=== PATIENT | female | born 1955 | race African-American/Black ===

== ENCOUNTER 2016-11-17 05:02 | Emergency (ER) | payer SELFPAY ==
[2016-11-17 05:12] VITALS: BP 139/69
[2016-11-17] MEDS ORDERED: PREDNISONE 20 MG TABLET PO ONE (08:48)
[2016-11-17] MEDS ORDERED: CYCLOBENZAPRINE HCL 10 MG TABLET PO ONE (08:48)
[2016-11-17] MEDS ORDERED: IBUPROFEN 800 MG TABLET PO ONE (08:48)
--- NOTE | 2016-11-17 08:49 | ER Document Report ---
ED General Pain - General Chief Complaint: Low Back Pain Stated Complaint: BACK PAIN Time Seen by Provider: 11/17/16 08:10 Mode of Arrival: Ambulatory Information source: Patient Notes: Patient is a 61-year-old female who presents to the ER today for left-sided back pain radiating down the left leg. She denies any numbness or tingling, back injury. She does state that she has been starting exercise classes here recently that is all inclusive of cardio, weight lifting and she does "a lot more than I am used to." She denies any chronic back pain. She denies any loss of bladder or bowel function. TRAVEL OUTSIDE OF THE [place] IN LAST 30 DAYS: No Past Medical History - General Information source: Patient - Social History Smoking Status: Unknown if Ever Smoked Family History: Reviewed & Not Pertinent Patient has suicidal ideation: No Patient has homicidal ideation: No Renal/ Medical History: Denies: Hx Peritoneal Dialysis Review of Systems - Review of Systems Constitutional: No symptoms reported EENT: No symptoms reported Cardiovascular: No symptoms reported Respiratory: No symptoms reported Gastrointestinal: No symptoms reported Genitourinary: No symptoms reported Female Genitourinary: No symptoms reported Musculoskeletal: See HPI Skin: No symptoms reported Hematologic/Lymphatic: No symptoms reported Neurological/Psychological: No symptoms reported Physical Exam - Vital signs Vitals: Temp Pulse Resp BP Pulse Ox 98.6 F 75 20 139/69 H 98 11/17/16 05:10 11/17/16 05:10 11/17/16 05:10 11/17/16 05:10 11/17/16 05:10 - Notes Notes: PHYSICAL EXAMINATION: GENERAL: Well-appearing and in no acute distress. HEAD: Atraumatic, normocephalic. EYES: Pupils equal round and reactive to light, extraocular movements intact, sclera anicteric, conjunctiva are normal. NECK: Normal range of motion, supple without lymphadenopathy LUNGS: CTAB and equal. No wheezes rales or rhonchi. HEART: Regular rate and rhythm without murmurs ABDOMEN: Soft, no tenderness. No guarding, no rebound BACK: no vertebral tenderness, normal ROM GI/: no CVA tenderness EXTREMITIES: Normal range of motion, no pitting edema. No cyanosis. NEUROLOGICAL: Cranial nerves grossly intact. Normal sensory/motor exams. PSYCH: Normal mood, normal affect. SKIN: Warm, Dry, normal turgor, no rashes or lesions noted Course - Re-evaluation Re-evalutation: 11/17/16 08:50 - Vital Signs Vital signs: Temp Pulse Resp BP Pulse Ox 98.6 F 75 20 139/69 H 98 11/17/16 05:10 11/17/16 05:10 11/17/16 05:10 11/17/16 05:10 11/17/16 05:10 Discharge - Discharge Clinical Impression: Sciatica Qualifiers: Laterality: left Qualified Code(s): M54.32 - Sciatica, left side Condition: Stable Disposition: HOME, SELF-CARE Instructions: Sciatica ([facility]) Additional Instructions: Return immediately for any new or worsening symptoms. Follow up with primary care provider, call tomorrow to make followup appointment. Prescriptions: Cyclobenzaprine HCl [Flexeril 10 mg Tablet] 10 mg PO TIDP PRN #15 tab PRN Reason: Ibuprofen [Motrin 800 mg Tablet] 800 mg PO Q8H PRN #30 tab PRN Reason: Prednisone 60 mg PO DAILY #15 tablet Forms: Return to Work Referrals: VALERIE MAC MD [Primary Care Provider] - Follow up as needed
== END 2016-11-17 09:10 | disposition home or self-care (01) ==
LOC: ER 05:02
DX: M54.42 Lumbago with sciatica, left side (principal)
CPT/HCPCS: 99283; J7512

== ENCOUNTER 2017-05-17 13:47 | Emergency (ER) | payer BC ==
--- NOTE | 2017-05-17 14:47 | ER Document Report ---
ED General - General Chief Complaint: Back Pain Stated Complaint: BACK PAIN Mode of Arrival: Ambulatory TRAVEL OUTSIDE OF THE [place] IN LAST 30 DAYS: No - HPI Notes: 7-year-old female presents today with complaints of acute lower back pain 1 day, but has had "nagging back pain for the last 2 weeks". Patient states she slipped while she was walking on the ice last week, denies falling. Denies any numbness or tingling down bilateral lower extremities. LBP 5/10, throbbing and achy. denies issues with bowel or bladder function since onset of pain. Tried motrin for pain without full relief. Worse when bending over, better when laying down. Pain is progressive. Denies any trauma. Denies any fevers or chills. Denies any cp, sob, n/v/d, abd pain, dysuria and hematuria. Saw her PCP for this issue last week, states she had a Pap smear done, provider thinks that she has a "tilted uterus". Patient goes back to PCP in 3 days for reevaluation. - Related Data Allergies/Adverse Reactions: No Known Allergies Allergy (Unverified 05/17/17 13:49) Past Medical History - General Information source: Patient - Social History Smoking Status: Unknown if Ever Smoked Family History: None, Reviewed & Not Pertinent Renal/ Medical History: Denies: Hx Peritoneal Dialysis Review of Systems - Review of Systems Constitutional: No symptoms reported EENT: No symptoms reported Cardiovascular: No symptoms reported Respiratory: No symptoms reported Gastrointestinal: No symptoms reported Genitourinary: No symptoms reported Female Genitourinary: No symptoms reported Musculoskeletal: See HPI Skin: No symptoms reported Hematologic/Lymphatic: No symptoms reported Neurological/Psychological: No symptoms reported Physical Exam - Vital signs Vitals: Temp Pulse Resp BP Pulse Ox 98.2 F 85 14 137/71 H 99 05/17/17 13:50 05/17/17 13:50 05/17/17 13:50 05/17/17 13:50 05/17/17 13:50 - Notes Notes: PHYSICAL EXAMINATION: GENERAL: Well-appearing, well-nourished and in no acute distress. HEAD: Atraumatic, normocephalic. EYES: Pupils equal round and reactive to light, extraocular movements intact, conjunctiva are normal. ENT: Nares patent, oropharynx clear without exudates. Moist mucous membranes. NECK: Normal range of motion, supple without lymphadenopathy LUNGS: Breath sounds clear to auscultation bilaterally and equal. No wheezes rales or rhonchi. HEART: Regular rate and rhythm without murmurs ABDOMEN: Soft, nontender, nondistended abdomen. No guarding, no rebound. No masses appreciated. Female : deferred Musculoskeletal: Normal range of motion, no pitting or edema. No cyanosis. straight leg test negative. Pain with flexion and extension at 30 degrees. Normal hip rotation. DTR +2 in BLE equally. Normal motor and sensory function in BLE equally. Distal pulses + 2 BLE equally. Noted paraspinal tenderness near L2 and L3. No spinal tenderness. No CVA tenderness bilaterally. Femoral pulses + 2 bilaterally and equally. No abrasions, scars, lacerations, ecchymosis of any recent trauma. NEUROLOGICAL: Cranial nerves grossly intact. Normal speech, normal gait. Normal sensory, motor exams PSYCH: Normal mood, normal affect. SKIN: Warm, Dry, normal turgor, no rashes or lesions noted. Course - Re-evaluation Re-evalutation: Rechecked the patient who is resting comfortably. On re-exam, patient is symptomatically improved. Discussed the results of the radiology as well as the diagnosis at great length. LS spine completely negative for any acute fractures or dislocations. Noted DJD and antherolisthesis. Will refer patient to procurement specialist. Discussed the need to return to the ER for any new or worsening sx. Patient understands to take the Rx as directed. All questions answered. Patient comfortable with the decision to go home. 05/17/17 16:21 - Vital Signs Vital signs: Temp Pulse Resp BP Pulse Ox 98.2 F 85 14 137/71 H 99 05/17/17 13:50 05/17/17 13:50 05/17/17 13:50 05/17/17 13:50 05/17/17 13:50 Discharge - Discharge Clinical Impression: Acute bilateral low back pain Qualifiers: Sciatica presence: without sciatica Qualified Code(s): M54.5 - Low back pain Condition: Good Disposition: HOME, SELF-CARE Instructions: Low Back Pain ([facility]), Muscle Strain ([facility]) Additional Instructions: LOW BACK PAIN: Three out of every four people will have an episode of disabling back pain during their lifetime. Most commonly the pain is due to straining of the muscles and ligaments in the low back. Usual treatment includes: (1) Rest on a firm surface. Avoid lying on your stomach. (2) Ice pack the painful area. After a few days, gentle heat may be used intermittently to relax the area, or ice packs can be continued. (3) Medication may be needed -- muscle relaxers and antiinflammatory medicines are commonly used. (4) As the back improves, exercises are prescribed to strengthen the back and abdominal muscles. Your doctor will advise you on the proper care for your back at each stage in your recovery. You may be better in a few days -- or healing may take several weeks. If new symptoms of a "herniated disc" (radiation of pain, numbness, or tingling down the back of the leg or weakness in the leg) occur, you should be re-examined. Further testing may be necessary. PAIN MEDICATION INJECTION: You have received an injection of a pain medication. You should experience significant pain relief within 45 minutes. If this injection was a narcotic -- it will impair your judgement, slow your reaction time and make you sleepy (as well as relieve your pain). Narcotics also can cause nausea. You should not drive, work with machinery, or perform any task requiring mental alertness until all effects of the medication are gone -- six to eight hours. Do not take any alcohol, or sedatives, and do not take any other medication without checking with your physician. MUSCLE RELAXERS: Muscle relaxing medications are usually prescribed for acute muscle spasm or injury to the neck and back. They are often combined with antiinflammatory pain medication for increased relief. You may stop the muscle relaxer when the pain and stiffness have improved. Start the medication again if spasms recur. Muscle relaxers may cause drowsiness, especially with the first dose. Do not operate machinery or drive while under the effects of the medication. Most muscle relaxers last up to 24 hours. Do not combine the medication with alcohol. ICE PACKS: Apply ice packs frequently against the painful area. Many different schedules are recommended, such as "20 minutes on, 20 minutes off" or "one hour ice, two hours rest." If you need to work, you may need to go longer between ice treatments. You should plan to have the area ice packed AT LEAST one fourth of the time. The ice should be applied over the wrap, tape, or splint, or over a layer of cloth -- not directly against the skin. Some ice bags have a built-in cloth and can be put directly on the skin. WARM PACKS: After approximately two days, apply gentle heat (such as a heating pad or hot water bottle) for about 20 to 30 minutes about every two hours -- at least four times daily. Warmth and elevation will help you make a more rapid recovery , and will ease the pain considerably. Do not use HOT heat, and never apply heat for longer than 30 minutes. The continuous heat can invisibly damage skin and muscles -- even when no burn is seen on the surface. Damaged muscles can make you MORE sore. Stretching Exercises for the Back The physician has recommended that you begin stretching exercises for your back. These are often used even while the back is painful. However, you should notify the physician if the activities seem to increase your pain. PELVIC TILT: Lie flat on your back with knees bent. Tighten your stomach and buttock muscles so it flattens your lower back against the floor. Hold 10 seconds. Repeat 10 times, twice daily. KNEE RAISE: Lying on the back with knees bent, raise one knee to your chest, then the other. Hold both knees against the chest 10 seconds, then lower one knee at a time. Repeat 10 times, twice daily. PARTIAL TRUNK RAISE: Lie face down, arms at your sides. Keeping your waist on the floor, use your arms raise your chest up. Support yourself on your elbows for 30 seconds. Repeat twice daily, increasing the time to two minutes as you recover. FOLLOW-UP CARE: If you have been referred to a physician for follow-up care, call the physician s office for an appointment as you were instructed or within the next two days. If you experience worsening or a significant change in your symptoms, notify the physician immediately or return to the Emergency Department at any time for re-evaluation.*You have been evaluated for back pain *Take medication as prescribed *Rest/Ice- heat as directed *Follow up with a primary care provider *Return to ED for worsening condition, changes, needs Discharge Prescriptions: Cyclobenzaprine HCl [Flexeril 10 mg Tablet] 10 mg PO TIDP PRN #9 tab PRN Reason: Meloxicam 7.5 mg PO DAILY #7 tablet Referrals: VALERIE MAC MD [Primary Care Provider] - Follow up in 3-5 days LIBERTAD RIOS DO [ACTIVE STAFF] - Follow up in 3-5 days
[2017-05-17] MEDS ORDERED: KETOROLAC TROMETHAMINE 60 MG/2 ML SDV IM PRN (15:33)
--- NOTE | 2017-05-17 16:14 | RADIOLOGY REPORT (SQ) ---
EXAM DESCRIPTION: L SPINE WHOLE COMPLETED DATE/TIME: 05/17/2017 3:59 pm REASON FOR STUDY: Acute LBP COMPARISON: Chest radiograph from 07/01/2007. NUMBER OF VIEWS: Three views. TECHNIQUE: Vertebrae heights otherwise well maintained. AP, lateral and sacral radiographic images acquired of the lumbar spine. LIMITATIONS: None. FINDINGS: MINERALIZATION: Normal. SEGMENTATION: Normal. No transitional anatomy. ALIGNMENT: Minimal anterolisthesis of L5 on S1. Alignment is otherwise normal. VERTEBRAE: Mild anterior wedging of the T12 vertebral body which appears to be chronic pole was not p resent in 2007. DISCS: Mild multilevel degenerative disc disease. POSTERIOR ELEMENTS: Mild facet arthropathy. Pedicles and facets are intact. No pars defect or poste rior arch defects. HARDWARE: None in the spine. PARASPINAL SOFT TISSUES: Normal. PELVIS: Intact as visualized. No fractures or worrisome bone lesions. SI joints intact. OTHER: No other significant finding. IMPRESSION: MILD DEGENERATIVE CHANGE OF THE LUMBAR SPINE WITH GRADE 1 ANTEROLISTHESIS L5 ON S1 IN TH E SETTING OF FACET ARTHROPATHY. CHRONIC APPEARING MILD ANTERIOR WEDGE DEFORMITY OF THE T12 VERTEBRAL BODY WAS NOT PRESENT IN 2007. CORRELATE WITH LEVEL OF PAIN. NO ACUTE FRACTURE IDENTIFIED. TECHNICAL DOCUMENTATION: JOB ID: [id number] [employer]- All Rights Reserved
[2017-05-17 16:35] VITALS: BP 133/73
== END 2017-05-17 16:35 | disposition home or self-care (01) ==
LOC: ER 13:47
DX: M54.5 Low back pain (principal); W18.49XA Other slipping, tripping and stumbling without falling, initial encounter; M47.9 Spondylosis, unspecified
CPT/HCPCS: 99283; 96372; 72110; J1885

== ENCOUNTER 2017-07-02 17:42 | Emergency (ER) | payer BC ==
[2017-07-02] MEDS ORDERED: LIDOCAINE 5% (700 MG) TRANSDERMAL ADH..PATCH TP ONE (19:36)
[2017-07-02] MEDS ORDERED: OXYCODONE-ACETAMINOPHEN 5-325 MG TABLET PO ONE (19:36)
--- NOTE | 2017-07-02 19:45 | ER Document Report ---
HPI - HPI Patient complains to provider of: low back pain Onset: Yesterday Onset/Duration: Gradual Quality of pain: Achy Pain Level: 3 Context: Patient complains of right lower back pain that has been off and on that got worse today. Patient denies any urinary symptoms or fever. Patient denies any abdominal tenderness. Patient denies any radiculopathy or paresthesia. Patient has seen her doctor for this in the past and was prescribed Motrin. Associated Symptoms: Other - Low back pain. denies: Fever Exacerbated by: Movement Relieved by: Denies Similar symptoms previously: Yes Recently seen / treated by doctor: No - ROS ROS below otherwise negative: Yes Systems Reviewed and Negative: Yes All other systems reviewed and negative - CONSTITUTIONAL Constitutional: DENIES: Fever, Chills - GASTROINTESTINAL Gastrointestinal: DENIES: Abdominal Pain, Nausea, Patient vomiting - URINARY Urinary: DENIES: Dysuria - MUSCULOSKELETAL Musculoskeletal: REPORTS: Back Pain. DENIES: Extremity pain, Neck Pain - DERM Skin Color: Normal Skin Problems: None Past Medical History - General Information source: Patient - Social History Smoking Status: Never Smoker Frequency of alcohol use: None Drug Abuse: None Occupation: [employer] Lives with: Family Family History: None, Reviewed & Not Pertinent - Past Medical History Cardiac Medical History: Reports: Hx Hypercholesterolemia, Hx Hypertension Renal/ Medical History: Denies: Hx Peritoneal Dialysis Past Surgical History: Reports: Hx Abdominal Surgery - hernia age 11 Vertical Provider Document - CONSTITUTIONAL Agree With Documented VS: Yes Exam Limitations: No Limitations General Appearance: WD/WN, No Apparent Distress - INFECTION CONTROL TRAVEL OUTSIDE OF THE [place] IN LAST 30 DAYS: No - HEENT HEENT: Atraumatic, Normocephalic - NECK Neck: Normal Inspection - RESPIRATORY Respiratory: Breath Sounds Normal, No Respiratory Distress O2 Sat by Pulse Oximetry: 98 - CARDIOVASCULAR Cardiovascular: Regular Rate, Regular Rhythm - GI/ABDOMEN Gastrointestinal: Abdomen Soft, Abdomen Non-Tender, No Organomegaly, Normal Bowel Sounds. negative: Abdominal Guarding - BACK Back: Abnormal Inspection - Right lower lumbar paraspinal tenderness, no midline tenderness, step-off or deformity. negative: CVA Tenderness-Right, CVA Tenderness-Left - MUSCULOSKELETAL/EXTREMETIES Musculoskeletal/Extremeties: MAEW, FROM - NEURO Level of Consciousness: Awake, Alert, Appropriate Motor/Sensory: No Motor Deficit Notes: No saddle anesthesia, normal gait - DERM Integumentary: Warm, Dry, No Rash Course - Re-evaluation Re-evalutation: 07/02/17 19:[address] Mendoza regarding patient presentation and diagnostic evaluation. Patient without midline spinal tenderness, afebrile. No abdominal tenderness. 07/02/17 20:45 The patient presents with low back pain without signs of spinal cord compression , cauda equina syndrome, infection, aneurysm, or other serious etiology. The patient is neurologically intact. Given the extremely risk of these diagnoses further testing and evaluation for these possibilities does not appear to be indicated at this time. Patient has been instructed to return if the symptoms worsen or change in any way. - Vital Signs Vital signs: Temp Pulse Resp BP Pulse Ox 98.3 F 70 16 153/79 H 98 07/02/17 17:56 07/02/17 17:56 07/02/17 17:56 07/02/17 17:56 07/02/17 17:56 Discharge - Discharge Clinical Impression: Hx of essential hypertension Low back pain Qualifiers: Chronicity: unspecified Back pain laterality: right Sciatica presence: without sciatica Qualified Code(s): M54.5 - Low back pain Condition: Stable Disposition: HOME, SELF-CARE Instructions: Ice Packs ([facility]), Warm Packs ([facility]), Low Back Pain ([facility]) Additional Instructions: Return immediately for any new or worsening symptoms Followup with your primary care provider, call Wednesday for an appointment time Prescriptions: Methocarbamol [Robaxin 500 Mg Tablet] 500 mg PO QID PRN #20 tablet PRN Reason: Forms: Return to Work, Elevated Blood Pressure Referrals: VALERIE MAC MD [Primary Care Provider] - Follow up as needed
[2017-07-02 20:19] LABS: APPEARANCE,URINE CLEAR; BILIRUBIN,URINE NEGATIVE (NEGATIVE); COLOR,URINE YELLOW; GLUCOSE, URINE NEGATIVE (NEGATIVE); KETONES,URINE NEGATIVE (NEGATIVE); LEUKOCYTE ESTERASE,URINE NEGATIVE (NEGATIVE); NITRITE,URINE NEGATIVE (NEGATIVE); PROTEIN,URINE NEGATIVE (NEGATIVE); URINE SPECIFIC GRAVITY 1.023
[2017-07-02 21:00] VITALS: BP 145/64
== END 2017-07-02 21:03 | disposition home or self-care (01) ==
LOC: ER 17:42
DX: M54.5 Low back pain (principal); I10 Essential (primary) hypertension
CPT/HCPCS: 81001; 99283

== ENCOUNTER → 2017-07-15 | Outpatient (CLI) | payer BC ==
--- NOTE | 2017-07-15 12:33 | RADIOLOGY REPORT (SQ) ---
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 TECHNIQUE: CT scan of the abdomen and pelvis performed using helical scanning technique with dynamic intravenous contrast injection. No oral contrast. Images reviewed with lung, soft tissue, and bone windows. Reconstructed coronal and sagittal MPR images reviewed. Delayed images for evaluation of the urinary system also acquired. All images stored on PACS. All CT scanners at this facility use dose modulation, iterative reconstruction, and/or weight based d osing when appropriate to reduce radiation dose to as low as reasonably achievable (ALARA). [facility]: Dose Right [facility]: CareDose [facility]: Dose Right [facility]: Teradose 4D [facility]: JFrog CONTRAST TYPE AND DOSE: contrast/concentration: Isovue 370.00 mg/ml; Total Contrast Delivered: 89.0 ml; Total Saline Delivered: 70.0 ml RENAL FUNCTION: Creatinine 0.6. RADIATION DOSE: CT Rad equipment meets quality standard of care and radiation dose reduction techniq ues were employed. CTDIvol: 6.7 - 7.7 mGy. DLP: 712 mGy-cm.. LIMITATIONS: None. FINDINGS: LOWER CHEST: No significant findings. No nodules or infiltrates. LIVER: Normal size. No masses. No dilated ducts. SPLEEN: Normal size. No focal lesions. PANCREAS: No masses. No significant calcifications. No adjacent inflammation or peripancreatic fluid collections. Pancreatic duct not dilated. GALLBLADDER: No identified stones by CT criteria. No inflammatory changes to suggest cholecystitis. ADRENAL GLANDS: No significant masses or asymmetry. RIGHT KIDNEY AND URETER: No solid masses. No significant calcifications. No hydronephrosis or hyd roureter. LEFT KIDNEY AND URETER: No solid masses. No significant calcifications. No hydronephrosis or hydr oureter. AORTA AND VESSELS: No aneurysm. No dissection. Renal arteries, SMA, celiac without stenosis. RETROPERITONEUM: No retroperitoneal adenopathy, hemorrhage or masses. BOWEL AND PERITONEAL CAVITY: No masses or inflammatory changes. No free fluid or peritoneal masses. APPENDIX: Not visualized. PELVIS: Enlarged uterus with heterogenous nodular appearance and numerous coarse calcifications. . No free fluid. Normal bladder. ABDOMINAL WALL: No masses. No hernias. BONES: There are destructive soft tissue lesions involving the T12 vertebral body with compression fr acture and also involving the body and left side of the L5 vertebral body. Similar lesion in the pos terior right acetabulum and smaller lesions in the anterior posterior left acetabulum. Similar small er lesion on the left side of the T7 vertebral body. Previous fracture of the posterior right 8th ri b with probable expansile soft tissue component. OTHER: No other significant finding. IMPRESSION: 1. SEVERAL DESTRUCTIVE BONY LESIONS DESCRIBED. RECOMMEND FURTHER EVALUATION WITH MRI OF THE THORA CIC AND LUMBAR SPINE AND PELVIS, WITHOUT AND WITH CONTRAST. 2. ENLARGED HETEROGENOUS NODULAR APPEARANCE OF THE UTERUS WITH COARSE CALCIFICATIONS CONSISTENT WITH FIBROIDS. 3. NO OTHER SIGNIFICANT OR ACUTE FINDING IN THE ABDOMEN OR PELVIS ON CT SCAN WITH IV CONTRAST. TECHNICAL DOCUMENTATION: JOB ID: [id number] Quality ID # [id number]: Final reports with documentation of one or more dose reduction techniques (e.g., Au tomated exposure control, adjustment of the mA and/or kV according to patient size, use of iterative reconstruction technique) 2010 [employer]- All Rights Reserved Reading location - IP/workstation name: [email or web address]
== END ==
LOC: RAD 09:42
PROVIDERS: ATTEND Specialist
DX: D25.1 Intramural leiomyoma of uterus (principal); R10.9 Unspecified abdominal pain
CPT/HCPCS: 74177; 82565

== ENCOUNTER → 2017-07-22 | Outpatient (CLI) | payer BC ==
--- NOTE | 2017-07-23 09:29 | RADIOLOGY REPORT (SQ) ---
EXAM DESCRIPTION: MRI THORACIC SPINE COMBO; MRI LUMBAR SPINE COMBO COMPLETED DATE/TIME: 07/22/2017 5:12 pm; 07/22/2017 5:10 pm REASON FOR STUDY: COMPLETE LESION AT T11-T12; ABNORMAL FINDINGS ON DIAGNOSTIC IMAGING OF PRT MS SYS D25.9 LEIOMYOMA OF UTERUS, UNSPECIFIED S24.114A COMPLETE LESION AT T11-T12, INIT R93.7 ABNORMAL FI NDINGS ON DIAGNOSTIC IMAGING OF PRT MS SYS COMPARISON: CT abdomen pelvis 07/15/2017 Lumbar spine films 05/17/2017 TECHNIQUE: Sagittal and Axial imaging includes T1, T2, STIR and gradient echo sequences. T1 post ga dolinium sequences. Imaging throughout the thoracic and lumbar spine. CONTRAST TYPE AND DOSE: 15 mL Multihance. RENAL FUNCTION: Estimated GFR greater than 60 LIMITATIONS: None. FINDINGS: Multiple enhancing lytic lesions are seen throughout the lower ribs, lower thoracic spine, lumbar spine, and visualized bony pelvis worrisome for myeloma or metastatic disease. There is a vertebra plana deformity at T12, with greater than 75% vertebral body loss of height. Abo ut 33% central canal compromise is present, the posterior cortex of T12 abuts the distal thoracic cor d without definite cord flattening or cord edema. Heavy burden of disease at the L5 vertebral body with 25% upper endplate compression, and no retropul kristin of bony structures causing central canal narrowing. There is expansion of the left L5 pedicle c ausing mild left foraminal narrowing. Other smaller lesions are seen in the C7 spinous process, T3 vertebral body, left T6 pedicle, T7 vert ebral body and spinous process, left T9 pedicle, upper endplate of T10, L1 vertebral body, upper endp late of S1 and bilateral posterosuperior iliac crests. No abnormal contrast enhancement of the thoracic cord, conus, or lumbar nerve roots. This report was discussed with Dr. Delong, 0915 hours 07/23/2017 Elsewhere in the thoracic and lumbar spine, no high-grade central canal or foraminal stenosis is pres ent. No retroperitoneal adenopathy. IMPRESSION: Multiple enhancing lytic lesions in the thoracic and lumbar spine worrisome for myeloma or metastatic disease. Vertebra plana deformity at T12 with narrowing of the central canal as above. Heavy burden of disease at L5. TECHNICAL DOCUMENTATION: JOB ID: [id number] [employer]- All Rights Reserved Reading location - IP/workstation name: [email or web address]
== END ==
LOC: RAD 14:50
PROVIDERS: ATTEND Specialist
DX: S24.114A Complete lesion at T11-T12 level of thoracic spinal cord, initial encounter (principal); R93.7 Abnormal findings on diagnostic imaging of other parts of musculoskeletal system; D25.9 Leiomyoma of uterus, unspecified
CPT/HCPCS: 72157; 72158; A9577

== ENCOUNTER → 2017-07-23 | Outpatient (CLI) | payer BC ==
--- NOTE | 2017-07-23 16:41 | RADIOLOGY REPORT (SQ) ---
EXAM DESCRIPTION: MRI PELVIS COMBO COMPLETED DATE/TIME: 07/23/2017 12:06 pm REASON FOR STUDY: LEIOMYOMA OF UTERUS, UNSPECIFIED D25.9 LEIOMYOMA OF UTERUS, UNSPECIFIED S24.114A COMPLETE LESION AT T11-T12, INIT R93.7 ABNORMAL FINDINGS ON DIAGNOSTIC IMAGING OF PRT MS SYS COMPARISON: CT abdomen pelvis 07/15/2017 MRI thoracic and lumbar spine same date TECHNIQUE: Multiplanar multisequence imaging performed without and with contrast including axial, sa gittal and coronal T2, axial T, axial gradient fat sat T1, axial, sagittal and coronal fat sat T2 pos t contrast. CONTRAST TYPE AND DOSE: 15 mL Prohance. RENAL FUNCTION: GFR > 60. LIMITATIONS: None. FINDINGS: BLADDER AND URETHRA: No focal bladder wall thickening or nodularity. Smooth mucosa. The urethra has smooth contour with no focal asymmetry. No abnormal enhancement. No focal lesions. PELVIC SOFT TISSUES: Normal. No masses. UTERUS: Uterus measures 13 x 12 x 8 cm in size. Myometrium is near completely replaced with multiple fibroids. Endometrial stripe not well seen. RIGHT OVARY: Normal size. No masses. Right ovary 2.9 x 1.3 cm in size on axial image 15. LEFT OVARY: Normal size. No masses. Left ovary 1.8 x 1.6 cm in size on axial image 5 FREE FLUID: None. PELVIC SKELETAL STRUCTURES: Multiple lytic bony metastatic or myeloma lesions throughout the visualiz ed skeletal structures as follows: Left L5 vertebral body and pedicle Upper endplate S1 The posterior iliac crest Left acetabular roof and anterior acetabular wall Right ischium and posterior wall acetabulum EXTRA PELVIS SOFT TISSUES: No masses. OTHER: No other significant finding. IMPRESSION: Enlarged fibroid uterus Multiple bony lesions worrisome for myeloma or metastatic disease TECHNICAL DOCUMENTATION: JOB ID: [id number] [employer]- All Rights Reserved Reading location - IP/workstation name: [email or web address]
== END ==
LOC: RAD 10:28
PROVIDERS: ATTEND Specialist
DX: D25.9 Leiomyoma of uterus, unspecified (principal); S24.114A Complete lesion at T11-T12 level of thoracic spinal cord, initial encounter; X58.XXXA Exposure to other specified factors, initial encounter; Y93.9 Activity, unspecified; Y92.9 Unspecified place or not applicable; R93.7 Abnormal findings on diagnostic imaging of other parts of musculoskeletal system
CPT/HCPCS: 72197; A9576

== ENCOUNTER → 2017-07-29 | Outpatient (CLI) | payer BC ==
--- NOTE | 2017-07-29 10:40 | RADIOLOGY REPORT (SQ) ---
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 TECHNIQUE: CT scan performed of the chest without intravenous contrast. Images reviewed with lung, soft tissue and bone windows. Reconstructed coronal and sagittal MPR images reviewed. All images st ored on PACS. All CT scanners at this facility use dose modulation, iterative reconstruction, and/or weight based d osing when appropriate to reduce radiation dose to as low as reasonably achievable (ALARA). [facility]: Dose Right [facility]: CareDose [facility]: Dose Right [facility]: Teradose 4D [facility]: [employer] RADIATION DOSE: CT Rad equipment meets quality standard of care and radiation dose reduction techniq ues were employed. CTDIvol: 4.7 mGy. DLP: 160 mGy-cm. mGy. LIMITATIONS: No technical limitations. FINDINGS: LUNGS AND PLEURA: There are 3-4 small pleural-based nodules measuring up to about 3 mm in the right lower lobe 1 image 62. No effusions. HILAR AND MEDIASTINAL STRUCTURES: No identified masses or abnormal nodes. No obvious aneurysm. HEART AND VASCULAR STRUCTURES: No aneurysm. No pericardial effusion. UPPER ABDOMEN: See recent CT abdomen pelvis report. THYROID AND OTHER SOFT TISSUES: No masses. No adenopathy. BONES: Multiple lytic lesions in the spine and ribs. Extensive bone destruction T12 and posterior el ements of T7. HARDWARE: None in the chest. OTHER: No other significant findings. IMPRESSION: 1. Lytic bone metastasis. 2. Less than 4 mm pulmonary nodules. TECHNICAL DOCUMENTATION: JOB ID: [id number] Quality ID # [id number]: Final reports with documentation of one or more dose reduction techniques (e.g., Au tomated exposure control, adjustment of the mA and/or kV according to patient size, use of iterative reconstruction technique) 2010 [employer]- All Rights Reserved Reading location - IP/workstation name: [email or web address]
== END ==
LOC: RAD 08:46
PROVIDERS: ATTEND Internal Medicine
DX: C41.9 Malignant neoplasm of bone and articular cartilage, unspecified (principal); C79.51 Secondary malignant neoplasm of bone; R91.8 Other nonspecific abnormal finding of lung field
CPT/HCPCS: 71250

== ENCOUNTER 2017-08-05 08:35 | Day surgery (SDC) | payer BC ==
[2017-08-05 09:34] LABS: HEMATOCRIT 34.2 % (36.0-47.0); HEMOGLOBIN 11.4 g/dL (12.0-15.5); MEAN CORPUSCULAR HEMOGLOBIN 31.9 pg (27.0-33.4); MEAN CORPUSCULAR HGB CONC 33.3 g/dL (32.0-36.0); MEAN CORPUSCULAR VOLUME 96 fl (80-97); PLATELET COUNT 298 10^3/uL (150-450); RED BLOOD COUNT 3.57 10^6/uL (3.72-5.28); RED CELL DISTRIBUTION WIDTH 14.8 % (11.5-14.0); WHITE BLOOD COUNT 6.5 10^3/uL (4.0-10.5)
[2017-08-05 09:39] LABS: INTERNATIONAL RATION (INR) 0.89; PROTHROMBIN TIME 12.7 SEC (11.4-15.4)
[2017-08-05 09:40] LABS: PARTIAL THROMBOPLASTIN TIME 26.6 SEC (23.5-35.8)
[2017-08-05 09:58] LABS: BLOOD UREA NITROGEN 14 mg/dL (7-20)
[2017-08-05] MEDS ORDERED: MIDAZOLAM 2 MG/2 ML INJ ONE (11:02)
[2017-08-05] MEDS ORDERED: LIDOCAINE 1% INJ-PF (10 MG/ML) 30 ML SDV ONE (11:03)
[2017-08-05] MEDS ORDERED: FENTANYL CITRATE INJ/PF 100 MCG/2 ML AMPUL ONE (11:03)
[2017-08-05 14:12] VITALS: BP 126/72
--- NOTE | 2017-08-05 16:16 | RADIOLOGY REPORT (SQ) ---
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 CT Fluoroscopy Time: 3.[address] scanners at this facility use dose modulation, iterative reconstruction, and/or weight based d osing when appropriate to reduce radiation dose to as low as reasonably achievable (ALARA). [facility]: Dose Right [facility]: CareDose [facility]: Dose Right [facility]: Teradose 4D [facility]: [email or web address] RADIATION DOSE: mGy. FINDINGS: The procedure was discussed with the patient and the patient agreed to the procedure. Prio r to the procedure, a time out was performed to verify the patient's identity and planned procedure. IV sedation was administered and physician direction by the registered nurse using 1 milligrams of Ve rsed and 100 micrograms of fentanyl. Physiologic monitoring was provided before, during, and after se dation. The total sedation time was 41 minutes. Documentation face to face time, the performing proceduralist, spent monitoring the patient: [address] scanning was performed to localize the percutaneous site for the biopsy approach. After sterile skin prep and local lidocaine for skin and deep tissue anesthesia, a 14 gauge coaxial b iopsy needle was used to obtain a bone marrow aspirate, and a bone marrow core of tissue. The biopsy tissue was received by Dr. Villalobos's nurse to be sent out for evaluation. There were no immediate com plications. Pathology is pending at the time of dictation. Broadcast Correspondent CT demonstrates a lytic destructive lesion in the left half of the L5 vertebral body extending into the pedicle. IMPRESSION: CT GUIDED ASPIRATE AND CORE BIOPSY OF THE RIGHT POSTERIOR ILIAC CREST BONE MARROW PERFOR MED WITHOUT IMMEDIATE COMPLICATION. PATHOLOGY PENDING. IV CONSCIOUS SEDATION WITHOUT COMPLICATION. COMMENT: Quality ID 145: Final reports for procedures using fluoroscopy that document radiation exp osure indices, or exposure time and number of fluorographic images (if radiation exposure indices are not available) Patient medication list reviewed: Yes- Quality ID# [id number]:Eligible professional attests to documenting i n the medical record they obtained, updated, or reviewed the patient's current medications.. TECHNICAL DOCUMENTATION: JOB ID: [id number] Quality ID# 436: Final reports with documentation of one or more dose reduction techniques (e.g., Aut omated exposure control, adjustment of the mA and/or kV according to patient size, use of iterative r econstruction technique) 2010 [employer]- All Rights Reserved Reading location - IP/workstation name: [facility]
--- NOTE | 2017-08-05 16:16 | RADIOLOGY REPORT (SQ) ---
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 CT Fluoroscopy Time: 3.[address] scanners at this facility use dose modulation, iterative reconstruction, and/or weight based d osing when appropriate to reduce radiation dose to as low as reasonably achievable (ALARA). [facility]: Dose Right [facility]: CareDose [facility]: Dose Right [facility]: Teradose 4D [facility]: [employer] RADIATION DOSE: mGy. FINDINGS: The procedure was discussed with the patient and the patient agreed to the procedure. Prio r to the procedure, a time out was performed to verify the patient's identity and planned procedure. IV sedation was administered and physician direction by the registered nurse using 1 milligrams of Ve rsed and 100 micrograms of fentanyl. Physiologic monitoring was provided before, during, and after se dation. The total sedation time was 41 minutes. Documentation face to face time, the performing proceduralist, spent monitoring the patient: [address] scanning was performed to localize the percutaneous site for the biopsy approach. After sterile skin prep and local lidocaine for skin and deep tissue anesthesia, a 14 gauge coaxial b iopsy needle was used to obtain a bone marrow aspirate, and a bone marrow core of tissue. The biopsy tissue was received by Dr. Villalobos's nurse to be sent out for evaluation. There were no immediate com plications. Pathology is pending at the time of dictation. Hair Tinter CT demonstrates a lytic destructive lesion in the left half of the L5 vertebral body extending into the pedicle. IMPRESSION: CT GUIDED ASPIRATE AND CORE BIOPSY OF THE RIGHT POSTERIOR ILIAC CREST BONE MARROW PERFOR MED WITHOUT IMMEDIATE COMPLICATION. PATHOLOGY PENDING. IV CONSCIOUS SEDATION WITHOUT COMPLICATION. COMMENT: Quality ID 145: Final reports for procedures using fluoroscopy that document radiation exp osure indices, or exposure time and number of fluorographic images (if radiation exposure indices are not available) Patient medication list reviewed: Yes- Quality ID# [id number]:Eligible professional attests to documenting i n the medical record they obtained, updated, or reviewed the patient's current medications.. TECHNICAL DOCUMENTATION: JOB ID: [id number] Quality ID# 436: Final reports with documentation of one or more dose reduction techniques (e.g., Aut omated exposure control, adjustment of the mA and/or kV according to patient size, use of iterative r econstruction technique) 2010 [employer]- All Rights Reserved Reading location - IP/workstation name: [facility]
== END 2017-08-05 14:00 | disposition home or self-care (01) ==
LOC: RAD 08:35
PROVIDERS: ATTEND Internal Medicine
PROC: 07DR3ZX Extraction of Iliac Bone Marrow, Percutaneous Approach, Diagnostic (ICD-10-PCS; principal; 2017-08-05)
DX: C41.9 Malignant neoplasm of bone and articular cartilage, unspecified (principal); I10 Essential (primary) hypertension; E78.5 Hyperlipidemia, unspecified; Z79.1 Long term (current) use of non-steroidal anti-inflammatories (NSAID); Z79.899 Other long term (current) drug therapy
CPT/HCPCS: 36415; 84520; 82565; 85027; 85610; 85730; 38221; 77012; J2250; J3010; J3490

== ENCOUNTER 2017-11-12 09:02 | Emergency (ER) | payer BC, OTHER ==
[2017-11-12] MEDS ORDERED: NORMAL SALINE 1000 ML 1,000 ML IV ONE (09:35)
[2017-11-12] MEDS ORDERED: METOCLOPRAMIDE HCL INJ/PF 10 MG/2 ML SDV IV ONE (09:35)
--- NOTE | 2017-11-12 09:38 | ER Document Report ---
ED Medical Screen (RME) - General Chief Complaint: Vomiting Stated Complaint: STOMACH PAIN, VOMITING Time Seen by Provider: 11/12/17 09:35 Mode of Arrival: Wheelchair Information source: Patient, Relative TRAVEL OUTSIDE OF THE [place] IN LAST 30 DAYS: No - HPI Patient complains to provider of: abd pain/vomiting Onset: This morning - pt. with h/o mult. myeloma with constipatiion for the past several days and multiple episodes of emesis starting earlier this am. - Related Data Allergies/Adverse Reactions: Sulfa (Sulfonamide Antibiotics) Allergy (Verified 08/05/17 09:21) Past Medical History - Social History Chew tobacco use (# tins/day): No Frequency of alcohol use: None Drug Abuse: None - Past Medical History Cardiac Medical History: Reports: Hx Hypercholesterolemia, Hx Hypertension Denies: Hx Coronary Artery Disease, Hx Heart Attack Pulmonary Medical History: Denies: Hx Asthma, Hx Bronchitis, Hx COPD, Hx Pneumonia Neurological Medical History: Denies: Hx Cerebrovascular Accident, Hx Seizures Renal/ Medical History: Denies: Hx Peritoneal Dialysis Musculoskeltal Medical History: Denies Hx Arthritis Past Surgical History: Reports: Hx Abdominal Surgery - hernia age 11 - Immunizations Hx Diphtheria, Pertussis, Tetanus Vaccination: Yes History of Influenza Vaccine for 01/2017 - 07/2017 Season: No Physical Exam - Vital signs Vitals: Temp Pulse Resp BP Pulse Ox 98.6 F 103 H 20 122/63 99 11/12/17 09:07 11/12/17 09:07 11/12/17 09:07 11/12/17 09:07 11/12/17 09:07 Course - Vital Signs Vital signs: Temp Pulse Resp BP Pulse Ox 98.6 F 103 H 20 122/63 99 11/12/17 09:07 11/12/17 09:07 11/12/17 09:07 11/12/17 09:07 11/12/17 09:07 Doctor's Discharge - Discharge Referrals: AMISH CHOWDHURY MD [Primary Care Provider] - Follow up as needed
--- NOTE | 2017-11-12 10:00 | RADIOLOGY REPORT (SQ) ---
EXAM DESCRIPTION: ACUTE ABDOMEN SERIES COMPLETED DATE/TIME: 11/12/2017 9:50 am REASON FOR STUDY: abd pain COMPARISON: None. NUMBER OF VIEWS: Three views. TECHNIQUE: Frontal chest, supine abdomen and upright/decubitus abdomen radiographic images acquired. LIMITATIONS: None. FINDINGS: CHEST: Lungs clear of infiltrates. FREE AIR: None. No abnormal gas collections. BOWEL GAS PATTERN: Nonobstructive pattern. No dilated loops or air fluid levels. Large amount of fec al material is identified especially in the right colon and transverse colon CALCIFICATIONS: No suspicious calcifications. HARDWARE: None in the abdomen. SOFT TISSUES: No gross mass or suggestion of organomegaly. BONES: No acute fracture. No worrisome bone lesions. OTHER: No other significant finding. IMPRESSION: NO RADIOGRAPHIC EVIDENCE FOR ACUTE ABDOMINAL DISEASE. TECHNICAL DOCUMENTATION: JOB ID: [id number] [employer]- All Rights Reserved Reading location - IP/workstation name: [email or web address]
[2017-11-12 10:32] LABS: ABSOLUTE EOSINOPHILS # (AUTO) 0.2 10^3/uL (0.0-0.6); ABSOLUTE LYMPHOCYTES (AUTO) 0.9 10^3/uL (0.5-4.7); ABSOLUTE NEUT (AUTO) 7.5 10^3/uL (1.7-8.2); BASOPHILS % (AUTO) 0.1 % (0-2); EOSINOPHILS % (AUTO) 2.3 % (0-6); HEMATOCRIT 33.8 % (36.0-47.0); HEMOGLOBIN 11.6 g/dL (12.0-15.5); MEAN CORPUSCULAR HEMOGLOBIN 33.3 pg (27.0-33.4); MEAN CORPUSCULAR HGB CONC 34.4 g/dL (32.0-36.0); MEAN CORPUSCULAR VOLUME 97 fl (80-97); MONOCYTES % (AUTO) 10.2 % (3-13); PLATELET COUNT 218 10^3/uL (150-450); RED BLOOD COUNT 3.49 10^6/uL (3.72-5.28); RED CELL DISTRIBUTION WIDTH 16.7 % (11.5-14.0); SEGMENTED NEUTROPHILS % (AUTO) 78.4 % (42-78); TOTAL CELLS COUNTED % (AUTO) 100 %; WHITE BLOOD COUNT 9.6 10^3/uL (4.0-10.5)
[2017-11-12 10:52] LABS: ALANINE AMINOTRANSFERASE 36 U/L (9-52); ALBUMIN 4.6 g/dL (3.5-5.0); ALKALINE PHOSPHATASE 58 U/L (38-126); ANION GAP 14 (5-19); ASPARTATE AMINO TRANSFERASE 35 U/L (14-36); BILIRUBIN,DIRECT 0.2 mg/dL (0.0-0.4); BILIRUBIN,TOTAL 0.5 mg/dL (0.2-1.3); BLOOD UREA NITROGEN 12 mg/dL (7-20); CALCIUM 9.2 mg/dL (8.4-10.2); CARBON DIOXIDE 31 mmol/L (22-30); CHLORIDE 97 mmol/L (98-107); GLUCOSE 75 mg/dL (75-110); LIPASE 115.2 U/L (23-300); POTASSIUM 3.3 mmol/L (3.6-5.0); SODIUM 141.9 mmol/L (137-145); TOTAL PROTEIN 7.5 g/dL (6.3-8.2)
[2017-11-12 11:12] LABS: APPEARANCE,URINE SLIGHTLY-CLOUDY; BILIRUBIN,URINE NEGATIVE (NEGATIVE); COLOR,URINE YELLOW; GLUCOSE, URINE NEGATIVE (NEGATIVE); KETONES,URINE TRACE mg/dL (NEGATIVE); LEUKOCYTE ESTERASE,URINE SMALL (NEGATIVE); NITRITE,URINE NEGATIVE (NEGATIVE); PROTEIN,URINE 30 mg/dL (NEGATIVE); URINE SPECIFIC GRAVITY 1.017
[2017-11-12] MEDS ORDERED: LIDOCAINE 2% VISCOUS SOLN 20 ML UDCUP PO ONE (11:28)
--- NOTE | 2017-11-12 11:36 | ER Document Report ---
ED GI/ - General Mode of Arrival: Wheelchair Information source: Patient TRAVEL OUTSIDE OF THE [place] IN LAST 30 DAYS: No - Related Data Home Medications: Egeva. Zelcabe. both chemo meds <NEFTALI AMARO - Last Filed: 11/12/17 11:26> <RONA BETANCOURT - Last Filed: 11/12/17 13:35> - General Chief Complaint: Vomiting Stated Complaint: STOMACH PAIN, VOMITING Time Seen by Provider: 11/12/17 09:35 Notes: Patient is a 62 year old female with multiple myeloma presents to the emergency department complaining of multiple symptoms including nausea, vomiting, constipation and chest tightness onset yesterday. Patient states she has had normal bowel movements on Wednesday, Wednesday and Wednesday and on she became nauseous and constipated. Patient states around 0400 this am she began to vomit and have chest pain. Patient describes her chest pain as a tightness and pressure similar to heart burn. She also complains of some abdominal cramps. Patient denies fevers. Patient was diagnosed with multiple myeloma in July and has been taking oral chemotherapy. Patient takes Hydrocodone as needed. (NEFTALI AMARO) - Related Data Allergies/Adverse Reactions: Sulfa (Sulfonamide Antibiotics) Allergy (Verified 08/05/17 09:21) Past Medical History - General Information source: Patient, Relative - Social History Smoking Status: Never Smoker Chew tobacco use (# tins/day): No Frequency of alcohol use: None Drug Abuse: None Family History: None, Reviewed & Not Pertinent Patient has suicidal ideation: No Patient has homicidal ideation: No - Past Medical History Cardiac Medical History: Reports: Hx Hypercholesterolemia, Hx Hypertension Past Surgical History: Reports: Hx Abdominal Surgery - hernia age 11 - Immunizations Hx Diphtheria, Pertussis, Tetanus Vaccination: Yes <NEFTALI AMARO - Last Filed: 11/12/17 11:26> Review of Systems - Review of Systems Constitutional: No symptoms reported. denies: Fever EENT: No symptoms reported Cardiovascular: See HPI, Chest pain Respiratory: No symptoms reported Gastrointestinal: No symptoms reported, Abdominal pain, Nausea, Vomiting, Constipation Genitourinary: No symptoms reported Female Genitourinary: No symptoms reported Musculoskeletal: No symptoms reported Skin: No symptoms reported Hematologic/Lymphatic: No symptoms reported Neurological/Psychological: No symptoms reported -: Yes All other systems reviewed and negative <SONDRANEFTALI MAZA - Last Filed: 11/12/17 11:26> Physical Exam - General General appearance: Appears well, Alert In distress: None - HEENT Head: Normocephalic, Atraumatic Eyes: Normal Conjunctiva: Normal Extraocular movements intact: Yes Pupils: PERRL Neck: Normal - Respiratory Respiratory status: No respiratory distress Chest status: Nontender Breath sounds: Normal Chest palpation: Normal - Cardiovascular Rhythm: Regular Heart sounds: Normal auscultation Murmur: No Friction rub: No Gallop: None auscultated - Abdominal Inspection: Normal Distension: No distension Bowel sounds: Normal Tenderness: Tender - Just above the umbilicus region and below epigastrium. Organomegaly: No organomegaly - Back Back: Normal - Extremities General upper extremity: Normal ROM General lower extremity: Normal ROM - Neurological Neuro grossly intact: Yes Cognition: Normal Orientation: AAOx4 Aurora Coma Scale Eye Opening: Spontaneous Aurora Coma Scale Verbal: Oriented Aurora Coma Scale Motor: Obeys Commands Mary Coma Scale Total: 15 Speech: Normal - Psychological Associated symptoms: Normal affect, Normal mood - Skin Skin Temperature: Warm Skin Moisture: Dry Skin Color: Normal <NEFTALI AMARO - Last Filed: 11/12/17 11:26> - Vital signs Vitals: Temp Pulse Resp BP Pulse Ox 98.6 F 103 H 20 122/63 99 11/12/17 09:07 11/12/17 09:07 11/12/17 09:07 11/12/17 09:07 11/12/17 09:07 Course - Laboratory Result Diagrams: 11/12/17 10:05 11/12/17 10:05 <SONDRANEFTALI MAZA - Last Filed: 11/12/17 11:26> - Laboratory Result Diagrams: 11/12/17 10:05 11/12/17 10:05 - Diagnostic Test Radiology reviewed: Reports reviewed - Acute abdominal series shows considerable stool in the right colon and transverse colon - EKG Interpretation by Md EKG shows normal: Sinus rhythm, [place], Intervals, QRS Complexes, ST-T Waves Rate: Normal - 72 Rhythm: NSR [place]/QRS: IVCD Voltage: Consistant with LVH <RONA BETANCOURT - Last Filed: 11/12/17 13:35> - Re-evaluation Re-evalutation: 11/12/17 13:22 Patient reports her epigastric and substernal discomfort improved after drinking the GI cocktail. We had a long discussion about citrate today, and MiraLAX on a daily basis and drinking more water. She will also take antacids regularly for her reflux heartburn. (RONA BETANCOURT) - Vital Signs Vital signs: Temp Pulse Resp BP Pulse Ox 98.6 F 103 H 20 122/63 99 11/12/17 09:07 11/12/17 09:07 11/12/17 09:07 11/12/17 09:07 11/12/17 09:07 - Laboratory Laboratory results interpreted by me: 11/12/17 11/12/17 11/12/17 10:05 10:05 10:45 RBC 3.49 L Hgb 11.6 L Hct 33.8 L RDW 16.7 H Seg Neutrophils % 78.4 H Lymphocytes % 9.0 L Potassium 3.3 L Chloride 97 L Carbon Dioxide 31 H Urine Protein 30 H Urine Ketones TRACE H Urine Urobilinogen 2.0 H Ur Leukocyte Esterase SMALL H Discharge <NEFTALI AMARO - Last Filed: 11/12/17 11:26> <RONA BETANCOURT - Last Filed: 11/12/17 13:35> - Discharge Clinical Impression: Abdominal pain Qualifiers: Abdominal location: epigastric Qualified Code(s): R10.13 - Epigastric pain Constipation Qualifiers: Constipation type: unspecified constipation type Qualified Code(s): K59.00 - Constipation, unspecified Gastroesophageal reflux Qualifiers: Esophagitis presence: esophagitis presence not specified Qualified Code(s): K21.9 - Gastro-esophageal reflux disease without esophagitis Condition: Stable Disposition: HOME, SELF-CARE Additional Instructions: Reflux Disease (GERD): Gastro-Esophageal Reflux Disease (GERD) is caused by stomach acid refluxing back up into the esophagus. The valve at the end of the esophagus may be weak. This is common in persons with a hiatal hernia. GERD symptoms can include indigestion, chest pain, heartburn, or food "sticking." Certain foods, alcohol, and aspirin can make GERD worse. Treatment depends on the severity. Usually, antacids or acid-suppressing medicines are used. When the esophagus is acutely inflamed, the physician will often prescribe membrane-protective drugs such as Carafate. Some patients benefit from medication such as Reglan that tightens the valve at the top of the stomach. Avoid those foods that bring on your symptoms. For many people, these foods are coffee, chocolate, onions, garlic, and carbonated drinks. Don't use alcohol, aspirin, caffeine, or tobacco. Don't eat late at night -- within 4 hours of bedtime. Don't over-eat. If necessary, elevate the head of your bed about 4 inches so that stomach acid will not roll up into your esophagus. Call the doctor if you develop severe chest pain, inability to swallow fluids, fever, or worsening symptoms. Constipation: Constipation is a common problem. It is especially likely as you get older. Constipation is a common cause of abdominal pain, but sometimes causes no symptoms at all. Causes of constipation include certain medications, dehydration, diets, inactivity, and low-fiber intake. Rarely, it can be a symptom of underlying disease. The physician has evaluated you for this. Avoid constipation by eating a diet high in fiber, fruits, and vegetables. Drink plenty of liquids. Get regular exercise. If possible, avoid constipating medicines like narcotic pain medication. Some vitamin tablets can cause constipation. Stool softeners may be needed for difficult cases. An excellent stool softener is Konsyl which is available at [employer] drug store. Just add a teaspoon to a glass of pineapple or orange juice daily or twice a day if needed. Laxatives are useful for occasional constipation. You should use them only when necessary. Too-frequent use can make your bowels dependent on them. Some over the counter laxatives available without prescription are: Milk of Magnesia, 1-2 tablespoons twice a day Dulcolax, 5 mg pill or 10 mg suppository. Citrate of Magnesia, 4-5 ounces a day for a day or two For acute constipation, Fleet's Enemas and Dulcolax suppositories are helpful. Chronic, care home use of laxatives or enemas is not a good idea. Your bowel may become dependant on them. You do not need to have a bowel movement every day. Many people do fine with a bowel movement every three or four days. You should call your doctor or return for re-evaluation if you pass blood in the stool, or if you develop fever or increasing abdominal pain. Take antacids regularly for your heartburn symptoms. Eat a bland diet and avoid acidic fluids and spicy foods. Try taking MiraLAX once daily until your bowels are moving well, and then as needed for constipation. Follow-up with Dr. Chowdhury if not improving. RETURN TO THE EMERGENCY ROOM IF ANY NEW OR WORSENING SYMPTOMS. Referrals: AMISH CHOWDHURY MD [Primary Care Provider] - Follow up as needed Scribe Attestation: 11/12/17 13:35 I personally performed the services described in the documentation, reviewed and edited the documentation which was dictated to the scribe in my presence, and it accurately records my words and actions. (RONA BETANCOURT) Scribe Documentation - Scribe Written by Adriane:: Adriane Maurer, 11/12/2017 11:39 acting as scribe for :: Latosha <NEFTALI AMARO - Last Filed: 11/12/17 11:26>
[2017-11-12 12:10] LABS: CREATINE KINASE 103 U/L (30-135)
[2017-11-12] MEDS ORDERED: MAGNESIUM CITRATE 296 ML BOTTLE PO ONE (13:24)
[2017-11-12 17:01] VITALS: BP 125/52
--- NOTE | 2017-11-12 19:39 | EKG REPORT ---
SEVERITY:- ABNORMAL ECG - SINUS RHYTHM LEFT VENTRICULAR HYPERTROPHY : Confirmed by: Yolanda Cullen MD 12-Nov-2017 19:38:13
== END 2017-11-12 14:05 | disposition home or self-care (01) ==
LOC: ER 09:02
DX: K21.9 Gastro-esophageal reflux disease without esophagitis (principal); K59.00 Constipation, unspecified; R10.13 Epigastric pain; R11.2 Nausea with vomiting, unspecified; R07.9 Chest pain, unspecified; I10 Essential (primary) hypertension
CPT/HCPCS: 93005; 99284; 96361; 96374; 36415; 82550; 83690; 85025; 80053; 81001; 84484; 74022; 93010; J3490 ×2; J2765; J7030

== ENCOUNTER → 2019-01-18 | Outpatient (CLI) | payer BC, OTHER ==
--- NOTE | 2019-01-18 16:51 | WOMENS IMAGING REPORT ---
EXAM DESCRIPTION: 3D SCREENING MAMMO BILAT COMPLETED DATE/TIME: 01/18/2019 2:17 pm REASON FOR STUDY: Z12.31 SCREENING MAMMO Z12.31 ENCNTR SCREEN MAMMOGRAM FOR MALIGNANT NEOPLASM OF B RE COMPARISON: Multiple since 2009 EXAM PARAMETERS: Views: Standard craniocaudal and mediolateral oblique views of each breast recorded using digital acquisition and breast tomosynthesis. Read with the assistance of CAD. .[facility] - [employer]ide Version 9.2 LIMITATIONS: None. FINDINGS: No suspicious masses, suspicious calcifications or architectural distortion. No areas of c oncern. IMPRESSION: NEGATIVE MAMMOGRAM. BIRADS 1. BREAST DENSITY: c. The breasts are heterogeneously dense, which may obscure small masses. BIRAD: ASSESSMENT: 1 NEGATIVE RECOMMENDATION: ROUTINE SCREENING COMMENT: The patient has been notified of the results by letter per MQSA requirements. Additional no tification policies are in place for contacting patient with suspicious or incomplete findings. Quality ID #225: The [employer] recommends an annual screening mammogram for women aged 40 years or over. This facility utilizes a reminder system to ensure that all patients receive reminder letters, and/or direct phone calls for appointments. This includes reminders for routine scr eening mammograms, diagnostic mammograms, or other Breast Imaging Interventions when appropriate. Th is patient will be placed in the appropriate reminder system. TECHNICAL DOCUMENTATION: FINDING NUMBER: (1) ASSESSMENT: (1) JOB ID: [id number] [employer]- All Rights Reserved Reading location - IP/workstation name: [email or web address]
== END ==
LOC: WI 13:30
PROVIDERS: ATTEND Internal Medicine
DX: Z12.31 Encounter for screening mammogram for malignant neoplasm of breast (principal)
CPT/HCPCS: 77063; 77067

== ENCOUNTER → 2019-07-03 | Outpatient (CLI) | payer BC, OTHER ==
--- NOTE | 2019-07-03 16:09 | RADIOLOGY REPORT (SQ) ---
EXAM DESCRIPTION: BONE SURVEY COMPLETE COMPLETED DATE/TIME: 07/03/2019 3:17 pm REASON FOR STUDY: C90.00 MULTIPLE MYELOMA NOT HAVING ACHIEVED REMISSION C90.00 MULTIPLE MYELOMA NOT HAVING ACHIEVED REMISSION COMPARISON: None. TECHNIQUE: Images of the axial and proximal appendicular skeleton are obtained, along with lateral s kull and frontal chest films. LIMITATIONS: None. FINDINGS: AP CHEST: No bony findings. Lungs are clear. LATERAL SKULL: No worrisome bone lesions. AP BOTH HUMERI: 6 mm lytic lesion in the proximal right humerus. 6 mm lytic lesion in the left humer us at the junction of the mid and distal thirds. TWO-VIEW LUMBAR SPINE: No worrisome bone lesions. 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 No worrisome bone lesions. AP PELVIS: No worrisome bone lesions. AP BOTH FEMURS: 7 mm lytic lesion in the distal right femur in the metaphyseal area. OTHER: No other significant finding. IMPRESSION: There are distinct lytic lesions seen in each humerus and in the distal right femur as d escribed. Findings consistent with the history of multiple myeloma. TECHNICAL DOCUMENTATION: JOB ID: [id number] 2010 [employer]- All Rights Reserved Reading location - IP/workstation name: [email or web address]
== END ==
LOC: RAD 14:16
PROVIDERS: ATTEND Nurse Practitioner Family
DX: C90.00 Multiple myeloma not having achieved remission (principal)
CPT/HCPCS: 77075

== ENCOUNTER → 2020-03-15 | Outpatient (CLI) | payer BC ==
--- NOTE | 2020-03-15 09:58 | WOMENS IMAGING REPORT ---
EXAM DESCRIPTION: BILAT SCREENING MAMMO W/CAD IMAGES COMPLETED DATE/TIME: 03/15/2020 7:22 am REASON FOR STUDY: ROUTINE BILATERAL SCREENING;Z12.31Z12.31 ENCNTR SCREEN MAMMOGRAM FOR MALIGNANT NE OPLASM OF [place] COMPARISON: 2009 through 2018. EXAM PARAMETERS: Standard craniocaudal and mediolateral oblique views of each breast recorded using digital acquisition. Read with the assistance of CAD. .[facility] - [employer] Version 9.2 LIMITATIONS: None. FINDINGS: RIGHT BREAST MASSES: No suspicious masses. CALCIFICATIONS: No new or suspicious calcifications. ARCHITECTURAL DISTORTION: None. ASYMMETRY: None noted. OTHER: No other significant findings. LEFT BREAST MASSES: No suspicious masses. CALCIFICATIONS: No new or suspicious calcifications. ARCHITECTURAL DISTORTION: None. ASYMMETRY: Focal asymmetry CC view just over 5 cm deep to the nipple close to 1 o'clock. Not seen on priors. Possibly simply under compressed tissue. The area looks similar to priors on lateral view. OTHER: No other significant findings. IMPRESSION: Focal asymmetry left breast. 0 Incomplete: Needs Additional Imaging Evaluation and/or prior Mammograms for Comparison. BREAST DENSITY: c. The breasts are heterogeneously dense, which may obscure small masses. BIRAD: ASSESSMENT: 0 Incomplete: Needs Additional Imaging Evaluation and/or prior Mammograms for C omparison. RECOMMENDATION: RECOMMENDED FOLLOW-UP: Spot compression left mammography, with tomosynthesis if poss ible. Potential left breast ultrasound. The patient will be contacted for additional imaging. COMMENT: The patient has been notified of the results by letter per MQSA requirements. Additional no tification policies are in place for contacting patient with suspicious or incomplete findings. Quality ID #225: The [employer] recommends an annual screening mammogram for women aged 40 years or over. This facility utilizes a reminder system to ensure that all patients receive reminder letters, and/or direct phone calls for appointments. This includes reminders for routine scr eening mammograms, diagnostic mammograms, or other Breast Imaging Interventions when appropriate. Th is patient will be placed in the appropriate reminder system. TECHNICAL DOCUMENTATION: FINDING NUMBER: (1) ASSESSMENT: (1) JOB ID: [id number] 2010 [employer]- All Rights Reserved Reading location - IP/workstation name: [email or web address]
--- OUTSIDE RECORDS SUMMARY | 2020-03-18 09:35 | XMS REPORT ---
:1955 Author Organization Formerly [facility], later [facility] Address [facility] [address] [place] [address] Care Team Providers Name Role Phone Denise Horaciotiagomaryелена Husam Primary Care Physician Unavailable SANDEEP DHALIWAL Attending Clinician Unavailable JASVIR RODRIGUEZ Attending Clinician Unavailable Wilfredo Max Attending Clinician Unavailable OVIDIO PURI Attending Clinician Unavailable VAIBHAV GREWAL Attending Clinician Unavailable FRANKLIN BALBUENA Attending Clinician Unavailable AZAR MATT Attending Clinician Unavailable MIKAYLA JOEL Attending Clinician Unavailable SANDEEP DHALIWAL Admitting Clinician Unavailable MIKAYLA JOEL Admitting Clinician Unavailable JASVIR RODRIGUEZ Admitting Clinician Unavailable OVIDIO PURI Admitting Clinician Unavailable LIZ REYEZ Admitting Clinician Unavailable JOSE MENDOZA Admitting Clinician Unavailable Allergies, Adverse Reactions, Alerts Allergy Allergy Type Status Severity Reaction(s) Onset Inactive Treat ing Comments Name Date Date Clinician statin statin Active myalgia 5-12 00:00: 00 statin statin Inactive myalgia 1-13 00:00: 00 statin statin Inactive myalgia 9-27 00:00: 00 statin statin Inactive myalgia 9-16 00:00: 00 statin statin Inactive myalgia 5-13 00:00: 00 Sulfa Drug Allergy Inactive Low Itching (Sulfonam 9-25 teofilo 00:00: Antibioti 00 cs) Sulfa Drug Allergy Active Low Itching (Sulfonam 9-25 teofilo 00:00: Antibioti 00 cs) Sulfur Propensity Inactive to adverse 9-06 reactions 00:00: 00 sulfa Allergy to Active Severe Skin Drug Rashes/Hives (Finding) Medications Ordered Filled Start Stop Current Ordering Indication Dosage Frequency Signature Comments Components Medication Medication Date Date Medication? Clinician (SIG) Name Name Potassium 2019-05 No 30meq Potassium Chloride 1-11 Chloride 00:00: 00 Sodium 2019- No 20mL Sodium Chloride 1-11 Chloride 00:00: 00 Potassium 2019- No 30meq Potassium Chloride 0-15 Chloride 00:00: 00 Sodium 2019- No 20mL Sodium Chloride 0-15 Chloride 00:00: 00 Cyclobenzap 2019- Yes 1 rine HCl 9-16 00:00: 00 Potassium 2019-0 No 20meq Potassium Chloride 5-27 Chloride 00:00: 00 Sodium 2019-0 No 20mL Sodium Chloride 5-27 Chloride 00:00: 00 Benicar HCT No QD 1 tablet 40-25 MG 2-27 Orally 00:00: Once a day 00 Potassium 2019- No 20meq Potassium Chloride 2-05 Chloride 00:00: 00 Sodium 2019-0 No 20mL Sodium Chloride 2-05 Chloride 00:00: 00 Levaquin 2018-05- No 1 2-04 02-12 00:00: 12:55 00 :18 potassium 2018-05 2019- No 40meq 40 mEq, chloride 0-04 10-05 Oral, 2 (KLOR-CON) 21:00: 09:50 times a CR tablet 00 :00 day 40 mEq (standard) , First dose on Wed02/03/19 at 2100, For 2 doses
R outine enoxaparin 2018-05 No Venous 40mg 40 mg, (LOVENOX) 0-04 Thromboembo Subcutaneo syringe 40 09:00: lism (VTE) us, Every mg 00 Prophylaxis 24 hours scheduled, Indication s: Venous Thromboemb olism (VTE) Prophylaxi s, First dose on Wed02/03/19 at 0900
Gi ve by deep SUBQ injection; alternate injection sites<b r> valACYclovi 2018-05 No 500mg 500 mg, r (VALTREX) 0-04 Oral, tablet 500 09:00: Daily mg 00 (standard) , First dose on Wed02/03/19 at 0900
Ro utine calcium 2018-05 No 600 mg of carbonate 0-04 lower brule (OS-GERARD) 09:00: calcium, tablet 600 00 Oral, mg of lower brule Daily calcium (standard) , First dose on Wed02/03/19 at 0900
15 00 mg calcium carbonate = 600 mg elemental calcium = 1 tablet
Routine sodium 2018-05 No 1{spray 1 spray, chloride 0-04 } Each Nare, (OCEAN) 08:09: Every 6 0.65 % 37 hours PRN, nasal spray irritation 1 spray , Starting Wed02/03/19 at 0809
Ro utine amitriptyli 2018-05 No 50mg 50 mg, ne (ELAVIL) 0-03 Oral, tablet 50 21:00: Nightly, mg 00 First dose on Wed02/02/19 at 2100
Ro utine sodium 2018-05- No 10mL 10 mL, chloride 0-03 10-05 Intravenou (NS) 0.9 % 21:00: 07:57 s, 2 times flush 10 mL 00 :10 a day (standard) , First dose on Wed02/02/19 at 2100
(L UMEN #3)&nb sp; F lush line(s) every 12 hours at 9AM and 9PM. For use on 4 ONC.
Routine sodium 2018-05- No 10mL 10 mL, chloride 0-03 10-05 Intravenou (NS) 0.9 % 21:00: 07:57 s, 2 times flush 10 mL 00 :10 a day (standard) , First dose on Wed02/02/19 at 2100
(L UMEN #2)&nb sp; F lush line(s) every 12 hours at 9AM and 9PM. For use on 4 ONC.
Routine influenza 2018-05 2019- No .5mL 0.5 mL, vaccine 0-03 10-05 Intramuscu quad 20:42: 14:39 lar, (FLUARIX, 27 :00 During FLULAVAL, hospitaliz FLUZONE) (6 ation, MOS & UP) Starting Wed02/02/19 at 2042, For 1 dose
SH MICHELE WELL; contains egg product, latex-free , preservati ve-free
Routine cefepime 2018-05- No unknown 2g 2 g, (MAXIPIME) 0-03 10-04 source Intravenou 2 g in 20:00: 16:02 s, at 200 dextrose 00 :18 mL/hr, 100 mL IVPB Every 12 (premix) hours, First dose on Molly 02/02/19 at 2000, For 30 days<br&gt ;Routine, Indication s: unknown source sodium 2018-05 No 20mL/h 20 mL/hr, chloride 0-03 Intravenou (NS) 0.9 % 16:54: s, infusion 00 Continuous , Starting [facility] 02/02/19 at 1654
Ro utine loperamide 2018-05 No 2mg 2 mg, (IMODIUM) 0-03 Oral, capsule 2 16:53: Every 2 mg 10 hours PRN, after each loose stool., Starting [facility] 02/02/[address] after 4 mg loading dose. Maximum dose = 16 mg/24 hours. Ensure C DIFF specimens sent and results verified.< br>Routine loperamide 2018-05 No 4mg 4 mg, (IMODIUM) 0-03 Oral, Once capsule 4 16:53: as needed, mg 10 with each new onset of diarrhea, Starting [facility] 02/02/19 at 1653, For 1 dose
Lo ading Dose. Ensure C DIFF specimens sent and results verified.< br>Routine acetaminoph 2018-05 No 650mg 650 mg, en 0-03 Oral, (TYLENOL) 16:53: Every 6 tablet 650 09 hours PRN, mg pain,mild (1-3), pain,moder ate (4-6), fever (>38.5), Starting [facility] 02/02/19 at 1653
Do not give unless fever > 38.[address] ease notify provider if administer ing med A DULT MAX: NOT TO EXCEED 4GM ACETAMINOP HEN IN 24HRS
R outine sodium 2018-05- No 100mL/h 100 mL/hr, chloride 0-03 10-04 Intravenou (NS) 0.9 % 16:51: 08:25 s, infusion 00 :00 Continuous , Starting [facility] 02/02/19 at 1651, For 15 hours
R outine potassium 2018-05 40meq 40 mEq, chloride 0-03 10-03 Oral, (KLOR-CON) 14:51: 16:07 Once, Molly CR tablet 00 :00 02/02/19 at 40 mEq 1451, For 1 dose
Ro utine vancomycin 2018-05 pneumonia 1250mg 1,250 mg, (VANCOCIN) 0-03 10-03 Intravenou 1,250 mg in 13:21: 15:18 s, at 230 sodium 00 :00 mL/hr, chloride Once, Molly (NS) 0.9 % 02/02/19 at 250 mL IVPB 1321, For 1 dose
ST AT, Indication s: pneumonia cefepime 2018-05 pneumonia 2g 2 g, (MAXIPIME) 0-03 10-03 Intravenou 2 g in 13:21: 15:18 s, at 200 dextrose 00 :00 mL/hr, 100 mL IVPB Once, Molly (premix) 02/02/19 at 1321, For 1 dose
Ro utine, Indication s: pneumonia cefTRIAXone 2018-05 pneumonia 2g 2 g, (ROCEPHIN) 0-03 10-03 Intravenou 2 g in 13:17: 13:20 s, at 200 sodium 00 :41 mL/hr, chloride Once, Molly 0.9 % (NS) 02/02/19 at 100 mL 1317, For IVPB-connec 1 tor bag dose
Ac tivate prior to use
STAT, Indication s: pneumonia sodium 2018-05 30mL/kg 2,079 mL chloride 0-03 10-03 (30 mL/kg 0.9% (NS 13:17: 15:18 BOLUS) 00 :00 69.3 kg), bolus 2,079 Intravenou mL s, Administer over 2 Hours, Once, Molly 02/02/19 at 1317, For 1 dose
ST AT levoFLOXaci No 750mg Take 750 Take 750 n 9-27 mg by mg by (LEVAQUIN) 00:00: mouth mouth 750 MG 00 daily. daily. tablet Levaquin No QD 1 tablet 750 MG 9-27 Orally 00:00: Once a day 00 ALLER-CHLOR 2019-0 2020- No 4mg Take 4 mg Abbey e 4 mg 4 mg tablet 01-27 by mouth by mo uth 00:00: 00:00 every six every six 00 :00 (6) hours (6) hours as needed. as needed. Chlorphenir 2018- No QID 1 tablet amine 01-27 as needed Maleate 4 00:00: 00:00 Orally MG 00 :00 every 6 hrs REVLIMID 10 Yes 10mg Take 10 mg Ta ke 10 mg cap 920 by mouth mg by capsule 00:00: daily. mouth 00 daily. amitriptyli 2019- No 50mg Take 50 mg Ta ke 50 ne (ELAVIL) 01-13 by mouth mg by 50 MG 00:00: 00:00 nightly. mouth tablet 00 :00 nightly. RESTASIS Yes 1[drp] Administer Admi niste 0.05 % 12-08 1 drop r 1 drop ophthalmic 00:00: into the into the emulsion 00 left eye left eye every every twelve twelve (12) (12) hours. hours. Amitriptyli Yes 1 ne HCl 5-08 00:00: 00 Lyrica 2019- No 1 4-24 05-08 00:00: 11:08 00 :16 potassium 2018- No Multiple 20meq Take 1 Take 1 chloride SA 4-04 10-05 myeloma in tablet (2 0 tablet (K-DUR,KLOR 00:00: 00:00 remission mEq total ) (20 mEq -CON) 20 00 :00 ([facility]) by mouth tota l) by MEQ tablet Two (2) mouth T wo times a (2) times day. a day. OxyCODONE 2019- No 1 HCl 3-11 11-11 00:00: 09:52 00 :38 potassium 2017-05- No Multiple TAKE TWO ABBEY E TWO chloride SA 2-23 04-04 myeloma in TABLETS B Y TABLETS (K-DUR,KLOR 00:00: 00:00 remission MOUTH BY MOUTH -CON) 20 00 :00 ([facility]) TWICE TWICE MEQ tablet DAILY DAILY traMADol 2017-05- No Back pain, 50mg Take 1 Take 1 (ULTRAM) 50 06-15 unspecified tablet ( 50 tablet mg tablet 00:00: 00:00 back mg total) (50 m g 00 :00 location, by mouth total) by unspecified every six mout h back pain (6) hours every six laterality, as needed. (6) hours unspecified as chronicity needed. gabapentin 2017-05- No Neuropathy 300 qAM, 300 qAM, (NEURONTIN) 2-13 02-04 due to 300 in 300 in 300 MG 00:00: 00:00 drugs afternoon, afterno on capsule 00 :00 ([facility]) and 600 , and 600 qPM qPM losartan-hy 2017-05 No 1{tbl} Take 1 Take 1 drochloroth 1-24 tablet by tabl et by iazide 00:00: mouth mouth (HYZAAR) 00 every every 100-25 mg morning. morning . per tablet gabapentin 2017-05 No Neuropathy 300 qAM, 300 qAM, (NEURONTIN) 05-03 due to 300 in 300 in 300 MG 00:00: drugs afternoon, afterno on capsule 00 ([facility]) and 600 , and 600 qPM qPM valsartan 2017-05 No Essential 320MG Take 2 Take 2 (DIOVAN) 0-26 hypertensio tablets tab lets 160 MG 00:00: n (320 mg (320 mg tablet 00 total) by total) by mouth mouth daily. daily. hydroCHLORO 2017-05 No Essential 25MG Take 1 Ta ke 1 thiazide 0-26 hypertensio tablet (25 tablet (HYDRODIURI 00:00: n mg total) (25 mg L) 25 MG 00 by mouth total) b y tablet daily. mouth daily. 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 mouth daily. lidocaine 4 2017-05 2019- No 1{patch Place 1 Sandra ce 1 % patch 0-25 04-04 } patch on patch on 00:00: 00:00 the skin the skin 00 :00 daily. daily. Apply to Apply to affected affected area for area for 12 hours 12 hours only (then only remove (then patch) remove patch) potassium 2017-05- No Multiple 40meq Take 2 Take 2 chloride SA 0-25 12-22 myeloma in tablets t ablets (K-DUR,KLOR 00:00: 00:00 remission (40 mEq ( 40 mEq -CON) 20 00 :00 ([facility]) total) by tot al) by MEQ tablet mouth Two mouth Two (2) times (2) times a day. a day. lidocaine 2017-05- No Back pain, 1{patch Place [address] 1 (LIDODERM) 0-25 10-25 unspecified } patch on patch on 5 % patch 00:00: 00:00 back the skin the sk in 00 :00 location, daily. daily. unspecified Apply to Apply to back pain affected affecte d laterality, area for area for unspecified 12 hours 12 ho urs chronicity only each only each day (then day (then remove remove patch) patch) calcium 2017-05 Yes 1{tbl} Chew 1 Chew 1 carbonate-v 0-24 tablet tablet itamin D3 00:00: Three (3) Three (3) 600 mg 00 times a times a (1,500 day. day. mg)-800 unit Chew valACYclovi 2017-05 Yes 500mg Take 1 Take 1 r (VALTREX) 0-24 tablet tablet 500 MG 00:00: (500 mg (500 mg tablet 00 total) by total) by mouth mouth daily. daily. traMADol 2017-05 No Multiple 50MG Take 1 Take 1 (ULTRAM) 50 0-24 myeloma in tablet (5 0 tablet mg tablet 00:00: remission mg total) ( 50 mg 00 ([facility]) by mouth total) by every six mouth (6) hours every six as needed. (6) hours as needed. calcium 2017-05 No 1{tbl} Chew 1 Chew 1 carbonate-v 0-24 tablet tablet itamin D3 00:00: Three (3) Three (3) 600 mg 00 times a times a (1,500 day. day. mg)-800 unit Chew ondansetron 2017-05- No 8mg Take 1 Take 1 (ZOFRAN) 8 0 04-04 tablet (8 table t (8 MG tablet 00:00: 00:00 mg total) mg to rashawn) 00 :00 by mouth by mouth every every eight (8) eight (8) hours as hours as needed for needed nausea. for nausea. loperamide 2017-05 No Multiple 2mg Take 1 Take 1 (IMODIUM) 2 0 04-04 myeloma in capsule ( 2 capsule mg capsule 00:00: 00:00 remission mg total) (2 mg 00 :00 ([facility]) by mouth 4 total ) by (four) mouth 4 times a (four) day as times a needed day as (for needed diarrhea). (for diarrhea) . gabapentin 2017-05 Neuropathy 300MG Take 1 Ta ke 1 (NEURONTIN) 03-03 due to capsule capsu le 300 MG 00:00: 00:00 drugs (300 mg (300 mg capsule 00 :00 ([facility]) total) by herminio tello) by mouth mouth Three (3) Three (3) times a times a day. day. valsartan-h 2017-05- No 1{tbl} Take 1 Take 1 ydrochlorot 0-24 10-29 tablet by tabl et by hiazide 00:00: 00:00 mouth mouth (DIOVAN-HCT 00 :00 daily. daily. ) 320-25 mg per tablet potassium 2017-05- No Multiple 40meq Take 2 Take 2 chloride SA 0-24 10-25 myeloma in tablets t ablets (K-DUR,KLOR 00:00: 00:00 remission (40 mEq ( 40 mEq -CON) 20 00 :00 ([facility]) total) by tot al) by MEQ tablet mouth mouth daily. daily. dapsone 100 2017-05 No 100MG Take 1 Take 1 MG tablet 0-24 10-25 tablet tablet 00:00: 00:00 (100 mg (100 mg 00 :00 total) by total) by mouth mouth daily. daily. ranitidine No 75MG Take 75 mg Abbey e 75 (ZANTAC) 75 01-25 by mouth mg by MG tablet 09:46: 00:00 nightly as mout h 39 :00 needed for nightly heartburn. as needed for heartburn . polyethylen 17g Take 17 g Abbey e 17 g e glycol 01-25 by mouth by mouth (MIRALAX) 09:46: 00:00 daily as daily as 17 gram 39 :00 needed. needed. packet oxyCODONE No 5MG Take 1 Take 1 (ROXICODONE 01-25 tablet (5 tabl et (5 ) 5 MG 00:00: 00:00 mg total) mg total ) immediate 00 :00 by mouth by mout h release every four every tablet (4) hours four (4) as needed hours as for pain. needed for pain. heparin, Use as Use as porcine, 01-25 directed directed PF, 00:00: 00:00 for for (HEPARIN) 00 :00 catheter cathete r 100 unit/mL maintenanc scar ntenan Syrg e ce tbo-filgras No Inject [address] 1 rodney 01-25 syringe syringe (GRANIX) 00:00: 00:00 (300 mcg) (300 m cg) 300 mcg/0.5 00 :00 under the unde r the mL Syrg skin daily skin injection along with daily one along 480-mcg with one syringe 480-mcg for a syringe total for a daily dose total of 780 daily mcg. dose of 780 mcg. tbo-filgras 2017- No Inject [address] 1 rodney 01-25 syringe syringe (GRANIX) 00:00: 00:00 (480 mcg) (480 m cg) 480 mcg/0.8 00 :00 under the unde r the mL Syrg skin daily skin injection along with daily one along 300-mcg with one syringe 300-mcg for a syringe total for a daily dose total of 780 daily mcg. dose of 780 mcg. calcium 2017- No 1{tbl} Chew 1 Chew 1 carbonate-v 01-13 tablet Two tab let itamin D3 00:00: 00:00 (2) times Two ( 2) 600 mg 00 :00 a day. times a (1,500 day. mg)-800 unit Chew multivitami 2017- No 1{tbl} Take 1 Take 1 n 01-06 10-25 tablet by tablet by (TAB-A-TRACY 10:23: 00:00 mouth mouth /THERAGRAN) 45 :00 daily. daily. per tablet denosumab No 120MG Inject [address] (XGEVA) 120 01-06-25 mg under 120 m g mg/1.7 mL 10:23: 00:00 the skin under the (70 mg/mL) 45 :00 every skin Soln twenty-eig every ht (28) twenty-ei days. ght (28) days. promethazin No 25MG Take 25 mg Ta ke 25 e 01-06 1025 by mouth mg by (PHENERGAN) 10:23: 00:00 every six lori th 25 MG 44 :00 (6) hours every six tablet as needed (6) hours for as needed nausea. for nausea. ondansetron Take by Take by (ZOFRAN) 8 01-06 1024 mouth mouth MG tablet 10:23: 00:00 every every 44 :00 eight (8) eight (8) hours as hours as needed for needed nausea. for nausea. valsartan-h 2017- No 1{tbl} Take 1 Take 1 ydrochlorot 01-06 1024 tablet by tabl et by hiazide 10:23: 00:00 mouth mouth (DIOVAN-HCT 44 :00 daily. daily. ) 320-25 mg per tablet aspirin 81MG Take 81 mg Take 8 1 (ECOTRIN) 01-06 by mouth mg by 81 MG 10:23: 00:00 daily. mouth tablet 44 :00 daily. cholecalcif No 1000U Take 1,000 Ta ke yocasta, 01-06 Units by 1,000 vitamin D3, 10:23: 00:00 mouth Units b y (VITAMIN 44 :00 daily. mouth D3) 1,000 daily. unit capsule Sodium No 30mL Sodium Chloride 9-04 Chloride 00:00: 00 Potassium 2017-2019- No 30meq Potassium Chloride 9-04 11-11 Chloride 00:00: 00:00 00 :00 Sodium 2017-2019- No 20mL Chloride 9-04 11-11 00:00: 00:00 00 :00 Velcade 2018- No 2.3mg Velcade 9-04 09-04 00:00: 00:00 00 :00 Bortezomib No 2.4mg Bortezomib 8-23 00:00: 00 valACYclovi 2017- No 500MG Take 500 Take 500 r (VALTREX) 8- 10-24 mg by mg by 500 MG 00:00: 00:00 mouth mouth tablet 00 :00 daily. daily. Bortezomib No 2.4mg Bortezomib 820 00:00: 00 Bortezomib No 2.4mg Bortezomib 8-16 00:00: 00 HYDROcodone 2017- No TAKE ONE TAKE ONE -acetaminop 12-14 TABLET BY TABL ET BY hen (NORCO) 00:00: 00:00 MOUTH MOUTH 5-325 mg 00 :00 EVERY 8 EVERY 8 per tablet HOURS IF HOURS IF NEEDED NEEDED Bortezomib No 2.4mg Bortezomib 12-13 00:00: 00 simvastatin No 20MG Take 20 mg Ta ke 20 (ZOCOR) 20 12-13 10-25 by mouth mg by MG tablet 00:00: 00:00 daily. mouth 00 :00 daily. potassium 2017- No TAKE ONE TAKE O NE chloride SA 12-13 TABLET BY GISSELLE ET BY (NIKOLAI MCDONALD 00:00: 00:00 MOUTH MOUTH -CON) 20 00 :00 EVERY DAY EVERY D AY MEQ tablet FOR FOR FOURTEEN FOURTEEN DAYS DAYS dexamethaso 2017- No TAKE TEN TAKE TEN ne 12-13 TABLETS BY TABLETS (DECADRON) 00:00: 00:00 MOUTH ONCE BY MOUTH 4 MG tablet 00 :00 EVERY WEEK ONC E EVERY WEEK losartan-hy 2017- No 1{tbl} Take 1 Take 1 drochloroth 12-09 tablet by gisselle et by nery 00:00: 00:00 mouth mouth (HYZAAR) 00 :00 every every 100-25 mg morning. morning . per tablet Bortezomib 2018-0 No 2.4mg Bortezomib 8- 00:00: 00 Bortezomib 2018-0 No 2.4mg Bortezomib 7- 00:00: 00 Bortezomib 2018-0 No 2.4mg Bortezomib 7- 00:00: 00 Bortezomib 2018-0 No 2.4mg Bortezomib 7- 00:00: 00 Bortezomib 2018-0 No 2.4mg Bortezomib 7- 00:00: 00 Bortezomib 2018-0 No 2.4mg Bortezomib 7- 00:00: 00 Bortezomib 2018-0 No 2.4mg Bortezomib 7- 00:00: 00 Bortezomib 2018-0 No 2.4mg Bortezomib 7- 00:00: 00 Bortezomib 2018-0 No 2.4mg Bortezomib 6- 00:00: 00 Bortezomib 2018-0 No 2.5mg Bortezomib 6-18 00:00: 00 Bortezomib 2018-0 No 2.5mg Bortezomib 6-14 00:00: 00 Bortezomib 2018-0 No 2.5mg Bortezomib 6-11 00:00: 00 Potassium 2017-0 Yes 20meq Chloride ER 6-11 00:00: 00 Bortezomib 2018-0 No 2.5mg Bortezomib 5-29 00:00: 00 Bortezomib 2018-0 No 2.5mg Bortezomib 5-25 00:00: 00 Bortezomib 2018-0 No 2.5mg Bortezomib 5-21 00:00: 00 Bortezomib 2018-0 No 2.5mg Bortezomib 5-18 00:00: 00 [place] 2017-0 2018- No 1 5-18 11-07 00:00: 07:30 00 :15 Bortezomib 2017-0 No 2.5mg Bortezomib 5-07 00:00: 00 Bortezomib 2018-0 No 2.5mg Bortezomib 5-04 00:00: 00 Bortezomib 2018-0 No 2.5mg Bortezomib 4-30 00:00: 00 Valtrex 2017-0 Yes 1 4-25 00:00: 00 XGEVA 2017-0 2020- No 120mg (Denosumab) 08-25 00:00: 00:00 00 :00 Ondansetron 0 2019- No 1 HCl 08-25 00:00: 10:54 00 :46 Promethazin 0 2019- No 1 e HCl 08-25 00:00: 10:54 00 :46 Bortezomib 2017-0 2018- No 2.5mg Bortezomib 4-25 08-23 00:00: 00:00 00 :00 Revlimid 2018-0 Yes 1 08-18 00:00: 00 Dexamethaso 2017- 2018- No ne 08-17 00:00: 07:30 00 :24 losartan Yes hypertensio 100mg Take 100 Ta ke 100 (COZAAR) n mg by mg by 100 MG mouth mouth tablet daily. daily. hydroCHLORO Yes hypertensio 25mg Take 25 mg Take 25 thiazide n by mouth mg by (HYDRODIURI daily. mouth L) 25 MG daily. tablet multivitami Yes 1{tbl} Take 1 Take 1 n tablet by tablet by (TAB-A-TRACY mouth mouth /THERAGRAN) daily. daily. per tablet Amitriptyli Yes 2 ne HCl Losartan Yes 1 Potassium-H CTZ Multivitami Yes 1 n Women 50+ Potassium Yes 1 Revlimid Yes 1 Simvastatin Yes 1 TraMADol Yes 1 HCl Gabapentin Yes BID 1 tablet 300 MG Orally Twice a day Centrum Yes QD as Silver directed 50+Women - Orally once a day Calcium Yes BID 1 tablet 600+D3 with a 600-400 meal MG-UNIT Orally twice a day Potassium Yes BID 2 tablets Chloride ER with food 20 MEQ Orally Twice a day Restasis Yes BID 1 drop 0.05 % into affected eye Ophthalmic Twice a day Gabapentin 2019- No 1 11-16 13:58 :55 Aspirin 2019- No 1 06-29 11:54 :56 Diovan 2019- No 1 06-29 11:55 :02 HydroCHLORO 2019- No 1 thiazide 06-29 11:55 :14 Imodium A-D 2019- No 1 06-29 11:55 :49 Lidocaine 2019- No 1 06-29 11:55 :56 Pantoprazol 2019- No 1 e Sodium 06-29 11:55 :43 PredniSONE 2018- No 06-29 11:55 :35 Vitamin D3 2019- No 1000U 06-29 11:55 :21 Ibuprofen 2018- No 1 03-09 07:30 :58 Metamucil 2018- No 1 03-09 07:31 :09 Valsartan-H 2018- No 1 ydrochlorot 03-09 hiazide 07:27 :02 Problems Condition Condition Condition Status Onset Resolution Last Treatin g Comments Name Details Category Date Date Treatment Clinician Date Immunizatio Immunizatio Diagnosis active n due n due 9-22 00:00: 00 Low back Low back Diagnosis active strain strain 9-16 00:00: 00 Fever Fever Diagnosis active 2018-05 204 00:00: 00 Normal body Body mass Problem Active 2018-05 mass index index (BMI) 1-20 24.0-24.9, 00:00: adult 00 Pneumonia Pneumonia, Problem Active 2018-05 unspecified 1-20 organism 00:00: 00 Sepsis Sepsis [id number] Active 2018-052019-02-02 0-03 17:35:32 00:00: 00 Cough Cough [id number] Active 2018-052019-02-02 0-03 17:35:33 00:00: 00 Peripheral Peripheral Diagnosis active neuropathic neuropathic 4-24 pain pain 00:00: 00 Immunizatio Immunizatio Condition Active 2018-08-04 n due n due 04 11:53:15 00:00: 00 Multiple Multiple Problem Active myeloma in myeloma in 2-13 remission remission 00:00: 00 S/P S/P Condition Active 2017-052019-02-02 autologous autologous 0-26 17:33:54 bone marrow bone marrow 00:00: transplanta transplanta 00 tion tion Stem cell Stem cell Condition Active 2017-052018-02-08 transplant transplant 0-09 08:40:04 candidate candidate 00:00: 00 Multiple Multiple Condition Active 2019-02-02 myeloma in myeloma in 9-25 17:33:55 remission remission 00:00: 00 Hypokalemia Hypokalemia Diagnosis active 01-04 00:00: 00 Patient Patient Diagnosis active encounter encounter -25 status status 00:00: 00 Pain due to Pain due to Diagnosis active neoplastic neoplastic 4-25 disease disease 00:00: 00 Screening Encounter Problem Active for for 9 malignant screening 00:00: neoplasm of for 00 colon malignant neoplasm of colon Adult Encounter Problem Active health for general 7 examination adult 00:00: medical 00 examination without abnormal findings Essential Essential Problem Active hypertensio (primary) 7 n hypertensio 00:00: n 00 Screening Encounter Problem Active for for 11-24 malignant screening 00:00: neoplasm of mammogram 00 breast for malignant neoplasm of breast Pure hypercholes Problem Active hypercholes terolemai 4-22 terolemia 00:00: 00 Multiple Multiple Diagnosis active myeloma myeloma 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 Hypertensio Hypertensio Problem Active n n Chest pain chest pain Problem Active Problem Not on file Condition Inactiv e Procedures Procedure Date / Time Performed Performing Clinician Devi e BASIC METABOLIC PANEL 2019-02-04 10:10:00 Ashly Montez HEPATIC FUNCTION PANEL 2019-02-04 10:10:00 DuniakMaea MAGNESIUM 2019-02-04 10:10:00 RoMae corrala PHOSPHORUS 2019-02-04 10:10:00 Mae Monteza CBC W/ AUTO DIFF 2019-02-04 10:10:00 Ashly Montez SLIDE REVIEW 2019-02-04 10:10:00 Mae Monteza BASIC METABOLIC PANEL 2019-02-03 20:59:00 DuniakMaea HEPATIC FUNCTION PANEL 2019-02-03 20:59:00 DuniakMaea MAGNESIUM 2019-02-03 20:59:00 Mae Monteza PHOSPHORUS 2019-02-03 20:59:00 Jairon Montezyna CBC W/ AUTO DIFF 2019-02-03 20:59:00 Ashly Montez D-DIMER, QUANTITATIVE 2019-02-02 21:15:00 Ashly Montez PROTIME-INR 2019-02-02 21:15:00 Ashly Montez TYPE AND SCREEN 2019-02-02 21:13:00 Ashly Montez ECG 12-LEAD 2019-02-02 20:52:56 Ashly Montez XR CHEST PA AND LATERAL 2019-02-02 18:12:35 Joni Bowen LACTATE, VENOUS, WHOLE BLOOD 2019-02-02 18:01:00 David Colmenares Angy COMPREHENSIVE METABOLIC PANEL 2019-02-02 17:50:00 Harry Bowen y LACTATE DEHYDROGENASE 2019-02-02 17:50:00 Ashly Montez CBC W/ AUTO DIFF 2019-02-02 17:50:00 Joni Bowen RAPID INFLUENZA PCR 2019-02-02 17:50:00 Carmencita Colmenares RESPIRATORY PATHOGEN PANEL 2019-02-02 17:50:00 Ashly Montez BLOOD GAS CRITICAL CARE PANEL, 2019-02-02 17:05:00 DarrianCarmencita johnson VENOUS Angy DIAST BP < 80 MM HG 2018-09-12 00:00:00 SYST BP LT 130 MM HG 2018-09-12 00:00:00 COMPREHENSIVE METABOLIC PANEL 2018-08-04 10:43:00 Azucena Pandya MAGNESIUM 2018-08-04 10:43:00 Azucena Pandya CBC W/ AUTO DIFF 2018-08-04 10:43:00 Azucena Pandya COMPREHENSIVE METABOLIC PANEL 2018-04-14 09:50:00 Azucena Pandya MAGNESIUM 2018-04-14 09:50:00 Azucena Pandya CBC W/ AUTO DIFF 2018-04-14 09:50:00 Azucena Pandya PHOSPHORUS 2018-02-28 07:38:00 Tesfaye Grewal CBC W/ AUTO DIFF 2018-02-25 12:56:00 Azucena Pandya POTASSIUM 2018-02-24 05:30:00 Bulmaro Balbuena URINALYSIS 2018-02-24 01:22:00 Azucena Pandya BASIC METABOLIC PANEL 2018-02-24 00:06:00 Azucena Pandya HEPATIC FUNCTION PANEL 2018-02-24 00:06:00 Azucena Pandya n LACTATE DEHYDROGENASE 2018-02-24 00:06:00 Azucena Pandya MAGNESIUM 2018-02-24 00:06:00 Azucena Pandya PHOSPHORUS 2018-02-24 00:06:00 Azucena Pandya CBC W/ AUTO DIFF 2018-02-24 00:06:00 Azucena Pandya SLIDE REVIEW 2018-02-24 00:06:00 Azucena Pandya TYPE AND SCREEN 2018-02-24 00:05:00 Bulmaro Balbuena PROTIME-INR 2018-02-24 00:05:00 Azucena Pandya APTT 2018-02-24 00:05:00 Azucena Pandya IONIZED CALCIUM VENOUS 2018-02-24 00:05:00 Azucena Pandya PHOSPHORUS 2018-02-23 05:42:00 Azucena Pandya POTASSIUM 2018-02-23 05:42:00 Bulmaro Balbuena BASIC METABOLIC PANEL 2018-02-23 00:00:00 Azucena Pandya MAGNESIUM 2018-02-23 00:00:00 Azucena Pandya CBC W/ AUTO DIFF 2018-02-23 00:00:00 Azucena Pandya PREPARE PLATELET PHERESIS 2018-02-22 07:01:00 Eliz Dhaliwal PREPARE RBC 2018-02-22 07:00:00 Eliz Dhaliwal BASIC METABOLIC PANEL 2018-02-22 00:04:00 Azucena Pandya MAGNESIUM 2018-02-22 00:04:00 Azucena Pandya C-REACTIVE PROTEIN 2018-02-22 00:04:00 Azucena Pandya CBC W/ AUTO DIFF 2018-02-22 00:04:00 Azucena Pandya SLIDE REVIEW 2018-02-22 00:04:00 Azucena Pandya MAGNESIUM 2018-02-21 10:16:00 Nam Mendoza POTASSIUM 2018-02-21 10:16:00 Nam Mendoza TRANSFUSE PHERESED PLATELETS 2018-02-21 09:39:49 Jeni Mendoza in [place] PLATELET COUNT 2018-02-21 05:59:00 Nam Mendoza VANCOMYCIN, TROUGH 2018-02-21 04:00:00 Sagar Tracy TRANSFUSE RED BLOOD CELLS 2018-02-21 03:19:32 Nam Mendoza BASIC METABOLIC PANEL 2018-02-21 01:09:00 Azucena Pandya HEPATIC FUNCTION PANEL 2018-02-21 01:09:00 Azucena Pandya LACTATE DEHYDROGENASE 2018-02-21 01:09:00 Azucena Pandya MAGNESIUM 2018-02-21 01:09:00 Azucena Pandya PHOSPHORUS 2018-02-21 01:09:00 Azucena Pandya VRE SCREEN 2018-02-21 01:09:00 Azucena Pandya TYPE AND SCREEN 2018-02-21 01:09:00 Nam Mendoza CBC W/ AUTO DIFF 2018-02-21 01:09:00 Azucena Pandya PROTIME-INR 2018-02-21 01:09:00 Azucena Pandya APTT 2018-02-21 01:09:00 Azucena Pandya URINALYSIS 2018-02-21 01:09:00 Azucena Pandya IONIZED CALCIUM VENOUS 2018-02-21 01:09:00 Azucena Pandya TRANSFUSE RED BLOOD CELLS 2018-02-20 23:02:50 Nam Mendoza CBC W/ AUTO DIFF 2018-02-20 17:59:00 Nam Mendoza POTASSIUM 2018-02-20 10:15:00 Nam Mendoza BASIC METABOLIC PANEL 2018-02-20 00:42:00 Azucena Pandya MAGNESIUM 2018-02-20 00:42:00 Azucena Pandya C-REACTIVE PROTEIN 2018-02-20 00:42:00 Monika Brunner CBC W/ AUTO DIFF 2018-02-20 00:42:00 Azucena Pandya URINALYSIS 2018-02-19 14:32:00 Nam Mendoza URINE CULTURE 2018-02-19 14:31:00 Nam Mendoza BLOOD CULTURE 2018-02-19 10:31:00 Nam Mendoaz XR CHEST PORTABLE 2018-02-19 09:52:01 Nam Mendoza BLOOD CULTURE 2018-02-19 09:51:00 Nam Mendoza PREPARE PLATELET PHERESIS 2018-02-19 07:05:00 Eliz Dhaliwal BASIC METABOLIC PANEL 2018-02-19 00:12:00 Azucena Pandya MAGNESIUM 2018-02-19 00:12:00 Azucena Pandya C-REACTIVE PROTEIN 2018-02-19 00:12:00 Nam Mendoza CBC W/ AUTO DIFF 2018-02-19 00:12:00 Azucena Pandya CLOSTRIDIUM DIFFICILE ASSAY 2018-02-18 17:48:00 Franklin Mendoza POTASSIUM 2018-02-18 11:48:00 Nam Mendoza PLATELET COUNT 2018-02-18 05:23:00 Nam Mendoza TRANSFUSE PHERESED PLATELETS 2018-02-18 05:18:30 Jeni Mendoza BASIC METABOLIC PANEL 2018-02-18 00:35:00 Azucena Pandya MAGNESIUM 2018-02-18 00:35:00 Azucena Pandya CBC W/ AUTO DIFF 2018-02-18 00:34:00 Azucena Pandya POTASSIUM 2018-02-17 08:32:00 Nam Mendoza URINALYSIS 2018-02-17 07:58:00 Azucena Pandya D-DIMER, QUANTITATIVE 2018-02-17 07:08:00 Nam Mendoza ett FIBRINOGEN 2018-02-17 07:08:00 Nam Mendoza PROTIME-INR 2018-02-17 07:08:00 Nam Mendoza APTT 2018-02-17 07:08:00 Nam Mendoza BASIC METABOLIC PANEL 2018-02-17 00:27:00 Azucena Pandya HEPATIC FUNCTION PANEL 2018-02-17 00:27:00 Azucena Pandya n LACTATE DEHYDROGENASE 2018-02-17 00:27:00 Azucena Pandya MAGNESIUM 2018-02-17 00:27:00 Azucena Pandya PHOSPHORUS 2018-02-17 00:27:00 Azucena Pandya TYPE AND SCREEN 2018-02-17 00:27:00 Nam Mendoza CBC W/ AUTO DIFF 2018-02-17 00:27:00 Azucena Pandya D-DIMER, QUANTITATIVE 2018-02-17 00:27:00 Nam Mendoza ett FIBRINOGEN 2018-02-17 00:27:00 Nam Mendoza PROTIME-INR 2018-02-17 00:27:00 Azucena Pandya APTT 2018-02-17 00:27:00 Azucena Pandya IONIZED CALCIUM VENOUS 2018-02-17 00:27:00 Azucena Pandya SLIDE REVIEW 2018-02-17 00:27:00 Azucena Pandya PREPARE RBC 2018-02-16 07:02:00 Nam Mendoza BASIC METABOLIC PANEL 2018-02-16 00:34:00 Azucena Pandya MAGNESIUM 2018-02-16 00:34:00 Azucena Pandya CBC W/ AUTO DIFF 2018-02-16 00:34:00 Azucena Pandya TRANSFUSE RED BLOOD CELLS 2018-02-15 09:48:14 Nam Mendoza POTASSIUM 2018-02-15 09:48:00 Nam Mendoza TRANSFUSE RED BLOOD CELLS 2018-02-15 06:15:12 Nam Mendoza BASIC METABOLIC PANEL 2018-02-15 00:49:00 Azucena Pandya MAGNESIUM 2018-02-15 00:49:00 Azucena Pandya CBC W/ AUTO DIFF 2018-02-15 00:49:00 Azucena Pandya URINALYSIS 2018-02-14 04:34:00 Azucena Pandya BASIC METABOLIC PANEL 2018-02-14 00:33:00 Azucena Pandya HEPATIC FUNCTION PANEL 2018-02-14 00:33:00 Azucena Pandya LACTATE DEHYDROGENASE 2018-02-14 00:33:00 Azucena Pandya MAGNESIUM 2018-02-14 00:33:00 Azucena Pandya PHOSPHORUS 2018-02-14 00:33:00 Azucena Pandya TYPE AND SCREEN 2018-02-14 00:33:00 Nam Mendoza CBC W/ AUTO DIFF 2018-02-14 00:33:00 Azucena Pandya PROTIME-INR 2018-02-14 00:33:00 Azucena Pandya APTT 2018-02-14 00:33:00 Azucena Pandya IONIZED CALCIUM VENOUS 2018-02-14 00:33:00 Azucena Pandya n VRE SCREEN 2018-02-14 00:27:00 Azucena Pandya BASIC METABOLIC PANEL 2018-02-13 00:32:00 Azucena Pandya MAGNESIUM 2018-02-13 00:32:00 Azucena Pandya CBC W/ AUTO DIFF 2018-02-13 00:32:00 Azucena Pandya BASIC METABOLIC PANEL 2018-02-12 00:23:00 Azucena Pandya ALBUMIN 2018-02-12 00:23:00 Meena Dillon MAGNESIUM 2018-02-12 00:23:00 Azucena Pandya CBC W/ AUTO DIFF 2018-02-12 00:23:00 Azucena Pandya BASIC METABOLIC PANEL 2018-02-11 00:23:00 Azucena Pandya MAGNESIUM 2018-02-11 00:23:00 Azucena Pandya CBC W/ AUTO DIFF 2018-02-11 00:23:00 Azucena Pandya THAW / INFUSION 2018-02-10 16:24:00 Nam Mendoza INFUSION SUMMARY 2018-02-10 16:24:00 Nam Mendoza BASIC METABOLIC PANEL 2018-02-10 00:05:00 Azucena Pandya HEPATIC FUNCTION PANEL 2018-02-10 00:05:00 Azucena Pandya n MAGNESIUM 2018-02-10 00:05:00 Azucena Pandya TYPE AND SCREEN 2018-02-10 00:05:00 Nam Mendoza CBC W/ AUTO DIFF 2018-02-10 00:05:00 Azucena Pandya GLUCOSE 6 PHOSPHATE 2018-02-10 00:05:00 Azucena Pandya DEHYDROGENASE APTT 2018-02-09 14:57:00 Azucena Pandya VRE SCREEN 2018-02-09 14:32:00 Azucena Pandya URINALYSIS 2018-02-09 14:32:00 Azucena Pandya XR CHEST PA AND LATERAL 2018-02-09 13:30:46 Azucena Pandya ECG 12-LEAD 2018-02-09 12:41:39 Azucena Pandya BASIC METABOLIC PANEL 2018-02-09 12:00:00 Azucena Pandya HEPATIC FUNCTION PANEL 2018-02-09 12:00:00 Azucena Pandya GAMMA GT 2018-02-09 12:00:00 Azucena Pandya LACTATE DEHYDROGENASE 2018-02-09 12:00:00 Azucena Pandya MAGNESIUM 2018-02-09 12:00:00 Azucena Pandya PHOSPHORUS 2018-02-09 12:00:00 Azucena Pandya URIC ACID 2018-02-09 12:00:00 Azucena Pandya TYPE AND SCREEN 2018-02-09 12:00:00 Azucena Pandya CBC W/ AUTO DIFF 2018-02-09 12:00:00 Azucena Pandya PROTIME-INR 2018-02-09 12:00:00 Azucena Pandya APTT 2018-02-09 12:00:00 Azucena Pandya IONIZED CALCIUM VENOUS 2018-02-09 12:00:00 Azucena Pandya SLIDE REVIEW 2018-02-09 12:00:00 Azucena Pandya RECREATION THERAPY EVAL AND 2018-02-09 11:53:02 Azucena Pandya TREAT COMPREHENSIVE METABOLIC PANEL 2018-02-08 08:41:00 Scotty Joel MAGNESIUM 2018-02-08 08:41:00 Scotty Joel CBC W/ AUTO DIFF 2018-02-08 08:41:00 Scotty Joel CBC W/ AUTO DIFF 2018-02-02 10:55:00 Nav Maria SLIDE REVIEW 2018-02-02 10:55:00 Nav Maria CD34 ENUMERATION 2018-02-02 10:50:00 Baldomero Matt STEM CELL COLLECTION - 2018-02-02 10:36:22 Nav Maria AUTOLOGOUS CBC W/ AUTO DIFF 2018-02-02 08:11:00 Amos Schaefer CD34 ENUMERATION 2018-02-02 08:11:00 Amos Schaefer SLIDE REVIEW 2018-02-02 08:11:00 Amos Schaefer RAPID INFLUENZA PCR 2018-02-01 17:07:00 Tesfaye Grewal IR INSERT TUNNELED CATHETER AGE 2018-01-25 14:30:00 Jarrett Joel GREATER THAN 5 YRS COMPREHENSIVE METABOLIC PANEL 2018-01-25 10:20:00 Desmond Dillon CBC W/ AUTO DIFF 2018-01-25 10:20:00 Meena Dillon PROTIME-INR 2018-01-25 10:20:00 Meena Dillon APTT 2018-01-25 10:20:00 Meena Dillon SLIDE REVIEW 2018-01-25 10:20:00 Meena Dillon SPIROMETRY 2018-01-18 13:24:03 Scotty Joel DIFFUSION STUDIES 2018-01-18 13:24:03 Scotty Joel DIFFUSION STUDIES 2018-01-18 13:24:03 Scotty Joel SPIROMETRY 2018-01-18 13:24:03 Scotty Joel XR CHEST PA AND LATERAL 2018-01-18 11:16:04 Scotty Joel n ECHOCARDIOGRAM W COLORFLOW 2018-01-18 10:50:00 Scotyt Joel Ma rvin SPECTRAL DOPPLER ECHOCARDIOGRAM W COLORFLOW 2018-01-18 10:50:00 Scotty Joel Ma rvin SPECTRAL DOPPLER HEMATOPATHOLOGY ORDER 2018-01-13 13:20:00 Azucena Pandya CYTOGENETICS CANCER/FISH 2018-01-13 13:20:00 Azucena Pandya NON-BLOOD ORDER CBC W/ AUTO DIFF 2018-01-13 05:07:00 Tesfaye Grewal PROTIME-INR 2018-01-13 05:07:00 Tesfaye Grewal [place] APTT 2018-01-13 05:07:00 Reggiegraham Tesfaye l XR TRAUMA HIP LEFT 2018-01-12 22:47:57 Uliss[place] XR ANKLE 3 VIEWS LEFT 2018-01-12 17:49:35 Tesfaye Grewal [place] PERIPHERAL INTRAVENOUS DEVICE 2018-01-12 16:38:29 Kizzy Rodriguez BY SCOTTY Joiner VRE SCREEN 2018-01-12 10:29:00 Scotty Joel URINALYSIS 2018-01-12 10:29:00 Scotty Joel KAPPA/LAMBDA LIGHT CHAINS, 2018-01-12 10:29:00 Scotty Joel Ma URINE PROTEIN ELECTROPHORESIS, 24 HR 2018-01-12 10:29:00 Royce Joel URINE IMMUNOFIXATION, 24HR URINE 2018-01-12 10:29:00 Scotty Joel Main UPE, 24 HOUR URINE 2018-01-12 10:29:00 Scotty Joel PROTEIN 24 HOUR URINE 2018-01-12 10:29:00 Scotty Joel ID PANEL 2018-01-12 10:21:00 Meena Dillon COMPREHENSIVE METABOLIC PANEL 2018-01-12 10:21:00 Scotty Joel BETA 2 MICROGLOBULIN, SERUM 2018-01-12 10:21:00 Scotty Joel katiana IGA 2018-01-12 10:21:00 Scotty Joel LACTATE DEHYDROGENASE 2018-01-12 10:21:00 Scotty Joel MAGNESIUM 2018-01-12 10:21:00 Scotty Joel PHOSPHORUS 2018-01-12 10:21:00 Scotty Joel VARICELLA ZOSTER ANTIBODY, IGG 2018-01-12 10:21:00 oRyce Joel TYPE AND SCREEN 2018-01-12 10:21:00 Scotty Joel CBC W/ AUTO DIFF 2018-01-12 10:21:00 Scotty Joel PROTIME-INR 2018-01-12 10:21:00 Scotty Joel APTT 2018-01-12 10:21:00 Scotty Joel SICKLE CELL SCREEN 2018-01-12 10:21:00 Scotty Joel IMMUNOGLOBULIN FREE LT CHAINS 2018-01-12 10:21:00 Scotty Joel BLOOD ZOIE-LAZO VIRUS ANTIBODY 2018-01-12 10:21:00 Scotty Joel katiana PANEL HSV ANTIBODIES, IGG 2018-01-12 10:21:00 Scotty Joel SERUM PROTEIN ELECTROPHORESIS 2018-01-12 10:21:00 Scotty Joel AND IMMUNOFIXATION SLIDE REVIEW 2018-01-12 10:21:00 Scotty Joel XR MYELOMA SURVEY 2018-01-12 08:27:32 Scotty Joel MRI OUTSIDE FILM FOR CONTINUED 2017-12-29 13:16:48 Royce Joel CARE MRI NEURO OUTSIDE FILM FOR 2017-12-29 13:16:30 Scotty Joel Ma rvin CONTINUED CARE MRI NEURO OUTSIDE FILM FOR 2017-12-29 13:16:07 Scotty Joel Ma rvin CONTINUED CARE CT BODY OUTSIDE FILM FOR 2017-12-29 13:15:45 Scotty Joel in CONTINUED CARE CT BODY OUTSIDE FILM FOR 2017-12-29 13:00:45 Scotty Joel in CONTINUED CARE bone marrow biopsy 2017-05-03 00:00:00 colonoscopy 2010-08-21 00:00:00 hernia repair 1967-05-03 00:00:00 Results Test Description Test Time Test Comments Text Results Atomic Results Result Comments WBC 2020-03-13 09:24:00 Test Item Value Reference Range Comments WBC (test code = WBC) 4.2000 4.0000-10.0000 Lymphocytes % (test code = Lymphocytes %) 23.7000 % 22.400 0-43.6000 MID% (test code = MID%) 6.6000 % .2000-11.1999 Neutrophils % (test code = Neutrophils %) 69.7000 % 48.900 0-69.9000 Lymphocytes (test code = Lymphocytes) 1.0000 1.2000-3.2 000 MID (test code = MID) 0.3000 0.1000-1.1000 Neutrophils (test code = Neutrophils) 2.9000 1.5000-6.7 000 RBC (test code = RBC) 3.3700 3.7000-4.9000 HGB (test code = HGB) 10.9000 g/dL 11.2000-18.0000 HCT (test code = HCT) 31.9000 % 34.0000-44.0000 MCV (test code = MCV) 94.7000 fL 80.0000-94.0000 MCH (test code = MCH) 32.4000 pg 27.0000-34.0000 MCHC (test code = MCHC) 34.2000 g/dL 31.5000-36.0000 RDW (test code = RDW) 15.0000 11.0000-18.0000 PLT (test code = PLT) 306.0000 140.0000-440.0000 MPV (test code = MPV) 7.7000 fL 6.8000-10.6000 [id number] 09:23:00 Test Item Value Reference Range Comments Creatinine (test code = Creatinine) 0.4000 mg/dL 0.5000-1.200 0 Cr Clearance (Est) (test code = Cr 156.0700 75.0000-115.0 000 Clearance (Est)) Glucose (test code = Glucose) 97.0000 mg/dL 70.0000-118.0000 BUN (test code = BUN) 7.0000 mg/dL 7.0000-22.0000 Sodium (test code = Sodium) 137.0000 mmol/L 128.0000-145.0000 Potassium (test code = Potassium) 2.9000 mmol/L 3.6000-5.1000 Chloride (test code = Chloride) 98.0000 mmol/L 96.0000-108.0000 CO2 (test code = CO2) 30.0000 mmol/L 18.0000-33.0000 Calcium (test code = Calcium) 9.1800 mg/dL 8.0000-10.3000 Alkaline Phosphatase (test code = Alkaline 49.0000 42.00 00-141.0000 Phosphatase) ALT (SGPT) (test code = ALT (SGPT)) 12.0000 10.0000-47.0 000 AST (SGOT) (test code = AST (SGOT)) 16.0000 11.0000-37.0 000 Bilirubin, Total (test code = Bilirubin, 0.6000 mg/dL 0.0000- 1.6000 Total) Albumin (test code = Albumin) 4.4000 g/dL 3.5000-5.5000 Protein, Total (test code = Protein, 6.9000 g/dL 6.4000-8.10 00 Total) eGFR -Vietnamese (test code = eGFR 195.0000 60.0000- 200.0000 -Vietnamese) eGFR Hxw-Qngtiio-Fprjiwis (test code = 161.0000 60.0000-2 00.0000 eGFR Dub-Sinlxse-Fhahvxtw) [id number] 13:04:00 Test Item Value Reference Range Comments WBC (test code = WBC) 3.2000 4.0000-10.0000 Lymphocytes % (test code = Lymphocytes %) 31.0000 % 22.400 0-43.6000 MID% (test code = MID%) 6.4000 % 1.2000-11.2000 Neutrophils % (test code = Neutrophils %) 62.6000 % 48.900 0-69.9000 Lymphocytes (test code = Lymphocytes) 0.9000 1.2000-3.2 000 MID (test code = MID) 0.3000 0.1000-1.1000 Neutrophils (test code = Neutrophils) 2.0000 1.5000-6.7 000 RBC (test code = RBC) 3.6500 3.7000-4.9000 HGB (test code = HGB) 11.3000 g/dL 11.2000-18.0000 HCT (test code = HCT) 34.5000 % 34.0000-44.0000 MCV (test code = MCV) 94.3000 fL 80.0000-94.0000 MCH (test code = MCH) 30.9000 pg 27.0000-34.0000 MCHC (test code = MCHC) 32.7000 g/dL 31.5000-36.0000 RDW (test code = RDW) 15.6000 11.0000-18.0000 PLT (test code = PLT) 308.0000 140.0000-440.0000 MPV (test code = MPV) 7.9000 fL 6.8000-10.6000 [id number] 13:03:00 Test Item Value Reference Range Comments Creatinine (test code = Creatinine) 0.6000 mg/dL 0.5000-1.200 0 Cr Clearance (Est) (test code = Cr 105.2800 75.0000-115.0 000 Clearance (Est)) Glucose (test code = Glucose) 105.0000 mg/dL 70.0000-118.0000 BUN (test code = BUN) 10.0000 mg/dL 7.0000-22.0000 Sodium (test code = Sodium) 135.0000 mmol/L 128.0000-145.0000 Potassium (test code = Potassium) 2.7000 mmol/L 3.6000-5.1000 Chloride (test code = Chloride) 97.0000 mmol/L 96.0000-108.0000 CO2 (test code = CO2) 30.0000 mmol/L 18.0000-33.0000 Calcium (test code = Calcium) 8.6700 mg/dL 8.0000-10.3000 Alkaline Phosphatase (test code = Alkaline 39.0000 42.00 00-141.0000 Phosphatase) ALT (SGPT) (test code = ALT (SGPT)) 11.0000 10.0000-47.0 000 AST (SGOT) (test code = AST (SGOT)) 15.0000 11.0000-37.0 000 Bilirubin, Total (test code = Bilirubin, 0.7000 mg/dL 0.0000- 1.6000 Total) Albumin (test code = Albumin) 4.4000 g/dL 3.5000-5.5000 Protein, Total (test code = Protein, 6.6000 g/dL 6.4000-8.10 00 Total) eGFR -Vietnamese (test code = eGFR 122.0000 60.0000- 200.0000 -Vietnamese) eGFR Aow-Wsmtuno-Poeqmrft (test code = 101.0000 60.0000-2 00.0000 eGFR Gip-Ckgcana-Yntendvf) Protein, [id number] 15:58:00 Test Item Value Reference Range Comments Protein, Total (test code = Protein, Total) 7.0000 g/dL 6.00 00-8.5000 Albumin (test code = Albumin) 3.8000 g/dL 2.9000-4.4000 Globulin (test code = Globulin) 3.2000 g/dL 2.2000-3.9000 A/G Ratio (test code = A/G Ratio) 1.2000 0.7000-1.7000 Magnesium (test code = Magnesium) 2.0000 mg/dL 1.6000-2.3000 [id number] 15:58:00 Test Item Value Reference Range Comments IGG (test code = IGG) 1258.0000 mg/dL 586.5698-9900.0000 IGA (test code = IGA) 193.0000 mg/dL 87.0000-352.0000 IGM (test code = IGM) 36.0000 mg/dL 26.0000-217.0000 Alpha-1 Globulin (test code 0.2000 g/dL 0.0000-0.4000 = Alpha-1 Globulin) Alpha-2 Globulin (test code 0.8000 g/dL 0.4000-1.0000 = Alpha-2 Globulin) Beta Globulin (test code = 1.0000 g/dL 0.7000-1.3000 Beta Globulin) Gamma Globulin (test code = 1.2000 g/dL 0.4000-1.8000 Gamma Globulin) M-Jose (test code = 0.3000 g/dL 0.0000-0.0000 M-Jose) Immunofixation Interp, Serum Comment Immunofixation shows (test code = Immunofixation IgG monoclonal protein with Interp, Serum) lambda light chain specificity. Monoclonal bands detected are faint. Suggest retesting in 4-6 months PE Note (test code = PE Comment Protein Note) electrophoresis scan will follow via computer, mail, or physical therapist aide delivery [place] Free Light Chain (test 18.8000 mg/L 3.3000-19.4000 code = [place] Free Light Chain) Lambda Free Light Chain 14.9000 mg/L 5.7000-26.3000 (test code = Lambda Free Light Chain) [place]/Lambda Free Ratio 1.2600 0.2600-1.6500 (test code = [place]/Lambda Free Ratio) Beta-2 Microglobulin (test 1.2000 mg/L 0.6000-2.4000 code = Beta-2 Microglobulin) [facility] [id number] 15:58:00 Test Item Value Reference Range Comments [facility] Comments (test code = DUP Duplicate procedure [facility] Comments) ordered. TEST: [id number] Albumin Panel: [id number] Gqtur-5-Ageamnwb Panel: [id number] Jvcei-5-Mlssjiug Panel: [id number] 12:50:00 Test Item Value Reference Range Comments Creatinine (test code = Creatinine) 0.6000 mg/dL 0.5000-1.200 0 Cr Clearance (Est) (test code = Cr 106.2500 75.0000-115.0 000 Clearance (Est)) Glucose (test code = Glucose) 98.0000 mg/dL 70.0000-118.0000 BUN (test code = BUN) 10.0000 mg/dL 7.0000-22.0000 Sodium (test code = Sodium) 138.0000 mmol/L 128.0000-145.0000 Potassium (test code = Potassium) 3.0000 mmol/L 3.6000-5.1000 Chloride (test code = Chloride) 101.0000 mmol/L 96.0000-108.0000 CO2 (test code = CO2) 29.0000 mmol/L 18.0000-33.0000 Calcium (test code = Calcium) 9.5300 mg/dL 8.0000-10.3000 Alkaline Phosphatase (test code = Alkaline 45.0000 42.00 00-141.0000 Phosphatase) ALT (SGPT) (test code = ALT (SGPT)) 10.0000 10.0000-47.0 000 AST (SGOT) (test code = AST (SGOT)) 14.0000 11.0000-37.0 000 Bilirubin, Total (test code = Bilirubin, 1.0000 mg/dL 0.0000- 1.6000 Total) Albumin (test code = Albumin) 4.4000 g/dL 3.5000-5.5000 Protein, Total (test code = Protein, 6.9000 g/dL 6.4000-8.10 00 Total) eGFR -Vietnamese (test code = eGFR 122.0000 60.0000- 200.0000 -Vietnamese) eGFR Xkp-Aavjpei-Fasogipz (test code = 101.0000 60.0000-2 00.0000 eGFR Kna-Lsbgvhc-Umffwjin) [id number] 12:49:00 Test Item Value Reference Range Comments WBC (test code = WBC) 3.1000 4.0000-10.0000 Lymphocytes % (test code = Lymphocytes %) 27.8000 % 22.400 0-43.6000 MID% (test code = MID%) 7.6000 % 1.2000-11.2000 Neutrophils % (test code = Neutrophils %) 64.6000 % 48.900 0-69.9000 Lymphocytes (test code = Lymphocytes) 0.8000 1.2000-3.2 000 MID (test code = MID) 0.3000 0.1000-1.1000 Neutrophils (test code = Neutrophils) 2.0000 1.5000-6.7 000 RBC (test code = RBC) 3.5300 3.7000-4.9000 HGB (test code = HGB) 11.3000 g/dL 11.2000-18.0000 HCT (test code = HCT) 33.9000 % 34.0000-44.0000 MCV (test code = MCV) 96.0000 fL 80.0000-94.0000 MCH (test code = MCH) 32.0000 pg 27.0000-34.0000 MCHC (test code = MCHC) 33.3000 g/dL 31.5000-36.0000 RDW (test code = RDW) 15.8000 11.0000-18.0000 PLT (test code = PLT) 315.0000 140.0000-440.0000 MPV (test code = MPV) 7.5000 fL 6.8000-10.6000 [id number] 13:06:00 Test Item Value Reference Range Comments WBC (test code = WBC) 2.6000 4.0000-10.0000 Lymphocytes % (test code = Lymphocytes %) 38.4000 % 22.400 0-43.6000 MID% (test code = MID%) 9.4000 % 1.2000-11.2000 Neutrophils % (test code = Neutrophils %) 52.2000 % 48.900 0-69.9000 Lymphocytes (test code = Lymphocytes) 1.0000 1.2000-3.2 000 MID (test code = MID) 0.2000 0.1000-1.1000 Neutrophils (test code = Neutrophils) 1.4000 1.5000-6.7 000 RBC (test code = RBC) 3.6900 3.7000-4.9000 HGB (test code = HGB) 12.4000 g/dL 11.2000-18.0000 HCT (test code = HCT) 35.8000 % 34.0000-44.0000 MCV (test code = MCV) 97.1000 fL 80.0000-94.0000 MCH (test code = MCH) 33.5000 pg 27.0000-34.0000 MCHC (test code = MCHC) 34.5000 g/dL 31.5000-36.0000 RDW (test code = RDW) 15.1000 11.0000-18.0000 PLT (test code = PLT) 250.0000 140.0000-440.0000 MPV (test code = MPV) 8.1000 fL 6.8000-10.6000 [id number] 13:06:00 Test Item Value Reference Range Comments Creatinine (test code = Creatinine) 0.6000 mg/dL 0.5000-1.200 0 Cr Clearance (Est) (test code = Cr 105.1500 75.0000-115.0 000 Clearance (Est)) Glucose (test code = Glucose) 101.0000 mg/dL 70.0000-118.0000 BUN (test code = BUN) 9.0000 mg/dL 7.0000-22.0000 Sodium (test code = Sodium) 136.0000 mmol/L 128.0000-145.0000 Potassium (test code = Potassium) 3.5000 mmol/L 3.6000-5.1000 Chloride (test code = Chloride) 100.0000 mmol/L 96.0000-108.0000 CO2 (test code = CO2) 27.0000 mmol/L 18.0000-33.0000 Calcium (test code = Calcium) 9.0000 mg/dL 8.0000-10.3000 Alkaline Phosphatase (test code = Alkaline 42.0000 42.00 00-141.0000 Phosphatase) ALT (SGPT) (test code = ALT (SGPT)) 12.0000 10.0000-47.0 000 AST (SGOT) (test code = AST (SGOT)) 23.0000 11.0000-37.0 000 Bilirubin, Total (test code = Bilirubin, 0.8000 mg/dL 0.0000- 1.6000 Total) Albumin (test code = Albumin) 4.6000 g/dL 3.5000-5.5000 Protein, Total (test code = Protein, 7.0000 g/dL 6.4000-8.10 00 Total) eGFR -Vietnamese (test code = eGFR 122.0000 60.0000- 200.0000 -Vietnamese) eGFR Pwu-Uoyofds-Smfvjxta (test code = 101.0000 60.0000-2 00.0000 eGFR Rad-Thgidyl-Canmaeht) [id number] 13:39:00 Test Item Value Reference Range Comments WBC (test code = WBC) 4.3000 4.0000-10.0000 Lymphocytes % (test code = Lymphocytes %) 33.9000 % 22.400 0-43.6000 MID% (test code = MID%) 7.2000 % 1.2000-11.2000 Neutrophils % (test code = Neutrophils %) 58.9000 % 48.900 0-69.9000 Lymphocytes (test code = Lymphocytes) 1.4000 1.2000-3.2 000 MID (test code = MID) 0.4000 0.1000-1.1000 Neutrophils (test code = Neutrophils) 2.5000 1.5000-6.7 000 RBC (test code = RBC) 3.4700 3.7000-4.9000 HGB (test code = HGB) 11.1000 g/dL 11.2000-18.0000 HCT (test code = HCT) 33.5000 % 34.0000-44.0000 MCV (test code = MCV) 96.6000 fL 80.0000-94.0000 MCH (test code = MCH) 31.9000 pg 27.0000-34.0000 MCHC (test code = MCHC) 33.0000 g/dL 31.5000-36.0000 RDW (test code = RDW) 15.0000 11.0000-18.0000 PLT (test code = PLT) 244.0000 140.0000-440.0000 MPV (test code = MPV) 8.5000 fL 6.8000-10.6000 [id number] 13:38:00 Test Item Value Reference Range Comments Creatinine (test code = Creatinine) 0.4000 mg/dL 0.5000-1.200 0 Cr Clearance (Est) (test code = Cr 161.8400 75.0000-115.0 000 Clearance (Est)) Glucose (test code = Glucose) 97.0000 mg/dL 70.0000-118.0000 BUN (test code = BUN) 7.0000 mg/dL 7.0000-22.0000 Sodium (test code = Sodium) 135.0000 mmol/L 128.0000-145.0000 Potassium (test code = Potassium) 4.1000 mmol/L 3.6000-5.1000 Chloride (test code = Chloride) 101.0000 mmol/L 96.0000-108.0000 CO2 (test code = CO2) 32.0000 mmol/L 18.0000-33.0000 Calcium (test code = Calcium) 8.8000 mg/dL 8.0000-10.3000 Alkaline Phosphatase (test code = Alkaline 40.0000 42.00 00-141.0000 Phosphatase) ALT (SGPT) (test code = ALT (SGPT)) 11.0000 10.0000-47.0 000 AST (SGOT) (test code = AST (SGOT)) 37.0000 11.0000-37.0 000 Bilirubin, Total (test code = Bilirubin, 0.8000 mg/dL 0.0000- 1.6000 Total) Albumin (test code = Albumin) 4.1000 g/dL 3.5000-5.5000 Protein, Total (test code = Protein, 6.6000 g/dL 6.4000-8.10 00 Total) eGFR -Vietnamese (test code = eGFR 195.0000 60.0000- 200.0000 -Vietnamese) eGFR Mif-Quvepvu-Eijrrnhp (test code = 161.0000 60.0000-2 00.0000 eGFR Red-Wqwfzop-Bfpdzoeb) Protein, [id number] 11:44:00 Test Item Value Reference Range Comments Protein, Total (test code = Protein, Total) 7.1000 g/dL 6.00 00-8.5000 Albumin (test code = Albumin) 4.0000 g/dL 2.9000-4.4000 Globulin (test code = Globulin) 3.1000 g/dL 2.2000-3.9000 A/G Ratio (test code = A/G Ratio) 1.3000 0.7000-1.7000 Vitamin D (25-Hydroxy) (test code = Vitamin D 33.4000 ng/mL 30 .0000-100.0000 (25-Hydroxy)) [id number] 11:44:00 Test Item Value Reference Range Comments IGG (test code = IGG) 1235.0000 mg/dL 586.8835-8514.0000 IGA (test code = IGA) 151.0000 mg/dL 87.0000-352.0000 IGM (test code = IGM) 37.0000 mg/dL 26.0000-217.0000 Alpha-1 Globulin (test code 0.2000 g/dL 0.0000-0.4000 = Alpha-1 Globulin) Alpha-2 Globulin (test code 0.7000 g/dL 0.4000-1.0000 = Alpha-2 Globulin) Beta Globulin (test code = 1.1000 g/dL 0.7000-1.3000 Beta Globulin) Gamma Globulin (test code = 1.0000 g/dL 0.4000-1.8000 Gamma Globulin) M-Jose (test code = 0.3000 g/dL 0.0000-0.0000 M-Jose) Immunofixation Interp, Serum Comment Immunofixation shows (test code = Immunofixation IgG monoclonal protein with Interp, Serum) lambda light chain specificity PE Note (test code = PE Comment Protein Note) electrophoresis scan will follow via computer, mail, or physical therapist aide delivery [place] Free Light Chain (test 19.6000 mg/L 3.3000-19.4000 code = [place] Free Light Chain) Lambda Free Light Chain 12.0000 mg/L 5.7000-26.3000 (test code = Lambda Free Light Chain) [place]/Lambda Free Ratio 1.6300 0.2600-1.6500 (test code = [place]/Lambda Free Ratio) Beta-2 Microglobulin (test 1.2000 mg/L 0.6000-2.4000 code = Beta-2 Microglobulin) [facility] [id number] 11:44:00 Test Item Value Reference Range Comments [facility] Comments (test code = DUP Duplicate procedure [facility] Comments) ordered. TEST: [id number] Protein Electro.,S [id number] 13:19:00 Test Item Value Reference Range Comments Creatinine (test code = Creatinine) 0.5000 mg/dL 0.5000-1.200 0 Cr Clearance (Est) (test code = Cr 129.8000 75.0000-115.0 000 Clearance (Est)) Glucose (test code = Glucose) 99.0000 mg/dL 70.0000-118.0000 BUN (test code = BUN) 12.0000 mg/dL 7.0000-22.0000 Sodium (test code = Sodium) 137.0000 mmol/L 128.0000-145.0000 Potassium (test code = Potassium) 3.6000 mmol/L 3.6000-5.1000 Chloride (test code = Chloride) 103.0000 mmol/L 96.0000-108.0000 CO2 (test code = CO2) 31.0000 mmol/L 18.0000-33.0000 Calcium (test code = Calcium) 8.9800 mg/dL 8.0000-10.3000 Alkaline Phosphatase (test code = Alkaline 41.0000 42.00 00-141.0000 Phosphatase) ALT (SGPT) (test code = ALT (SGPT)) 13.0000 10.0000-47.0 000 AST (SGOT) (test code = AST (SGOT)) 15.0000 11.0000-37.0 000 Bilirubin, Total (test code = Bilirubin, 0.7000 mg/dL 0.0000- 1.6000 Total) Albumin (test code = Albumin) 4.4000 g/dL 3.5000-5.5000 Protein, Total (test code = Protein, 6.8000 g/dL 6.4000-8.10 00 Total) eGFR -Vietnamese (test code = eGFR 151.0000 60.0000- 200.0000 -Vietnamese) eGFR Pdx-Bwijsvo-Suhcqeww (test code = 125.0000 60.0000-2 00.0000 eGFR Hpz-Bdnmajc-Egoplmas) [id number] 13:17:00 Test Item Value Reference Range Comments WBC (test code = WBC) 3.2000 4.0000-10.0000 Lymphocytes % (test code = Lymphocytes %) 32.2000 % 22.400 0-43.6000 MID% (test code = MID%) 7.7000 % .1999-11.1999 Neutrophils % (test code = Neutrophils %) 60.1000 % 48.900 0-69.9000 Lymphocytes (test code = Lymphocytes) 1.0000 1.2000-3.2 000 MID (test code = MID) 0.3000 0.1000-1.1000 Neutrophils (test code = Neutrophils) 1.9000 1.5000-6.7 000 RBC (test code = RBC) 3.4100 3.7000-4.9000 HGB (test code = HGB) 11.6000 g/dL 11.2000-18.0000 HCT (test code = HCT) 34.3000 % 34.0000-44.0000 MCV (test code = MCV) 100.5000 fL 80.0000-94.0000 MCH (test code = MCH) 34.1000 pg 27.0000-34.0000 MCHC (test code = MCHC) 33.9000 g/dL 31.5000-36.0000 RDW (test code = RDW) 15.5000 11.0000-18.0000 PLT (test code = PLT) 255.0000 140.0000-440.0000 MPV (test code = MPV) 7.4000 fL 6.8000-10.6000 [id number] 12:26:00 Test Item Value Reference Range Comments WBC (test code = WBC) 2.7000 4.0000-10.0000 Lymphocytes % (test code = Lymphocytes %) 44.2000 % 22.400 0-43.6000 MID% (test code = MID%) 7.6000 % .1999- Neutrophils % (test code = Neutrophils %) 48.2000 % 48.900 0-69.9000 Lymphocytes (test code = Lymphocytes) 1.2000 1.2000-3.2 000 MID (test code = MID) 0.2000 0.1000-1.1000 Neutrophils (test code = Neutrophils) 1.3000 1.5000-6.7 000 RBC (test code = RBC) 3.5600 3.7000-4.9000 HGB (test code = HGB) 11.5000 g/dL 11.2000-18.0000 HCT (test code = HCT) 35.1000 % 34.0000-44.0000 MCV (test code = MCV) 98.5000 fL 80.0000-94.0000 MCH (test code = MCH) 32.5000 pg 27.0000-34.0000 MCHC (test code = MCHC) 33.0000 g/dL 31.5000-36.0000 RDW (test code = RDW) 15.9000 11.0000-18.0000 PLT (test code = PLT) 303.0000 140.0000-440.0000 MPV (test code = MPV) 8.2000 fL 6.8000-10.6000 [id number] 12:26:00 Test Item Value Reference Range Comments Creatinine (test code = Creatinine) 0.5000 mg/dL 0.5000-1.200 0 Cr Clearance (Est) (test code = Cr 128.6500 75.0000-115.0 000 Clearance (Est)) Glucose (test code = Glucose) 92.0000 mg/dL 70.0000-118.0000 BUN (test code = BUN) 12.0000 mg/dL 7.0000-22.0000 Sodium (test code = Sodium) 136.0000 mmol/L 128.0000-145.0000 Potassium (test code = Potassium) 3.1000 mmol/L 3.6000-5.1000 Chloride (test code = Chloride) 100.0000 mmol/L 96.0000-108.0000 CO2 (test code = CO2) 32.0000 mmol/L 18.0000-33.0000 Calcium (test code = Calcium) 8.0500 mg/dL 8.0000-10.3000 Alkaline Phosphatase (test code = Alkaline 36.0000 42.00 00-141.0000 Phosphatase) ALT (SGPT) (test code = ALT (SGPT)) 12.0000 10.0000-47.0 000 AST (SGOT) (test code = AST (SGOT)) 15.0000 11.0000-37.0 000 Bilirubin, Total (test code = Bilirubin, 0.9000 mg/dL 0.0000- 1.6000 Total) Albumin (test code = Albumin) 4.2000 g/dL 3.5000-5.5000 Protein, Total (test code = Protein, 6.5000 g/dL 6.4000-8.10 00 Total) eGFR -Vietnamese (test code = eGFR 151.0000 60.0000- 200.0000 -Vietnamese) eGFR Pdf-Bfstwir-Dtruqhgs (test code = 125.0000 60.0000-2 00.0000 eGFR [place]-Cyupehs-Yckqblkl) [id number] 15:33:00 Test Item Value Reference Range Comments IGG (test code = IGG) 1176.0000 mg/dL 586.7285-9242.0000 IGA (test code = IGA) 157.0000 mg/dL 87.0000-352.0000 IGM (test code = IGM) 42.0000 mg/dL 26.0000-217.0000 Alpha-1 Globulin (test code 0.2000 g/dL 0.0000-0.4000 = Alpha-1 Globulin) Alpha-2 Globulin (test code 0.6000 g/dL 0.4000-1.0000 = Alpha-2 Globulin) Beta Globulin (test code = 1.0000 g/dL 0.7000-1.3000 Beta Globulin) Gamma Globulin (test code = 1.0000 g/dL 0.4000-1.8000 Gamma Globulin) M-Jose (test code = 0.3000 g/dL 0.0000-0.0000 M-Jose) Immunofixation Interp, Serum Comment Immunofixation shows (test code = Immunofixation IgG monoclonal protein with Interp, Serum) lambda light chain specificity PE Note (test code = PE Comment Protein Note) electrophoresis scan will follow via computer, mail, or physical therapist aide delivery [place] Free Light Chain (test 17.6000 mg/L 3.3000-19.4000 code = [place] Free Light Chain) Lambda Free Light Chain 12.4000 mg/L 5.7000-26.3000 (test code = Lambda Free Light Chain) [place]/Lambda Free Ratio 1.4200 0.2600-1.6500 (test code = [place]/Lambda Free Ratio) Beta-2 Microglobulin (test 1.3000 mg/L 0.6000-2.4000 code = Beta-2 Microglobulin) [facility] [id number] 15:33:00 Test Item Value Reference Range Comments [facility] Comments (test code = DUP Duplicate procedure [facility] Comments) ordered. TEST: [id number] Protein Electro.,S Protein, [id number] 15:33:00 Test Item Value Reference Range Comments Protein, Total (test code = Protein, Total) 6.5000 g/dL 6.00 00-8.5000 Albumin (test code = Albumin) 3.7000 g/dL 2.9000-4.4000 Globulin (test code = Globulin) 2.8000 g/dL 2.2000-3.9000 A/G Ratio (test code = A/G Ratio) 1.4000 0.7000-1.7000 [id number] 13:39:00 Test Item Value Reference Range Comments Creatinine (test code = Creatinine) 0.6000 mg/dL 0.5000-1.200 0 Cr Clearance (Est) (test code = Cr 108.0300 75.0000-115.0 000 Clearance (Est)) Glucose (test code = Glucose) 87.0000 mg/dL 70.0000-118.0000 BUN (test code = BUN) 11.0000 mg/dL 7.0000-22.0000 Sodium (test code = Sodium) 141.0000 mmol/L 128.0000-145.0000 Potassium (test code = Potassium) 3.3000 mmol/L 3.6000-5.1000 Chloride (test code = Chloride) 102.0000 mmol/L 96.0000-108.0000 CO2 (test code = CO2) 30.0000 mmol/L 18.0000-33.0000 Calcium (test code = Calcium) 9.7000 mg/dL 8.0000-10.3000 Alkaline Phosphatase (test code = Alkaline 47.0000 42.00 00-141.0000 Phosphatase) ALT (SGPT) (test code = ALT (SGPT)) 20.0000 10.0000-47.0 000 AST (SGOT) (test code = AST (SGOT)) 26.0000 11.0000-37.0 000 Bilirubin, Total (test code = Bilirubin, 0.8000 mg/dL 0.0000- 1.6000 Total) Albumin (test code = Albumin) 3.8000 g/dL 3.5000-5.5000 Protein, Total (test code = Protein, 7.5000 g/dL 6.4000-8.10 00 Total) eGFR -Vietnamese (test code = eGFR 122.0000 60.0000- 200.0000 -Vietnamese) eGFR Dje-Cabipja-Nootvcey (test code = 101.0000 60.0000-2 00.0000 eGFR Qxm-Unkxxrh-Pfhqmtpk) [id number] 13:36:00 Test Item Value Reference Range Comments WBC (test code = WBC) 2.9000 4.0000-10.0000 Lymphocytes % (test code = Lymphocytes %) 33.5000 % 22.400 0-43.6000 MID% (test code = MID%) 8.7000 % .1999- Neutrophils % (test code = Neutrophils %) 57.8000 % 48.900 0-69.9000 Lymphocytes (test code = Lymphocytes) 1.0000 1.2000-3.2 000 MID (test code = MID) 0.2000 0.1000-1.1000 Neutrophils (test code = Neutrophils) 1.7000 1.5000-6.7 000 RBC (test code = RBC) 3.5700 3.7000-4.9000 HGB (test code = HGB) 12.1000 g/dL 11.2000-18.0000 HCT (test code = HCT) 35.7000 % 34.0000-44.0000 MCV (test code = MCV) 99.9000 fL 80.0000-94.0000 MCH (test code = MCH) 33.8000 pg 27.0000-34.0000 MCHC (test code = MCHC) 33.8000 g/dL 31.5000-36.0000 RDW (test code = RDW) 15.1999 11.0000-18.0000 PLT (test code = PLT) 268.0000 140.0000-440.0000 MPV (test code = MPV) 7.9000 fL 6.8000-10.6000 [id number] 13:57:00 Test Item Value Reference Range Comments WBC (test code = WBC) 3.2000 4.0000-10.0000 Lymphocytes % (test code = Lymphocytes %) 34.8000 % 22.400 0-43.6000 MID% (test code = MID%) 8.6000 % .1999- Neutrophils % (test code = Neutrophils %) 56.6000 % 48.900 0-69.9000 Lymphocytes (test code = Lymphocytes) 1.1000 1.2000-3.2 000 MID (test code = MID) 0.3000 0.1000-1.1000 Neutrophils (test code = Neutrophils) 1.8000 1.5000-6.7 000 RBC (test code = RBC) 3.5900 3.7000-4.9000 HGB (test code = HGB) 12.2000 g/dL 11.2000-18.0000 HCT (test code = HCT) 36.1000 % 34.0000-44.0000 MCV (test code = MCV) 100.4000 fL 80.0000-94.0000 MCH (test code = MCH) 34.1000 pg 27.0000-34.0000 MCHC (test code = MCHC) 34.0000 g/dL 31.5000-36.0000 RDW (test code = RDW) 15.1999 11.0000-18.0000 PLT (test code = PLT) 271.0000 140.0000-440.0000 MPV (test code = MPV) 7.7000 fL 6.8000-10.6000 [id number] 13:57:00 Test Item Value Reference Range Comments Creatinine (test code = Creatinine) 0.5000 mg/dL 0.5000-1.200 0 Cr Clearance (Est) (test code = Cr 131.6200 75.0000-115.0 000 Clearance (Est)) Glucose (test code = Glucose) 85.0000 mg/dL 70.0000-118.0000 BUN (test code = BUN) 14.0000 mg/dL 7.0000-22.0000 Sodium (test code = Sodium) 135.0000 mmol/L 128.0000-145.0000 Potassium (test code = Potassium) 3.8000 mmol/L 3.6000-5.1000 Chloride (test code = Chloride) 101.0000 mmol/L 96.0000-108.0000 CO2 (test code = CO2) 31.0000 mmol/L 18.0000-33.0000 Calcium (test code = Calcium) 8.8700 mg/dL 8.0000-10.3000 Alkaline Phosphatase (test code = Alkaline 39.0000 42.00 00-141.0000 Phosphatase) ALT (SGPT) (test code = ALT (SGPT)) 10.0000 10.0000-47.0 000 AST (SGOT) (test code = AST (SGOT)) 12.0000 11.0000-37.0 000 Bilirubin, Total (test code = Bilirubin, 0.4000 mg/dL 0.0000- 1.6000 Total) Albumin (test code = Albumin) 4.2000 g/dL 3.5000-5.5000 Protein, Total (test code = Protein, 6.6000 g/dL 6.4000-8.10 00 Total) eGFR -Vietnamese (test code = eGFR 151.0000 60.0000- 200.0000 -Vietnamese) eGFR Jto-Rrhprkf-Rhichgto (test code = 125.0000 60.0000-2 00.0000 eGFR Tug-Jrikhmc-Cfuismcq) [id number] 13:53:00 Test Item Value Reference Range Comments Creatinine (test code = Creatinine) 0.5000 mg/dL 0.5000-1.200 0 Cr Clearance (Est) (test code = Cr 128.3200 75.0000-115.0 000 Clearance (Est)) Glucose (test code = Glucose) 149.0000 mg/dL 70.0000-118.0000 BUN (test code = BUN) 9.0000 mg/dL 7.0000-22.0000 Sodium (test code = Sodium) 137.0000 mmol/L 128.0000-145.0000 Potassium (test code = Potassium) 3.1000 mmol/L 3.6000-5.1000 Chloride (test code = Chloride) 102.0000 mmol/L 96.0000-108.0000 CO2 (test code = CO2) 29.0000 mmol/L 18.0000-33.0000 Calcium (test code = Calcium) 8.9400 mg/dL 8.0000-10.3000 Alkaline Phosphatase (test code = Alkaline 35.0000 42.00 00-141.0000 Phosphatase) ALT (SGPT) (test code = ALT (SGPT)) 12.0000 10.0000-47.0 000 AST (SGOT) (test code = AST (SGOT)) 15.0000 11.0000-37.0 000 Bilirubin, Total (test code = Bilirubin, 0.6000 mg/dL 0.0000- 1.6000 Total) Albumin (test code = Albumin) 4.3000 g/dL 3.5000-5.5000 Protein, Total (test code = Protein, 6.6000 g/dL 6.4000-8.10 00 Total) eGFR -Vietnamese (test code = eGFR 151.0000 60.0000- 200.0000 -Vietnamese) eGFR Eed-Owifrmk-Ibdzaqtz (test code = 125.0000 60.0000-2 00.0000 eGFR Jho-Qmbesec-Hsenrbuy) Protein, [id number] 15:31:00 Test Item Value Reference Range Comments Protein, Total (test code = Protein, Total) 6.9000 g/dL 6.00 00-8.5000 Albumin (test code = Albumin) 3.9000 g/dL 2.9000-4.4000 Globulin (test code = Globulin) 3.0000 g/dL 2.2000-3.9000 A/G Ratio (test code = A/G Ratio) 1.4000 0.7000-1.7000 [id number] 15:31:00 Test Item Value Reference Range Comments IGG (test code = IGG) 1175.0000 mg/dL 700.4067-5755.0000 IGA (test code = IGA) 158.0000 mg/dL 87.0000-352.0000 IGM (test code = IGM) 36.0000 mg/dL 26.0000-217.0000 Alpha-1 Globulin (test code 0.2000 g/dL 0.0000-0.4000 = Alpha-1 Globulin) Alpha-2 Globulin (test code 0.7000 g/dL 0.4000-1.0000 = Alpha-2 Globulin) Beta Globulin (test code = 1.1000 g/dL 0.7000-1.3000 Beta Globulin) Gamma Globulin (test code = 1.0000 g/dL 0.4000-1.8000 Gamma Globulin) M-Jose (test code = 0.4000 g/dL 0.0000-0.0000 M-Jose) Immunofixation Interp, Serum Comment Immunofixation shows (test code = Immunofixation IgG monoclonal protein with Interp, Serum) lambda light chain specificity PE Note (test code = PE Comment Protein Note) electrophoresis scan will follow via computer, mail, or physical therapist aide delivery [place] Free Light Chain (test 16.2000 mg/L 3.3000-19.4000 code = [place] Free Light Chain) Lambda Free Light Chain 13.3000 mg/L 5.7000-26.3000 (test code = Lambda Free Light Chain) [place]/Lambda Free Ratio 1.2200 0.2600-1.6500 (test code = [place]/Lambda Free Ratio) Beta-2 Microglobulin (test 1.2000 mg/L 0.6000-2.4000 code = Beta-2 Microglobulin) [facility] [id number] 15:31:00 Test Item Value Reference Range Comments [facility] Comments (test code = DUP Duplicate procedure [facility] Comments) ordered. TEST: [id number] Protein Electro.,S [id number] 13:24:00 Test Item Value Reference Range Comments WBC (test code = WBC) 2.9000 4.0000-10.0000 Lymphocytes % (test code = Lymphocytes %) 33.3000 % 22.400 0-43.6000 MID% (test code = MID%) 6.6000 % 1.2000-11.2000 Neutrophils % (test code = Neutrophils %) 60.1000 % 48.900 0-69.9000 Lymphocytes (test code = Lymphocytes) 0.9000 1.2000-3.2 000 MID (test code = MID) 0.3000 0.1000-1.1000 Neutrophils (test code = Neutrophils) 1.7000 1.5000-6.7 000 RBC (test code = RBC) 3.7500 3.7000-4.9000 HGB (test code = HGB) 11.9000 g/dL 11.2000-18.0000 HCT (test code = HCT) 37.1000 % 34.0000-44.0000 MCV (test code = MCV) 99.1000 fL 80.0000-94.0000 MCH (test code = MCH) 31.9000 pg 27.0000-34.0000 MCHC (test code = MCHC) 32.2000 g/dL 31.5000-36.0000 RDW (test code = RDW) 15.4000 11.0000-18.0000 PLT (test code = PLT) 306.0000 140.0000-440.0000 MPV (test code = MPV) 7.8000 fL 6.8000-10.6000 [id number] 13:24:00 Test Item Value Reference Range Comments Creatinine (test code = Creatinine) 0.6000 mg/dL 0.5000-1.200 0 Cr Clearance (Est) (test code = Cr 106.9300 75.0000-115.0 000 Clearance (Est)) Glucose (test code = Glucose) 103.0000 mg/dL 70.0000-118.0000 BUN (test code = BUN) 10.0000 mg/dL 7.0000-22.0000 Sodium (test code = Sodium) 136.0000 mmol/L 128.0000-145.0000 Potassium (test code = Potassium) 3.1000 mmol/L 3.6000-5.1000 Chloride (test code = Chloride) 97.0000 mmol/L 96.0000-108.0000 CO2 (test code = CO2) 31.0000 mmol/L 18.0000-33.0000 Calcium (test code = Calcium) 9.2700 mg/dL 8.0000-10.3000 Alkaline Phosphatase (test code = Alkaline 43.0000 42.00 00-141.0000 Phosphatase) ALT (SGPT) (test code = ALT (SGPT)) 12.0000 10.0000-47.0 000 AST (SGOT) (test code = AST (SGOT)) 15.0000 11.0000-37.0 000 Bilirubin, Total (test code = Bilirubin, 0.5000 mg/dL 0.0000- 1.6000 Total) Albumin (test code = Albumin) 4.4000 g/dL 3.5000-5.5000 Protein, Total (test code = Protein, 6.9000 g/dL 6.4000-8.10 00 Total) eGFR -Vietnamese (test code = eGFR 122.0000 60.0000- 200.0000 -Vietnamese) eGFR Hsq-Ceiyzga-Aplzqbih (test code = 101.0000 60.0000-2 00.0000 eGFR Rfm-Lgwxual-Vqjohmen) [id number] 12:30:00 Test Item Value Reference Range Comments Creatinine (test code = Creatinine) 0.5000 mg/dL 0.5000-1.200 0 Cr Clearance (Est) (test code = Cr 131.1500 75.0000-115.0 000 Clearance (Est)) Glucose (test code = Glucose) 83.0000 mg/dL 70.0000-118.0000 BUN (test code = BUN) 11.0000 mg/dL 7.0000-22.0000 Sodium (test code = Sodium) 138.0000 mmol/L 128.0000-145.0000 Potassium (test code = Potassium) 3.3000 mmol/L 3.6000-5.1000 Chloride (test code = Chloride) 100.0000 mmol/L 96.0000-108.0000 CO2 (test code = CO2) 29.0000 mmol/L 18.0000-33.0000 Calcium (test code = Calcium) 9.2200 mg/dL 8.0000-10.3000 Alkaline Phosphatase (test code = Alkaline 41.0000 42.00 00-141.0000 Phosphatase) ALT (SGPT) (test code = ALT (SGPT)) 13.0000 10.0000-47.0 000 AST (SGOT) (test code = AST (SGOT)) 17.0000 11.0000-37.0 000 Bilirubin, Total (test code = Bilirubin, 0.6000 mg/dL 0.0000- 1.6000 Total) Albumin (test code = Albumin) 4.5000 g/dL 3.5000-5.5000 Protein, Total (test code = Protein, 6.9000 g/dL 6.4000-8.10 00 Total) eGFR -Vietnamese (test code = eGFR 151.0000 60.0000- 200.0000 -Vietnamese) eGFR Qdf-Jhkgzhf-Lxkrhnut (test code = 125.0000 60.0000-2 00.0000 eGFR Kdi-Umpsnal-Biilyxut) [id number] 12:57:00 Test Item Value Reference Range Comments WBC (test code = WBC) 3.7000 4.0000-10.0000 Lymphocytes % (test code = Lymphocytes %) 31.9000 % 22.400 0-43.6000 MID% (test code = MID%) 7.6000 % 1.2000-11.2000 Neutrophils % (test code = Neutrophils %) 60.5000 % 48.900 0-69.9000 Lymphocytes (test code = Lymphocytes) 1.2000 1.2000-3.2 000 MID (test code = MID) 0.3000 0.1000-1.1000 Neutrophils (test code = Neutrophils) 2.2000 1.5000-6.7 000 RBC (test code = RBC) 3.6500 3.7000-4.9000 HGB (test code = HGB) 11.7000 g/dL 11.2000-18.0000 HCT (test code = HCT) 36.2000 % 34.0000-44.0000 MCV (test code = MCV) 99.1000 fL 80.0000-94.0000 MCH (test code = MCH) 32.2000 pg 27.0000-34.0000 MCHC (test code = MCHC) 32.5000 g/dL 31.5000-36.0000 RDW (test code = RDW) 15.4000 11.0000-18.0000 PLT (test code = PLT) 269.0000 140.0000-440.0000 MPV (test code = MPV) 7.9000 fL 6.8000-10.6000 [id number] 12:57:00 Test Item Value Reference Range Comments Creatinine (test code = Creatinine) 0.5000 mg/dL 0.5000-1.200 0 Cr Clearance (Est) (test code = Cr 130.9900 75.0000-115.0 000 Clearance (Est)) Glucose (test code = Glucose) 89.0000 mg/dL 70.0000-118.0000 BUN (test code = BUN) 12.0000 mg/dL 7.0000-22.0000 Sodium (test code = Sodium) 135.0000 mmol/L 128.0000-145.0000 Potassium (test code = Potassium) 2.9000 mmol/L 3.6000-5.1000 Chloride (test code = Chloride) 97.0000 mmol/L 96.0000-108.0000 CO2 (test code = CO2) 31.0000 mmol/L 18.0000-33.0000 Calcium (test code = Calcium) 8.6500 mg/dL 8.0000-10.3000 Alkaline Phosphatase (test code = Alkaline 43.0000 42.00 00-141.0000 Phosphatase) ALT (SGPT) (test code = ALT (SGPT)) 13.0000 10.0000-47.0 000 AST (SGOT) (test code = AST (SGOT)) 16.0000 11.0000-37.0 000 Bilirubin, Total (test code = Bilirubin, 0.7000 mg/dL 0.0000- 1.6000 Total) Albumin (test code = Albumin) 4.4000 g/dL 3.5000-5.5000 Protein, Total (test code = Protein, 6.8000 g/dL 6.4000-8.10 00 Total) eGFR -Vietnamese (test code = eGFR 151.0000 60.0000- 200.0000 -Vietnamese) eGFR Vft-Vqeglcg-Syqtufwq (test code = 125.0000 60.0000-2 00.0000 eGFR Gve-Ylqjppb-Tkcflypn) [id number] 13:12:00 Test Item Value Reference Range Comments Creatinine (test code = Creatinine) 0.6000 mg/dL 0.5000-1.200 0 Cr Clearance (Est) (test code = Cr 108.3200 75.0000-115.0 000 Clearance (Est)) Glucose (test code = Glucose) 91.0000 mg/dL 70.0000-118.0000 BUN (test code = BUN) 9.0000 mg/dL 7.0000-22.0000 Sodium (test code = Sodium) 138.0000 mmol/L 128.0000-145.0000 Potassium (test code = Potassium) 3.1000 mmol/L 3.6000-5.1000 Chloride (test code = Chloride) 96.0000 mmol/L 96.0000-108.0000 CO2 (test code = CO2) 31.0000 mmol/L 18.0000-33.0000 Calcium (test code = Calcium) 9.7900 mg/dL 8.0000-10.3000 Alkaline Phosphatase (test code = Alkaline 45.0000 42.00 00-141.0000 Phosphatase) ALT (SGPT) (test code = ALT (SGPT)) 14.0000 10.0000-47.0 000 AST (SGOT) (test code = AST (SGOT)) 15.0000 11.0000-37.0 000 Bilirubin, Total (test code = Bilirubin, 0.8000 mg/dL 0.0000- 1.6000 Total) Albumin (test code = Albumin) 4.7000 g/dL 3.5000-5.5000 Protein, Total (test code = Protein, 7.0000 g/dL 6.4000-8.10 00 Total) eGFR -Vietnamese (test code = eGFR 123.0000 60.0000- 200.0000 -Vietnamese) eGFR Akz-Vhgwogy-Vhzjmgyi (test code = 101.0000 60.0000-2 00.0000 eGFR Cij-Gtjooxy-Qwrnkbvy) [id number] 13:11:00 Test Item Value Reference Range Comments WBC (test code = WBC) 4.8000 4.0000-10.0000 Lymphocytes % (test code = Lymphocytes %) 20.3000 % 22.400 0-43.6000 MID% (test code = MID%) 8.4000 % 1.2000-11.2000 Neutrophils % (test code = Neutrophils %) 71.3000 % 48.900 0-69.9000 Lymphocytes (test code = Lymphocytes) 0.9000 1.2000-3.2 000 MID (test code = MID) 0.5000 0.1000-1.1000 Neutrophils (test code = Neutrophils) 3.4000 1.5000-6.7 000 RBC (test code = RBC) 4.0800 3.7000-4.9000 HGB (test code = HGB) 12.5000 g/dL 11.2000-18.0000 HCT (test code = HCT) 40.2000 % 34.0000-44.0000 MCV (test code = MCV) 98.5000 fL 80.0000-94.0000 MCH (test code = MCH) 30.6000 pg 27.0000-34.0000 MCHC (test code = MCHC) 31.1000 g/dL 31.5000-36.0000 RDW (test code = RDW) 16.1000 11.0000-18.0000 PLT (test code = PLT) 307.0000 140.0000-440.0000 MPV (test code = MPV) 7.4000 fL 6.8000-10.6000 Protein, [id number] 12:33:00 Test Item Value Reference Range Comments Protein, Total (test code = Protein, Total) 7.1000 g/dL 6.00 00-8.5000 Albumin (test code = Albumin) 3.9000 g/dL 2.9000-4.4000 Globulin (test code = Globulin) 3.2000 g/dL 2.2000-3.9000 A/G Ratio (test code = A/G Ratio) 1.3000 0.7000-1.7000 [id number] 12:33:00 Test Item Value Reference Range Comments IGG (test code = IGG) 1197.0000 mg/dL 700.9527-4059.0000 IGA (test code = IGA) 152.0000 mg/dL 87.0000-352.0000 IGM (test code = IGM) 48.0000 mg/dL 26.0000-217.0000 Alpha-1 Globulin (test code 0.3000 g/dL 0.0000-0.4000 = Alpha-1 Globulin) Alpha-2 Globulin (test code 0.8000 g/dL 0.4000-1.0000 = Alpha-2 Globulin) Beta Globulin (test code = 1.1000 g/dL 0.7000-1.3000 Beta Globulin) Gamma Globulin (test code = 1.1000 g/dL 0.4000-1.8000 Gamma Globulin) M-Jose (test code = M-Jose) Immunofixation Interp, Serum Comment An apparent normal (test code = Immunofixation immunofixation pattern Interp, Serum) PE Note (test code = PE Comment Protein Note) electrophoresis scan will follow via computer, mail, or physical therapist aide delivery [place] Free Light Chain (test 15.7000 mg/L 3.3000-19.4000 code = [place] Free [facility] Chain) [place] Free Light Chain 14.8000 mg/L 5.7000-26.3000 (test code = [place] Free Light Chain) [place]/Lambda Free Ratio 1.0600 0.2600-1.6500 (test code = [place]/Lambda Free Ratio) Beta-2 Microglobulin (test 1.4000 mg/L 0.6000-2.4000 code = Beta-2 Microglobulin) [facility] [id number] 12:33:00 Test Item Value Reference Range Comments [facility] Comments (test code = DUP Duplicate procedure [facility] Comments) ordered. TEST: [id number] Protein Electro.,S [id number] 13:51:00 Test Item Value Reference Range Comments WBC (test code = WBC) 4.6000 4.0000-10.0000 Lymphocytes % (test code = Lymphocytes %) 22.0000 % 22.400 0-43.6000 MID% (test code = MID%) 7.5000 % 1.2000-11.2000 Neutrophils % (test code = Neutrophils %) 70.5000 % 48.900 0-69.9000 Lymphocytes (test code = Lymphocytes) 1.0000 1.2000-3.2 000 MID (test code = MID) 0.4000 0.1000-1.1000 Neutrophils (test code = Neutrophils) 3.2000 1.5000-6.7 000 RBC (test code = RBC) 3.8400 3.7000-4.9000 HGB (test code = HGB) 12.5000 g/dL 11.2000-18.0000 HCT (test code = HCT) 37.9000 % 34.0000-44.0000 MCV (test code = MCV) 98.6000 fL 80.0000-94.0000 MCH (test code = MCH) 32.5000 pg 27.0000-34.0000 MCHC (test code = MCHC) 33.0000 g/dL 31.5000-36.0000 RDW (test code = RDW) 15.1000 11.0000-18.0000 PLT (test code = PLT) 290.0000 140.0000-440.0000 MPV (test code = MPV) 7.5000 fL 6.8000-10.6000 [id number] 13:51:00 Test Item Value Reference Range Comments Creatinine (test code = Creatinine) 0.5000 mg/dL 0.5000-1.200 0 Cr Clearance (Est) (test code = Cr 126.4800 75.0000-115.0 000 Clearance (Est)) Glucose (test code = Glucose) 93.0000 mg/dL 70.0000-118.0000 BUN (test code = BUN) 9.0000 mg/dL 7.0000-22.0000 Sodium (test code = Sodium) 137.0000 mmol/L 128.0000-145.0000 Potassium (test code = Potassium) 3.1000 mmol/L 3.6000-5.1000 Chloride (test code = Chloride) 96.0000 mmol/L 96.0000-108.0000 CO2 (test code = CO2) 33.0000 mmol/L 18.0000-33.0000 Calcium (test code = Calcium) 8.8000 mg/dL 8.0000-10.3000 Alkaline Phosphatase (test code = Alkaline 44.0000 42.00 00-141.0000 Phosphatase) ALT (SGPT) (test code = ALT (SGPT)) 16.0000 10.0000-47.0 000 AST (SGOT) (test code = AST (SGOT)) 18.0000 11.0000-37.0 000 Bilirubin, Total (test code = Bilirubin, 0.8000 mg/dL 0.0000- 1.6000 Total) Albumin (test code = Albumin) 4.6000 g/dL 3.5000-5.5000 Protein, Total (test code = Protein, 6.8000 g/dL 6.4000-8.10 00 Total) eGFR -Vietnamese (test code = eGFR 151.0000 60.0000- 200.0000 -Vietnamese) eGFR Hnq-Dpirzho-Lhxirywq (test code = 125.0000 60.0000-2 00.0000 eGFR Blm-Mvgrmrr-Rmwspvbx) [id number] 13:37:00 Test Item Value Reference Range Comments Creatinine (test code = Creatinine) 0.8000 mg/dL 0.5000-1.200 0 Cr Clearance (Est) (test code = Cr 82.1800 75.0000-115.0 000 Clearance (Est)) Glucose (test code = Glucose) 76.0000 mg/dL 70.0000-118.0000 BUN (test code = BUN) 10.0000 mg/dL 7.0000-22.0000 Sodium (test code = Sodium) 138.0000 mmol/L 128.0000-145.0000 Potassium (test code = Potassium) 3.3000 mmol/L 3.6000-5.1000 Chloride (test code = Chloride) 99.0000 mmol/L 96.0000-108.0000 CO2 (test code = CO2) 31.0000 mmol/L 18.0000-33.0000 Calcium (test code = Calcium) 9.7200 mg/dL 8.0000-10.3000 Alkaline Phosphatase (test code = Alkaline 46.0000 42.00 00-141.0000 Phosphatase) ALT (SGPT) (test code = ALT (SGPT)) 13.0000 10.0000-47.0 000 AST (SGOT) (test code = AST (SGOT)) 16.0000 11.0000-37.0 000 Bilirubin, Total (test code = Bilirubin, 0.5000 mg/dL 0.0000- 1.6000 Total) Albumin (test code = Albumin) 4.1000 g/dL 3.5000-5.5000 Protein, Total (test code = Protein, 6.3000 g/dL 6.4000-8.10 00 Total) eGFR -Vietnamese (test code = eGFR 88.0000 60.0000- 200.0000 -Vietnamese) eGFR Fdd-Xnjnjkg-Bpepssxb (test code = 73.0000 60.0000-2 00.0000 eGFR Ixa-Syikfyf-Vqfrmism) [id number] 13:36:00 Test Item Value Reference Range Comments WBC (test code = WBC) 3.9000 4.0000-10.0000 Lymphocytes % (test code = Lymphocytes %) 29.1000 % 22.400 0-43.6000 MID% (test code = MID%) 8.8000 % 1.2000-11.2000 Neutrophils % (test code = Neutrophils %) 62.1000 % 48.900 0-69.9000 Lymphocytes (test code = Lymphocytes) 1.1000 1.2000-3.2 000 MID (test code = MID) 0.4000 0.1000-1.1000 Neutrophils (test code = Neutrophils) 2.4000 1.5000-6.7 000 RBC (test code = RBC) 3.4000 3.7000-4.9000 HGB (test code = HGB) 11.2000 g/dL 11.2000-18.0000 HCT (test code = HCT) 33.3000 % 34.0000-44.0000 MCV (test code = MCV) 98.1000 fL 80.0000-94.0000 MCH (test code = MCH) 33.1000 pg 27.0000-34.0000 MCHC (test code = MCHC) 33.7000 g/dL 31.5000-36.0000 RDW (test code = RDW) 15.5000 11.0000-18.0000 PLT (test code = PLT) 323.0000 140.0000-440.0000 MPV (test code = MPV) 7.0000 fL 6.8000-10.6000 Iron, [id number] 15:49:00 Test Item Value Reference Range Comments Iron, Total (test code = Iron, Total) 69.0000 27.0000-13 9.0000 TIBC (test code = TIBC) 238.0000 250.0000-450.0000 UIBC (test code = UIBC) 169.0000 118.0000-369.0000 % Iron Saturation (test code = % Iron 29.0000 % 15.0000-55 .0000 Saturation) Ferritin (test code = Ferritin) 662.0000 ng/mL 15.0000-150.0000 [id number] 13:50:00 Test Item Value Reference Range Comments WBC (test code = WBC) 4.8000 4.0000-10.0000 Lymphocytes % (test code = Lymphocytes %) 30.8000 % 22.400 0-43.6000 MID% (test code = MID%) 8.5000 % 1.2000-11.2000 Neutrophils % (test code = Neutrophils %) 60.7000 % 48.900 0-69.9000 Lymphocytes (test code = Lymphocytes) 1.5000 1.2000-3.2 000 MID (test code = MID) 0.4000 0.1000-1.1000 Neutrophils (test code = Neutrophils) 2.9000 1.5000-6.7 000 RBC (test code = RBC) 3.2500 3.7000-4.9000 HGB (test code = HGB) 10.3000 g/dL 11.2000-18.0000 HCT (test code = HCT) 31.9000 % 34.0000-44.0000 MCV (test code = MCV) 98.2000 fL 80.0000-94.0000 MCH (test code = MCH) 31.7000 pg 27.0000-34.0000 MCHC (test code = MCHC) 32.3000 g/dL 31.5000-36.0000 RDW (test code = RDW) 16.1000 11.0000-18.0000 PLT (test code = PLT) 381.0000 140.0000-440.0000 MPV (test code = MPV) 7.3000 fL 6.8000-10.6000 [id number] 13:50:00 Test Item Value Reference Range Comments Creatinine (test code = Creatinine) 0.6000 mg/dL 0.5000-1.200 0 Cr Clearance (Est) (test code = Cr 107.7600 75.0000-115.0 000 Clearance (Est)) Glucose (test code = Glucose) 117.0000 mg/dL 70.0000-118.0000 BUN (test code = BUN) 10.0000 mg/dL 7.0000-22.0000 Sodium (test code = Sodium) 139.0000 mmol/L 128.0000-145.0000 Potassium (test code = Potassium) 3.8000 mmol/L 3.6000-5.1000 Chloride (test code = Chloride) 103.0000 mmol/L 96.0000-108.0000 CO2 (test code = CO2) 32.0000 mmol/L 18.0000-33.0000 Calcium (test code = Calcium) 9.9200 mg/dL 8.0000-10.3000 Alkaline Phosphatase (test code = Alkaline 45.0000 42.00 00-141.0000 Phosphatase) ALT (SGPT) (test code = ALT (SGPT)) 61.0000 10.0000-47.0 000 AST (SGOT) (test code = AST (SGOT)) 44.0000 11.0000-37.0 000 Bilirubin, Total (test code = Bilirubin, 0.3000 mg/dL 0.0000- 1.6000 Total) Albumin (test code = Albumin) 3.8000 g/dL 3.5000-5.5000 Protein, Total (test code = Protein, 6.6000 g/dL 6.4000-8.10 00 Total) eGFR -Vietnamese (test code = eGFR 123.0000 60.0000- 200.0000 -Vietnamese) eGFR Lwl-Rkhordm-Topjofky (test code = 101.0000 60.0000-2 00.0000 eGFR Ymu-Mbfwxby-Ojikhcxb) #[id number] 06:10:00 Test Item Value Reference Range Comments Sodium (test code = Sodium) 139 mmol/L 135- 145 mmol/L Potassium (test code = Potassium) 3.5 mmol/L 3.5- 5.0 mmol/ L Chloride (test code = Chloride) 107 mmol/L 98- 107 mmol/L CO2 (test code = CO2) 28.0 mmol/L 22.0- 30.0 mmol/L Anion Gap (test code = Anion Gap) 4 mmol/L 7- 15 mmol/L BUN (test code = BUN) 10 mg/dL 7- 21 mg/dL Creatinine (test code = Creatinine) 0.51 mg/dL 0.60- 1.00 m g/dL BUN/Creatinine Ratio (test code = 20 BUN/Creatinine Ratio) EGFR CKD-EPI Non-, Female >90 >=60 m L/min/1.73m2 (test code = EGFR CKD-EPI Non-, Female) EGFR CKD-EPI , Female (test >90 >=60 mL/min/1.73m2 code = EGFR CKD-EPI , Female) Glucose (test code = Glucose) 83 mg/dL 65- 179 mg/dL Calcium (test code = Calcium) 7.1 mg/dL 8.5- 10.2 mg/dL #[id number] 06:10:00 Test Item Value Reference Range Comments Albumin (test code = Albumin) 2.6 g/dL 3.5- 5.0 g/dL Total Protein (test code = Total Protein) 5.1 g/dL 6.5- 8 .3 g/dL Total Bilirubin (test code = Total Bilirubin) 0.3 mg/dL 0. 0- 1.2 mg/dL Bilirubin, Direct (test code = Bilirubin, Direct) <0.10 0.00- 0.40 mg/dL AST (test code = AST) 46 U/L 14- 38 U/L ALT (test code = ALT) 33 U/L 15- 48 U/L Alkaline Phosphatase (test code = Alkaline 37 U/L 38- 1 26 U/L Phosphatase) #[id number] 06:10:00 Test Item Value Reference Range Comments Magnesium (test code = Magnesium) 2.0 mg/dL 1.6- 2.2 mg/dL #[id number] 06:10:00 Test Item Value Reference Range Comments Phosphorus (test code = Phosphorus) 2.6 mg/dL 2.9- 4.7 mg/ dL #[id number] 06:10:00 Test Item Value Reference Range Comments WBC (test code = WBC) 4.1 10*9/L 4.5- 11.0 10*9/L RBC (test code = RBC) 2.72 10*12/L 4.00- 5.20 10*12/L HGB (test code = HGB) 9.1 g/dL 12.0- 16.0 g/dL HCT (test code = HCT) 27.3 % 36.0- 46.0 % MCV (test code = MCV) 100.6 fL 80.0- 100.0 fL MCH (test code = MCH) 33.5 pg 26.0- 34.0 pg MCHC (test code = MCHC) 33.3 g/dL 31.0- 37.0 g/dL RDW (test code = RDW) 14.2 % 12.0- 15.0 % MPV (test code = MPV) 8.2 fL 7.0- 10.0 fL Platelet (test code = Platelet) 210 10*9/L 150- 440 10*9/L Neutrophils % (test code = Neutrophils %) 38.9 % Lymphocytes % (test code = Lymphocytes %) 30.7 % Monocytes % (test code = Monocytes %) 6.0 % Eosinophils % (test code = Eosinophils %) 11.4 % Basophils % (test code = Basophils %) 1.2 % Absolute Neutrophils (test code = Absolute 1.6 10*9/L 2.0- 7.5 10*9/L Neutrophils) Absolute Lymphocytes (test code = Absolute 1.2 10*9/L 1.5- 5.0 10*9/L Lymphocytes) Absolute Monocytes (test code = Absolute 0.2 10*9/L 0.2- 0. 8 10*9/L Monocytes) Absolute Eosinophils (test code = Absolute 0.5 10*9/L 0.0- 0.4 10*9/L Eosinophils) Absolute Basophils (test code = Absolute 0.1 10*9/L 0.0- 0. 1 10*9/L Basophils) Large Unstained Cells (test code = Large 12 % 0- 4 % Unstained Cells) Macrocytosis (test code = Macrocytosis) Moderate Not Pres ent #[id number] 06:10:00 Test Item Value Reference Range Comments Smear Review Comments (test code = Smear Review See Comment Undefined Comments) #[id number] 16:59:00 Test Item Value Reference Range Comments Sodium (test code = Sodium) 135 mmol/L 135- 145 mmol/L Potassium (test code = Potassium) 3.0 mmol/L 3.5- 5.0 mmol/ L Chloride (test code = Chloride) 103 mmol/L 98- 107 mmol/L CO2 (test code = CO2) 27.0 mmol/L 22.0- 30.0 mmol/L Anion Gap (test code = Anion Gap) 5 mmol/L 7- 15 mmol/L BUN (test code = BUN) 12 mg/dL 7- 21 mg/dL Creatinine (test code = Creatinine) 0.69 mg/dL 0.60- 1.00 m g/dL BUN/Creatinine Ratio (test code = 17 BUN/Creatinine Ratio) EGFR CKD-EPI Non-, Female >90 >=60 m L/min/1.73m2 (test code = EGFR CKD-EPI Non-, Female) EGFR CKD-EPI , Female (test >90 >=60 mL/min/1.73m2 code = EGFR CKD-EPI , Female) Glucose (test code = Glucose) 98 mg/dL 65- 179 mg/dL Calcium (test code = Calcium) 7.1 mg/dL 8.5- 10.2 mg/dL #[id number] 16:59:00 Test Item Value Reference Range Comments Albumin (test code = Albumin) 2.7 g/dL 3.5- 5.0 g/dL Total Protein (test code = Total Protein) 5.1 g/dL 6.5- 8 .3 g/dL Total Bilirubin (test code = Total Bilirubin) 0.2 mg/dL 0. 0- 1.2 mg/dL Bilirubin, Direct (test code = Bilirubin, Direct) <0.10 0.00- 0.40 mg/dL AST (test code = AST) 41 U/L 14- 38 U/L ALT (test code = ALT) 28 U/L 15- 48 U/L Alkaline Phosphatase (test code = Alkaline 44 U/L 38- 1 26 U/L Phosphatase) #[id number] 16:59:00 Test Item Value Reference Range Comments Magnesium (test code = Magnesium) 1.9 mg/dL 1.6- 2.2 mg/dL #[id number] 16:59:00 Test Item Value Reference Range Comments Phosphorus (test code = Phosphorus) 2.0 mg/dL 2.9- 4.7 mg/ dL #[id number] 16:59:00 Test Item Value Reference Range Comments Results Verified by Slide Scan (test code Slide Reviewed = Results Verified by Slide Scan) WBC (test code = WBC) 4.0 10*9/L 4.5- 11.0 10*9/L RBC (test code = RBC) 2.63 10*12/L 4.00- 5.20 10*12/L HGB (test code = HGB) 8.8 g/dL 12.0- 16.0 g/dL HCT (test code = HCT) 26.4 % 36.0- 46.0 % MCV (test code = MCV) 100.0 fL 80.0- 100.0 fL MCH (test code = MCH) 33.4 pg 26.0- 34.0 pg MCHC (test code = MCHC) 33.4 g/dL 31.0- 37.0 g/dL RDW (test code = RDW) 14.1 % 12.0- 15.0 % MPV (test code = MPV) 7.9 fL 7.0- 10.0 fL Platelet (test code = Platelet) 177 10*9/L 150- 440 10*9/L Neutrophils % (test code = Neutrophils %) 43.6 % Lymphocytes % (test code = Lymphocytes %) 24.8 % Monocytes % (test code = Monocytes %) 4.6 % Eosinophils % (test code = Eosinophils %) 13.5 % Basophils % (test code = Basophils %) 0.9 % Absolute Neutrophils (test code = Absolute 1.7 10*9/L 2.0- 7.5 10*9/L Neutrophils) Absolute Lymphocytes (test code = Absolute 1.0 10*9/L 1.5- 5.0 10*9/L Lymphocytes) Absolute Monocytes (test code = Absolute 0.2 10*9/L 0.2- 0. 8 10*9/L Monocytes) Absolute Eosinophils (test code = Absolute 0.5 10*9/L 0.0- 0.4 10*9/L Eosinophils) Absolute Basophils (test code = Absolute 0.0 10*9/L 0.0- 0. 1 10*9/L Basophils) Large Unstained Cells (test code = Large 13 % 0- 4 % Unstained Cells) Macrocytosis (test code = Macrocytosis) Slight Not Pres ent #[id number] 17:15:00 Test Item Value Reference Range Comments D-Dimer (test code = D-Dimer) 2282 ng/mL DDU <230 ng/mL DDU #[id number] 17:15:00 Test Item Value Reference Range Comments PT (test code = PT) 13.3 sec 10.2- 13.1 sec INR (test code = INR) 1.15 #[id number] 17:13:00 Test Item Value Reference Range Comments Antibody Screen (test code = Antibody Screen) NEG ABO Grouping (test code = ABO Grouping) A NEG #[id number] 16:52:56 Test Item Value Reference Range Comments EKG Systolic BP (test code = EKG Systolic BP) EKG Diastolic BP (test code = EKG Diastolic BP) EKG Ventricular Rate (test code = EKG Ventricular 99 BPM Rate) EKG Atrial Rate (test code = EKG Atrial Rate) 99 BPM EKG P-R Interval (test code = EKG P-R Interval) 120 ms EKG QRS Duration (test code = EKG QRS Duration) 100 ms EKG Q-T Interval (test code = EKG Q-T Interval) 402 ms EKG QTC Calculation (test code = EKG QTC 515 ms Calculation) EKG Calculated P [place] (test code = EKG Calculated 52 degrees P [place]) EKG Calculated R [place] (test code = EKG Calculated 9 degrees R [place]) EKG Calculated T [place] (test code = EKG Calculated 76 degrees T [place]) QTC Fredericia (test code = QTC Fredericia) 475 ms #[id number] 14:12:53XR Chest 2 views (02/02/2019 2:12 PM EDT)SpecimenImpressionsPerformed At Clear lungs. [facility] RADNarrativePerformed AtEXAM: XR CHEST 2 VIEWSDATE: 02/02/2019 2:12 PMACCESSION: [id number]: 02/02/2019 2:12 PMINTERPRETATION LOCATION: [facility] CLINICAL INDICATION: 63 years old Female with COUGHCOMPARISON: 02/19/2018 TECHNIQUE: PA and Lateral Chest Radiographs. FINDINGS: Radiographically clearlungs. No pleural effusion or pneumothorax. Unremarkable cardiomediastinal silhouette. Stable T12 vertebra plana deformity. [facility] RADProcedure NoteInterface, Rad Results In - 02/02/2019 2:18 PM EDTEXAM: XR CHEST 2 VIEWS DATE: 02/02/2019 2:12 PM DICTATED: 02/02/2019 2:12 PM INTERPRETATION LOCATION: [facility] CLINICAL INDICATION: 63 years old Female with COUGH COMPARISON: 02/19/2018 TECHNIQUE: PA and Lateral Chest Radiographs. FINDINGS: Radiographically clear lungs. No pleural effusion or pneumothorax. Unremarkable cardiomediastinal silhouette. Stable T12 vertebra plana deformity. IMPRESSION: Clear lungs. Performing OrganizationAddressCity/State/ZipcodePhone NumberH[facility]CREST [facility]TH [id number] [place] [address]#[id number] 14:01:00 Test Item Value Reference Range Comments Lactate, Venous (test code = Lactate, Venous) 1.6 mmol/L 0. 5- 1.8 mmol/L #[id number] 13:50:00 Test Item Value Reference Range Comments Influenza A (test code = Influenza A) Negative Negative Influenza B (test code = Influenza B) Negative Negative #[id number] 13:50:00 Test Item Value Reference Range Comments Sodium (test code = Sodium) 130 mmol/L 135- 145 mmol/L Potassium (test code = Potassium) 3.1 mmol/L 3.5- 5.0 mmol/ L Chloride (test code = Chloride) 97 mmol/L 98- 107 mmol/L CO2 (test code = CO2) 24.0 mmol/L 22.0- 30.0 mmol/L BUN (test code = BUN) 23 mg/dL 7- 21 mg/dL Creatinine (test code = Creatinine) 1.26 mg/dL 0.60- 1.00 m g/dL BUN/Creatinine Ratio (test code = 18 BUN/Creatinine Ratio) EGFR CKD-EPI Non-, 46 mL/min/1.73m2 >=60 mL/min/ 1.73m2 Female (test code = EGFR CKD-EPI Non-, Female) EGFR CKD-EPI , Female 53 mL/min/1.73m2 >=60 mL/m in/1.73m2 (test code = EGFR CKD-EPI , Female) Glucose (test code = Glucose) 91 mg/dL 65- 179 mg/dL Calcium (test code = Calcium) 7.7 mg/dL 8.5- 10.2 mg/dL Albumin (test code = Albumin) 3.0 g/dL 3.5- 5.0 g/dL Total Protein (test code = Total 5.5 g/dL 6.5- 8.3 g/dL Protein) Total Bilirubin (test code = Total 0.7 mg/dL 0.0- 1.2 mg/d L Bilirubin) AST (test code = AST) 32 U/L 14- 38 U/L ALT (test code = ALT) 30 U/L 15- 48 U/L Alkaline Phosphatase (test code = 43 U/L 38- 126 U/L Alkaline Phosphatase) Anion Gap (test code = Anion Gap) 9 mmol/L 7- 15 mmol/L #[id number] 13:50:00 Test Item Value Reference Range Comments WBC (test code = WBC) 4.3 10*9/L 4.5- 11.0 10*9/L RBC (test code = RBC) 3.02 10*12/L 4.00- 5.20 10*12/L HGB (test code = HGB) 10.1 g/dL 12.0- 16.0 g/dL HCT (test code = HCT) 30.6 % 36.0- 46.0 % MCV (test code = MCV) 101.6 fL 80.0- 100.0 fL MCH (test code = MCH) 33.4 pg 26.0- 34.0 pg MCHC (test code = MCHC) 32.9 g/dL 31.0- 37.0 g/dL RDW (test code = RDW) 14.2 % 12.0- 15.0 % MPV (test code = MPV) 8.8 fL 7.0- 10.0 fL Platelet (test code = Platelet) 159 10*9/L 150- 440 10*9/L Neutrophils % (test code = Neutrophils %) 63.1 % Lymphocytes % (test code = Lymphocytes %) 12.9 % Monocytes % (test code = Monocytes %) 4.5 % Eosinophils % (test code = Eosinophils %) 12.1 % Basophils % (test code = Basophils %) 1.0 % Absolute Neutrophils (test code = Absolute 2.7 10*9/L 2.0- 7.5 10*9/L Neutrophils) Absolute Lymphocytes (test code = Absolute 0.6 10*9/L 1.5- 5.0 10*9/L Lymphocytes) Absolute Monocytes (test code = Absolute 0.2 10*9/L 0.2- 0. 8 10*9/L Monocytes) Absolute Eosinophils (test code = Absolute 0.5 10*9/L 0.0- 0.4 10*9/L Eosinophils) Absolute Basophils (test code = Absolute 0.0 10*9/L 0.0- 0. 1 10*9/L Basophils) Large Unstained Cells (test code = Large 6 % 0- 4 % Unstained Cells) Macrocytosis (test code = Macrocytosis) Moderate Not Pres ent #[id number] 13:50:00 Test Item Value Reference Range Comments LDH (test code = LDH) 709 U/L 338- 610 U/L #[id number] 13:50:00 Test Item Value Reference Range Comments Adenovirus (test code = Adenovirus) Not Detected Not Detected Coronavirus HKU1 (test code = Coronavirus HKU1) Not Detected Not Detected Coronavirus NL63 (test code = Coronavirus NL63) Not Detected Not Detected Coronavirus 229E (test code = Coronavirus 229E) Not Detected Not Detected Coronavirus OC43 (test code = Coronavirus OC43) Not Detected Not Detected Metapneumovirus (test code = Metapneumovirus) Not Detected No t Detected Rhinovirus/Enterovirus (test code = Detected Not Detected Rhinovirus/Enterovirus) Influenza A (test code = Influenza A) Not Detected Not Detect ed Influenza A/H1 (test code = Influenza A/H1) Not Detected Not Detected Influenza A/H3 (test code = Influenza A/H3) Not Detected Not Detected Influenza A/H1-2009 (test code = Influenza Not Detected Not D etected A/H1-2009) Influenza B (test code = Influenza B) Not Detected Not Detect ed Parainfluenza 1 (test code = Parainfluenza 1) Not Detected No t Detected Parainfluenza 2 (test code = Parainfluenza 2) Not Detected No t Detected Parainfluenza 3 (test code = Parainfluenza 3) Not Detected No t Detected Parainfluenza 4 (test code = Parainfluenza 4) Not Detected No t Detected RSV (test code = RSV) Not Detected Not Detected Bordetella pertussis (test code = Bordetella Not Detected Not Detected pertussis) Bordetella parapertussis (test code = Not Detected Not Detect ed Bordetella parapertussis) Chlamydophila (Chlamydia) pneumoniae (test code Not Detected Not Detected = Chlamydophila (Chlamydia) pneumoniae) Mycoplasma pneumoniae (test code = Mycoplasma Not Detected No t Detected pneumoniae) #[id number] 13:05:00 Test Item Value Reference Range Comments Specimen Source (test code = Specimen Source) Venous FIO2 Venous (test code = FIO2 Venous) Room Air pH, Venous (test code = pH, Venous) 7.41 7.32-7.43 pCO2, Cameron (test code = pCO2, Cameron) 45 mm Hg 40- 60 mm Hg pO2, Cameron (test code = pO2, Cameron) 30 mm Hg 30- 55 mm Hg HCO3, Cameron (test code = HCO3, Cameron) 28 mmol/L 22- 27 mmol/L Base Excess, Cameron (test code = Base Excess, Cameron) 3.8 -2.0-2.0 O2 Saturation, Venous (test code = O2 52.0 % 40.0- 85.0 % Saturation, Venous) Sodium Whole Blood (test code = Sodium Whole 131 mmol/L 135 - 145 mmol/L Blood) Potassium, Bld (test code = Potassium, Bld) 2.8 mmol/L 3.4- 4.6 mmol/L Calcium, Ionized Venous (test code = Calcium, 4.20 mg/dL 4. 40- 5.40 mg/dL Ionized Venous) Glucose Whole Blood (test code = Glucose Whole 102 mg/dL U ndefined mg/dL Blood) Lactate, Venous (test code = Lactate, Venous) 1.9 mmol/L 0. 5- 1.8 mmol/L Hgb, blood gas (test code = Hgb, blood gas) 11.60 g/dL 12.0 0- 16.00 g/dL [id number] 12:49:00 Test Item Value Reference Range Comments WBC (test code = WBC) 3.1000 4.0000-10.0000 Lymphocytes % (test code = Lymphocytes %) 36.3000 % 22.400 0-43.6000 MID% (test code = MID%) 8.5000 % 1.2000-11.2000 Neutrophils % (test code = Neutrophils %) 55.2000 % 48.900 0-69.9000 Lymphocytes (test code = Lymphocytes) 1.1000 1.2000-3.2 000 MID (test code = MID) 0.3000 0.1000-1.1000 Neutrophils (test code = Neutrophils) 1.7000 1.5000-6.7 000 RBC (test code = RBC) 3.5100 3.7000-4.9000 HGB (test code = HGB) 11.6000 g/dL 11.2000-18.0000 HCT (test code = HCT) 34.5000 % 34.0000-44.0000 MCV (test code = MCV) 98.3000 fL 80.0000-94.0000 MCH (test code = MCH) 33.2000 pg 27.0000-34.0000 MCHC (test code = MCHC) 33.7000 g/dL 31.5000-36.0000 RDW (test code = RDW) 15.0000 11.0000-18.0000 PLT (test code = PLT) 257.0000 140.0000-440.0000 MPV (test code = MPV) 7.1000 fL 6.8000-10.6000 [id number] 12:49:00 Test Item Value Reference Range Comments Creatinine (test code = Creatinine) 0.6000 mg/dL 0.5000-1.200 0 Cr Clearance (Est) (test code = Cr 107.6200 75.0000-115.0 000 Clearance (Est)) Glucose (test code = Glucose) 94.0000 mg/dL 70.0000-118.0000 BUN (test code = BUN) 8.0000 mg/dL 7.0000-22.0000 Sodium (test code = Sodium) 137.0000 mmol/L 128.0000-145.0000 Potassium (test code = Potassium) 3.3000 mmol/L 3.6000-5.1000 Chloride (test code = Chloride) 102.0000 mmol/L 96.0000-108.0000 CO2 (test code = CO2) 33.0000 mmol/L 18.0000-33.0000 Calcium (test code = Calcium) 9.0600 mg/dL 8.0000-10.3000 Alkaline Phosphatase (test code = Alkaline 43.0000 42.00 00-141.0000 Phosphatase) ALT (SGPT) (test code = ALT (SGPT)) 13.0000 10.0000-47.0 000 AST (SGOT) (test code = AST (SGOT)) 19.0000 11.0000-37.0 000 Bilirubin, Total (test code = Bilirubin, 0.6000 mg/dL 0.0000- 1.6000 Total) Albumin (test code = Albumin) 4.2000 g/dL 3.5000-5.5000 Protein, Total (test code = Protein, 6.4000 g/dL 6.4000-8.10 00 Total) eGFR -Vietnamese (test code = eGFR 123.0000 60.0000- 200.0000 -Vietnamese) eGFR Boo-Vmzqlge-Grdkejwd (test code = 101.0000 60.0000-2 00.0000 eGFR Num-Ztjyhpr-Gvyjyqdv) [id number] 13:02:00 Test Item Value Reference Range Comments Creatinine (test code = Creatinine) 0.6000 mg/dL 0.5000-1.200 0 Cr Clearance (Est) (test code = Cr 103.1700 75.0000-115.0 000 Clearance (Est)) Glucose (test code = Glucose) 104.0000 mg/dL 70.0000-118.0000 BUN (test code = BUN) 8.0000 mg/dL 7.0000-22.0000 Sodium (test code = Sodium) 139.0000 mmol/L 128.0000-145.0000 Potassium (test code = Potassium) 3.4000 mmol/L 3.6000-5.1000 Chloride (test code = Chloride) 100.0000 mmol/L 96.0000-108.0000 CO2 (test code = CO2) 32.0000 mmol/L 18.0000-33.0000 Calcium (test code = Calcium) 8.0200 mg/dL 8.0000-10.3000 Alkaline Phosphatase (test code = Alkaline 45.0000 42.00 00-141.0000 Phosphatase) ALT (SGPT) (test code = ALT (SGPT)) 10.0000 10.0000-47.0 000 AST (SGOT) (test code = AST (SGOT)) 12.0000 11.0000-37.0 000 Bilirubin, Total (test code = Bilirubin, 0.5000 mg/dL 0.0000- 1.6000 Total) Albumin (test code = Albumin) 4.4000 g/dL 3.5000-5.5000 Protein, Total (test code = Protein, 6.0000 g/dL 6.4000-8.10 00 Total) eGFR -Vietnamese (test code = eGFR 123.0000 60.0000- 200.0000 -Vietnamese) eGFR Znh-Mkklozt-Wqrdepdp (test code = 101.0000 60.0000-2 00.0000 eGFR Vcb-Norvmsy-Pldcdovg) [id number] 13:01:00 Test Item Value Reference Range Comments WBC (test code = WBC) 2.9000 4.0000-10.0000 Lymphocytes % (test code = Lymphocytes %) 28.9000 % 22.400 0-43.6000 MID% (test code = MID%) 11.1000 % 1.2000-11.2000 Neutrophils % (test code = Neutrophils %) 60.0000 % 48.900 0-69.9000 Lymphocytes (test code = Lymphocytes) 0.8000 1.2000-3.2 000 MID (test code = MID) 0.4000 0.1000-1.1000 Neutrophils (test code = Neutrophils) 1.7000 1.5000-6.7 000 RBC (test code = RBC) 3.4800 3.7000-4.9000 HGB (test code = HGB) 11.6000 g/dL 11.2000-18.0000 HCT (test code = HCT) 34.2000 % 34.0000-44.0000 MCV (test code = MCV) 98.3000 fL 80.0000-94.0000 MCH (test code = MCH) 33.4000 pg 27.0000-34.0000 MCHC (test code = MCHC) 34.0000 g/dL 31.5000-36.0000 RDW (test code = RDW) 14.7000 11.0000-18.0000 PLT (test code = PLT) 289.0000 140.0000-440.0000 MPV (test code = MPV) 7.5000 fL 6.8000-10.6000 [id number] 13:42:00 Test Item Value Reference Range Comments WBC (test code = WBC) 2.9000 4.0000-10.0000 Lymphocytes % (test code = Lymphocytes %) 34.2000 % 22.400 0-43.6000 MID% (test code = MID%) 8.0000 % 1.2000-11.2000 Neutrophils % (test code = Neutrophils %) 57.8000 % 48.900 0-69.9000 Lymphocytes (test code = Lymphocytes) 1.0000 1.2000-3.2 000 MID (test code = MID) 0.2000 0.1000-1.1000 Neutrophils (test code = Neutrophils) 1.7000 1.5000-6.7 000 RBC (test code = RBC) 3.3800 3.7000-4.9000 HGB (test code = HGB) 11.6000 g/dL 11.2000-18.0000 HCT (test code = HCT) 33.6000 % 34.0000-44.0000 MCV (test code = MCV) 99.4000 fL 80.0000-94.0000 MCH (test code = MCH) 34.3000 pg 27.0000-34.0000 MCHC (test code = MCHC) 34.5000 g/dL 31.5000-36.0000 RDW (test code = RDW) 14.3000 11.0000-18.0000 PLT (test code = PLT) 249.0000 140.0000-440.0000 MPV (test code = MPV) 7.4000 fL 6.8000-10.6000 [id number] 13:42:00 Test Item Value Reference Range Comments Creatinine (test code = Creatinine) 0.6000 mg/dL 0.5000-1.200 0 Cr Clearance (Est) (test code = Cr 104.8400 75.0000-115.0 000 Clearance (Est)) Glucose (test code = Glucose) 83.0000 mg/dL 70.0000-118.0000 BUN (test code = BUN) 11.0000 mg/dL 7.0000-22.0000 Sodium (test code = Sodium) 147.0000 mmol/L 128.0000-145.0000 Potassium (test code = Potassium) 4.1000 mmol/L 3.6000-5.1000 Chloride (test code = Chloride) 103.0000 mmol/L 96.0000-108.0000 CO2 (test code = CO2) 32.0000 mmol/L 18.0000-33.0000 Calcium (test code = Calcium) 9.6000 mg/dL 8.0000-10.3000 Alkaline Phosphatase (test code = Alkaline 52.0000 42.00 00-141.0000 Phosphatase) ALT (SGPT) (test code = ALT (SGPT)) 20.0000 10.0000-47.0 000 AST (SGOT) (test code = AST (SGOT)) 24.0000 11.0000-37.0 000 Bilirubin, Total (test code = Bilirubin, 0.7000 mg/dL 0.0000- 1.6000 Total) Albumin (test code = Albumin) 3.7000 g/dL 3.5000-5.5000 Protein, Total (test code = Protein, 7.3000 g/dL 6.4000-8.10 00 Total) eGFR -Vietnamese (test code = eGFR 123.0000 60.0000- 200.0000 -Vietnamese) eGFR Hcb-Hezcjpg-Vhnvawik (test code = 101.0000 60.0000-2 00.0000 eGFR Sfh-Ebeshbe-Fbfviswl) Protein, [id number] 14:15:00 Test Item Value Reference Range Comments Protein, Total (test code = Protein, Total) 6.2000 g/dL 6.00 00-8.5000 Albumin (test code = Albumin) 3.7000 g/dL 2.9000-4.4000 Globulin (test code = Globulin) 2.5000 g/dL 2.2000-3.9000 A/G Ratio (test code = A/G Ratio) 1.5000 0.7000-1.7000 [id number] 14:15:00 Test Item Value Reference Range Comments IGG (test code = IGG) 946.0000 mg/dL 700.5038-1077.0000 IGA (test code = IGA) 105.0000 mg/dL 87.0000-352.0000 IGM (test code = IGM) 41.0000 mg/dL 26.0000-217.0000 Alpha-1 Globulin (test code 0.2000 g/dL 0.0000-0.4000 = Alpha-1 Globulin) Alpha-2 Globulin (test code 0.6000 g/dL 0.4000-1.0000 = Alpha-2 Globulin) Beta Globulin (test code = 0.9000 g/dL 0.7000-1.3000 Beta Globulin) Gamma Globulin (test code = 0.8000 g/dL 0.4000-1.8000 Gamma Globulin) M-Jose (test code = M-Jose) Immunofixation Interp, Serum Comment An apparent normal (test code = Immunofixation immunofixation pattern Interp, Serum) PE Note (test code = PE Comment Protein Note) electrophoresis scan will follow via computer, mail, or physical therapist aide delivery [place] Free Light Chain (test 14.7000 mg/L 3.3000-19.4000 code = [place] Free Light Chain) Lambda Free Light Chain 10.4000 mg/L 5.7000-26.3000 (test code = Lambda Free Light Chain) [place]/Lambda Free Ratio 1.4100 0.2600-1.6500 (test code = [place]/Lambda Free Ratio) Beta-2 Microglobulin (test 1.6000 mg/L 0.6000-2.4000 code = Beta-2 Microglobulin) [facility] [id number] 14:15:00 Test Item Value Reference Range Comments [facility] Comments (test code = DUP Duplicate procedure [facility] Comments) ordered. TEST: 072007 Protein Electro.,S [id number] 13:44:00 Test Item Value Reference Range Comments Creatinine (test code = Creatinine) 0.6000 mg/dL 0.5000-1.200 0 Cr Clearance (Est) (test code = Cr 104.7000 75.0000-115.0 000 Clearance (Est)) Glucose (test code = Glucose) 82.0000 mg/dL 70.0000-118.0000 BUN (test code = BUN) 10.0000 mg/dL 7.0000-22.0000 Sodium (test code = Sodium) 138.0000 mmol/L 128.0000-145.0000 Potassium (test code = Potassium) 3.5000 mmol/L 3.6000-5.1000 Chloride (test code = Chloride) 102.0000 mmol/L 96.0000-108.0000 CO2 (test code = CO2) 32.0000 mmol/L 18.0000-33.0000 Calcium (test code = Calcium) 8.9200 mg/dL 8.0000-10.3000 Alkaline Phosphatase (test code = Alkaline 42.0000 42.00 00-141.0000 Phosphatase) ALT (SGPT) (test code = ALT (SGPT)) 10.0000 10.0000-47.0 000 AST (SGOT) (test code = AST (SGOT)) 14.0000 11.0000-37.0 000 Bilirubin, Total (test code = Bilirubin, 0.4000 mg/dL 0.0000- 1.6000 Total) Albumin (test code = Albumin) 4.1000 g/dL 3.5000-5.5000 Protein, Total (test code = Protein, 6.3000 g/dL 6.4000-8.10 00 Total) eGFR -Vietnamese (test code = eGFR 123.0000 60.0000- 200.0000 -Vietnamese) eGFR Phq-Ylaehwh-Kwjqvuwo (test code = 101.0000 60.0000-2 00.0000 eGFR Yre-Mmotifk-Suamonug) [id number] 13:43:00 Test Item Value Reference Range Comments WBC (test code = WBC) 3.4000 4.0000-10.0000 Lymphocytes % (test code = Lymphocytes %) 26.2000 % 22.400 0-43.6000 MID% (test code = MID%) 6.8000 % 1.2000-11.2000 Neutrophils % (test code = Neutrophils %) 67.0000 % 48.900 0-69.9000 Lymphocytes (test code = Lymphocytes) 0.8000 1.2000-3.2 000 MID (test code = MID) 0.4000 0.1000-1.1000 Neutrophils (test code = Neutrophils) 2.2000 1.5000-6.7 000 RBC (test code = RBC) 3.5200 3.7000-4.9000 HGB (test code = HGB) 11.0000 g/dL 11.2000-18.0000 HCT (test code = HCT) 35.1000 % 34.0000-44.0000 MCV (test code = MCV) 99.5000 fL 80.0000-94.0000 MCH (test code = MCH) 31.4000 pg 27.0000-34.0000 MCHC (test code = MCHC) 31.5000 g/dL 31.5000-36.0000 RDW (test code = RDW) 14.9000 11.0000-18.0000 PLT (test code = PLT) 275.0000 140.0000-440.0000 MPV (test code = MPV) 7.8000 fL 6.8000-10.6000 Iron, [id number] 15:07:00 Test Item Value Reference Range Comments Iron, Total (test code = Iron, Total) 59.0000 27.0000-13 9.0000 TIBC (test code = TIBC) 259.0000 250.0000-450.0000 UIBC (test code = UIBC) 200.0000 118.0000-369.0000 % Iron Saturation (test code = % Iron 23.0000 % 15.0000-55 .0000 Saturation) Vitamin B12 (test code = Vitamin B12) 921.0000 pg/mL 232.0000-1 245.0000 Folate (test code = Folate) 19.2000 ng/mL Ferritin (test code = Ferritin) 479.0000 ng/mL 15.0000-150.0000 [id number] 13:01:00 Test Item Value Reference Range Comments WBC (test code = WBC) 3.9000 4.0000-10.0000 Lymphocytes % (test code = Lymphocytes %) 27.6000 % 22.400 0-43.6000 MID% (test code = MID%) 7.2000 % 1.2000-11.2000 Neutrophils % (test code = Neutrophils %) 65.2000 % 48.900 0-69.9000 Lymphocytes (test code = Lymphocytes) 1.0000 1.2000-3.2 000 MID (test code = MID) 0.4000 0.1000-1.1000 Neutrophils (test code = Neutrophils) 2.5000 1.5000-6.7 000 RBC (test code = RBC) 3.1300 3.7000-4.9000 HGB (test code = HGB) 11.6000 g/dL 11.2000-18.0000 HCT (test code = HCT) 31.1000 % 34.0000-44.0000 MCV (test code = MCV) 99.1000 fL 80.0000-94.0000 MCH (test code = MCH) 37.1000 pg 27.0000-34.0000 MCHC (test code = MCHC) 37.4000 g/dL 31.5000-36.0000 RDW (test code = RDW) 14.5000 11.0000-18.0000 PLT (test code = PLT) 292.0000 140.0000-440.0000 MPV (test code = MPV) 7.4000 fL 6.8000-10.6000 [id number] 13:01:00 Test Item Value Reference Range Comments Creatinine (test code = Creatinine) 0.8000 mg/dL 0.5000-1.200 0 Cr Clearance (Est) (test code = Cr 75.2900 75.0000-115.0 000 Clearance (Est)) Glucose (test code = Glucose) 98.0000 mg/dL 70.0000-118.0000 BUN (test code = BUN) 11.0000 mg/dL 7.0000-22.0000 Sodium (test code = Sodium) 138.0000 mmol/L 128.0000-145.0000 Potassium (test code = Potassium) 3.4000 mmol/L 3.6000-5.1000 Chloride (test code = Chloride) 102.0000 mmol/L 96.0000-108.0000 CO2 (test code = CO2) 31.0000 mmol/L 18.0000-33.0000 Calcium (test code = Calcium) 9.5700 mg/dL 8.0000-10.3000 Alkaline Phosphatase (test code = Alkaline 42.0000 42.00 00-141.0000 Phosphatase) ALT (SGPT) (test code = ALT (SGPT)) 7.0000 10.0000-47.0 000 AST (SGOT) (test code = AST (SGOT)) 14.0000 11.0000-37.0 000 Bilirubin, Total (test code = Bilirubin, 0.5000 mg/dL 0.0000- 1.6000 Total) Albumin (test code = Albumin) 4.4000 g/dL 3.5000-5.5000 Protein, Total (test code = Protein, 6.6000 g/dL 6.4000-8.10 00 Total) eGFR -Vietnamese (test code = eGFR 88.0000 60.0000- 200.0000 -Vietnamese) eGFR Lhy-Nezvqow-Ontdcsej (test code = 73.0000 60.0000-2 00.0000 eGFR Jrf-Qiaanec-Jhiyxbqu) Comp. Metabolic Panel ([id number] 00:00:00 Test Item Value Reference Range Comments Glucose (test code = 2345-7) 94 65-99 BUN (test code = 3094-0) 16 8-27 Creatinine (test code = 2160-0) 0.61 0.57-1.00 eGFR If NonAfricn Am (test code = 90039-5) 97 > 59 BUN/Creatinine Ratio (test code = 3097-3) 26 12-28 Sodium (test code = 2951-2) 141 134-144 Potassium (test code = 2823-3) 4.0 3.5-5.2 Chloride (test code = 2075-0) 103 96-106 Carbon Dioxide, Total (test code = 2027-) 21 20-29 Calcium (test code = 20031-0) 8.5 8.7-10.3 Protein, Total (test code = 2885-2) 6.8 6.0-8.5 Albumin (test code = 1751-7) 4.2 3.6-4.8 Globulin, Total (test code = 04549-4) 2.6 1.5-4.5 A/G Ratio (test code = 1759-0) 1.6 1.2-2.2 Bilirubin, Total (test code = 1974-2) 0.3 0.0-1.2 Alkaline Phosphatase (test code = 6768-6) 44 39-117 AST (SGOT) (test code = 1920-8) 13 0-40 ALT (SGPT) (test code = 1742-6) 10 0-32 Lipid [id number] 00:00:00 Test Item Value Reference Range Comments Cholesterol, Total (test code = 3-3) 200 100-199 Triglycerides (test code = 2571-8) 80 0-149 HDL Cholesterol (test code = 2085-9) 46 >39 VLDL Cholesterol Gerard (test code = 04159-4) 16 5-40 LDL Cholesterol Calc (test code = 30785-7) 138 0-99 CBC With Differential/[id number] 00:00:00 Test Item Value Reference Range Comments WBC (test code = 6690-2) 3.1 3.4-10.8 RBC (test code = 789-8) 3.44 3.77-5.28 Hemoglobin (test code = 718-7) 11.3 11.1-15.9 Hematocrit (test code = 4544-3) 33.4 34.0-46.6 MCV (test code = 787-2) 97 79-97 MCH (test code = 785-6) 32.8 26.6-33.0 MCHC (test code = 786-4) 33.8 31.5-35.7 RDW (test code = 788-0) 14.4 12.3-15.4 Platelets (test code = 777-3) 264 150-379 Neutrophils (test code = 770-8) 40 Not Estab. Lymphs (test code = 736-9) 31 Not Estab. Monocytes (test code = 5905-5) 13 Not Estab. Eos (test code = 713-8) 16 Not Estab. Basos (test code = 706-2) 0 Not Estab. Immature Cells (test code = UNLOINC) Neutrophils (Absolute) (test code = 751-8) 1.2 1.4-7 .0 Lymphs (Absolute) (test code = 731-0) 1.0 0.7-3.1 Monocytes(Absolute) (test code = 742-7) 0.4 0.1-0.9 Eos (Absolute) (test code = 711-2) 0.5 0.0-0.4 Baso (Absolute) (test code = 704-7) 0.0 0.0-0.2 Immature Granulocytes (test code = 01677-0) 0 Not Estab. Immature Grans (Abs) (test code = 76412-1) 0.0 0.0-0 .1 NRBC (test code = 47538-4) Hematology Comments: (test code = 14198-8) Uric Acid, [id number] 00:00:00 Test Item Value Reference Range Comments Uric Acid (test code = 3084-1) 3.1 2.5-7.1 Thyroxine (T4) Free, Direct, [id number] 00:00:00 Test Item Value Reference Range Comments T4,Free(Direct) (test code = 3024-7) 1.09 0.82-1.77 [id number] 00:00:00 Test Item Value Reference Range Comments TSH (test code = 93598-0) 0.909 0.450-4.500 Written [id number] 00:00:00 Test Item Value Reference Range Comments Written Authorization (test code = Written Comment Authorization) [id number] 11:29:00 Test Item Value Reference Range Comments Creatinine (test code = Creatinine) 0.6000 mg/dL 0.5000-1.200 0 Cr Clearance (Est) (test code = Cr 102.3300 75.0000-115.0 000 Clearance (Est)) Glucose (test code = Glucose) 95.0000 mg/dL 70.0000-118.0000 BUN (test code = BUN) 9.0000 mg/dL 7.0000-22.0000 Sodium (test code = Sodium) 141.0000 mmol/L 128.0000-145.0000 Potassium (test code = Potassium) 4.0000 mmol/L 3.6000-5.1000 Chloride (test code = Chloride) 101.0000 mmol/L 96.0000-108.0000 CO2 (test code = CO2) 30.0000 mmol/L 18.0000-33.0000 Calcium (test code = Calcium) 9.5400 mg/dL 8.0000-10.3000 Alkaline Phosphatase (test code = Alkaline 45.0000 42.00 00-141.0000 Phosphatase) ALT (SGPT) (test code = ALT (SGPT)) 9.0000 10.0000-47.0 000 AST (SGOT) (test code = AST (SGOT)) 16.0000 11.0000-37.0 000 Bilirubin, Total (test code = Bilirubin, 0.5000 mg/dL 0.0000- 1.6000 Total) Albumin (test code = Albumin) 4.5000 g/dL 3.5000-5.5000 Protein, Total (test code = Protein, 6.8000 g/dL 6.4000-8.10 00 Total) eGFR -Vietnamese (test code = eGFR 123.0000 60.0000- 200.0000 -Vietnamese) eGFR Ymo-Psqmtjw-Rtvsckmy (test code = 101.0000 60.0000-2 00.0000 eGFR Jkq-Naqpkwi-Sfoaqkmj) [id number] 11:28:00 Test Item Value Reference Range Comments WBC (test code = WBC) 3.7000 4.0000-10.0000 Lymphocytes % (test code = Lymphocytes %) 27.5000 % 22.400 0-43.6000 MID% (test code = MID%) 7.2000 % 1.2000-11.2000 Neutrophils % (test code = Neutrophils %) 65.3000 % 48.900 0-69.9000 Lymphocytes (test code = Lymphocytes) 1.0000 1.2000-3.2 000 MID (test code = MID) 0.3000 0.1000-1.1000 Neutrophils (test code = Neutrophils) 2.4000 1.5000-6.7 000 RBC (test code = RBC) 3.4000 3.7000-4.9000 HGB (test code = HGB) 10.5000 g/dL 11.2000-18.0000 HCT (test code = HCT) 33.8000 % 34.0000-44.0000 MCV (test code = MCV) 99.5000 fL 80.0000-94.0000 MCH (test code = MCH) 31.0000 pg 27.0000-34.0000 MCHC (test code = MCHC) 31.2000 g/dL 31.5000-36.0000 RDW (test code = RDW) 15.1999 11.0000-18.0000 PLT (test code = PLT) 241.0000 140.0000-440.0000 MPV (test code = MPV) 7.5000 fL 6.8000-10.6000 Comprehensive Metabolic [id number] 10:43:00 Test Item Value Reference Range Comments Sodium (test code = Sodium) 140 mmol/L 135- 145 mmol/L Potassium (test code = Potassium) 3.9 mmol/L 3.5- 5.0 mmol/ L Chloride (test code = Chloride) 102 mmol/L 98- 107 mmol/L CO2 (test code = CO2) 33.0 mmol/L 22.0- 30.0 mmol/L BUN (test code = BUN) 9 mg/dL 7- 21 mg/dL Creatinine (test code = Creatinine) 0.73 mg/dL 0.60- 1.00 m g/dL BUN/Creatinine Ratio (test code = 12 BUN/Creatinine Ratio) EGFR MDRD Non Af Amer (test code = EGFR MDRD >=60 >=6 0 mL/min/1.73m2 Non Af Amer) EGFR MDRD Af Amer (test code = EGFR MDRD Af >=60 >=60 mL/min/1.73m2 Amer) Anion Gap (test code = Anion Gap) 5 mmol/L 9- 15 mmol/L Glucose (test code = Glucose) 82 mg/dL 65- 179 mg/dL Calcium (test code = Calcium) 9.4 mg/dL 8.5- 10.2 mg/dL Albumin (test code = Albumin) 4.0 g/dL 3.5- 5.0 g/dL Total Protein (test code = Total Protein) 7.1 g/dL 6.5- 8 .3 g/dL Total Bilirubin (test code = Total Bilirubin) 0.4 mg/dL 0. 0- 1.2 mg/dL AST (test code = AST) 18 U/L 14- 38 U/L ALT (test code = ALT) 12 U/L 15- 48 U/L Alkaline Phosphatase (test code = Alkaline 53 U/L 38- 1 26 U/L Phosphatase) Magnesium [id number] 10:43:00 Test Item Value Reference Range Comments Magnesium (test code = Magnesium) 2.0 mg/dL 1.6- 2.2 mg/dL CBC w/ [id number] 10:43:00 Test Item Value Reference Range Comments WBC (test code = WBC) 6.4 10*9/L 4.5- 11.0 10*9/L RBC (test code = RBC) 3.73 10*12/L 4.00- 5.20 10*12/L HGB (test code = HGB) 12.4 g/dL 12.0- 16.0 g/dL HCT (test code = HCT) 38.3 % 36.0- 46.0 % MCV (test code = MCV) 102.6 fL 80.0- 100.0 fL MCH (test code = MCH) 33.1 pg 26.0- 34.0 pg MCHC (test code = MCHC) 32.2 g/dL 31.0- 37.0 g/dL RDW (test code = RDW) 14.0 % 12.0- 15.0 % MPV (test code = MPV) 7.4 fL 7.0- 10.0 fL Platelet (test code = Platelet) 288 10*9/L 150- 440 10*9/L Neutrophils % (test code = Neutrophils %) 47.2 % Lymphocytes % (test code = Lymphocytes %) 17.3 % Monocytes % (test code = Monocytes %) 4.0 % Eosinophils % (test code = Eosinophils %) 29.7 % Basophils % (test code = Basophils %) 0.3 % Absolute Neutrophils (test code = Absolute 3.0 10*9/L 2.0- 7.5 10*9/L Neutrophils) Absolute Lymphocytes (test code = Absolute 1.1 10*9/L 1.5- 5.0 10*9/L Lymphocytes) Absolute Monocytes (test code = Absolute 0.3 10*9/L 0.2- 0. 8 10*9/L Monocytes) Absolute Eosinophils (test code = Absolute 1.9 10*9/L 0.0- 0.4 10*9/L Eosinophils) Absolute Basophils (test code = Absolute 0.0 10*9/L 0.0- 0. 1 10*9/L Basophils) Large Unstained Cells (test code = Large 2 % 0- 4 % Unstained Cells) Macrocytosis (test code = Macrocytosis) Moderate Not Pres ent Hypochromasia (test code = Hypochromasia) Slight Not Pr esent Protein, [id number] 12:26:00 Test Item Value Reference Range Comments Protein, Total (test code = Protein, Total) 6.7000 g/dL 6.00 00-8.5000 Albumin (test code = Albumin) 3.7000 g/dL 2.9000-4.4000 Globulin (test code = Globulin) 3.0000 g/dL 2.2000-3.9000 A/G Ratio (test code = A/G Ratio) 1.3000 0.7000-1.7000 [id number] 12:26:00 Test Item Value Reference Range Comments IGG (test code = IGG) 975.0000 mg/dL 700.5081-5702.0000 IGA (test code = IGA) 101.0000 mg/dL 87.0000-352.0000 IGM (test code = IGM) 44.0000 mg/dL 26.0000-217.0000 Alpha-1 Globulin (test code 0.2000 g/dL 0.0000-0.4000 = Alpha-1 Globulin) Alpha-2 Globulin (test code 0.9000 g/dL 0.4000-1.0000 = Alpha-2 Globulin) Beta Globulin (test code = 1.0000 g/dL 0.7000-1.3000 Beta Globulin) Gamma Globulin (test code = 0.8000 g/dL 0.4000-1.8000 Gamma Globulin) M-Jose (test code = M-Jose) Immunofixation Interp, Serum Comment An apparent normal (test code = Immunofixation immunofixation pattern Interp, Serum) PE Note (test code = PE Comment Protein Note) electrophoresis scan will follow via computer, mail, or physical therapist aide delivery [place] Free Light Chain (test 9.7000 mg/L 3.3000-19.4000 code = [place] Free Light Chain) Lambda Free Light Chain 10.4000 mg/L 5.7000-26.3000 (test code = Lambda Free Light Chain) [place]/Lambda Free Ratio 0.9300 0.2600-1.6500 (test code = [place]/Lambda Free Ratio) Beta-2 Microglobulin (test 1.3000 mg/L 0.6000-2.4000 code = Beta-2 Microglobulin) [facility] [id number] 12:26:00 Test Item Value Reference Range Comments [facility] Comments (test code = DUP Duplicate procedure [facility] Comments) ordered. TEST: [id number] Protein Electro.,S [id number] 11:34:00 Test Item Value Reference Range Comments WBC (test code = WBC) 7.1000 4.0000-10.0000 Lymphocytes % (test code = Lymphocytes %) 13.1000 % 22.400 0-43.6000 MID% (test code = MID%) 5.3000 % 1.2000-11.2000 Neutrophils % (test code = Neutrophils %) 81.6000 % 48.900 0-69.9000 Lymphocytes (test code = Lymphocytes) 0.9000 1.2000-3.2 000 MID (test code = MID) 0.4000 0.1000-1.1000 Neutrophils (test code = Neutrophils) 5.8000 1.5000-6.7 000 RBC (test code = RBC) 3.4800 3.7000-4.9000 HGB (test code = HGB) 11.5000 g/dL 11.2000-18.0000 HCT (test code = HCT) 35.0000 % 34.0000-44.0000 MCV (test code = MCV) 100.5000 fL 80.0000-94.0000 MCH (test code = MCH) 33.1000 pg 27.0000-34.0000 MCHC (test code = MCHC) 32.9000 g/dL 31.5000-36.0000 RDW (test code = RDW) 15.1000 11.0000-18.0000 PLT (test code = PLT) 229.0000 140.0000-440.0000 MPV (test code = MPV) 6.8000 fL 6.8000-10.6000 [id number] 11:33:00 Test Item Value Reference Range Comments Creatinine (test code = Creatinine) 0.5000 mg/dL 0.5000-1.200 0 Cr Clearance (Est) (test code = Cr 120.1300 75.0000-115.0 000 Clearance (Est)) Glucose (test code = Glucose) 115.0000 mg/dL 70.0000-118.0000 BUN (test code = BUN) 7.0000 mg/dL 7.0000-22.0000 Sodium (test code = Sodium) 142.0000 mmol/L 128.0000-145.0000 Potassium (test code = Potassium) 3.5000 mmol/L 3.6000-5.1000 Chloride (test code = Chloride) 101.0000 mmol/L 96.0000-108.0000 CO2 (test code = CO2) 29.0000 mmol/L 18.0000-33.0000 Calcium (test code = Calcium) 9.4400 mg/dL 8.0000-10.3000 Alkaline Phosphatase (test code = Alkaline 50.0000 42.00 00-141.0000 Phosphatase) ALT (SGPT) (test code = ALT (SGPT)) 8.0000 10.0000-47.0 000 AST (SGOT) (test code = AST (SGOT)) 9.0000 11.0000-37.0 000 Bilirubin, Total (test code = Bilirubin, 0.6000 mg/dL 0.0000- 1.6000 Total) Albumin (test code = Albumin) 4.4000 g/dL 3.5000-5.5000 Protein, Total (test code = Protein, 6.5000 g/dL 6.4000-8.10 00 Total) eGFR -Vietnamese (test code = eGFR 151.0000 60.0000- 200.0000 -Vietnamese) eGFR Fty-Vwozsbb-Ebvhswaz (test code = 125.0000 60.0000-2 00.0000 eGFR Gns-Dvailex-Wksfkbfu) Protein, [id number] 12:41:00 Test Item Value Reference Range Comments Protein, Total (test code = Protein, Total) 7.1000 g/dL 6.00 00-8.5000 Albumin (test code = Albumin) 4.0000 g/dL 2.9000-4.4000 Globulin (test code = Globulin) 3.1000 g/dL 2.2000-3.9000 A/G Ratio (test code = A/G Ratio) 1.3000 0.7000-1.7000 [id number] 12:41:00 Test Item Value Reference Range Comments IGG (test code = IGG) 989.0000 mg/dL 700.8758-5901.0000 IGA (test code = IGA) 102.0000 mg/dL 87.0000-352.0000 IGM (test code = IGM) 42.0000 mg/dL 26.0000-217.0000 Alpha-1 Globulin (test code 0.2000 g/dL 0.0000-0.4000 = Alpha-1 Globulin) Alpha-2 Globulin (test code 0.9000 g/dL 0.4000-1.0000 = Alpha-2 Globulin) Beta Globulin (test code = 1.1000 g/dL 0.7000-1.3000 Beta Globulin) Gamma Globulin (test code = 0.9000 g/dL 0.4000-1.8000 Gamma Globulin) M-Jose (test code = M-Jose) Immunofixation Interp, Serum Comment An apparent normal (test code = Immunofixation immunofixation pattern Interp, Serum) PE Note (test code = PE Comment Protein Note) electrophoresis scan will follow via computer, mail, or physical therapist aide delivery [place] Free Light Chain (test 11.3000 mg/L 3.3000-19.4000 code = [place] Free Light Chain) Lambda Free Light Chain 10.2000 mg/L 5.7000-26.3000 (test code = Lambda Free Light Chain) [place]/Lambda Free Ratio 1.1100 0.2600-1.6500 (test code = [place]/Lambda Free Ratio) Beta-2 Microglobulin (test 1.2000 mg/L 0.6000-2.4000 code = Beta-2 Microglobulin) [facility] [id number] 12:41:00 Test Item Value Reference Range Comments [facility] Comments (test code = DUP Duplicate procedure [facility] Comments) ordered. TEST: [id number] Protein Electro.,S Protein, [id number] 13:02:00 Test Item Value Reference Range Comments Protein, Total (test code = Protein, Total) 6.5000 g/dL 6.00 00-8.5000 Albumin (test code = Albumin) Globulin (test code = Globulin) A/G Ratio (test code = A/G Ratio) [id number] 13:02:00 Test Item Value Reference Range Comments IGG (test code = IGG) IGA (test code = IGA) IGM (test code = IGM) Alpha-1 Globulin (test code = Alpha-1 Globulin) Alpha-2 Globulin (test code = Alpha-2 Globulin) Beta Globulin (test code = Beta Globulin) Gamma Globulin (test code = Gamma Globulin) M-Jose (test code = M-Jose) Immunofixation Interp, Serum QNS Quantity was not (test code = Immunofixation sufficient for analysis Interp, Serum) PE Note (test code = PE Note) Comment Protein electrophoresis scan will follow via computer, mail, or physical therapist aide delivery [place] Free Light Chain (test 12.9000 mg/L 3.3000-19.4000 code = [place] Free Light Chain) [place] Free Light Chain (test 12.2000 mg/L 5.7000-26.3000 code = [place] Free Light Chain) [place]/Lambda Free Ratio (test 1.0600 0.2600-1.6500 code = [place]/Lambda Free Ratio) Beta-2 Microglobulin (test 1.5000 mg/L 0.6000-2.4000 code = Beta-2 Microglobulin) [facility] [id number] 13:02:00 Test Item Value Reference Range Comments [facility] Comments (test code DUP Duplicate procedure ordered. = [facility] Comments) TEST: [id number] Protein Electro.,S QNS Quantity was not sufficient for analysis. TEST: [id number] Albumin Panel: [id number] Dsjju-9-Fqkfhhat Panel: [id number] Request Problem (test code QNS Quantity was not sufficient = Request Problem) for analysis. TEST: [id number] Immunoglobulin G, Qn, Serum Panel: [id number] Immunoglobulin A, Qn, Serum Panel: [id number] Immunoglobulin M, Qn, Serum Panel: [id number] 11:26:00 Test Item Value Reference Range Comments WBC (test code = WBC) 3.3000 4.0000-10.0000 Lymphocytes % (test code = Lymphocytes %) 24.1000 % 22.400 0-43.6000 MID% (test code = MID%) 8.2000 % 1.2000-11.2000 Neutrophils % (test code = Neutrophils %) 67.7000 % 48.900 0-69.9000 Lymphocytes (test code = Lymphocytes) 0.8000 1.2000-3.2 000 MID (test code = MID) 0.3000 0.1000-1.1000 Neutrophils (test code = Neutrophils) 2.1999 1.5000-6.7 000 RBC (test code = RBC) 3.1700 3.7000-4.9000 HGB (test code = HGB) 10.6000 g/dL 11.2000-18.0000 HCT (test code = HCT) 31.7000 % 34.0000-44.0000 MCV (test code = MCV) 100.0000 fL 80.0000-94.0000 MCH (test code = MCH) 33.4000 pg 27.0000-34.0000 MCHC (test code = MCHC) 33.4000 g/dL 31.5000-36.0000 RDW (test code = RDW) 14.7000 11.0000-18.0000 PLT (test code = PLT) 222.0000 140.0000-440.0000 MPV (test code = MPV) 7.2000 fL 6.8000-10.6000 [id number] 11:25:00 Test Item Value Reference Range Comments Creatinine (test code = Creatinine) 0.5000 mg/dL 0.5000-1.200 0 Cr Clearance (Est) (test code = Cr 125.9000 75.0000-115.0 000 Clearance (Est)) Glucose (test code = Glucose) 90.0000 mg/dL 70.0000-118.0000 BUN (test code = BUN) 8.0000 mg/dL 7.0000-22.0000 Sodium (test code = Sodium) 139.0000 mmol/L 128.0000-145.0000 Potassium (test code = Potassium) 3.6000 mmol/L 3.6000-5.1000 Chloride (test code = Chloride) 106.0000 mmol/L 96.0000-108.0000 CO2 (test code = CO2) 30.0000 mmol/L 18.0000-33.0000 Calcium (test code = Calcium) 8.6700 mg/dL 8.0000-10.3000 Alkaline Phosphatase (test code = Alkaline 43.0000 42.00 00-141.0000 Phosphatase) ALT (SGPT) (test code = ALT (SGPT)) 12.0000 10.0000-47.0 000 AST (SGOT) (test code = AST (SGOT)) 14.0000 11.0000-37.0 000 Bilirubin, Total (test code = Bilirubin, 0.5000 mg/dL 0.0000- 1.6000 Total) Albumin (test code = Albumin) 4.4000 g/dL 3.5000-5.5000 Protein, Total (test code = Protein, 6.2000 g/dL 6.4000-8.10 00 Total) eGFR -Vietnamese (test code = eGFR 152.0000 60.0000- 200.0000 -Vietnamese) eGFR Qug-Vmzfire-Nlluflso (test code = 125.0000 60.0000-2 00.0000 eGFR Dge-Mluqimw-Iqtidizu) Protein, [id number] 11:09:00 Test Item Value Reference Range Comments Protein, Total (test code = Protein, Total) 6.7000 g/dL 6.00 00-8.5000 Albumin (test code = Albumin) 3.9000 g/dL 2.9000-4.4000 Globulin (test code = Globulin) 2.8000 g/dL 2.2000-3.9000 A/G Ratio (test code = A/G Ratio) 1.4000 0.7000-1.7000 [id number] 11:09:00 Test Item Value Reference Range Comments IGG (test code = IGG) 841.0000 mg/dL 700.1694-7619.0000 IGA (test code = IGA) 71.0000 mg/dL 87.0000-352.0000 IGM (test code = IGM) 39.0000 mg/dL 26.0000-217.0000 Alpha-1 Globulin (test code 0.2000 g/dL 0.0000-0.4000 = Alpha-1 Globulin) Alpha-2 Globulin (test code 0.8000 g/dL 0.4000-1.0000 = Alpha-2 Globulin) Beta Globulin (test code = 1.0000 g/dL 0.7000-1.3000 Beta Globulin) Gamma Globulin (test code = 0.7000 g/dL 0.4000-1.8000 Gamma Globulin) M-Jose (test code = 0.1000 g/dL 0.0000-0.0000 M-Jose) Immunofixation Interp, Serum Comment Immunofixation shows (test code = Immunofixation IgG monoclonal protein with Interp, Serum) kappa light chain specificity PE Note (test code = PE Comment Protein Note) electrophoresis scan will follow via computer, mail, or physical therapist aide delivery [place] Free Light Chain (test 8.4000 mg/L 3.3000-19.4000 code = [place] Free Light Chain) [place] Free Light Chain 8.4000 mg/L 5.7000-26.3000 (test code = [place] Free Light Chain) [place]/Lambda Free Ratio 1.0000 0.2600-1.6500 (test code = [place]/Lambda Free Ratio) Beta-2 Microglobulin (test 2.3000 mg/L 0.6000-2.4000 code = Beta-2 Microglobulin) [facility] [id number] 11:09:00 Test Item Value Reference Range Comments [facility] Comments (test code = DUP Duplicate procedure [facility] Comments) ordered. TEST: [id number] Albumin Panel: [id number] Ndiuh-5-Lbkcnfkl Panel: [id number] Ogtno-7-Ykkkukje Panel: [id number] 10:37:00 Test Item Value Reference Range Comments WBC (test code = WBC) 3.0000 4.0000-10.0000 Lymphocytes % (test code = Lymphocytes %) 28.5000 % 22.400 0-43.6000 MID% (test code = MID%) 9.0000 % 1.2000-11.2000 Neutrophils % (test code = Neutrophils %) 62.5000 % 48.900 0-69.9000 Lymphocytes (test code = Lymphocytes) 0.8000 1.2000-3.2 000 MID (test code = MID) 0.3000 0.1000-1.1000 Neutrophils (test code = Neutrophils) 1.9000 1.5000-6.7 000 RBC (test code = RBC) 3.5600 3.7000-4.9000 HGB (test code = HGB) 11.3000 g/dL 11.2000-18.0000 HCT (test code = HCT) 35.1000 % 34.0000-44.0000 MCV (test code = MCV) 98.7000 fL 80.0000-94.0000 MCH (test code = MCH) 31.9000 pg 27.0000-34.0000 MCHC (test code = MCHC) 32.3000 g/dL 31.5000-36.0000 RDW (test code = RDW) 14.4000 11.0000-18.0000 PLT (test code = PLT) 178.0000 140.0000-440.0000 MPV (test code = MPV) 8.0000 fL 6.8000-10.6000 [id number] 10:37:00 Test Item Value Reference Range Comments Creatinine (test code = Creatinine) 0.6000 mg/dL 0.5000-1.200 0 Cr Clearance (Est) (test code = Cr 99.5600 75.0000-115.0 000 Clearance (Est)) Glucose (test code = Glucose) 109.0000 mg/dL 70.0000-118.0000 BUN (test code = BUN) 12.0000 mg/dL 7.0000-22.0000 Sodium (test code = Sodium) 138.0000 mmol/L 128.0000-145.0000 Potassium (test code = Potassium) 3.5000 mmol/L 3.6000-5.1000 Chloride (test code = Chloride) 102.0000 mmol/L 96.0000-108.0000 CO2 (test code = CO2) 32.0000 mmol/L 18.0000-33.0000 Calcium (test code = Calcium) 10.1400 mg/dL 8.0000-10.3000 Alkaline Phosphatase (test code = Alkaline 47.0000 42.00 00-141.0000 Phosphatase) ALT (SGPT) (test code = ALT (SGPT)) 10.0000 10.0000-47.0 000 AST (SGOT) (test code = AST (SGOT)) 14.0000 11.0000-37.0 000 Bilirubin, Total (test code = Bilirubin, 0.5000 mg/dL 0.0000- 1.6000 Total) Albumin (test code = Albumin) 4.8000 g/dL 3.5000-5.5000 Protein, Total (test code = Protein, 6.7000 g/dL 6.4000-8.10 00 Total) eGFR -Vietnamese (test code = eGFR 123.0000 60.0000- 200.0000 -Vietnamese) eGFR Azz-Iqiayvy-Mogqsmep (test code = 102.0000 60.0000-2 00.0000 eGFR Uuc-Zihlpnr-Xqxmhbyv) [id number] 10:52:00 Test Item Value Reference Range Comments Creatinine (test code = Creatinine) 0.5000 mg/dL 0.5000-1.200 0 Cr Clearance (Est) (test code = Cr 117.7800 75.0000-115.0 000 Clearance (Est)) Glucose (test code = Glucose) 116.0000 mg/dL 70.0000-118.0000 BUN (test code = BUN) 12.0000 mg/dL 7.0000-22.0000 Sodium (test code = Sodium) 137.0000 mmol/L 128.0000-145.0000 Potassium (test code = Potassium) 3.6000 mmol/L 3.6000-5.1000 Chloride (test code = Chloride) 103.0000 mmol/L 96.0000-108.0000 CO2 (test code = CO2) 29.0000 mmol/L 18.0000-33.0000 Calcium (test code = Calcium) 9.6600 mg/dL 8.0000-10.3000 Alkaline Phosphatase (test code = Alkaline 40.0000 42.00 00-141.0000 Phosphatase) ALT (SGPT) (test code = ALT (SGPT)) 8.0000 10.0000-47.0 000 AST (SGOT) (test code = AST (SGOT)) 12.0000 11.0000-37.0 000 Bilirubin, Total (test code = Bilirubin, 0.7000 mg/dL 0.0000- 1.6000 Total) Albumin (test code = Albumin) 4.3000 g/dL 3.5000-5.5000 Protein, Total (test code = Protein, 6.8000 g/dL 6.4000-8.10 00 Total) eGFR -Vietnamese (test code = eGFR 152.0000 60.0000- 200.0000 -Vietnamese) eGFR Qpv-Kknkode-Zpxjkhvt (test code = 125.0000 60.0000-2 00.0000 eGFR Zsc-Pmrqhsv-Trkohybl) [id number] 09:38:00 Test Item Value Reference Range Comments WBC (test code = WBC) 3.5000 4.0000-10.0000 Lymphocytes % (test code = Lymphocytes %) 27.8000 % 22.400 0-43.6000 MID% (test code = MID%) 9.0000 % 1.2000-11.2000 Neutrophils % (test code = Neutrophils %) 63.2000 % 48.900 0-69.9000 Lymphocytes (test code = Lymphocytes) 0.9000 1.2000-3.2 000 MID (test code = MID) 0.4000 0.1000-1.1000 Neutrophils (test code = Neutrophils) 2.2000 1.5000-6.7 000 RBC (test code = RBC) 3.3300 3.7000-4.9000 HGB (test code = HGB) 10.8000 g/dL 11.2000-18.0000 HCT (test code = HCT) 32.0000 % 34.0000-44.0000 MCV (test code = MCV) 96.0000 fL 80.0000-94.0000 MCH (test code = MCH) 32.5000 pg 27.0000-34.0000 MCHC (test code = MCHC) 33.8000 g/dL 31.5000-36.0000 RDW (test code = RDW) 16.2000 11.0000-18.0000 PLT (test code = PLT) 225.0000 140.0000-440.0000 MPV (test code = MPV) 7.6000 fL 6.8000-10.6000 [id number] 09:38:00 Test Item Value Reference Range Comments Creatinine (test code = Creatinine) 0.5000 mg/dL 0.5000-1.200 0 Cr Clearance (Est) (test code = Cr 117.7800 75.0000-115.0 000 Clearance (Est)) Glucose (test code = Glucose) 109.0000 mg/dL 70.0000-118.0000 BUN (test code = BUN) 9.0000 mg/dL 7.0000-22.0000 Sodium (test code = Sodium) 138.0000 mmol/L 128.0000-145.0000 Potassium (test code = Potassium) 3.2000 mmol/L 3.6000-5.1000 Chloride (test code = Chloride) 102.0000 mmol/L 96.0000-108.0000 CO2 (test code = CO2) 28.0000 mmol/L 18.0000-33.0000 Calcium (test code = Calcium) 8.6300 mg/dL 8.0000-10.3000 Alkaline Phosphatase (test code = Alkaline 43.0000 42.00 00-141.0000 Phosphatase) ALT (SGPT) (test code = ALT (SGPT)) 9.0000 10.0000-47.0 000 AST (SGOT) (test code = AST (SGOT)) 13.0000 11.0000-37.0 000 Bilirubin, Total (test code = Bilirubin, 0.6000 mg/dL 0.0000- 1.6000 Total) Albumin (test code = Albumin) 4.3000 g/dL 3.5000-5.5000 Protein, Total (test code = Protein, 6.6000 g/dL 6.4000-8.10 00 Total) eGFR -Vietnamese (test code = eGFR 152.0000 60.0000- 200.0000 -Vietnamese) eGFR Cqj-Etnsxej-Jwizmibb (test code = 125.0000 60.0000-2 00.0000 eGFR Cid-Xogkmph-Zrihpimt) Comprehensive Metabolic [id number] 09:50:00 Test Item Value Reference Range Comments Sodium (test code = Sodium) 144 mmol/L 135- 145 mmol/L Potassium (test code = Potassium) 4.2 mmol/L 3.5- 5.0 mmol/ L Chloride (test code = Chloride) 107 mmol/L 98- 107 mmol/L CO2 (test code = CO2) 29.0 mmol/L 22.0- 30.0 mmol/L BUN (test code = BUN) 11 mg/dL 7- 21 mg/dL Creatinine (test code = Creatinine) 0.80 mg/dL 0.60- 1.00 m g/dL BUN/Creatinine Ratio (test code = 14 BUN/Creatinine Ratio) EGFR MDRD Non Af Amer (test code = EGFR MDRD >=60 >=6 0 mL/min/1.73m2 Non Af Amer) EGFR MDRD Af Amer (test code = EGFR MDRD Af >=60 >=60 mL/min/1.73m2 Amer) Anion Gap (test code = Anion Gap) 8 mmol/L 9- 15 mmol/L Glucose (test code = Glucose) 109 mg/dL 65- 179 mg/dL Calcium (test code = Calcium) 10.1 mg/dL 8.5- 10.2 mg/dL Albumin (test code = Albumin) 4.6 g/dL 3.5- 5.0 g/dL Total Protein (test code = Total Protein) 6.9 g/dL 6.5- 8 .3 g/dL Total Bilirubin (test code = Total Bilirubin) 0.5 mg/dL 0. 0- 1.2 mg/dL AST (test code = AST) 22 U/L 14- 38 U/L ALT (test code = ALT) 19 U/L 15- 48 U/L Alkaline Phosphatase (test code = Alkaline 45 U/L 38- 1 26 U/L Phosphatase) Magnesium [id number] 09:50:00 Test Item Value Reference Range Comments Magnesium (test code = Magnesium) 1.9 mg/dL 1.6- 2.2 mg/dL CBC w/ [id number] 09:50:00 Test Item Value Reference Range Comments WBC (test code = WBC) 4.9 10*9/L 4.5- 11.0 10*9/L RBC (test code = RBC) 3.56 10*12/L 4.00- 5.20 10*12/L HGB (test code = HGB) 11.5 g/dL 12.0- 16.0 g/dL HCT (test code = HCT) 35.1 % 36.0- 46.0 % MCV (test code = MCV) 98.4 fL 80.0- 100.0 fL MCH (test code = MCH) 32.2 pg 26.0- 34.0 pg MCHC (test code = MCHC) 32.7 g/dL 31.0- 37.0 g/dL RDW (test code = RDW) 17.7 % 12.0- 15.0 % MPV (test code = MPV) 7.8 fL 7.0- 10.0 fL Platelet (test code = Platelet) 264 10*9/L 150- 440 10*9/L Absolute Neutrophils (test code = Absolute 3.0 10*9/L 2.0- 7.5 10*9/L Neutrophils) Absolute Lymphocytes (test code = Absolute 0.8 10*9/L 1.5- 5.0 10*9/L Lymphocytes) Absolute Monocytes (test code = Absolute 0.3 10*9/L 0.2- 0. 8 10*9/L Monocytes) Absolute Eosinophils (test code = Absolute 0.5 10*9/L 0.0- 0.4 10*9/L Eosinophils) Absolute Basophils (test code = Absolute 0.0 10*9/L 0.0- 0. 1 10*9/L Basophils) Large Unstained Cells (test code = Large 4 % 0- 4 % Unstained Cells) Macrocytosis (test code = Macrocytosis) Moderate Not Pres ent Anisocytosis (test code = Anisocytosis) Slight Not Pres ent Hypochromasia (test code = Hypochromasia) Slight Not Pr esent [id number] 09:32:00 Test Item Value Reference Range Comments WBC (test code = WBC) 4.2000 4.0000-10.0000 Lymphocytes % (test code = Lymphocytes %) 16.2000 % 22.400 0-43.6000 MID% (test code = MID%) 6.8000 % 1.1999-11.1999 Neutrophils % (test code = Neutrophils %) 77.0000 % 48.900 0-69.9000 Lymphocytes (test code = Lymphocytes) 0.6000 1.2000-3.2 000 MID (test code = MID) 0.4000 0.1000-1.1000 Neutrophils (test code = Neutrophils) 3.2000 1.5000-6.7 000 RBC (test code = RBC) 3.1400 3.7000-4.9000 HGB (test code = HGB) 12.0000 g/dL 11.2000-18.0000 HCT (test code = HCT) 28.6000 % 34.0000-44.0000 MCV (test code = MCV) 91.0000 fL 80.0000-94.0000 MCH (test code = MCH) 38.5000 pg 27.0000-34.0000 MCHC (test code = MCHC) 42.2000 g/dL 31.5000-36.0000 RDW (test code = RDW) 16.9000 11.0000-18.0000 PLT (test code = PLT) 196.0000 140.0000-440.0000 MPV (test code = MPV) 7.3000 fL 6.8000-10.6000 [id number] 09:32:00 Test Item Value Reference Range Comments Creatinine (test code = Creatinine) 0.6000 mg/dL 0.5000-1.200 0 Cr Clearance (Est) (test code = Cr 97.8600 75.0000-115.0 000 Clearance (Est)) Glucose (test code = Glucose) 118.0000 mg/dL 70.0000-118.0000 BUN (test code = BUN) 11.0000 mg/dL 7.0000-22.0000 Sodium (test code = Sodium) 138.0000 mmol/L 128.0000-145.0000 Potassium (test code = Potassium) 3.9000 mmol/L 3.6000-5.1000 Chloride (test code = Chloride) 103.0000 mmol/L 96.0000-108.0000 CO2 (test code = CO2) 28.0000 mmol/L 18.0000-33.0000 Calcium (test code = Calcium) 9.4000 mg/dL 8.0000-10.3000 Alkaline Phosphatase (test code = Alkaline 47.0000 42.00 00-141.0000 Phosphatase) ALT (SGPT) (test code = ALT (SGPT)) 10.0000 10.0000-47.0 000 AST (SGOT) (test code = AST (SGOT)) 12.0000 11.0000-37.0 000 Bilirubin, Total (test code = Bilirubin, 0.6000 mg/dL 0.0000- 1.6000 Total) Albumin (test code = Albumin) 4.4000 g/dL 3.5000-5.5000 Protein, Total (test code = Protein, 6.9000 g/dL 6.4000-8.10 00 Total) eGFR -Vietnamese (test code = eGFR 123.0000 60.0000- 200.0000 -Vietnamese) eGFR Pxn-Bqvhdoc-Dfmkbjsw (test code = 102.0000 60.0000-2 00.0000 eGFR Ztx-Cdbbxtg-Wcfbbqkm) [id number] 10:00:00 Test Item Value Reference Range Comments Creatinine (test code = Creatinine) 0.6000 mg/dL 0.5000-1.200 0 Cr Clearance (Est) (test code = Cr 100.2600 75.0000-115.0 000 Clearance (Est)) Glucose (test code = Glucose) 143.0000 mg/dL 70.0000-118.0000 BUN (test code = BUN) 12.0000 mg/dL 7.0000-22.0000 Sodium (test code = Sodium) 138.0000 mmol/L 128.0000-145.0000 Potassium (test code = Potassium) 4.0000 mmol/L 3.6000-5.1000 Chloride (test code = Chloride) 103.0000 mmol/L 96.0000-108.0000 CO2 (test code = CO2) 28.0000 mmol/L 18.0000-33.0000 Calcium (test code = Calcium) 8.1900 mg/dL 8.0000-10.3000 Alkaline Phosphatase (test code = Alkaline 46.0000 42.00 00-141.0000 Phosphatase) ALT (SGPT) (test code = ALT (SGPT)) 11.0000 10.0000-47.0 000 AST (SGOT) (test code = AST (SGOT)) 14.0000 11.0000-37.0 000 Bilirubin, Total (test code = Bilirubin, 0.7000 mg/dL 0.0000- 1.6000 Total) Albumin (test code = Albumin) 4.1000 g/dL 3.5000-5.5000 Protein, Total (test code = Protein, 6.5000 g/dL 6.4000-8.10 00 Total) eGFR -Vietnamese (test code = eGFR 123.0000 60.0000- 200.0000 -Vietnamese) eGFR Mgp-Ldltmwv-Dezatiic (test code = 102.0000 60.0000-2 00.0000 eGFR Xlg-Dfydnnf-Rdoanwmg) [id number] 10:00:00 Test Item Value Reference Range Comments WBC (test code = WBC) 4.8000 4.0000-10.0000 Lymphocytes % (test code = Lymphocytes %) 16.9000 % 22.400 0-43.6000 MID% (test code = MID%) 5.5000 % .1999- Neutrophils % (test code = Neutrophils %) 77.6000 % 48.900 0-69.9000 Lymphocytes (test code = Lymphocytes) 0.8000 1.2000-3.2 000 MID (test code = MID) 0.3000 0.1000-1.1000 Neutrophils (test code = Neutrophils) 3.7000 1.5000-6.7 000 RBC (test code = RBC) 3.5900 3.7000-4.9000 HGB (test code = HGB) 11.5000 g/dL 11.2000-18.0000 HCT (test code = HCT) 33.8000 % 34.0000-44.0000 MCV (test code = MCV) 94.1000 fL 80.0000-94.0000 MCH (test code = MCH) 32.0000 pg 27.0000-34.0000 MCHC (test code = MCHC) 34.0000 g/dL 31.5000-36.0000 RDW (test code = RDW) 17.5000 11.0000-18.0000 PLT (test code = PLT) 250.0000 140.0000-440.0000 MPV (test code = MPV) 8.7000 fL 6.8000-10.6000 [id number] 09:40:00 Test Item Value Reference Range Comments WBC (test code = WBC) 6.6000 4.0000-10.0000 Lymphocytes % (test code = Lymphocytes %) 17.4000 % 22.400 0-43.6000 MID% (test code = MID%) 3.9000 % .1999- Neutrophils % (test code = Neutrophils %) 78.7000 % 48.900 0-69.9000 Lymphocytes (test code = Lymphocytes) 1.1000 1.2000-3.2 000 MID (test code = MID) 0.3000 0.1000-1.1000 Neutrophils (test code = Neutrophils) 5.1999 1.5000-6.7 000 RBC (test code = RBC) 3.5400 3.7000-4.9000 HGB (test code = HGB) 11.3000 g/dL 11.2000-18.0000 HCT (test code = HCT) 32.8000 % 34.0000-44.0000 MCV (test code = MCV) 92.5000 fL 80.0000-94.0000 MCH (test code = MCH) 32.0000 pg 27.0000-34.0000 MCHC (test code = MCHC) 34.6000 g/dL 31.5000-36.0000 RDW (test code = RDW) 17.1999 11.0000-18.0000 PLT (test code = PLT) 178.0000 140.0000-440.0000 MPV (test code = MPV) 7.5000 fL 6.8000-10.6000 [id number] 09:40:00 Test Item Value Reference Range Comments Creatinine (test code = Creatinine) 0.6000 mg/dL 0.5000-1.200 0 Cr Clearance (Est) (test code = Cr 100.2600 75.0000-115.0 000 Clearance (Est)) Glucose (test code = Glucose) 134.0000 mg/dL 70.0000-118.0000 BUN (test code = BUN) 8.0000 mg/dL 7.0000-22.0000 Sodium (test code = Sodium) 136.0000 mmol/L 128.0000-145.0000 Potassium (test code = Potassium) 4.0000 mmol/L 3.6000-5.1000 Chloride (test code = Chloride) 103.0000 mmol/L 96.0000-108.0000 CO2 (test code = CO2) 26.0000 mmol/L 18.0000-33.0000 Calcium (test code = Calcium) 10.1100 mg/dL 8.0000-10.3000 Alkaline Phosphatase (test code = Alkaline 46.0000 42.00 00-141.0000 Phosphatase) ALT (SGPT) (test code = ALT (SGPT)) 11.0000 10.0000-47.0 000 AST (SGOT) (test code = AST (SGOT)) 14.0000 11.0000-37.0 000 Bilirubin, Total (test code = Bilirubin, 0.5000 mg/dL 0.0000- 1.6000 Total) Albumin (test code = Albumin) 3.9000 g/dL 3.5000-5.5000 Protein, Total (test code = Protein, 6.6000 g/dL 6.4000-8.10 00 Total) eGFR -Vietnamese (test code = eGFR 123.0000 60.0000- 200.0000 -Vietnamese) eGFR Lqm-Sjkintn-Btwozltd (test code = 102.0000 60.0000-2 00.0000 eGFR Hyj-Ywxllst-Lfesbgsh) [id number] 09:20:00 Test Item Value Reference Range Comments WBC (test code = WBC) 5.8000 4.0000-10.0000 Lymphocytes % (test code = Lymphocytes %) 16.1000 % 22.400 0-43.6000 MID% (test code = MID%) 6.9000 % 1.2000-11.2000 Neutrophils % (test code = Neutrophils %) 77.0000 % 48.900 0-69.9000 Lymphocytes (test code = Lymphocytes) 0.9000 1.2000-3.2 000 MID (test code = MID) 0.4000 0.1000-1.1000 Neutrophils (test code = Neutrophils) 4.5000 1.5000-6.7 000 RBC (test code = RBC) 3.8400 3.7000-4.9000 HGB (test code = HGB) 12.2000 g/dL 11.2000-18.0000 HCT (test code = HCT) 35.2000 % 34.0000-44.0000 MCV (test code = MCV) 91.6000 fL 80.0000-94.0000 MCH (test code = MCH) 31.8000 pg 27.0000-34.0000 MCHC (test code = MCHC) 34.8000 g/dL 31.5000-36.0000 RDW (test code = RDW) 17.2000 11.0000-18.0000 PLT (test code = PLT) 206.0000 140.0000-440.0000 MPV (test code = MPV) 7.8000 fL 6.8000-10.6000 [id number] 09:20:00 Test Item Value Reference Range Comments Creatinine (test code = Creatinine) 0.7000 mg/dL 0.5000-1.200 0 Cr Clearance (Est) (test code = Cr 85.9400 75.0000-115.0 000 Clearance (Est)) Glucose (test code = Glucose) 151.0000 mg/dL 70.0000-118.0000 BUN (test code = BUN) 6.0000 mg/dL 7.0000-22.0000 Sodium (test code = Sodium) 135.0000 mmol/L 128.0000-145.0000 Potassium (test code = Potassium) 3.7000 mmol/L 3.6000-5.1000 Chloride (test code = Chloride) 102.0000 mmol/L 96.0000-108.0000 CO2 (test code = CO2) 24.0000 mmol/L 18.0000-33.0000 Calcium (test code = Calcium) 9.0200 mg/dL 8.0000-10.3000 Alkaline Phosphatase (test code = Alkaline 53.0000 42.00 00-141.0000 Phosphatase) ALT (SGPT) (test code = ALT (SGPT)) 21.0000 10.0000-47.0 000 AST (SGOT) (test code = AST (SGOT)) 19.0000 11.0000-37.0 000 Bilirubin, Total (test code = Bilirubin, 0.5000 mg/dL 0.0000- 1.6000 Total) Albumin (test code = Albumin) 3.9000 g/dL 3.5000-5.5000 Protein, Total (test code = Protein, 6.5000 g/dL 6.4000-8.10 00 Total) eGFR -Vietnamese (test code = eGFR 103.0000 60.0000- 200.0000 -Vietnamese) eGFR Saj-Ohiumjx-Ojmwqcka (test code = 85.0000 60.0000-2 00.0000 eGFR Iuo-Rfdhtvg-Krcsjiwk) [id number] 09:49:00 Test Item Value Reference Range Comments WBC (test code = WBC) 5.6000 4.0000-10.0000 Lymphocytes % (test code = Lymphocytes %) 29.0000 % 22.400 0-43.6000 MID% (test code = MID%) 11.0000 % 1.2000-11.2000 Neutrophils % (test code = Neutrophils %) 60.0000 % 48.900 0-69.9000 Lymphocytes (test code = Lymphocytes) 1.6000 1.2000-3.2 000 MID (test code = MID) 0.6000 0.1000-1.1000 Neutrophils (test code = Neutrophils) 3.4000 1.5000-6.7 000 RBC (test code = RBC) 4.0200 3.7000-4.9000 HGB (test code = HGB) 12.9000 g/dL 11.2000-18.0000 HCT (test code = HCT) 36.7000 % 34.0000-44.0000 MCV (test code = MCV) 91.2000 fL 80.0000-94.0000 MCH (test code = MCH) 32.1000 pg 27.0000-34.0000 MCHC (test code = MCHC) 35.2000 g/dL 31.5000-36.0000 RDW (test code = RDW) 17.1000 11.0000-18.0000 PLT (test code = PLT) 222.0000 140.0000-440.0000 MPV (test code = MPV) 7.8000 fL 6.8000-10.6000 [id number] 09:49:00 Test Item Value Reference Range Comments Creatinine (test code = Creatinine) 0.8000 mg/dL 0.5000-1.200 0 Cr Clearance (Est) (test code = Cr 75.2000 75.0000-115.0 000 Clearance (Est)) Glucose (test code = Glucose) 135.0000 mg/dL 70.0000-118.0000 BUN (test code = BUN) 11.0000 mg/dL 7.0000-22.0000 Sodium (test code = Sodium) 138.0000 mmol/L 128.0000-145.0000 Potassium (test code = Potassium) 4.6000 mmol/L 3.6000-5.1000 Chloride (test code = Chloride) 103.0000 mmol/L 96.0000-108.0000 CO2 (test code = CO2) 27.0000 mmol/L 18.0000-33.0000 Calcium (test code = Calcium) 9.6200 mg/dL 8.0000-10.3000 Alkaline Phosphatase (test code = Alkaline 57.0000 42.00 00-141.0000 Phosphatase) ALT (SGPT) (test code = ALT (SGPT)) 26.0000 10.0000-47.0 000 AST (SGOT) (test code = AST (SGOT)) 27.0000 11.0000-37.0 000 Bilirubin, Total (test code = Bilirubin, 0.7000 mg/dL 0.0000- 1.6000 Total) Albumin (test code = Albumin) 3.9000 g/dL 3.5000-5.5000 Protein, Total (test code = Protein, 6.9000 g/dL 6.4000-8.10 00 Total) eGFR -Vietnamese (test code = eGFR 88.0000 60.0000- 200.0000 -Vietnamese) eGFR Vlo-Fxcffik-Vzbzrxkc (test code = 73.0000 60.0000-2 00.0000 eGFR Vus-Dsdrgay-Leiqlorq) Phosphorus [id number] 07:38:00 Test Item Value Reference Range Comments Phosphorus (test code = Phosphorus) 3.3 mg/dL 2.9- 4.7 mg/ dL CBC w/ [id number] 12:56:00 Test Item Value Reference Range Comments WBC (test code = WBC) 8.4 10*9/L 4.5- 11.0 10*9/L RBC (test code = RBC) 3.08 10*12/L 4.00- 5.20 10*12/L HGB (test code = HGB) 9.6 g/dL 12.0- 16.0 g/dL HCT (test code = HCT) 28.5 % 36.0- 46.0 % MCV (test code = MCV) 92.5 fL 80.0- 100.0 fL MCH (test code = MCH) 31.3 pg 26.0- 34.0 pg MCHC (test code = MCHC) 33.8 g/dL 31.0- 37.0 g/dL RDW (test code = RDW) 17.1 % 12.0- 15.0 % MPV (test code = MPV) 12.2 fL 7.0- 10.0 fL Platelet (test code = Platelet) 46 10*9/L 150- 440 10*9/L Absolute Neutrophils (test code = Absolute 6.4 10*9/L 2.0- 7.5 10*9/L Neutrophils) Absolute Lymphocytes (test code = Absolute 0.7 10*9/L 1.5- 5.0 10*9/L Lymphocytes) Absolute Monocytes (test code = Absolute 0.7 10*9/L 0.2- 0. 8 10*9/L Monocytes) Absolute Eosinophils (test code = Absolute 0.0 10*9/L 0.0- 0.4 10*9/L Eosinophils) Absolute Basophils (test code = Absolute 0.1 10*9/L 0.0- 0. 1 10*9/L Basophils) Large Unstained Cells (test code = Large 6 % 0- 4 % Unstained Cells) Macrocytosis (test code = Macrocytosis) Slight Not Pres ent Anisocytosis (test code = Anisocytosis) Slight Not Pres ent Potassium [id number] 05:30:00 Test Item Value Reference Range Comments Potassium (test code = Potassium) 3.3 mmol/L 3.5- 5.0 mmol/ L [id number] 01:22:00 Test Item Value Reference Range Comments Color, UA (test code = Color, UA) Yellow Clarity, UA (test code = Clarity, UA) Clear Specific Warba, UA (test code = Specific 1.005 1.003 -1.030 Warba, UA) pH, UA (test code = pH, UA) 6.5 5.0-9.0 Leukocyte Esterase, UA (test code = Leukocyte Negative Ne gative Esterase, UA) Nitrite, UA (test code = Nitrite, UA) Negative Negative Protein, UA (test code = Protein, UA) Negative Negative Glucose, UA (test code = Glucose, UA) Negative Negative Ketones, UA (test code = Ketones, UA) Negative Negative Urobilinogen, UA (test code = Urobilinogen, 0.2 mg/dL 0.2 mg/dL, 1.0 mg/dL UA) Bilirubin, UA (test code = Bilirubin, UA) Negative Negati ve Blood, UA (test code = Blood, UA) Negative Negative RBC, UA (test code = RBC, UA) <1 <4 /HPF WBC, UA (test code = WBC, UA) 1 /HPF 0- 5 /HPF Squam Epithel, UA (test code = Squam Epithel, <1 0- 5 /HPF UA) Bacteria, UA (test code = Bacteria, UA) None Seen None See n /HPF Basic Metabolic [id number] 00:06:00 Test Item Value Reference Range Comments Sodium (test code = Sodium) 136 mmol/L 135- 145 mmol/L Potassium (test code = Potassium) 3.1 mmol/L 3.5- 5.0 mmol/ L Chloride (test code = Chloride) 107 mmol/L 98- 107 mmol/L CO2 (test code = CO2) 21.0 mmol/L 22.0- 30.0 mmol/L BUN (test code = BUN) 4 mg/dL 7- 21 mg/dL Creatinine (test code = Creatinine) 0.40 mg/dL 0.60- 1.00 m g/dL BUN/Creatinine Ratio (test code = 10 BUN/Creatinine Ratio) EGFR MDRD Non Af Amer (test code = EGFR MDRD >=60 >=6 0 mL/min/1.73m2 Non Af Amer) EGFR MDRD Af Amer (test code = EGFR MDRD Af >=60 >=60 mL/min/1.73m2 Amer) Anion Gap (test code = Anion Gap) 8 mmol/L 9- 15 mmol/L Glucose (test code = Glucose) 105 mg/dL 65- 179 mg/dL Calcium (test code = Calcium) 6.8 mg/dL 8.5- 10.2 mg/dL Magnesium [id number] 00:06:00 Test Item Value Reference Range Comments Magnesium (test code = Magnesium) 1.7 mg/dL 1.6- 2.2 mg/dL Phosphorus [id number] 00:06:00 Test Item Value Reference Range Comments Phosphorus (test code = Phosphorus) 1.9 mg/dL 2.9- 4.7 mg/ dL Hepatic Function [id number] 00:06:00 Test Item Value Reference Range Comments Albumin (test code = Albumin) 2.6 g/dL 3.5- 5.0 g/dL Total Protein (test code = Total Protein) 4.9 g/dL 6.5- 8 .3 g/dL Total Bilirubin (test code = Total Bilirubin) 0.6 mg/dL 0. 0- 1.2 mg/dL Bilirubin, Direct (test code = Bilirubin, 0.20 mg/dL 0.00- 0.40 mg/dL Direct) AST (test code = AST) 21 U/L 14- 38 U/L ALT (test code = ALT) 34 U/L 15- 48 U/L Alkaline Phosphatase (test code = Alkaline 55 U/L 38- 1 26 U/L Phosphatase) Lactate [id number] 00:06:00 Test Item Value Reference Range Comments LDH (test code = LDH) 893 U/L 338- 610 U/L CBC w/ [id number] 00:06:00 Test Item Value Reference Range Comments WBC (test code = WBC) 3.9 10*9/L 4.5- 11.0 10*9/L RBC (test code = RBC) 2.97 10*12/L 4.00- 5.20 10*12/L HGB (test code = HGB) 9.0 g/dL 12.0- 16.0 g/dL HCT (test code = HCT) 27.2 % 36.0- 46.0 % MCV (test code = MCV) 91.5 fL 80.0- 100.0 fL MCH (test code = MCH) 30.2 pg 26.0- 34.0 pg MCHC (test code = MCHC) 33.0 g/dL 31.0- 37.0 g/dL RDW (test code = RDW) 16.9 % 12.0- 15.0 % MPV (test code = MPV) 10.7 fL 7.0- 10.0 fL Platelet (test code = Platelet) 30 10*9/L 150- 440 10*9/L Neutrophil Left Shift (test code = 2+ Not Present Neutrophil Left Shift) Absolute Neutrophils (test code = Absolute 3.3 10*9/L 2.0- 7.5 10*9/L Neutrophils) Absolute Lymphocytes (test code = Absolute 0.2 10*9/L 1.5- 5.0 10*9/L Lymphocytes) Absolute Monocytes (test code = Absolute 0.2 10*9/L 0.2- 0. 8 10*9/L Monocytes) Absolute Eosinophils (test code = Absolute 0.0 10*9/L 0.0- 0.4 10*9/L Eosinophils) Absolute Basophils (test code = Absolute 0.0 10*9/L 0.0- 0. 1 10*9/L Basophils) Large Unstained Cells (test code = Large 7 % 0- 4 % Unstained Cells) Macrocytosis (test code = Macrocytosis) Slight Not Pres ent Anisocytosis (test code = Anisocytosis) Slight Not Pres ent Morphology [id number] 00:06:00 Test Item Value Reference Range Comments Smear Review Comments (test code = Smear Review See Comment Undefined Comments) Giant Platelets (test code = Giant Platelets) Present No t Present Josy Cells (test code = [place] Cells) Present Not Present Toxic Granulation (test code = Toxic Present Not Present Granulation) Toxic Vacuolation (test code = Toxic Present Not Present Vacuolation) Ionized Calcium, [id number] 00:05:00 Test Item Value Reference Range Comments Calcium, Ionized Venous (test code = Calcium, 3.80 mg/dL 4. 40- 5.40 mg/dL Ionized Venous) [id number] 00:05:00 Test Item Value Reference Range Comments PT (test code = PT) 14.1 sec 10.2- 12.8 sec INR (test code = INR) 1.24 [id number] 00:05:00 Test Item Value Reference Range Comments APTT (test code = APTT) 46.5 sec 27.7- 37.7 sec Heparin Correlation (test code = Heparin 0.2 Correlation) Type and [id number] 00:05:00 Test Item Value Reference Range Comments ABO Grouping (test code = ABO Grouping) A NEG Antibody Screen (test code = Antibody Screen) NEG Potassium [id number] 05:42:00 Test Item Value Reference Range Comments Potassium (test code = Potassium) 3.4 mmol/L 3.5- 5.0 mmol/ L Phosphorus [id number] 05:42:00 Test Item Value Reference Range Comments Phosphorus (test code = Phosphorus) 1.6 mg/dL 2.9- 4.7 mg/ dL Basic Metabolic [id number] 00:00:00 Test Item Value Reference Range Comments Sodium (test code = Sodium) 137 mmol/L 135- 145 mmol/L Potassium (test code = Potassium) 2.8 mmol/L 3.5- 5.0 mmol/ L Chloride (test code = Chloride) 108 mmol/L 98- 107 mmol/L CO2 (test code = CO2) 20.0 mmol/L 22.0- 30.0 mmol/L BUN (test code = BUN) 4 mg/dL 7- 21 mg/dL Creatinine (test code = Creatinine) 0.43 mg/dL 0.60- 1.00 m g/dL BUN/Creatinine Ratio (test code = 9 BUN/Creatinine Ratio) EGFR MDRD Non Af Amer (test code = EGFR MDRD >=60 >=6 0 mL/min/1.73m2 Non Af Amer) EGFR MDRD Af Amer (test code = EGFR MDRD Af >=60 >=60 mL/min/1.73m2 Amer) Anion Gap (test code = Anion Gap) 9 mmol/L 9- 15 mmol/L Glucose (test code = Glucose) 97 mg/dL 65- 179 mg/dL Calcium (test code = Calcium) 7.1 mg/dL 8.5- 10.2 mg/dL Magnesium [id number] 00:00:00 Test Item Value Reference Range Comments Magnesium (test code = Magnesium) 1.7 mg/dL 1.6- 2.2 mg/dL CBC w/ [id number] 00:00:00 Test Item Value Reference Range Comments WBC (test code = WBC) 2.1 10*9/L 4.5- 11.0 10*9/L RBC (test code = RBC) 3.08 10*12/L 4.00- 5.20 10*12/L HGB (test code = HGB) 9.6 g/dL 12.0- 16.0 g/dL HCT (test code = HCT) 28.4 % 36.0- 46.0 % MCV (test code = MCV) 92.2 fL 80.0- 100.0 fL MCH (test code = MCH) 31.1 pg 26.0- 34.0 pg MCHC (test code = MCHC) 33.8 g/dL 31.0- 37.0 g/dL RDW (test code = RDW) 16.6 % 12.0- 15.0 % MPV (test code = MPV) 8.8 fL 7.0- 10.0 fL Platelet (test code = Platelet) 14 10*9/L 150- 440 10*9/L Neutrophil Left Shift (test code = 2+ Not Present Neutrophil Left Shift) Absolute Neutrophils (test code = Absolute 1.8 10*9/L 2.0- 7.5 10*9/L Neutrophils) Absolute Lymphocytes (test code = Absolute 0.1 10*9/L 1.5- 5.0 10*9/L Lymphocytes) Absolute Monocytes (test code = Absolute 0.1 10*9/L 0.2- 0. 8 10*9/L Monocytes) Absolute Eosinophils (test code = Absolute 0.0 10*9/L 0.0- 0.4 10*9/L Eosinophils) Absolute Basophils (test code = Absolute 0.0 10*9/L 0.0- 0. 1 10*9/L Basophils) Large Unstained Cells (test code = Large 4 % 0- 4 % Unstained Cells) Macrocytosis (test code = Macrocytosis) Slight Not Pres ent Anisocytosis (test code = Anisocytosis) Slight Not Pres ent Prepare Platelet [id number] 11:01:00 Test Item Value Reference Range Comments Unit Blood Type (test code = Unit Blood Type) A Neg ISBT Number (test code = ISBT Number) 600 Unit # (test code = Unit #) [id number] Status (test code = Status) Transfused Product ID (test code = Product ID) Platelets PRODUCT CODE (test code = PRODUCT CODE) [id number] Prepare [id number] 11:00:00 Test Item Value Reference Range Comments Crossmatch (test code = Crossmatch) Compatible Unit Blood Type (test code = Unit Blood A Neg Type) ISBT Number (test code = ISBT Number) 600 Unit # (test code = Unit #) [id number] Status (test code = Status) Transfused Product ID (test code = Product ID) Red Blood Cells PRODUCT CODE (test code = PRODUCT CODE) [id number] Basic Metabolic [id number] 00:04:00 Test Item Value Reference Range Comments Sodium (test code = Sodium) 137 mmol/L 135- 145 mmol/L Potassium (test code = Potassium) 3.5 mmol/L 3.5- 5.0 mmol/ L Chloride (test code = Chloride) 110 mmol/L 98- 107 mmol/L CO2 (test code = CO2) 20.0 mmol/L 22.0- 30.0 mmol/L BUN (test code = BUN) 5 mg/dL 7- 21 mg/dL Creatinine (test code = Creatinine) 0.47 mg/dL 0.60- 1.00 m g/dL BUN/Creatinine Ratio (test code = 11 BUN/Creatinine Ratio) EGFR MDRD Non Af Amer (test code = EGFR MDRD >=60 >=6 0 mL/min/1.73m2 Non Af Amer) EGFR MDRD Af Amer (test code = EGFR MDRD Af >=60 >=60 mL/min/1.73m2 Amer) Anion Gap (test code = Anion Gap) 7 mmol/L 9- 15 mmol/L Glucose (test code = Glucose) 82 mg/dL 65- 179 mg/dL Calcium (test code = Calcium) 7.4 mg/dL 8.5- 10.2 mg/dL Magnesium [id number] 00:04:00 Test Item Value Reference Range Comments Magnesium (test code = Magnesium) 1.7 mg/dL 1.6- 2.2 mg/dL CBC w/ [id number] 00:04:00 Test Item Value Reference Range Comments WBC (test code = WBC) 0.8 10*9/L 4.5- 11.0 10*9/L RBC (test code = RBC) 2.98 10*12/L 4.00- 5.20 10*12/L HGB (test code = HGB) 9.4 g/dL 12.0- 16.0 g/dL HCT (test code = HCT) 27.8 % 36.0- 46.0 % MCV (test code = MCV) 93.3 fL 80.0- 100.0 fL MCH (test code = MCH) 31.7 pg 26.0- 34.0 pg MCHC (test code = MCHC) 34.0 g/dL 31.0- 37.0 g/dL RDW (test code = RDW) 16.6 % 12.0- 15.0 % MPV (test code = MPV) 12.6 fL 7.0- 10.0 fL Platelet (test code = Platelet) 17 10*9/L 150- 440 10*9/L Neutrophil Left Shift (test code = 2+ Not Present Neutrophil Left Shift) Absolute Neutrophils (test code = Absolute 0.7 10*9/L 2.0- 7.5 10*9/L Neutrophils) Absolute Lymphocytes (test code = Absolute 0.0 10*9/L 1.5- 5.0 10*9/L Lymphocytes) Absolute Monocytes (test code = Absolute 0.0 10*9/L 0.2- 0. 8 10*9/L Monocytes) Absolute Eosinophils (test code = Absolute 0.0 10*9/L 0.0- 0.4 10*9/L Eosinophils) Absolute Basophils (test code = Absolute 0.0 10*9/L 0.0- 0. 1 10*9/L Basophils) Large Unstained Cells (test code = Large 3 % 0- 4 % Unstained Cells) Macrocytosis (test code = Macrocytosis) Slight Not Pres ent Anisocytosis (test code = Anisocytosis) Slight Not Pres ent Morphology [id number] 00:04:00 Test Item Value Reference Range Comments Smear Review Comments (test code = Smear Review See Comment Undefined Comments) Dohle Bodies (test code = Dohle Bodies) Present Not Pres ent Toxic Granulation (test code = Toxic Present Not Present Granulation) C-reactive [id number] 00:04:00 Test Item Value Reference Range Comments CRP (test code = CRP) 216.3 mg/L <10.0 mg/L Potassium [id number] 10:16:00 Test Item Value Reference Range Comments Potassium (test code = Potassium) 3.2 mmol/L 3.5- 5.0 mmol/ L Magnesium [id number] 10:16:00 Test Item Value Reference Range Comments Magnesium (test code = Magnesium) 1.6 mg/dL 1.6- 2.2 mg/dL Platelet [id number] 05:59:00 Test Item Value Reference Range Comments Platelet (test code = Platelet) 52 10*9/L 150- 440 10*9/L Vancomycin, [id number] 04:00:00 Test Item Value Reference Range Comments Vancomycin Tr (test code = Vancomycin Tr) 12.9 ug/mL 10.0- 20.0 ug/mL Basic Metabolic [id number] 01:09:00 Test Item Value Reference Range Comments Sodium (test code = Sodium) 136 mmol/L 135- 145 mmol/L Potassium (test code = Potassium) 3.0 mmol/L 3.5- 5.0 mmol/ L Chloride (test code = Chloride) 105 mmol/L 98- 107 mmol/L CO2 (test code = CO2) 21.0 mmol/L 22.0- 30.0 mmol/L BUN (test code = BUN) 4 mg/dL 7- 21 mg/dL Creatinine (test code = Creatinine) 0.50 mg/dL 0.60- 1.00 m g/dL BUN/Creatinine Ratio (test code = 8 BUN/Creatinine Ratio) EGFR MDRD Non Af Amer (test code = EGFR MDRD >=60 >=6 0 mL/min/1.73m2 Non Af Amer) EGFR MDRD Af Amer (test code = EGFR MDRD Af >=60 >=60 mL/min/1.73m2 Amer) Anion Gap (test code = Anion Gap) 10 mmol/L 9- 15 mmol/L Glucose (test code = Glucose) 89 mg/dL 65- 179 mg/dL Calcium (test code = Calcium) 7.7 mg/dL 8.5- 10.2 mg/dL Magnesium [id number] 01:09:00 Test Item Value Reference Range Comments Magnesium (test code = Magnesium) 1.5 mg/dL 1.6- 2.2 mg/dL Phosphorus [id number] 01:09:00 Test Item Value Reference Range Comments Phosphorus (test code = Phosphorus) 2.6 mg/dL 2.9- 4.7 mg/ dL Ionized Calcium, [id number] 01:09:00 Test Item Value Reference Range Comments Calcium, Ionized Venous (test code = Calcium, 4.07 mg/dL 4. 40- 5.40 mg/dL Ionized Venous) Hepatic Function [id number] 01:09:00 Test Item Value Reference Range Comments Albumin (test code = Albumin) 2.7 g/dL 3.5- 5.0 g/dL Total Protein (test code = Total Protein) 5.1 g/dL 6.5- 8 .3 g/dL Total Bilirubin (test code = Total Bilirubin) 0.6 mg/dL 0. 0- 1.2 mg/dL Bilirubin, Direct (test code = Bilirubin, 0.10 mg/dL 0.00- 0.40 mg/dL Direct) AST (test code = AST) 18 U/L 14- 38 U/L ALT (test code = ALT) 29 U/L 15- 48 U/L Alkaline Phosphatase (test code = Alkaline 42 U/L 38- 1 26 U/L Phosphatase) Lactate [id number] 01:09:00 Test Item Value Reference Range Comments LDH (test code = LDH) 520 U/L 338- 610 U/L [id number] 01:09:00 Test Item Value Reference Range Comments PT (test code = PT) 14.9 sec 10.2- 12.8 sec INR (test code = INR) 1.31 [id number] 01:09:00 Test Item Value Reference Range Comments APTT (test code = APTT) 36.6 sec 27.7- 37.7 sec Heparin Correlation (test code = Heparin 0.2 Correlation) [id number] 01:09:00 Test Item Value Reference Range Comments Color, UA (test code = Color, UA) Yellow Clarity, UA (test code = Clarity, UA) Clear Specific Warba, UA (test code = Specific 1.009 1.003 -1.030 Warba, UA) pH, UA (test code = pH, UA) 6.0 5.0-9.0 Leukocyte Esterase, UA (test code = Negative Negative Leukocyte Esterase, UA) Nitrite, UA (test code = Nitrite, UA) Negative Negative Protein, UA (test code = Protein, UA) Negative Negative Glucose, UA (test code = Glucose, UA) Negative Negative Ketones, UA (test code = Ketones, UA) Negative Negative Urobilinogen, UA (test code = Urobilinogen, 0.2 mg/dL 0.2 mg/dL, 1.0 mg/dL UA) Bilirubin, UA (test code = Bilirubin, UA) Negative Negati ve Blood, UA (test code = Blood, UA) Negative Negative RBC, UA (test code = RBC, UA) <1 <4 /HPF WBC, UA (test code = WBC, UA) 1 /HPF 0- 5 /HPF Squam Epithel, UA (test code = Squam <1 0- 5 /HPF Epithel, UA) Bacteria, UA (test code = Bacteria, UA) Occasional None See n /HPF Amorphous Crystal, UA (test code = Amorphous Rare Crystal, UA) Mucus, UA (test code = Mucus, UA) Rare None Seen /HPF VRE [id number] 01:09:00 Test Item Value Reference Range Comments VRE Screen (test code = VRE Screen) NOT DETECTED CBC w/ [id number] 01:09:00 Test Item Value Reference Range Comments WBC (test code = WBC) 0.3 10*9/L 4.5- 11.0 10*9/L RBC (test code = RBC) 3.08 10*12/L 4.00- 5.20 10*12/L HGB (test code = HGB) 9.9 g/dL 12.0- 16.0 g/dL HCT (test code = HCT) 28.8 % 36.0- 46.0 % MCV (test code = MCV) 93.7 fL 80.0- 100.0 fL MCH (test code = MCH) 32.2 pg 26.0- 34.0 pg MCHC (test code = MCHC) 34.3 g/dL 31.0- 37.0 g/dL RDW (test code = RDW) 16.4 % 12.0- 15.0 % MPV (test code = MPV) 9.8 fL 7.0- 10.0 fL Platelet (test code = Platelet) 7 10*9/L 150- 440 10*9/L Neutrophil Left Shift (test code = 3+ Not Present Neutrophil Left Shift) Absolute Neutrophils (test code = Absolute 0.2 10*9/L 2.0- 7.5 10*9/L Neutrophils) Absolute Lymphocytes (test code = Absolute 0.0 10*9/L 1.5- 5.0 10*9/L Lymphocytes) Absolute Monocytes (test code = Absolute 0.0 10*9/L 0.2- 0. 8 10*9/L Monocytes) Absolute Eosinophils (test code = Absolute 0.0 10*9/L 0.0- 0.4 10*9/L Eosinophils) Absolute Basophils (test code = Absolute 0.0 10*9/L 0.0- 0. 1 10*9/L Basophils) Large Unstained Cells (test code = Large 6 % 0- 4 % Unstained Cells) Macrocytosis (test code = Macrocytosis) Slight Not Pres ent Anisocytosis (test code = Anisocytosis) Slight Not Pres ent Type and [id number] 01:09:00 Test Item Value Reference Range Comments ABO Grouping (test code = ABO Grouping) A NEG Antibody Screen (test code = Antibody Screen) NEG CBC w/ [id number] 17:59:00 Test Item Value Reference Range Comments WBC (test code = WBC) 0.1 10*9/L 4.5- 11.0 10*9/L RBC (test code = RBC) 2.47 10*12/L 4.00- 5.20 10*12/L HGB (test code = HGB) 7.9 g/dL 12.0- 16.0 g/dL HCT (test code = HCT) 23.3 % 36.0- 46.0 % MCV (test code = MCV) 94.1 fL 80.0- 100.0 fL MCH (test code = MCH) 32.1 pg 26.0- 34.0 pg MCHC (test code = MCHC) 34.1 g/dL 31.0- 37.0 g/dL RDW (test code = RDW) 17.7 % 12.0- 15.0 % MPV (test code = MPV) 10.6 fL 7.0- 10.0 fL Platelet (test code = Platelet) 14 10*9/L 150- 440 10*9/L Absolute Neutrophils (test code = Absolute 0.1 10*9/L 2.0- 7.5 10*9/L Neutrophils) Absolute Lymphocytes (test code = Absolute 0.0 10*9/L 1.5- 5.0 10*9/L Lymphocytes) Absolute Monocytes (test code = Absolute 0.0 10*9/L 0.2- 0. 8 10*9/L Monocytes) Absolute Eosinophils (test code = Absolute 0.0 10*9/L 0.0- 0.4 10*9/L Eosinophils) Absolute Basophils (test code = Absolute 0.0 10*9/L 0.0- 0. 1 10*9/L Basophils) Large Unstained Cells (test code = Large 6 % 0- 4 % Unstained Cells) Macrocytosis (test code = Macrocytosis) Slight Not Pres ent Anisocytosis (test code = Anisocytosis) Slight Not Pres ent Potassium [id number] 10:15:00 Test Item Value Reference Range Comments Potassium (test code = Potassium) 3.8 mmol/L 3.5- 5.0 mmol/ L Basic Metabolic [id number] 00:42:00 Test Item Value Reference Range Comments Sodium (test code = Sodium) 138 mmol/L 135- 145 mmol/L Potassium (test code = Potassium) 3.1 mmol/L 3.5- 5.0 mmol/ L Chloride (test code = Chloride) 104 mmol/L 98- 107 mmol/L CO2 (test code = CO2) 25.0 mmol/L 22.0- 30.0 mmol/L BUN (test code = BUN) 3 mg/dL 7- 21 mg/dL Creatinine (test code = Creatinine) 0.50 mg/dL 0.60- 1.00 m g/dL BUN/Creatinine Ratio (test code = 6 BUN/Creatinine Ratio) EGFR MDRD Non Af Amer (test code = EGFR MDRD >=60 >=6 0 mL/min/1.73m2 Non Af Amer) EGFR MDRD Af Amer (test code = EGFR MDRD Af >=60 >=60 mL/min/1.73m2 Amer) Anion Gap (test code = Anion Gap) 9 mmol/L 9- 15 mmol/L Glucose (test code = Glucose) 112 mg/dL 65- 179 mg/dL Calcium (test code = Calcium) 8.1 mg/dL 8.5- 10.2 mg/dL Magnesium [id number] 00:42:00 Test Item Value Reference Range Comments Magnesium (test code = Magnesium) 1.7 mg/dL 1.6- 2.2 mg/dL CBC w/ [id number] 00:42:00 Test Item Value Reference Range Comments WBC (test code = WBC) <0.1 4.5- 11.0 10*9/L RBC (test code = RBC) 2.56 10*12/L 4.00- 5.20 10*12/L HGB (test code = HGB) 8.1 g/dL 12.0- 16.0 g/dL HCT (test code = HCT) 24.0 % 36.0- 46.0 % MCV (test code = MCV) 93.8 fL 80.0- 100.0 fL MCH (test code = MCH) 31.7 pg 26.0- 34.0 pg MCHC (test code = MCHC) 33.8 g/dL 31.0- 37.0 g/dL RDW (test code = RDW) 17.5 % 12.0- 15.0 % MPV (test code = MPV) 9.7 fL 7.0- 10.0 fL Platelet (test code = Platelet) 15 10*9/L 150- 440 10*9/L Absolute Neutrophils (test code = Absolute 0.0 10*9/L 2.0- 7.5 10*9/L Neutrophils) Absolute Lymphocytes (test code = Absolute 0.0 10*9/L 1.5- 5.0 10*9/L Lymphocytes) Absolute Monocytes (test code = Absolute 0.0 10*9/L 0.2- 0. 8 10*9/L Monocytes) Absolute Eosinophils (test code = Absolute 0.0 10*9/L 0.0- 0.4 10*9/L Eosinophils) Absolute Basophils (test code = Absolute 0.0 10*9/L 0.0- 0. 1 10*9/L Basophils) Large Unstained Cells (test code = Large 2 % 0- 4 % Unstained Cells) Macrocytosis (test code = Macrocytosis) Slight Not Pres ent Anisocytosis (test code = Anisocytosis) Slight Not Pres ent C-reactive [id number] 00:42:00 Test Item Value Reference Range Comments CRP (test code = CRP) 77.6 mg/L <10.0 mg/L [id number] 14:32:00 Test Item Value Reference Range Comments Color, UA (test code = Color, UA) Yellow Clarity, UA (test code = Clarity, UA) Clear Specific Warba, UA (test code = Specific 1.011 1.003 -1.030 Warba, UA) pH, UA (test code = pH, UA) 7.5 5.0-9.0 Leukocyte Esterase, UA (test code = Leukocyte Negative Ne gative Esterase, UA) Nitrite, UA (test code = Nitrite, UA) Negative Negative Protein, UA (test code = Protein, UA) Trace Negative Glucose, UA (test code = Glucose, UA) Negative Negative Ketones, UA (test code = Ketones, UA) Negative Negative Urobilinogen, UA (test code = Urobilinogen, 0.2 mg/dL 0.2 mg/dL, 1.0 mg/dL UA) Bilirubin, UA (test code = Bilirubin, UA) Negative Negati ve Blood, UA (test code = Blood, UA) Negative Negative RBC, UA (test code = RBC, UA) <1 <4 /HPF WBC, UA (test code = WBC, UA) <1 0- 5 /HPF Squam Epithel, UA (test code = Squam Epithel, <1 0- 5 /HPF UA) Bacteria, UA (test code = Bacteria, UA) None Seen None See n /HPF Urine [id number] 14:31:00 Test Item Value Reference Range Comments Urine Culture, Comprehensive (test code = Urine NO GROWTH Culture, Comprehensive) Prepare Platelet [id number] 11:05:00 Test Item Value Reference Range Comments Unit Blood Type (test code = Unit Blood Type) A Pos ISBT Number (test code = ISBT Number) 6200 Unit # (test code = Unit #) [id number] Status (test code = Status) Transfused Product ID (test code = Product ID) Platelets PRODUCT CODE (test code = PRODUCT CODE) [id number] Blood Culture #[id number] 10:31:00 Test Item Value Reference Range Comments Blood Culture, Routine (test code = No Growth at 5 days Blood Culture, Routine) XR Chest [id number] 09:55:48XR Chest Portable (02/19/2018 9:52 AM) Impressions Performed At -Right IJ approach dual-lumen dialysis catheter tip position unchanged. -No focal consolidation or pulmonary edema. The lungs are clear. -No pleural effusion or pneumothorax. -Cardiomediastinal silhouette is within normal limits. -Remote T12 vertebral plana deformity. Remote right seventh posterior rib fracture deformity. [facility] Narrative Performed At EXAM: CHEST ONE VIEW DATE: 02/19/2018 9:52 AM DICTATED: 02/19 9:55 AM INTERPRETATION LOCATION: [facility] CLINICAL INDICATION: 62 years old Female with FEVER-- COMPARISON: CXR 02/09/2018 TECHNIQUE: AP semi upright view of the chest. [facility] Procedure Note Interface, Rad Results In - 02/19/2018 10:16 AM EDT EXAM: CHEST ONE VIEW DATE: 02/19/2018 9:52 AMACCESSION: [id number] DICTATED: 02/19/2018 9:55 AM INTERPRETATION LOCATION: [facility] CLINICAL INDICATION: 62 years old Female with FEVER-- COMPARISON: CXR 02/09/2018 TECHNIQUE: AP semi upright view of the chest. IMPRESSION: -Right IJ approach dual-lumen dialysis catheter tip position unchanged. -No focal consolidation or pulmonary edema. The lungs are clear. -No pleural effusion or pneumothorax. - Cardiomediastinal silhouette is within normal limits. -Remote T12 vertebral plana deformity. Remote right seventh posterior rib fracture deformity. Performing Organization Address City/State/Zipcode Phone Number [facility] [address] [facility] [place], [place] [address] #[id number] 09:51:00 Test Item Value Reference Range Comments Blood Culture, Routine (test code = No Growth at 5 days Blood Culture, Routine) Basic Metabolic [id number] 00:12:00 Test Item Value Reference Range Comments Sodium (test code = Sodium) 142 mmol/L 135- 145 mmol/L Potassium (test code = Potassium) 3.7 mmol/L 3.5- 5.0 mmol/ L Chloride (test code = Chloride) 108 mmol/L 98- 107 mmol/L CO2 (test code = CO2) 27.0 mmol/L 22.0- 30.0 mmol/L BUN (test code = BUN) 3 mg/dL 7- 21 mg/dL Creatinine (test code = Creatinine) 0.47 mg/dL 0.60- 1.00 m g/dL BUN/Creatinine Ratio (test code = 6 BUN/Creatinine Ratio) EGFR MDRD Non Af Amer (test code = EGFR MDRD >=60 >=6 0 mL/min/1.73m2 Non Af Amer) EGFR MDRD Af Amer (test code = EGFR MDRD Af >=60 >=60 mL/min/1.73m2 Amer) Anion Gap (test code = Anion Gap) 7 mmol/L 9- 15 mmol/L Glucose (test code = Glucose) 81 mg/dL 65- 179 mg/dL Calcium (test code = Calcium) 8.6 mg/dL 8.5- 10.2 mg/dL Magnesium [id number] 00:12:00 Test Item Value Reference Range Comments Magnesium (test code = Magnesium) 2.0 mg/dL 1.6- 2.2 mg/dL CBC w/ [id number] 00:12:00 Test Item Value Reference Range Comments WBC (test code = WBC) <0.1 4.5- 11.0 10*9/L RBC (test code = RBC) 2.70 10*12/L 4.00- 5.20 10*12/L HGB (test code = HGB) 8.7 g/dL 12.0- 16.0 g/dL HCT (test code = HCT) 26.0 % 36.0- 46.0 % MCV (test code = MCV) 96.3 fL 80.0- 100.0 fL MCH (test code = MCH) 32.1 pg 26.0- 34.0 pg MCHC (test code = MCHC) 33.3 g/dL 31.0- 37.0 g/dL RDW (test code = RDW) 17.3 % 12.0- 15.0 % MPV (test code = MPV) 8.7 fL 7.0- 10.0 fL Platelet (test code = Platelet) 22 10*9/L 150- 440 10*9/L Absolute Neutrophils (test code = Absolute 0.0 10*9/L 2.0- 7.5 10*9/L Neutrophils) Absolute Lymphocytes (test code = Absolute 0.0 10*9/L 1.5- 5.0 10*9/L Lymphocytes) Absolute Monocytes (test code = Absolute 0.0 10*9/L 0.2- 0. 8 10*9/L Monocytes) Absolute Eosinophils (test code = Absolute 0.0 10*9/L 0.0- 0.4 10*9/L Eosinophils) Absolute Basophils (test code = Absolute 0.0 10*9/L 0.0- 0. 1 10*9/L Basophils) Large Unstained Cells (test code = Large 2 % 0- 4 % Unstained Cells) Macrocytosis (test code = Macrocytosis) Slight Not Pres ent Anisocytosis (test code = Anisocytosis) Slight Not Pres ent C-reactive [id number] 00:12:00 Test Item Value Reference Range Comments CRP (test code = CRP) 44.5 mg/L <10.0 mg/L C. Difficile [id number] 17:48:00 Test Item Value Reference Range Comments C. Diff Result (test code = C. Diff Result) Negative Nega tive Potassium [id number] 11:48:00 Test Item Value Reference Range Comments Potassium (test code = Potassium) 3.7 mmol/L 3.5- 5.0 mmol/ L Platelet [id number] 05:23:00 Test Item Value Reference Range Comments Platelet (test code = Platelet) 46 10*9/L 150- 440 10*9/L Basic Metabolic [id number] 00:35:00 Test Item Value Reference Range Comments Sodium (test code = Sodium) 143 mmol/L 135- 145 mmol/L Potassium (test code = Potassium) 3.5 mmol/L 3.5- 5.0 mmol/ L Chloride (test code = Chloride) 111 mmol/L 98- 107 mmol/L CO2 (test code = CO2) 29.0 mmol/L 22.0- 30.0 mmol/L BUN (test code = BUN) 5 mg/dL 7- 21 mg/dL Creatinine (test code = Creatinine) 0.46 mg/dL 0.60- 1.00 m g/dL BUN/Creatinine Ratio (test code = 11 BUN/Creatinine Ratio) EGFR MDRD Non Af Amer (test code = EGFR MDRD >=60 >=6 0 mL/min/1.73m2 Non Af Amer) EGFR MDRD Af Amer (test code = EGFR MDRD Af >=60 >=60 mL/min/1.73m2 Amer) Anion Gap (test code = Anion Gap) 3 mmol/L 9- 15 mmol/L Glucose (test code = Glucose) 99 mg/dL 65- 179 mg/dL Calcium (test code = Calcium) 8.1 mg/dL 8.5- 10.2 mg/dL Magnesium [id number] 00:35:00 Test Item Value Reference Range Comments Magnesium (test code = Magnesium) 2.0 mg/dL 1.6- 2.2 mg/dL CBC w/ [id number] 00:34:00 Test Item Value Reference Range Comments WBC (test code = WBC) <0.1 4.5- 11.0 10*9/L RBC (test code = RBC) 2.72 10*12/L 4.00- 5.20 10*12/L HGB (test code = HGB) 8.6 g/dL 12.0- 16.0 g/dL HCT (test code = HCT) 26.3 % 36.0- 46.0 % MCV (test code = MCV) 97.0 fL 80.0- 100.0 fL MCH (test code = MCH) 31.7 pg 26.0- 34.0 pg MCHC (test code = MCHC) 32.6 g/dL 31.0- 37.0 g/dL RDW (test code = RDW) 17.8 % 12.0- 15.0 % MPV (test code = MPV) 9.5 fL 7.0- 10.0 fL Platelet (test code = Platelet) 8 10*9/L 150- 440 10*9/L Neutrophil Left Shift (test code = 1+ Not Present Neutrophil Left Shift) Absolute Neutrophils (test code = Absolute 0.0 10*9/L 2.0- 7.5 10*9/L Neutrophils) Absolute Lymphocytes (test code = Absolute 0.0 10*9/L 1.5- 5.0 10*9/L Lymphocytes) Absolute Monocytes (test code = Absolute 0.0 10*9/L 0.2- 0. 8 10*9/L Monocytes) Absolute Eosinophils (test code = Absolute 0.0 10*9/L 0.0- 0.4 10*9/L Eosinophils) Absolute Basophils (test code = Absolute 0.0 10*9/L 0.0- 0. 1 10*9/L Basophils) Large Unstained Cells (test code = Large 7 % 0- 4 % Unstained Cells) Macrocytosis (test code = Macrocytosis) Moderate Not Pres ent Anisocytosis (test code = Anisocytosis) Slight Not Pres ent Potassium [id number] 08:32:00 Test Item Value Reference Range Comments Potassium (test code = Potassium) 3.6 mmol/L 3.5- 5.0 mmol/ L [id number] 07:58:00 Test Item Value Reference Range Comments Color, UA (test code = Color, UA) Yellow Clarity, UA (test code = Clarity, UA) Clear Specific Warba, UA (test code = Specific 1.008 1.003 -1.030 Warba, UA) pH, UA (test code = pH, UA) 8.0 5.0-9.0 Leukocyte Esterase, UA (test code = Leukocyte Negative Ne gative Esterase, UA) Nitrite, UA (test code = Nitrite, UA) Negative Negative Protein, UA (test code = Protein, UA) Negative Negative Glucose, UA (test code = Glucose, UA) Negative Negative Ketones, UA (test code = Ketones, UA) Negative Negative Urobilinogen, UA (test code = Urobilinogen, 0.2 mg/dL 0.2 mg/dL, 1.0 mg/dL UA) Bilirubin, UA (test code = Bilirubin, UA) Negative Negati ve Blood, UA (test code = Blood, UA) Negative Negative RBC, UA (test code = RBC, UA) <1 <4 /HPF WBC, UA (test code = WBC, UA) <1 0- 5 /HPF Squam Epithel, UA (test code = Squam Epithel, <1 0- 5 /HPF UA) Bacteria, UA (test code = Bacteria, UA) None Seen None See n /HPF Mucus, UA (test code = Mucus, UA) Rare None Seen /HPF [id number] 07:08:00 Test Item Value Reference Range Comments APTT (test code = APTT) 43.0 sec 27.7- 37.7 sec Heparin Correlation (test code = Heparin 0.2 Correlation) [id number] 07:08:00 Test Item Value Reference Range Comments Fibrinogen (test code = Fibrinogen) 312 mg/dL 177- 386 mg/ dL D-Dimer, [id number] 07:08:00 Test Item Value Reference Range Comments D-Dimer (test code = D-Dimer) 1707 ng/mL DDU <230 ng/mL DDU [id number] 07:08:00 Test Item Value Reference Range Comments PT (test code = PT) 12.1 sec 10.2- 12.8 sec INR (test code = INR) 1.06 Basic Metabolic [id number] 00:27:00 Test Item Value Reference Range Comments Sodium (test code = Sodium) 144 mmol/L 135- 145 mmol/L Potassium (test code = Potassium) 3.3 mmol/L 3.5- 5.0 mmol/ L Chloride (test code = Chloride) 109 mmol/L 98- 107 mmol/L CO2 (test code = CO2) 30.0 mmol/L 22.0- 30.0 mmol/L BUN (test code = BUN) 5 mg/dL 7- 21 mg/dL Creatinine (test code = Creatinine) 0.46 mg/dL 0.60- 1.00 m g/dL BUN/Creatinine Ratio (test code = 11 BUN/Creatinine Ratio) EGFR MDRD Non Af Amer (test code = EGFR MDRD >=60 >=6 0 mL/min/1.73m2 Non Af Amer) EGFR MDRD Af Amer (test code = EGFR MDRD Af >=60 >=60 mL/min/1.73m2 Amer) Anion Gap (test code = Anion Gap) 5 mmol/L 9- 15 mmol/L Glucose (test code = Glucose) 92 mg/dL 65- 179 mg/dL Calcium (test code = Calcium) 8.0 mg/dL 8.5- 10.2 mg/dL Magnesium [id number] 00:27:00 Test Item Value Reference Range Comments Magnesium (test code = Magnesium) 2.0 mg/dL 1.6- 2.2 mg/dL Phosphorus [id number] 00:27:00 Test Item Value Reference Range Comments Phosphorus (test code = Phosphorus) 3.0 mg/dL 2.9- 4.7 mg/ dL Ionized Calcium, [id number] 00:27:00 Test Item Value Reference Range Comments Calcium, Ionized Venous (test code = Calcium, 4.37 mg/dL 4. 40- 5.40 mg/dL Ionized Venous) Hepatic Function [id number] 00:27:00 Test Item Value Reference Range Comments Albumin (test code = Albumin) 2.7 g/dL 3.5- 5.0 g/dL Total Protein (test code = Total Protein) 5.0 g/dL 6.5- 8 .3 g/dL Total Bilirubin (test code = Total Bilirubin) 0.5 mg/dL 0. 0- 1.2 mg/dL Bilirubin, Direct (test code = Bilirubin, 0.10 mg/dL 0.00- 0.40 mg/dL Direct) AST (test code = AST) 23 U/L 14- 38 U/L ALT (test code = ALT) 32 U/L 15- 48 U/L Alkaline Phosphatase (test code = Alkaline 42 U/L 38- 1 26 U/L Phosphatase) Lactate [id number] 00:27:00 Test Item Value Reference Range Comments LDH (test code = LDH) 557 U/L 338- 610 U/L [id number] 00:27:00 Test Item Value Reference Range Comments PT (test code = PT) 12.6 sec 10.2- 12.8 sec INR (test code = INR) 1.11 [id number] 00:27:00 Test Item Value Reference Range Comments APTT (test code = APTT) 72.2 sec 27.7- 37.7 sec Heparin Correlation (test code = Heparin 0.3 Correlation) CBC w/ [id number] 00:27:00 Test Item Value Reference Range Comments WBC (test code = WBC) 0.1 10*9/L 4.5- 11.0 10*9/L RBC (test code = RBC) 2.91 10*12/L 4.00- 5.20 10*12/L HGB (test code = HGB) 9.1 g/dL 12.0- 16.0 g/dL HCT (test code = HCT) 27.6 % 36.0- 46.0 % MCV (test code = MCV) 95.0 fL 80.0- 100.0 fL MCH (test code = MCH) 31.4 pg 26.0- 34.0 pg MCHC (test code = MCHC) 33.1 g/dL 31.0- 37.0 g/dL RDW (test code = RDW) 17.9 % 12.0- 15.0 % MPV (test code = MPV) 8.3 fL 7.0- 10.0 fL Platelet (test code = Platelet) 23 10*9/L 150- 440 10*9/L Neutrophil Left Shift (test code = 1+ Not Present Neutrophil Left Shift) Absolute Neutrophils (test code = Absolute 0.0 10*9/L 2.0- 7.5 10*9/L Neutrophils) Absolute Lymphocytes (test code = Absolute 0.0 10*9/L 1.5- 5.0 10*9/L Lymphocytes) Absolute Monocytes (test code = Absolute 0.0 10*9/L 0.2- 0. 8 10*9/L Monocytes) Absolute Eosinophils (test code = Absolute 0.0 10*9/L 0.0- 0.4 10*9/L Eosinophils) Absolute Basophils (test code = Absolute 0.0 10*9/L 0.0- 0. 1 10*9/L Basophils) Large Unstained Cells (test code = Large 5 % 0- 4 % Unstained Cells) Macrocytosis (test code = Macrocytosis) Slight Not Pres ent Anisocytosis (test code = Anisocytosis) Slight Not Pres ent [id number] 00:27:00 Test Item Value Reference Range Comments Fibrinogen (test code = Fibrinogen) 303 mg/dL 177- 386 mg/ dL D-Dimer, [id number] 00:27:00 Test Item Value Reference Range Comments D-Dimer (test code = D-Dimer) 1650 ng/mL DDU <230 ng/mL DDU Type and [id number] 00:27:00 Test Item Value Reference Range Comments Antibody Screen (test code = Antibody Screen) NEG ABO Grouping (test code = ABO Grouping) A NEG Morphology [id number] 00:27:00 Test Item Value Reference Range Comments Smear Review Comments (test code = Smear Review See Comment Undefined Comments) Prepare [id number] 11:02:00 Test Item Value Reference Range Comments Crossmatch (test code = Crossmatch) Compatible Unit Blood Type (test code = Unit Blood A Neg Type) ISBT Number (test code = ISBT Number) 600 Unit # (test code = Unit #) [id number] Status (test code = Status) Transfused Product ID (test code = Product ID) Red Blood Cells PRODUCT CODE (test code = PRODUCT CODE) [id number] Basic Metabolic [id number] 00:34:00 Test Item Value Reference Range Comments Sodium (test code = Sodium) 143 mmol/L 135- 145 mmol/L Potassium (test code = Potassium) 3.7 mmol/L 3.5- 5.0 mmol/ L Chloride (test code = Chloride) 110 mmol/L 98- 107 mmol/L CO2 (test code = CO2) 31.0 mmol/L 22.0- 30.0 mmol/L BUN (test code = BUN) 6 mg/dL 7- 21 mg/dL Creatinine (test code = Creatinine) 0.45 mg/dL 0.60- 1.00 m g/dL BUN/Creatinine Ratio (test code = 13 BUN/Creatinine Ratio) EGFR MDRD Non Af Amer (test code = EGFR MDRD >=60 >=6 0 mL/min/1.73m2 Non Af Amer) EGFR MDRD Af Amer (test code = EGFR MDRD Af >=60 >=60 mL/min/1.73m2 Amer) Anion Gap (test code = Anion Gap) 2 mmol/L 9- 15 mmol/L Glucose (test code = Glucose) 86 mg/dL 65- 179 mg/dL Calcium (test code = Calcium) 7.7 mg/dL 8.5- 10.2 mg/dL Magnesium [id number] 00:34:00 Test Item Value Reference Range Comments Magnesium (test code = Magnesium) 2.1 mg/dL 1.6- 2.2 mg/dL CBC w/ [id number] 00:34:00 Test Item Value Reference Range Comments WBC (test code = WBC) 0.3 10*9/L 4.5- 11.0 10*9/L RBC (test code = RBC) 3.01 10*12/L 4.00- 5.20 10*12/L HGB (test code = HGB) 9.5 g/dL 12.0- 16.0 g/dL HCT (test code = HCT) 28.8 % 36.0- 46.0 % MCV (test code = MCV) 95.7 fL 80.0- 100.0 fL MCH (test code = MCH) 31.5 pg 26.0- 34.0 pg MCHC (test code = MCHC) 33.0 g/dL 31.0- 37.0 g/dL RDW (test code = RDW) 18.7 % 12.0- 15.0 % MPV (test code = MPV) 8.6 fL 7.0- 10.0 fL Platelet (test code = Platelet) 41 10*9/L 150- 440 10*9/L Neutrophil Left Shift (test code = 1+ Not Present Neutrophil Left Shift) Absolute Neutrophils (test code = Absolute 0.2 10*9/L 2.0- 7.5 10*9/L Neutrophils) Absolute Lymphocytes (test code = Absolute 0.0 10*9/L 1.5- 5.0 10*9/L Lymphocytes) Absolute Monocytes (test code = Absolute 0.0 10*9/L 0.2- 0. 8 10*9/L Monocytes) Absolute Eosinophils (test code = Absolute 0.0 10*9/L 0.0- 0.4 10*9/L Eosinophils) Absolute Basophils (test code = Absolute 0.0 10*9/L 0.0- 0. 1 10*9/L Basophils) Large Unstained Cells (test code = Large 0 % 0- 4 % Unstained Cells) Macrocytosis (test code = Macrocytosis) Moderate Not Pres ent Anisocytosis (test code = Anisocytosis) Moderate Not Pres ent Potassium [id number] 09:48:00 Test Item Value Reference Range Comments Potassium (test code = Potassium) 3.9 mmol/L 3.5- 5.0 mmol/ L Basic Metabolic [id number] 00:49:00 Test Item Value Reference Range Comments Sodium (test code = Sodium) 141 mmol/L 135- 145 mmol/L Potassium (test code = Potassium) 3.1 mmol/L 3.5- 5.0 mmol/ L Chloride (test code = Chloride) 104 mmol/L 98- 107 mmol/L CO2 (test code = CO2) 29.0 mmol/L 22.0- 30.0 mmol/L BUN (test code = BUN) 9 mg/dL 7- 21 mg/dL Creatinine (test code = Creatinine) 0.49 mg/dL 0.60- 1.00 m g/dL BUN/Creatinine Ratio (test code = 18 BUN/Creatinine Ratio) EGFR MDRD Non Af Amer (test code = EGFR MDRD >=60 >=6 0 mL/min/1.73m2 Non Af Amer) EGFR MDRD Af Amer (test code = EGFR MDRD Af >=60 >=60 mL/min/1.73m2 Amer) Anion Gap (test code = Anion Gap) 8 mmol/L 9- 15 mmol/L Glucose (test code = Glucose) 87 mg/dL 65- 179 mg/dL Calcium (test code = Calcium) 7.1 mg/dL 8.5- 10.2 mg/dL Magnesium [id number] 00:49:00 Test Item Value Reference Range Comments Magnesium (test code = Magnesium) 2.1 mg/dL 1.6- 2.2 mg/dL CBC w/ [id number] 00:49:00 Test Item Value Reference Range Comments WBC (test code = WBC) 0.3 10*9/L 4.5- 11.0 10*9/L RBC (test code = RBC) 2.29 10*12/L 4.00- 5.20 10*12/L HGB (test code = HGB) 7.7 g/dL 12.0- 16.0 g/dL HCT (test code = HCT) 23.2 % 36.0- 46.0 % MCV (test code = MCV) 101.5 fL 80.0- 100.0 fL MCH (test code = MCH) 33.5 pg 26.0- 34.0 pg MCHC (test code = MCHC) 33.0 g/dL 31.0- 37.0 g/dL RDW (test code = RDW) 15.7 % 12.0- 15.0 % MPV (test code = MPV) 7.4 fL 7.0- 10.0 fL Platelet (test code = Platelet) 87 10*9/L 150- 440 10*9/L Neutrophil Left Shift (test code = 1+ Not Present Neutrophil Left Shift) Absolute Neutrophils (test code = Absolute 0.2 10*9/L 2.0- 7.5 10*9/L Neutrophils) Absolute Lymphocytes (test code = Absolute 0.0 10*9/L 1.5- 5.0 10*9/L Lymphocytes) Absolute Monocytes (test code = Absolute 0.0 10*9/L 0.2- 0. 8 10*9/L Monocytes) Absolute Eosinophils (test code = Absolute 0.0 10*9/L 0.0- 0.4 10*9/L Eosinophils) Absolute Basophils (test code = Absolute 0.0 10*9/L 0.0- 0. 1 10*9/L Basophils) Large Unstained Cells (test code = Large 0 % 0- 4 % Unstained Cells) Macrocytosis (test code = Macrocytosis) Moderate Not Pres ent [id number] 04:34:00 Test Item Value Reference Range Comments Color, UA (test code = Color, UA) Colorless Clarity, UA (test code = Clarity, UA) Clear Specific Warba, UA (test code = Specific 1.008 1.003 -1.030 Warba, UA) pH, UA (test code = pH, UA) 7.0 5.0-9.0 Leukocyte Esterase, UA (test code = Leukocyte Negative Ne gative Esterase, UA) Nitrite, UA (test code = Nitrite, UA) Negative Negative Protein, UA (test code = Protein, UA) Negative Negative Glucose, UA (test code = Glucose, UA) Negative Negative Ketones, UA (test code = Ketones, UA) Negative Negative Urobilinogen, UA (test code = Urobilinogen, 0.2 mg/dL 0.2 mg/dL, 1.0 mg/dL UA) Bilirubin, UA (test code = Bilirubin, UA) Negative Negati ve Blood, UA (test code = Blood, UA) Negative Negative RBC, UA (test code = RBC, UA) 1 /HPF <4 /HPF WBC, UA (test code = WBC, UA) 1 /HPF 0- 5 /HPF Squam Epithel, UA (test code = Squam Epithel, <1 0- 5 /HPF UA) Bacteria, UA (test code = Bacteria, UA) None Seen None See n /HPF Basic Metabolic [id number] 00:33:00 Test Item Value Reference Range Comments Sodium (test code = Sodium) 142 mmol/L 135- 145 mmol/L Potassium (test code = Potassium) 3.4 mmol/L 3.5- 5.0 mmol/ L Chloride (test code = Chloride) 108 mmol/L 98- 107 mmol/L CO2 (test code = CO2) 27.0 mmol/L 22.0- 30.0 mmol/L BUN (test code = BUN) 13 mg/dL 7- 21 mg/dL Creatinine (test code = Creatinine) 0.49 mg/dL 0.60- 1.00 m g/dL BUN/Creatinine Ratio (test code = 27 BUN/Creatinine Ratio) EGFR MDRD Non Af Amer (test code = EGFR MDRD >=60 >=6 0 mL/min/1.73m2 Non Af Amer) EGFR MDRD Af Amer (test code = EGFR MDRD Af >=60 >=60 mL/min/1.73m2 Amer) Anion Gap (test code = Anion Gap) 7 mmol/L 9- 15 mmol/L Glucose (test code = Glucose) 91 mg/dL 65- 179 mg/dL Calcium (test code = Calcium) 7.5 mg/dL 8.5- 10.2 mg/dL Magnesium [id number] 00:33:00 Test Item Value Reference Range Comments Magnesium (test code = Magnesium) 2.4 mg/dL 1.6- 2.2 mg/dL Phosphorus [id number] 00:33:00 Test Item Value Reference Range Comments Phosphorus (test code = Phosphorus) 2.6 mg/dL 2.9- 4.7 mg/ dL Ionized Calcium, [id number] 00:33:00 Test Item Value Reference Range Comments Calcium, Ionized Venous (test code = Calcium, 3.88 mg/dL 4. 40- 5.40 mg/dL Ionized Venous) Hepatic Function [id number] 00:33:00 Test Item Value Reference Range Comments Albumin (test code = Albumin) 2.8 g/dL 3.5- 5.0 g/dL Total Protein (test code = Total Protein) 5.3 g/dL 6.5- 8 .3 g/dL Total Bilirubin (test code = Total Bilirubin) 0.4 mg/dL 0. 0- 1.2 mg/dL Bilirubin, Direct (test code = Bilirubin, Direct) <0.10 0.00- 0.40 mg/dL AST (test code = AST) 22 U/L 14- 38 U/L ALT (test code = ALT) 30 U/L 15- 48 U/L Alkaline Phosphatase (test code = Alkaline 46 U/L 38- 1 26 U/L Phosphatase) Lactate [id number] 00:33:00 Test Item Value Reference Range Comments LDH (test code = LDH) 621 U/L 338- 610 U/L [id number] 00:33:00 Test Item Value Reference Range Comments PT (test code = PT) 12.1 sec 10.2- 12.8 sec INR (test code = INR) 1.06 [id number] 00:33:00 Test Item Value Reference Range Comments APTT (test code = APTT) 37.9 sec 27.7- 37.7 sec Heparin Correlation (test code = Heparin 0.2 Correlation) CBC w/ [id number] 00:33:00 Test Item Value Reference Range Comments WBC (test code = WBC) 0.6 10*9/L 4.5- 11.0 10*9/L RBC (test code = RBC) 2.42 10*12/L 4.00- 5.20 10*12/L HGB (test code = HGB) 8.0 g/dL 12.0- 16.0 g/dL HCT (test code = HCT) 24.5 % 36.0- 46.0 % MCV (test code = MCV) 101.4 fL 80.0- 100.0 fL MCH (test code = MCH) 33.2 pg 26.0- 34.0 pg MCHC (test code = MCHC) 32.7 g/dL 31.0- 37.0 g/dL RDW (test code = RDW) 15.9 % 12.0- 15.0 % MPV (test code = MPV) 8.1 fL 7.0- 10.0 fL Platelet (test code = Platelet) 150 10*9/L 150- 440 10*9/L Neutrophil Left Shift (test code = 1+ Not Present Neutrophil Left Shift) Absolute Neutrophils (test code = Absolute 0.5 10*9/L 2.0- 7.5 10*9/L Neutrophils) Absolute Lymphocytes (test code = Absolute 0.0 10*9/L 1.5- 5.0 10*9/L Lymphocytes) Absolute Monocytes (test code = Absolute 0.0 10*9/L 0.2- 0. 8 10*9/L Monocytes) Absolute Eosinophils (test code = Absolute 0.0 10*9/L 0.0- 0.4 10*9/L Eosinophils) Absolute Basophils (test code = Absolute 0.0 10*9/L 0.0- 0. 1 10*9/L Basophils) Large Unstained Cells (test code = Large 0 % 0- 4 % Unstained Cells) Macrocytosis (test code = Macrocytosis) Moderate Not Pres ent Type and [id number] 00:33:00 Test Item Value Reference Range Comments ABO Grouping (test code = ABO Grouping) A NEG Antibody Screen (test code = Antibody Screen) NEG VRE [id number] 00:27:00 Test Item Value Reference Range Comments VRE Screen (test code = VRE Screen) NOT DETECTED Basic Metabolic [id number] 00:32:00 Test Item Value Reference Range Comments Sodium (test code = Sodium) 141 mmol/L 135- 145 mmol/L Potassium (test code = Potassium) 3.9 mmol/L 3.5- 5.0 mmol/ L Chloride (test code = Chloride) 107 mmol/L 98- 107 mmol/L CO2 (test code = CO2) 29.0 mmol/L 22.0- 30.0 mmol/L BUN (test code = BUN) 11 mg/dL 7- 21 mg/dL Creatinine (test code = Creatinine) 0.42 mg/dL 0.60- 1.00 m g/dL BUN/Creatinine Ratio (test code = 26 BUN/Creatinine Ratio) EGFR MDRD Non Af Amer (test code = EGFR MDRD >=60 >=6 0 mL/min/1.73m2 Non Af Amer) EGFR MDRD Af Amer (test code = EGFR MDRD Af >=60 >=60 mL/min/1.73m2 Amer) Anion Gap (test code = Anion Gap) 5 mmol/L 9- 15 mmol/L Glucose (test code = Glucose) 125 mg/dL 65- 179 mg/dL Calcium (test code = Calcium) 7.8 mg/dL 8.5- 10.2 mg/dL Magnesium [id number] 00:32:00 Test Item Value Reference Range Comments Magnesium (test code = Magnesium) 2.4 mg/dL 1.6- 2.2 mg/dL CBC w/ [id number] 00:32:00 Test Item Value Reference Range Comments WBC (test code = WBC) 2.4 10*9/L 4.5- 11.0 10*9/L RBC (test code = RBC) 2.46 10*12/L 4.00- 5.20 10*12/L HGB (test code = HGB) 8.3 g/dL 12.0- 16.0 g/dL HCT (test code = HCT) 25.2 % 36.0- 46.0 % MCV (test code = MCV) 102.4 fL 80.0- 100.0 fL MCH (test code = MCH) 33.7 pg 26.0- 34.0 pg MCHC (test code = MCHC) 32.9 g/dL 31.0- 37.0 g/dL RDW (test code = RDW) 16.2 % 12.0- 15.0 % MPV (test code = MPV) 8.2 fL 7.0- 10.0 fL Platelet (test code = Platelet) 181 10*9/L 150- 440 10*9/L Neutrophil Left Shift (test code = 1+ Not Present Neutrophil Left Shift) Absolute Neutrophils (test code = Absolute 2.3 10*9/L 2.0- 7.5 10*9/L Neutrophils) Absolute Lymphocytes (test code = Absolute 0.1 10*9/L 1.5- 5.0 10*9/L Lymphocytes) Absolute Monocytes (test code = Absolute 0.0 10*9/L 0.2- 0. 8 10*9/L Monocytes) Absolute Eosinophils (test code = Absolute 0.0 10*9/L 0.0- 0.4 10*9/L Eosinophils) Absolute Basophils (test code = Absolute 0.0 10*9/L 0.0- 0. 1 10*9/L Basophils) Large Unstained Cells (test code = Large 0 % 0- 4 % Unstained Cells) Macrocytosis (test code = Macrocytosis) Marked Not Pres ent Anisocytosis (test code = Anisocytosis) Slight Not Pres ent Basic Metabolic [id number] 00:23:00 Test Item Value Reference Range Comments Sodium (test code = Sodium) 142 mmol/L 135- 145 mmol/L Potassium (test code = Potassium) 3.8 mmol/L 3.5- 5.0 mmol/ L Chloride (test code = Chloride) 108 mmol/L 98- 107 mmol/L CO2 (test code = CO2) 27.0 mmol/L 22.0- 30.0 mmol/L BUN (test code = BUN) 12 mg/dL 7- 21 mg/dL Creatinine (test code = Creatinine) 0.48 mg/dL 0.60- 1.00 m g/dL BUN/Creatinine Ratio (test code = 25 BUN/Creatinine Ratio) EGFR MDRD Non Af Amer (test code = EGFR MDRD >=60 >=6 0 mL/min/1.73m2 Non Af Amer) EGFR MDRD Af Amer (test code = EGFR MDRD Af >=60 >=60 mL/min/1.73m2 Amer) Anion Gap (test code = Anion Gap) 7 mmol/L 9- 15 mmol/L Glucose (test code = Glucose) 131 mg/dL 65- 179 mg/dL Calcium (test code = Calcium) 7.8 mg/dL 8.5- 10.2 mg/dL Magnesium [id number] 00:23:00 Test Item Value Reference Range Comments Magnesium (test code = Magnesium) 2.2 mg/dL 1.6- 2.2 mg/dL CBC w/ [id number] 00:23:00 Test Item Value Reference Range Comments WBC (test code = WBC) 7.6 10*9/L 4.5- 11.0 10*9/L RBC (test code = RBC) 2.58 10*12/L 4.00- 5.20 10*12/L HGB (test code = HGB) 8.5 g/dL 12.0- 16.0 g/dL HCT (test code = HCT) 26.3 % 36.0- 46.0 % MCV (test code = MCV) 102.2 fL 80.0- 100.0 fL MCH (test code = MCH) 32.9 pg 26.0- 34.0 pg MCHC (test code = MCHC) 32.2 g/dL 31.0- 37.0 g/dL RDW (test code = RDW) 16.3 % 12.0- 15.0 % MPV (test code = MPV) 8.2 fL 7.0- 10.0 fL Platelet (test code = Platelet) 195 10*9/L 150- 440 10*9/L Neutrophil Left Shift (test code = 1+ Not Present Neutrophil Left Shift) Absolute Neutrophils (test code = Absolute 7.3 10*9/L 2.0- 7.5 10*9/L Neutrophils) Absolute Lymphocytes (test code = Absolute 0.1 10*9/L 1.5- 5.0 10*9/L Lymphocytes) Absolute Monocytes (test code = Absolute 0.1 10*9/L 0.2- 0. 8 10*9/L Monocytes) Absolute Eosinophils (test code = Absolute 0.0 10*9/L 0.0- 0.4 10*9/L Eosinophils) Absolute Basophils (test code = Absolute 0.0 10*9/L 0.0- 0. 1 10*9/L Basophils) Large Unstained Cells (test code = Large 0 % 0- 4 % Unstained Cells) Macrocytosis (test code = Macrocytosis) Marked Not Pres ent Anisocytosis (test code = Anisocytosis) Slight Not Pres ent [id number] 00:23:00 Test Item Value Reference Range Comments Albumin (test code = Albumin) 3.3 g/dL 3.5- 5.0 g/dL Basic Metabolic [id number] 00:23:00 Test Item Value Reference Range Comments Sodium (test code = Sodium) 142 mmol/L 135- 145 mmol/L Potassium (test code = Potassium) 3.9 mmol/L 3.5- 5.0 mmol/ L Chloride (test code = Chloride) 106 mmol/L 98- 107 mmol/L CO2 (test code = CO2) 26.0 mmol/L 22.0- 30.0 mmol/L BUN (test code = BUN) 12 mg/dL 7- 21 mg/dL Creatinine (test code = Creatinine) 0.62 mg/dL 0.60- 1.00 m g/dL BUN/Creatinine Ratio (test code = 19 BUN/Creatinine Ratio) EGFR MDRD Non Af Amer (test code = EGFR MDRD >=60 >=6 0 mL/min/1.73m2 Non Af Amer) EGFR MDRD Af Amer (test code = EGFR MDRD Af >=60 >=60 mL/min/1.73m2 Amer) Anion Gap (test code = Anion Gap) 10 mmol/L 9- 15 mmol/L Glucose (test code = Glucose) 152 mg/dL 65- 179 mg/dL Calcium (test code = Calcium) 8.1 mg/dL 8.5- 10.2 mg/dL Magnesium [id number] 00:23:00 Test Item Value Reference Range Comments Magnesium (test code = Magnesium) 1.8 mg/dL 1.6- 2.2 mg/dL CBC w/ [id number] 00:23:00 Test Item Value Reference Range Comments WBC (test code = WBC) 12.6 10*9/L 4.5- 11.0 10*9/L RBC (test code = RBC) 2.56 10*12/L 4.00- 5.20 10*12/L HGB (test code = HGB) 8.4 g/dL 12.0- 16.0 g/dL HCT (test code = HCT) 26.3 % 36.0- 46.0 % MCV (test code = MCV) 102.8 fL 80.0- 100.0 fL MCH (test code = MCH) 32.9 pg 26.0- 34.0 pg MCHC (test code = MCHC) 32.0 g/dL 31.0- 37.0 g/dL RDW (test code = RDW) 16.4 % 12.0- 15.0 % MPV (test code = MPV) 8.9 fL 7.0- 10.0 fL Platelet (test code = Platelet) 186 10*9/L 150- 440 10*9/L Neutrophil Left Shift (test code = 1+ Not Present Neutrophil Left Shift) Absolute Neutrophils (test code = Absolute 12.1 10*9/L 2.0- 7.5 10*9/L Neutrophils) Absolute Lymphocytes (test code = Absolute 0.2 10*9/L 1.5- 5.0 10*9/L Lymphocytes) Absolute Monocytes (test code = Absolute 0.3 10*9/L 0.2- 0. 8 10*9/L Monocytes) Absolute Eosinophils (test code = Absolute 0.0 10*9/L 0.0- 0.4 10*9/L Eosinophils) Absolute Basophils (test code = Absolute 0.0 10*9/L 0.0- 0. 1 10*9/L Basophils) Large Unstained Cells (test code = Large 0 % 0- 4 % Unstained Cells) Macrocytosis (test code = Macrocytosis) Marked Not Pres ent Anisocytosis (test code = Anisocytosis) Slight Not Pres ent THAW / [id number] 16:24:00 Test Item Value Reference Range Comments Product Number (test code = W0611 [id number] Product Number) PRODUCT TYPE (test code = AUTOLOGOUS PERIPHERAL BLOOD PRODUCT TYPE) STEM CELL THAW/INFUSION (test code = 4 bags infused THAW/INFUSION) INFUSION [id number] 16:24:00 Test Item Value Reference Range Comments PRODUCT NUMBER (test code = PRODUCT W0611 [id number] NUMBER) TOTAL VOL INFUSE (test code = TOTAL 240.0 mL VOL INFUSE) TND INFUSED (test code = TND INFUSED) 5.88 x10 8th{cells}/kg TMD INFUSED (test code = TMD INFUSED) 3.56 x10 8th{cells}/kg CD34 DOSE INFUSE (test code = CD34 5.52 x10 6th{cells}/kg DOSE INFUSE) Basic Metabolic [id number] 00:05:00 Test Item Value Reference Range Comments Sodium (test code = Sodium) 138 mmol/L 135- 145 mmol/L Potassium (test code = Potassium) 3.7 mmol/L 3.5- 5.0 mmol/ L Chloride (test code = Chloride) 101 mmol/L 98- 107 mmol/L CO2 (test code = CO2) 26.0 mmol/L 22.0- 30.0 mmol/L BUN (test code = BUN) 6 mg/dL 7- 21 mg/dL Creatinine (test code = Creatinine) 0.48 mg/dL 0.60- 1.00 m g/dL BUN/Creatinine Ratio (test code = 13 BUN/Creatinine Ratio) EGFR MDRD Non Af Amer (test code = EGFR MDRD >=60 >=6 0 mL/min/1.73m2 Non Af Amer) EGFR MDRD Af Amer (test code = EGFR MDRD Af >=60 >=60 mL/min/1.73m2 Amer) Anion Gap (test code = Anion Gap) 11 mmol/L 9- 15 mmol/L Glucose (test code = Glucose) 121 mg/dL 65- 179 mg/dL Calcium (test code = Calcium) 8.9 mg/dL 8.5- 10.2 mg/dL Magnesium [id number] 00:05:00 Test Item Value Reference Range Comments Magnesium (test code = Magnesium) 1.9 mg/dL 1.6- 2.2 mg/dL Hepatic Function [id number] 00:05:00 Test Item Value Reference Range Comments Albumin (test code = Albumin) 3.6 g/dL 3.5- 5.0 g/dL Total Protein (test code = Total Protein) 6.4 g/dL 6.5- 8 .3 g/dL Total Bilirubin (test code = Total Bilirubin) 0.4 mg/dL 0. 0- 1.2 mg/dL Bilirubin, Direct (test code = Bilirubin, Direct) <0.10 0.00- 0.40 mg/dL AST (test code = AST) 16 U/L 14- 38 U/L ALT (test code = ALT) 27 U/L 15- 48 U/L Alkaline Phosphatase (test code = Alkaline 63 U/L 38- 1 26 U/L Phosphatase) CBC w/ [id number] 00:05:00 Test Item Value Reference Range Comments WBC (test code = WBC) 7.8 10*9/L 4.5- 11.0 10*9/L RBC (test code = RBC) 2.79 10*12/L 4.00- 5.20 10*12/L HGB (test code = HGB) 9.4 g/dL 12.0- 16.0 g/dL HCT (test code = HCT) 28.3 % 36.0- 46.0 % MCV (test code = MCV) 101.5 fL 80.0- 100.0 fL MCH (test code = MCH) 33.5 pg 26.0- 34.0 pg MCHC (test code = MCHC) 33.0 g/dL 31.0- 37.0 g/dL RDW (test code = RDW) 15.6 % 12.0- 15.0 % MPV (test code = MPV) 8.8 fL 7.0- 10.0 fL Platelet (test code = Platelet) 173 10*9/L 150- 440 10*9/L Neutrophil Left Shift (test code = 1+ Not Present Neutrophil Left Shift) Absolute Neutrophils (test code = Absolute 6.7 10*9/L 2.0- 7.5 10*9/L Neutrophils) Absolute Lymphocytes (test code = Absolute 0.8 10*9/L 1.5- 5.0 10*9/L Lymphocytes) Absolute Monocytes (test code = Absolute 0.2 10*9/L 0.2- 0. 8 10*9/L Monocytes) Absolute Eosinophils (test code = Absolute 0.1 10*9/L 0.0- 0.4 10*9/L Eosinophils) Absolute Basophils (test code = Absolute 0.0 10*9/L 0.0- 0. 1 10*9/L Basophils) Large Unstained Cells (test code = Large 1 % 0- 4 % Unstained Cells) Macrocytosis (test code = Macrocytosis) Moderate Not Pres ent Glucose 6 Phosphate [id number] 00:05:00 Test Item Value Reference Range Comments G6PD (test code = G6PD) 4.1 U/g/dL{HGB} 5.3- 10.3 U/g/dL{HGB} Type and [id number] 00:05:00 Test Item Value Reference Range Comments Reject/Recollect (test code = Reject/Recollect) REJECT [id number] 14:57:00 Test Item Value Reference Range Comments APTT (test code = APTT) 35.3 sec 27.7- 37.7 sec Heparin Correlation (test code = Heparin 0.2 Correlation) [id number] 14:32:00 Test Item Value Reference Range Comments Color, UA (test code = Color, UA) Yellow Clarity, UA (test code = Clarity, UA) Clear Specific War[place], UA (test code = Specific 1.011 1.003 -1.030 [place], UA) pH, UA (test code = pH, UA) 7.5 5.0-9.0 Leukocyte Esterase, UA (test code = Leukocyte Negative Ne gative Esterase, UA) Nitrite, UA (test code = Nitrite, UA) Negative Negative Protein, UA (test code = Protein, UA) Negative Negative Glucose, UA (test code = Glucose, UA) Negative Negative Ketones, UA (test code = Ketones, UA) Negative Negative Urobilinogen, UA (test code = Urobilinogen, 0.2 mg/dL 0.2 mg/dL, 1.0 mg/dL UA) Bilirubin, UA (test code = Bilirubin, UA) Negative Negati ve Blood, UA (test code = Blood, UA) Negative Negative RBC, UA (test code = RBC, UA) <1 <4 /HPF WBC, UA (test code = WBC, UA) 1 /HPF 0- 5 /HPF Squam Epithel, UA (test code = Squam Epithel, <1 0- 5 /HPF UA) Bacteria, UA (test code = Bacteria, UA) None Seen None See n /HPF Mucus, UA (test code = Mucus, UA) Many None Seen /HPF VRE [id number] 14:32:00 Test Item Value Reference Range Comments VRE Screen (test code = VRE Screen) NOT DETECTED XR Chest PA and [id number] 13:44:59XR Chest PA and Lateral (02/09/2018 1:30 PM) Impressions Performed At - No acute airspace disease. [facility] Narrative Performed At EXAM: CHEST TWO VIEW DATE: 02/09/2018 1:30 PM DICTATED: 02/09/2018 1:44 PM INTERPRETATION LOCATION: [facility] CLINICAL INDICATION: 62 years old Female with Baseline BMT-- COMPARISON: 01/18/2018 TECHNIQUE: PA and lateral views of the chest. FINDINGS: Right IJV approach dual lumen dialysis catheter with its tip in distal SVC and proximal right atrium. No focal consolidation or pulmonary edema. No pleural effusion or pneumothoraces. Cardiomediastinal silhouette is within normal limits. Remote T12 vertebra plana deformity. Remote right posterior rib fracture deformity. [facility] Procedure Note Interface, Rad Results In - 02/09/2018 1:49 PM EDT EXAM: CHEST TWO VIEW DATE: 02/09/2018 1:30 PM DICTATED: 02/09/2018 1:44 PM INTERPRETATION LOCATION: [facility] CLINICAL INDICATION: 62 years old Female with Baseline BMT-- COMPARISON: 01/18/2018 TECHNIQUE: PA and lateral views of the chest. FINDINGS: Right IJV approach dual lumen dialysis catheter with its tip in distal SVC and proximal right atrium. No focal consolidation or pulmonary edema. No pleural effusion or pneumothoraces. Cardiomediastinal silhouette is within normal limits. Remote T12 vertebra plana deformity. Remote right posterior rib fracture deformity. IMPRESSION: - No acute airspace disease. Performing Organization Address City/State/Zipcode Phone Number [facility] [address] [facility] [place], [place] [address]MHG 12 [id number] 12:41:39 Test Item Value Reference Range Comments EKG Systolic BP (test code = EKG Systolic BP) EKG Diastolic BP (test code = EKG Diastolic BP) EKG Ventricular Rate (test code = EKG Ventricular 86 BPM Rate) EKG Atrial Rate (test code = EKG Atrial Rate) 86 BPM EKG P-R Interval (test code = EKG P-R Interval) 146 ms EKG QRS Duration (test code = EKG QRS Duration) 88 ms EKG Q-T Interval (test code = EKG Q-T Interval) 384 ms EKG QTC Calculation (test code = EKG QTC 459 ms Calculation) EKG Calculated P [place] (test code = EKG Calculated 24 degrees P [place]) EKG Calculated R [place] (test code = EKG Calculated -2 degrees R [place]) EKG Calculated T [place] (test code = EKG Calculated 37 degrees T [place]) Basic Metabolic [id number] 12:00:00 Test Item Value Reference Range Comments Sodium (test code = Sodium) 139 mmol/L 135- 145 mmol/L Potassium (test code = Potassium) 3.5 mmol/L 3.5- 5.0 mmol/ L Chloride (test code = Chloride) 102 mmol/L 98- 107 mmol/L CO2 (test code = CO2) 28.0 mmol/L 22.0- 30.0 mmol/L BUN (test code = BUN) 8 mg/dL 7- 21 mg/dL Creatinine (test code = Creatinine) 0.48 mg/dL 0.60- 1.00 m g/dL BUN/Creatinine Ratio (test code = 17 BUN/Creatinine Ratio) EGFR MDRD Non Af Amer (test code = EGFR MDRD >=60 >=6 0 mL/min/1.73m2 Non Af Amer) EGFR MDRD Af Amer (test code = EGFR MDRD Af >=60 >=60 mL/min/1.73m2 Amer) Anion Gap (test code = Anion Gap) 9 mmol/L 9- 15 mmol/L Glucose (test code = Glucose) 120 mg/dL 65- 179 mg/dL Calcium (test code = Calcium) 8.9 mg/dL 8.5- 10.2 mg/dL Magnesium [id number] 12:00:00 Test Item Value Reference Range Comments Magnesium (test code = Magnesium) 1.9 mg/dL 1.6- 2.2 mg/dL Phosphorus [id number] 12:00:00 Test Item Value Reference Range Comments Phosphorus (test code = Phosphorus) 3.0 mg/dL 2.9- 4.7 mg/ dL Ionized Calcium, [id number] 12:00:00 Test Item Value Reference Range Comments Calcium, Ionized Venous (test code = Calcium, 4.60 mg/dL 4. 40- 5.40 mg/dL Ionized Venous) Hepatic Function [id number] 12:00:00 Test Item Value Reference Range Comments Albumin (test code = Albumin) 3.8 g/dL 3.5- 5.0 g/dL Total Protein (test code = Total Protein) 6.6 g/dL 6.5- 8 .3 g/dL Total Bilirubin (test code = Total Bilirubin) 0.4 mg/dL 0. 0- 1.2 mg/dL Bilirubin, Direct (test code = Bilirubin, Direct) <0.10 0.00- 0.40 mg/dL AST (test code = AST) 20 U/L 14- 38 U/L ALT (test code = ALT) 18 U/L 15- 48 U/L Alkaline Phosphatase (test code = Alkaline 66 U/L 38- 1 26 U/L Phosphatase) Uric [id number] 12:00:00 Test Item Value Reference Range Comments Uric Acid (test code = Uric Acid) 2.7 mg/dL 3.0- 6.5 mg/dL Lactate [id number] 12:00:00 Test Item Value Reference Range Comments LDH (test code = LDH) 529 U/L 338- 610 U/L Gamma GT (GGT)2018-02-09 12:00:00 Test Item Value Reference Range Comments GGT (test code = GGT) 20 U/L 11- 48 U/L [id number] 12:00:00 Test Item Value Reference Range Comments PT (test code = PT) 13.1 sec 10.2- 12.8 sec INR (test code = INR) 1.15 [id number] 12:00:00 Test Item Value Reference Range Comments APTT (test code = APTT) 270.0 sec 27.7- 37.7 sec Heparin Correlation (test code = Heparin 1.2 Correlation) Type and [id number] 12:00:00 Test Item Value Reference Range Comments ABO Grouping (test code = ABO Grouping) A NEG Antibody Screen (test code = Antibody Screen) NEG CBC w/ [id number] 12:00:00 Test Item Value Reference Range Comments WBC (test code = WBC) 4.4 10*9/L 4.5- 11.0 10*9/L RBC (test code = RBC) 2.99 10*12/L 4.00- 5.20 10*12/L HGB (test code = HGB) 9.9 g/dL 12.0- 16.0 g/dL HCT (test code = HCT) 30.7 % 36.0- 46.0 % MCV (test code = MCV) 102.7 fL 80.0- 100.0 fL MCH (test code = MCH) 33.2 pg 26.0- 34.0 pg MCHC (test code = MCHC) 32.3 g/dL 31.0- 37.0 g/dL RDW (test code = RDW) 15.9 % 12.0- 15.0 % MPV (test code = MPV) 9.2 fL 7.0- 10.0 fL Platelet (test code = Platelet) 177 10*9/L 150- 440 10*9/L Absolute Neutrophils (test code = Absolute 2.9 10*9/L 2.0- 7.5 10*9/L Neutrophils) Absolute Lymphocytes (test code = Absolute 1.0 10*9/L 1.5- 5.0 10*9/L Lymphocytes) Absolute Monocytes (test code = Absolute 0.3 10*9/L 0.2- 0. 8 10*9/L Monocytes) Absolute Eosinophils (test code = Absolute 0.1 10*9/L 0.0- 0.4 10*9/L Eosinophils) Absolute Basophils (test code = Absolute 0.0 10*9/L 0.0- 0. 1 10*9/L Basophils) Large Unstained Cells (test code = Large 3 % 0- 4 % Unstained Cells) Macrocytosis (test code = Macrocytosis) Marked Not Pres ent Morphology [id number] 12:00:00 Test Item Value Reference Range Comments Smear Review Comments (test code = Smear Review See Comment Undefined Comments) Schistocytes (test code = Schistocytes) Rare Not Pres ent Comprehensive Metabolic [id number] 08:41:00 Test Item Value Reference Range Comments Sodium (test code = Sodium) 140 mmol/L 135- 145 mmol/L Potassium (test code = Potassium) 3.8 mmol/L 3.5- 5.0 mmol/ L Chloride (test code = Chloride) 101 mmol/L 98- 107 mmol/L CO2 (test code = CO2) 27.0 mmol/L 22.0- 30.0 mmol/L BUN (test code = BUN) 9 mg/dL 7- 21 mg/dL Creatinine (test code = Creatinine) 0.52 mg/dL 0.60- 1.00 m g/dL BUN/Creatinine Ratio (test code = 17 BUN/Creatinine Ratio) EGFR MDRD Non Af Amer (test code = EGFR MDRD >=60 >=6 0 mL/min/1.73m2 Non Af Amer) EGFR MDRD Af Amer (test code = EGFR MDRD Af >=60 >=60 mL/min/1.73m2 Amer) Anion Gap (test code = Anion Gap) 12 mmol/L 9- 15 mmol/L Glucose (test code = Glucose) 120 mg/dL 65- 179 mg/dL Calcium (test code = Calcium) 8.8 mg/dL 8.5- 10.2 mg/dL Albumin (test code = Albumin) 3.9 g/dL 3.5- 5.0 g/dL Total Protein (test code = Total Protein) 6.8 g/dL 6.5- 8 .3 g/dL Total Bilirubin (test code = Total Bilirubin) 0.5 mg/dL 0. 0- 1.2 mg/dL AST (test code = AST) 24 U/L 14- 38 U/L ALT (test code = ALT) 24 U/L 15- 48 U/L Alkaline Phosphatase (test code = Alkaline 75 U/L 38- 1 26 U/L Phosphatase) Magnesium [id number] 08:41:00 Test Item Value Reference Range Comments Magnesium (test code = Magnesium) 1.9 mg/dL 1.6- 2.2 mg/dL CBC w/ [id number] 08:41:00 Test Item Value Reference Range Comments WBC (test code = WBC) 5.6 10*9/L 4.5- 11.0 10*9/L RBC (test code = RBC) 3.01 10*12/L 4.00- 5.20 10*12/L HGB (test code = HGB) 10.0 g/dL 12.0- 16.0 g/dL HCT (test code = HCT) 30.8 % 36.0- 46.0 % MCV (test code = MCV) 102.4 fL 80.0- 100.0 fL MCH (test code = MCH) 33.3 pg 26.0- 34.0 pg MCHC (test code = MCHC) 32.5 g/dL 31.0- 37.0 g/dL RDW (test code = RDW) 15.6 % 12.0- 15.0 % MPV (test code = MPV) 9.1 fL 7.0- 10.0 fL Platelet (test code = Platelet) 166 10*9/L 150- 440 10*9/L Absolute Neutrophils (test code = Absolute 3.9 10*9/L 2.0- 7.5 10*9/L Neutrophils) Absolute Lymphocytes (test code = Absolute 1.1 10*9/L 1.5- 5.0 10*9/L Lymphocytes) Absolute Monocytes (test code = Absolute 0.3 10*9/L 0.2- 0. 8 10*9/L Monocytes) Absolute Eosinophils (test code = Absolute 0.2 10*9/L 0.0- 0.4 10*9/L Eosinophils) Absolute Basophils (test code = Absolute 0.0 10*9/L 0.0- 0. 1 10*9/L Basophils) Large Unstained Cells (test code = Large 3 % 0- 4 % Unstained Cells) Macrocytosis (test code = Macrocytosis) Moderate Not Pres ent Hypochromasia (test code = Hypochromasia) Slight Not Pr esent CBC w/ [id number] 10:55:00 Test Item Value Reference Range Comments WBC (test code = WBC) 34.1 10*9/L 4.5- 11.0 10*9/L RBC (test code = RBC) 2.70 10*12/L 4.00- 5.20 10*12/L HGB (test code = HGB) 9.1 g/dL 12.0- 16.0 g/dL HCT (test code = HCT) 27.0 % 36.0- 46.0 % MCV (test code = MCV) 100.0 fL 80.0- 100.0 fL MCH (test code = MCH) 33.7 pg 26.0- 34.0 pg MCHC (test code = MCHC) 33.7 g/dL 31.0- 37.0 g/dL RDW (test code = RDW) 15.3 % 12.0- 15.0 % MPV (test code = MPV) 7.9 fL 7.0- 10.0 fL Platelet (test code = Platelet) 196 10*9/L 150- 440 10*9/L Neutrophil Left Shift (test code = 3+ Not Present Neutrophil Left Shift) Absolute Neutrophils (test code = Absolute 29.9 10*9/L 2.0- 7.5 10*9/L Neutrophils) Absolute Lymphocytes (test code = Absolute 1.8 10*9/L 1.5- 5.0 10*9/L Lymphocytes) Absolute Monocytes (test code = Absolute 0.8 10*9/L 0.2- 0. 8 10*9/L Monocytes) Absolute Eosinophils (test code = Absolute 1.3 10*9/L 0.0- 0.4 10*9/L Eosinophils) Absolute Basophils (test code = Absolute 0.0 10*9/L 0.0- 0. 1 10*9/L Basophils) Large Unstained Cells (test code = Large 1 % 0- 4 % Unstained Cells) Macrocytosis (test code = Macrocytosis) Moderate Not Pres ent Morphology [id number] 10:55:00 Test Item Value Reference Range Comments Smear Review Comments (test code = Smear Review See Comment Undefined Comments) Dohle Bodies (test code = Dohle Bodies) Present Not Pres ent Toxic Granulation (test code = Toxic Present Not Present Granulation) Toxic Vacuolation (test code = Toxic Present Not Present Vacuolation) CD34 [id number] 10:50:00 Test Item Value Reference Range Comments CD34 Enumeration (test code = CD34 Enumeration) Product Number (test code = W0611 18 [id number] Product Number) Product Type (test code = AUTOLOGOUS PERIPHERAL BLOOD Product Type) STEM CELL CD34 (test code = CD34) 0.94 %{OfGated} CD45 (test code = CD45) 100 %{OfGated} CD34 [id number] 08:11:00 Test Item Value Reference Range Comments CD34 Enumeration (test code = CD34 Enumeration) Product Number (test code = Product Number) Product Type (test code = PRE-APHERESIS PERIPHERAL Product Type) BLOOD CD34 (test code = CD34) 0.40 %{OfGated} Pre-Apheresis CD34 (test code = 170.80 {Cells}/uL Pre-Apheresis CD34) CD45 (test code = CD45) 100 %{OfGated} CBC w/ [id number] 08:11:00 Test Item Value Reference Range Comments WBC (test code = WBC) 42.7 10*9/L 4.5- 11.0 10*9/L RBC (test code = RBC) 3.09 10*12/L 4.00- 5.20 10*12/L HGB (test code = HGB) 10.4 g/dL 12.0- 16.0 g/dL HCT (test code = HCT) 31.1 % 36.0- 46.0 % MCV (test code = MCV) 100.6 fL 80.0- 100.0 fL MCH (test code = MCH) 33.6 pg 26.0- 34.0 pg MCHC (test code = MCHC) 33.3 g/dL 31.0- 37.0 g/dL RDW (test code = RDW) 15.2 % 12.0- 15.0 % MPV (test code = MPV) 8.9 fL 7.0- 10.0 fL Platelet (test code = Platelet) 249 10*9/L 150- 440 10*9/L Neutrophil Left Shift (test code = 3+ Not Present Neutrophil Left Shift) Absolute Neutrophils (test code = Absolute 35.6 10*9/L 2.0- 7.5 10*9/L Neutrophils) Absolute Lymphocytes (test code = Absolute 3.6 10*9/L 1.5- 5.0 10*9/L Lymphocytes) Absolute Monocytes (test code = Absolute 1.4 10*9/L 0.2- 0. 8 10*9/L Monocytes) Absolute Eosinophils (test code = Absolute 1.3 10*9/L 0.0- 0.4 10*9/L Eosinophils) Absolute Basophils (test code = Absolute 0.0 10*9/L 0.0- 0. 1 10*9/L Basophils) Large Unstained Cells (test code = Large 2 % 0- 4 % Unstained Cells) Macrocytosis (test code = Macrocytosis) Moderate Not Pres ent Morphology [id number] 08:11:00 Test Item Value Reference Range Comments Smear Review Comments (test code = Smear Review See Comment Undefined Comments) Dohle Bodies (test code = Dohle Bodies) Present Not Pres ent Toxic Granulation (test code = Toxic Present Not Present Granulation) Rapid Influenza [id number] 17:07:00 Test Item Value Reference Range Comments Influenza A (test code = Influenza A) Negative Negative Influenza B (test code = Influenza B) Negative Negative IR Insert Tunneled Catheter (Age Greater Than 5 Years)2018-01-25 14:51:31IR Insert Tunneled Catheter (Age Greater Than 5 Years) (01/25/2018 2:30 PM) Impressions Performed AtSuccessful placement of a 16-F, 19 cm, tunneled Hemosplit apheresis catheter in the right internal jugular vein under ultrasound and fluoroscopy. [facility] Narrative Performed At EXAM: TUNNELED, APHERESIS CATHETER PLACEMENT - ULTRASOUND AND FLUOROSCOPIC-GUIDED DATE: 01/25/2018 2:30 PM DICTATED: 01/25/2018 2:51 PM INTERPRETATION LOCATION: [facility] [place] CLINICAL INDICATION: 62 years old Female: -C90.00-Multiple myeloma not having achieved remission ([facility]) CONSENT: Informed consent was obtained from the patient/patient's health care proxy including a discussion of the alternatives, benefits, and risks including but not limited to infection, bleeding, and/or need for additional procedure. ULTRASOUND EVALUATION: With the patient in the supine position, the right neck and upper chest were prepped and draped using all elements of maximal sterile barrier technique. The right internal jugular vein was evaluated by ultrasound and was compressible and patent. An ultrasound image was saved and sent to PACS. An appropriate skin entry site was identified using ultrasound and anesthetized with 1% lidocaine. APHERESIS CATHETER PLACEMENT: A small skin incision was made, through which, the right internal jugular vein was accessed using a 21-G needle under ultrasound guidance. A 0.018 inch guidewire was advanced into the vein under fluoroscopy. The 0.018 inch wire was then used under fluoroscopy in order to determine the appropriate intravascular catheter length. The access needle was exchanged for a micropuncture transition dilator, which was then aspirated, flushed and capped. A sitebelow the inferior margin of the clavicle was identified as the tunnel exit site and was anesthetized with local anesthesia. Using a #11 blade, a small incision was made and the 19 cm length x 16-Wallisian Hemosplit apheresis catheter was tunneled through the chest incision to the lateral neck dermatotomy. Under fluoroscopy, the micropuncture transition dilator was exchanged over a 0.035 inch guidewire for a peel-away sheath. The catheter was advanced through the peel-away sheath. A fluoroscopic image was obtained which confirmed the tip of the catheter in the proximal right atrium. Each lumen of the catheter was aspirated and flushed freely. It was then instilled with appropriate volume of heparin 100 units/mL. The neck dermatotomy was closed and the catheter was sutured to the skin 2-0 Ethilon anddressed in a sterile manner. SEDATION: I personally spent 28 minutes, continuously monitoring the patient [id number] during the administration of moderate sedation. Radiology nurse was present for the duration of the procedure to assist in patient monitoring.Pre and Post Sedation activities havebeen reviewed. FLUOROSCOPY TIME: 2.0 minutes EXPOSURES: 0 TOTAL DOSE AREA PRODUCT: 42.65 uGym2 CUMULATIVE DOSE: 2.3 mGy [facility] Procedure Note Interface, Rad Results In - 01/26/2018 11:48 AM EDT EXAM: T ROXANNE, APHERESIS CATHETER PLACEMENT - ULTRASOUND AND FLUOROSCOPIC-GUIDED DATE: 01/25/2018 2:30 PM DICTATED: 01/25/2018 2:51 PM INTERPRETATION LOCATION: [facility] [place] CLINICAL INDICATION: 62 years old Female: -C90.00-Multiple myeloma not having achieved remission (CMS-HCC) CONSENT: Informed consent was obtained from the patient/patient's health care proxy including a discussion of the alternatives, benefits, and risks including but not limited to infection, bleeding, and/or need for additional procedure. ULTRASOUND EVALUATION: With the patient in the supine position, the rightneck and upper chest were prepped and draped using all elements of maximal sterile barrier technique. The right internal jugular vein was evaluated by ultrasound and was compressible and patent. An ultrasound image was saved and sent to PACS. An appropriate skin entry site was identified using ultrasound and anesthetized with 1% lidocaine. APHERESIS CATHETER PLACEMENT: A small skin incision was made,through which, the right internal jugular vein was accessed using a 21-G needle under ultrasound guidance. A 0.018 inch guidewire was advanced into the vein under fluoroscopy. The 0.018 inch wire was then used under fluoroscopy in order to determine the appropriate intravascular catheter length. The access needle was exchanged for a micropuncture transition dilator, which was then aspirated, flushed and capped. A site below the inferior margin of the clavicle was identified as the tunnel exit site and was anesthetized with local anesthesia. Using a #11 blade, a small incision was made and the 19 cmlength x 16-Wallisian Hemosplit apheresis catheter was tunneled through the chest incision to the lateral neck dermatotomy. Under fluoroscopy, the micropuncture transition dilator was exchanged over a 0.035 inch guidewire for a peel-away sheath. The catheter was advanced through the peel-away sheath. A fluoroscopic image was obtained which confirmed the tip of the catheter in the proximal right atrium. E ach lumen of the catheter was aspirated and flushed freely. It was then instilled with appropriate volume of heparin 100 units/mL. The neck dermatotomy was closed and the catheter was sutured to the skin 2-0 Ethilon and dressed in a sterile manner. SEDATION: I personally spent 28 minutes, continuouslymonitoring the patient [id number] during the administration of moderate sedation. Radiology nurse was present for the duration of the procedure to assist in patient monitoring. Pre and Post Sedation activities have been reviewed. FLUOROSCOPY TIME: 2.0 minutes EXPOSURES: 0 TOTAL DOSE AREA PRODUCT: 42.65 uGym2 CUMULATIVE DOSE: 2.3 mGy IMPRESSION: Successful placement of a 16-F, 19 cm, tunneled Hemosplit apheresis catheter in the right internal jugular vein under ultrasound and fluoroscopy. Performing Organization Address City/State/Zipcode Phone Number [facility] [address] [facility] [place], [place] [address]Igqksehhzboyv Metabolic [id number] 10:20:00 Test Item Value Reference Range Comments Sodium (test code = Sodium) 142 mmol/L 135- 145 mmol/L Potassium (test code = Potassium) 3.5 mmol/L 3.5- 5.0 mmol/ L Chloride (test code = Chloride) 98 mmol/L 98- 107 mmol/L CO2 (test code = CO2) 31.0 mmol/L 22.0- 30.0 mmol/L BUN (test code = BUN) 13 mg/dL 7- 21 mg/dL Creatinine (test code = Creatinine) 0.52 mg/dL 0.60- 1.00 m g/dL BUN/Creatinine Ratio (test code = 25 BUN/Creatinine Ratio) EGFR MDRD Non Af Amer (test code = EGFR MDRD >=60 >=6 0 mL/min/1.73m2 Non Af Amer) EGFR MDRD Af Amer (test code = EGFR MDRD Af >=60 >=60 mL/min/1.73m2 Amer) Anion Gap (test code = Anion Gap) 13 mmol/L 9- 15 mmol/L Glucose (test code = Glucose) 104 mg/dL 65- 179 mg/dL Calcium (test code = Calcium) 10.2 mg/dL 8.5- 10.2 mg/dL Albumin (test code = Albumin) 4.3 g/dL 3.5- 5.0 g/dL Total Protein (test code = Total Protein) 7.2 g/dL 6.5- 8 .3 g/dL Total Bilirubin (test code = Total Bilirubin) 0.7 mg/dL 0. 0- 1.2 mg/dL AST (test code = AST) 25 U/L 14- 38 U/L ALT (test code = ALT) 31 U/L 15- 48 U/L Alkaline Phosphatase (test code = Alkaline 51 U/L 38- 1 26 U/L Phosphatase) [id number] 10:20:00 Test Item Value Reference Range Comments APTT (test code = APTT) 39.4 sec 27.7- 37.7 sec Heparin Correlation (test code = Heparin 0.2 Correlation) [id number] 10:20:00 Test Item Value Reference Range Comments PT (test code = PT) 12.5 sec 10.2- 12.8 sec INR (test code = INR) 1.10 CBC w/ [id number] 10:20:00 Test Item Value Reference Range Comments WBC (test code = WBC) 5.0 10*9/L 4.5- 11.0 10*9/L RBC (test code = RBC) 3.39 10*12/L 4.00- 5.20 10*12/L HGB (test code = HGB) 11.5 g/dL 12.0- 16.0 g/dL HCT (test code = HCT) 34.8 % 36.0- 46.0 % MCV (test code = MCV) 102.9 fL 80.0- 100.0 fL MCH (test code = MCH) 33.9 pg 26.0- 34.0 pg MCHC (test code = MCHC) 32.9 g/dL 31.0- 37.0 g/dL RDW (test code = RDW) 15.7 % 12.0- 15.0 % MPV (test code = MPV) 7.5 fL 7.0- 10.0 fL Platelet (test code = Platelet) 331 10*9/L 150- 440 10*9/L Absolute Neutrophils (test code = Absolute 3.4 10*9/L 2.0- 7.5 10*9/L Neutrophils) Absolute Lymphocytes (test code = Absolute 1.0 10*9/L 1.5- 5.0 10*9/L Lymphocytes) Absolute Monocytes (test code = Absolute 0.3 10*9/L 0.2- 0. 8 10*9/L Monocytes) Absolute Eosinophils (test code = Absolute 0.1 10*9/L 0.0- 0.4 10*9/L Eosinophils) Absolute Basophils (test code = Absolute 0.0 10*9/L 0.0- 0. 1 10*9/L Basophils) Large Unstained Cells (test code = Large 2 % 0- 4 % Unstained Cells) Macrocytosis (test code = Macrocytosis) Marked Not Pres ent Morphology [id number] 10:20:00 Test Item Value Reference Range Comments Smear Review Comments (test code = Smear Review See Comment Undefined Comments) Comprehensive Metabolic [id number] 10:20:00 Test Item Value Reference Range Comments Sodium (test code = Sodium) 142 mmol/L 135- 145 mmol/L Potassium (test code = Potassium) 3.5 mmol/L 3.5- 5.0 mmol/ L Chloride (test code = Chloride) 98 mmol/L 98- 107 mmol/L CO2 (test code = CO2) 31.0 mmol/L 22.0- 30.0 mmol/L BUN (test code = BUN) 13 mg/dL 7- 21 mg/dL Creatinine (test code = Creatinine) 0.52 mg/dL 0.60- 1.00 m g/dL BUN/Creatinine Ratio (test code = 25 BUN/Creatinine Ratio) EGFR MDRD Non Af Amer (test code = EGFR MDRD >=60 >=6 0 mL/min/1.73m2 Non Af Amer) EGFR MDRD Af Amer (test code = EGFR MDRD Af >=60 >=60 mL/min/1.73m2 Amer) Anion Gap (test code = Anion Gap) 13 mmol/L 9- 15 mmol/L Glucose (test code = Glucose) 104 mg/dL 65- 179 mg/dL Calcium (test code = Calcium) 10.2 mg/dL 8.5- 10.2 mg/dL Albumin (test code = Albumin) 4.3 g/dL 3.5- 5.0 g/dL Total Protein (test code = Total Protein) 7.2 g/dL 6.5- 8 .3 g/dL Total Bilirubin (test code = Total Bilirubin) 0.7 mg/dL 0. 0- 1.2 mg/dL AST (test code = AST) 25 U/L 14- 38 U/L ALT (test code = ALT) 31 U/L 15- 48 U/L Alkaline Phosphatase (test code = Alkaline 51 U/L 38- 1 26 U/L Phosphatase) [id number] 10:20:00 Test Item Value Reference Range Comments APTT (test code = APTT) 39.4 sec 27.7- 37.7 sec Heparin Correlation (test code = Heparin 0.2 Correlation) [id number] 10:20:00 Test Item Value Reference Range Comments PT (test code = PT) 12.5 sec 10.2- 12.8 sec INR (test code = INR) 1.10 Echocardiogram W Colorflow Spectral [id number] 16:32:20 Test Item Value Reference Range Comments LV Diastolic Diameter PLAX (test code = LV 2.9 cm Diastolic Diameter PLAX) LV Systolic Diameter PLAX (test code = LV Systolic 2.1 cm Diameter PLAX) IVS Diastolic Thickness (test code = IVS Diastolic 1.1 cm Thickness) LVPW Diastolic Thickness (test code = LVPW 1.0 cm Diastolic Thickness) Aortic Root Diameter (test code = Aortic Root 2.7 cm Diameter) LA Systolic Diameter LX (test code = LA Systolic 3.1 cm Diameter LX) LA Area 4C View (test code = LA Area 4C View) 16.0 cm2 LA Area 2C View (test code = LA Area 2C View) 15.5 cm2 AV Peak Velocity (test code = AV Peak Velocity) 1.5 m/s AV Peak Gradient (test code = AV Peak Gradient) 9.0 Mitral E Point Velocity (test code = Mitral E 0.0 m/s Point Velocity) Mitral A Point Velocity (test code = Mitral A 0.0 m/s Point Velocity) Mitral E to A Ratio (test code = Mitral E to A 0.7 Ratio) PV Peak Velocity (test code = PV Peak Velocity) 1.2 m/s PV peak gradient (test code = PV peak gradient) 5.00 mmHg XR Chest 2 [id number] 11:36:03XR Chest 2 views (01/18/2018 11:16 AM) Impressions Performed At - No acute airspace disease. [facility] EXAM: CHEST TWO VIEW DATE: 01/18/2018 11:16 AM DICTATED: 01/18/2018 11:36 AM INTERPRETATION LOCATION: [facility] [place] CLINICAL INDICATION: 62 years old Female with OTHER-C90.00-Multiple myeloma not having achieved remission (CMS-HCC) COMPARISON: 01/12/2018 myeloma survey and outside CT images TECHNIQUE: PA and lateral views of the chest. FINDINGS: Lungs well inflated. No focal consolidation. No pulmonary edema. No pleural effusion or pneumothorax. Cardiomediastinal silhouette is within normal limits. Remote right seventh posterior rib fracture. Stable T12 compression deformity complete flattening of T12 vertebral body, better demonstrated on prior studydated 07/15/2017. [facility] Procedure Note Interface, Rad Results In - 01/18/2018 11:50 AM EDT EXAM: CHEST TWO VIEW DATE: 01/18/2018 11:16 AM DICTATED: 01/18/2018 11:36 AM INTERPRETATION LOCATION: [facility] CLINICAL INDICATION: 62 years old Female with OTHER-C90.00-Multiple myeloma not having achieved remission ([facility]-HCC) COMPARISON: 01/12/2018 myeloma survey and outside CT imagesTECHNIQUE: PA and lateral views of the chest. FINDINGS: Lungs well inflated. No focal consolidation.No pulmonary edema. No pleural effusion or pneumothorax. Cardiomediastinal silhouette is within normal limits. Remote right seventh posterior rib fracture. Stable T12 compression deformity complete flat tening of T12 vertebral body, better demonstrated on prior study dated 07/15/2017. IMPRESSION: - No acute airspace disease. Performing Organization Address City/State/Zipcode Phone Number [facility] [address] [place], [place] [address]Avprfbjea [id number] 00:48:33 Test Item Value Reference Range Comments FEV1 PRE (test code = FEV1 2.09 L 1.66783- 2.6925 L PRE) FEV1/FVC PRE (test code = 83.49 % 68.5401- 89.8941 % FEV1/FVC PRE) FVC PRE (test code = FVC 2.5 L 1.00067- 3.60687 L PRE) PEF PRE (test code = PEF 5.67 L/s 3.15079- 7.09175 L/s PRE) Vol extrap pre (test code 0.02 L = Vol extrap pre) FIVC PRE (test code = FIVC 2.38 L 1.87493- 3.24674 L PRE) PIF PRE (test code = PIF 4.43 L/s 3.63710- 3.30877 L/s PRE) FIF50% PRED (test code = 4.17 L/s 1.34912- 4.19073 L/s FIF50% PRED) FEV6 PRE (test code = FEV6 2.48 L 1.38865- 3.77140 L PRE) FEV1/FEV6 PRE (test code = 84.23 % 71.8922- 91.5582 % FEV1/FEV6 PRE) FEF50% PRE (test code = 4.73 L/s FEF50% PRE) FYT47-83% PRE (test code = 3.03 L/s 0.6671- 3.41095 L/s FBI40-98% PRE) FEF/FIF50 pre (test code = 113.55 % FEF/FIF50 pre) [id number] PRE (test code 3.03 L/s = FAQQRQ31-98 PRE) LBA360% Change (test code 7.15 sec = SBV685% Change) DLCO PRE (test code = DLCO 13.61 ml/(min*mmHg) 14.60248645650928 2- PRE) 27.319761889687268 ml/(min*mmHg) BHT POST (test code = BHT 11.6 sec POST) DLCO/VA POST (test code = 4.11 ml/(min*mmHg*L) 3.704433580036972 3- DLCO/VA POST) 5.4755308999467272 ml/(min*mmHg*L) VA PRE (test code = VA 3.32 L 4.5558- 4.5558 L PRE) IVC PRE (test code = IVC 2.22 L 1.97345- 3.20615 L PRE) DL Adj PRE (test code = DL 15.09 ml/(min*mmHg) Adj PRE) DL/VA Adj PRE (test code = 4.55 ml/(min*mmHg*L) DL/VA Adj PRE) [id number] 00:48:33 Test Item Value Reference Range Comments FEV1 PRE (test code = FEV1 2.09 L 1.46664- 2.6925 L PRE) FEV1/FVC PRE (test code = 83.49 % 68.5401- 89.8941 % FEV1/FVC PRE) FVC PRE (test code = FVC 2.5 L 1.25162- 3.21306 L PRE) PEF PRE (test code = PEF 5.67 L/s 3.31737- 7.80059 L/s PRE) Vol extrap pre (test code 0.02 L = Vol extrap pre) FIVC PRE (test code = FIVC 2.38 L 1.45101- 3.10187 L PRE) PIF PRE (test code = PIF 4.43 L/s 3.39420- 3.26979 L/s PRE) FIF50% PRED (test code = 4.17 L/s 1.05916- 4.58294 L/s FIF50% PRED) FEV6 PRE (test code = FEV6 2.48 L 1.01956- 3.93255 L PRE) FEV1/FEV6 PRE (test code = 84.23 % 71.8922- 91.5582 % FEV1/FEV6 PRE) FEF50% PRE (test code = 4.73 L/s FEF50% PRE) NNJ66-47% PRE (test code = 3.03 L/s 0.6671- 3.73410 L/s WML21-04% PRE) FEF/FIF50 pre (test code = 113.55 % FEF/FIF50 pre) FFUWYA96-89 PRE (test code 3.03 L/s = BIEDJZ80-67 PRE) BOR237% Change (test code 7.15 sec = QGI584% Change) DLCO PRE (test code = DLCO 13.61 ml/(min*mmHg) 14.29142900527090 2- PRE) 27.418259540537719 ml/(min*mmHg) BHT POST (test code = BHT 11.6 sec POST) DLCO/VA POST (test code = 4.11 ml/(min*mmHg*L) 3.360296325156839 3- DLCO/VA POST) 5.4584058725084328 ml/(min*mmHg*L) VA PRE (test code = VA 3.32 L 4.5558- 4.5558 L PRE) IVC PRE (test code = IVC 2.22 L 1.87718- 3.11889 L PRE) DL Adj PRE (test code = DL 15.09 ml/(min*mmHg) Adj PRE) DL/VA Adj PRE (test code = 4.55 ml/(min*mmHg*L) DL/VA Adj PRE) Cytogenetics Cancer/Fish Order [id number] 13:20:00 Test Item Value Reference Range Comments Cytogenetics Test, Other (test code = Cytogenetics Collected Test, Other) Hematopathology [id number] 13:20:00Case Report Surgical Pathology Report Case: [id number] Authorizing Provider:TIFFANIE Campo Collected: 01/13/2018 1320 Ordering Location: [facility] Received:01/13/2018 1346 Pathologist: Tamiko Cameron MD Specimens: A) - Bone Marrow Right - Aspirate B) - Bone Marrow Right - Biopsy C) - Peripheral Blood [facility] Final Diagnosis Bone marrow, right iliac, aspiration and biopsy - Normocellular bone marrow (50%) with scattered VP07-qxjbadcf plasma cells, suspicious for low-level involvement by residual plasma cell neoplasm (See Comment) - Cytogenetic and FISH (plasma cell enrichment myeloma panel) studies are pending. [facility] Comment Plasma cells account for less than 5% of overall marrow cellularity and show polytypic staining by in-situ hybridization; however, a subset of these plasmacells show aberrant expression of CD56, a finding that is suspicious for the presence of neoplastic plasma cells in a polytypic background. The currently pending cytogenetic and myeloma FISH panel studies may provide more definitive information regarding disease status. [facility] Clinical History The patient is a 62-year-old female with a history of monotypic kappa plasma cell neoplasm, status-post 6 cycles of RVD. [facility] Gross Description Received are right iliac aspirate and right biopsy measuring 0.2 cm x 0.4 cm. Cytogenetic and FISH (plasmacell enrichment myeloma panel) studies are requested. Flow cytometric analysis is not performed. A. BMAR. Aspirate is submitted in one block(s). B. BMBR. Biopsy is submitted in one block(s). [facility] Microscopic Description Peripheral Blood: Platelets: Adequate Erythroid: Macrocytosis Leukocytes: Lymphopenia Bone Marrow Aspirate: Cellularity: Cellular marrow particles Megaka ryocytes: Adequate in number Erythropoiesis: Calendar Control Clerk Blood Bank maturation with mild dyserythropoiesis and mildmegaloblastoid changes Granulopoiesis: Calendar Control Clerk Blood Bank maturation M:E ratio: 1.6:1 Differential: 500 cells counted/si 2% blasts 4% promyelocytes 8% myelocytes 33% maturing granulocytes 32% erythroid 14% lymphoc ytes 3% monocytes 3% eosinophils <1% basophils 1% plasma cells Touch Prep: Blood with scattered marrow cells Bone Marrow Clot and/or Biopsy: The bone marrow clot and biopsy sections are confirmatory. Cellularity: Clot: 50% Biopsy: 50% in a small sampling Special Stains: Clot and biopsy sections arestained. CD138: CD138 stains less than 5% of the marrow cells in the clot section and less than 5% in the biopsy section. Clot sections are stained. [place]/Lambda (ANALI): [place]/Lambda (ANALI) show polytypic staining. CD56: CD56 is positive in scattered plasma cells. [facility] EMBEDDED IMAGES [facility] Disclaimer Unless otherwise specified, specimens arepreserved using 10% neutral buffered formalin. For cases in which immunohistochemical and/or in-situhybridization stains are performed, the following statement applies: Appropriate controls for each stain (positive controls with or without negative controls) have been evaluated and stain as expected.These stains have not been separately validated for use on decalcified specimens and should be interpreted with caution in that setting. Some of the reagents used for these stains may be classified as analyte specific reagents (ASR). Tests using ASRs were developed, and their performance characteristics were determined, by the Anatomic Pathology Department ([facility]). They have not been cleared or approved by the US Food and Drug Administration (FDA). The FDA does not require these tests to go through premarket FDA review. These tests are used for clinical purposes. They should not be regarded as investigational or for research. This laboratory is certified under the Clinical Laboratory Improvement Amendments (CLIA) as qualified to perform high complexity clinical laboratory testing. [facility] [id number] 08:14:43XR Trauma Hip Left (01/12/2018 10:47 PM) Impressions Performed At - Left lesser trochanter lytic lesion; this region is at risk for pathologic fracture. [facility] Narrative Performed At EXAM: XR TRAUMA HIP LEFT DATE: 01/12/2018 10:47 PM DICTATED: 01/13/2018 8:14 AM INTERPRETATION LOCATION: [facility] [place] CLINICAL INDICATION: 62 years old Female with Lytic lesion evaluation-- COMPARISON: None. TECHNIQUE: AP views of the pelvis and left hip and frog leg lateral view of the left hip. FINDINGS: No fractures. Normal alignment. 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 Previously described lytic lesion in the L5 vertebral body is notas well seen as on the prior, but still present and unchanged; involves the base of the lesser trochanter. The lesion appears to involve 50% of the diameter of the shaft on the frogleg lateral view.No lytic lesions of the left hip femur are identified. No soft tissue swelling. [facility] Procedure Note Interface, Rad Results In - 01/13/2018 9:51 AM EDT EXAM: XR TRAUMA HIP LEFT DATE: 01/12/2018 10:47 PM DICTATED: 01/13/2018 8:14 AM INTERPRETATION LOCATION: [facility] [place] CLINICALINDICATION: 62 years old Female with Lytic lesion evaluation-- COMPARISON: None. TECHNIQUE: AP viewsof the pelvis and left hip and frog leg lateral view of the left hip. FINDINGS: No fractures. Normalalignment. Mild osteoarthrosis at the pubic symphysis and superior lateral aspects of bilateral hips. Previously described lytic lesion in the L5 vertebral body is not as well seen as on the prior, butstill present and unchanged; involves the base of the lesser trochanter. The lesion appears to involve 50% of the diameter of the shaft on the frogleg lateral view. No lytic lesions of the left hip femur are identified. No soft tissue swelling. IMPRESSION: - Left lesser trochanter lytic lesion; this region is at risk for pathologic fracture. Performing Organization Address City/State/Zipcode Phone Number [facility] [address] [place], [place] [id number] 05:07:00 Test Item Value Reference Range Comments APTT (test code = APTT) 34.5 sec 27.7- 37.7 sec Heparin Correlation (test code = Heparin 0.2 Correlation) [id number] 05:07:00 Test Item Value Reference Range Comments PT (test code = PT) 12.5 sec 10.2- 12.8 sec INR (test code = INR) 1.10 CBC w/ [id number] 05:07:00 Test Item Value Reference Range Comments WBC (test code = WBC) 7.1 10*9/L 4.5- 11.0 10*9/L RBC (test code = RBC) 3.06 10*12/L 4.00- 5.20 10*12/L HGB (test code = HGB) 10.6 g/dL 12.0- 16.0 g/dL HCT (test code = HCT) 31.3 % 36.0- 46.0 % MCV (test code = MCV) 102.2 fL 80.0- 100.0 fL MCH (test code = MCH) 34.7 pg 26.0- 34.0 pg MCHC (test code = MCHC) 33.9 g/dL 31.0- 37.0 g/dL RDW (test code = RDW) 16.7 % 12.0- 15.0 % MPV (test code = MPV) 8.1 fL 7.0- 10.0 fL Platelet (test code = Platelet) 377 10*9/L 150- 440 10*9/L Absolute Neutrophils (test code = Absolute 5.1 10*9/L 2.0- 7.5 10*9/L Neutrophils) Absolute Lymphocytes (test code = Absolute 0.9 10*9/L 1.5- 5.0 10*9/L Lymphocytes) Absolute Monocytes (test code = Absolute 0.9 10*9/L 0.2- 0. 8 10*9/L Monocytes) Absolute Eosinophils (test code = Absolute 0.0 10*9/L 0.0- 0.4 10*9/L Eosinophils) Absolute Basophils (test code = Absolute 0.0 10*9/L 0.0- 0. 1 10*9/L Basophils) Large Unstained Cells (test code = Large 3 % 0- 4 % Unstained Cells) Macrocytosis (test code = Macrocytosis) Marked Not Pres ent Anisocytosis (test code = Anisocytosis) Slight Not Pres ent XR Ankle 3 Or More Views [id number] 17:51:39XR Ankle 3 Or More Views Left (01/12/2018 5:49 PM) Impressions Performed At No acute osseous abnormality. [facility] Narrative Performed At EXAM: XR ANKLE 3 OR MORE VIEWS LEFT DATE: 01/12/2018 5:49 PM DICTATED: 01/12/2018 5:51 PM INTERPRETATION LOCATION: [facility] [place] CLINICAL INDICATION: 62 years old Female with left ankle pain-- COMPARISON: None. TECHNIQUE: AP, oblique and lateral views of the left ankle. FINDINGS: No acute fracture. No lytic or blastic osseous lesion. The ankle mortise is intact. The talar dome is smooth in contour. Visualized joint spaces are preserved. Noerosion or periosteal reaction. Posterior and plantar calcaneal enthesophytes. Enthesopathy is also present at the proximal fifth metatarsal. Soft tissue swelling about the ankle. No radiopaque foreignbody or soft tissue gas. [facility] Procedure Note Interface, Rad Results In - 01/12/2018 5:52 PM EDT EXAM: XR ANKLE 3 OR MORE VIEWS LEFT DATE: 01/12/2018 5:49 PM DICTATED: 01/12/2018 5:51 PM INTERPRETATION LOCATION: [facility] [place] CLINICAL INDICATION: 62 years old Female with left ankle pain-- COMPARISON: None. TECHNIQUE: AP, oblique and lateral views of the left ankle. FINDINGS: Noacute fracture. No lytic or blastic osseous lesion. The ankle mortise is intact. The talar dome is smooth in contour. Visualized joint spaces are preserved. No erosion or periosteal reaction. Posteriorand plantar calcaneal enthesophytes. Enthesopathy is also present at the proximal fifth metatarsal. S oft tissue swelling about the ankle. No radiopaque foreign body or soft tissue gas. IMPRESSION: No acute osseous abnormality. Performing Organization Address City/State/Zipcode Phone Number [facility] [address] [place] [address] [id number] 10:29:00 Test Item Value Reference Range Comments Color, UA (test code = Color, UA) Yellow Clarity, UA (test code = Clarity, UA) Clear Specific [place], UA (test code = Specific 1.015 1.003 -1.030 [place], UA) pH, UA (test code = pH, UA) 7.5 5.0-9.0 Leukocyte Esterase, UA (test code = Leukocyte Trace Ne gative Esterase, UA) Nitrite, UA (test code = Nitrite, UA) Negative Negative Protein, UA (test code = Protein, UA) Trace Negative Glucose, UA (test code = Glucose, UA) Negative Negative Ketones, UA (test code = Ketones, UA) Negative Negative Urobilinogen, UA (test code = Urobilinogen, 2.0 mg/dL 0.2 mg/dL, 1.0 mg/dL UA) Bilirubin, UA (test code = Bilirubin, UA) Negative Negati ve Blood, UA (test code = Blood, UA) Negative Negative RBC, UA (test code = RBC, UA) <1 <4 /HPF WBC, UA (test code = WBC, UA) 1 /HPF 0- 5 /HPF Squam Epithel, UA (test code = Squam Epithel, 1 /HPF 0- 5 /HPF UA) Bacteria, UA (test code = Bacteria, UA) None Seen None See n /HPF Mucus, UA (test code = Mucus, UA) Many None Seen /HPF VRE [id number] 10:29:00 Test Item Value Reference Range Comments VRE Screen (test code = VRE Screen) NOT DETECTED Light Chains, [id number] 10:29:00 Test Item Value Reference Range Comments [place] Chains, Urine Quant (test code = [place] <0.9000 <0. 9000 mg/dL Chains, Urine Quant) Lambda Chains, Urine Quant (test code = Lambda <0.7000 < 0.7000 mg/dL Chains, Urine Quant) K/L Ratio, Urine Quant (test code = K/L Ratio, SEE COMMENTS 0 .7000-6.20 Urine Quant) PROTEIN 24 HOUR [id number] 10:29:00 Test Item Value Reference Range Comments Protein, 24 Hour Urine (test code = Protein, 20- 151 mg/24 hr 24 Hour Urine) Protein Urine Volume (test code = Protein 1000 mL/24 hr Urine Volume) Protein, Ur (test code = Protein, Ur) <4.0 Undefined mg/dL Immunofixation, 24Hr [id number] 10:29:00Immunofixation, 24H Urine Comment: No monoclonal protein detected. [facility], 24 HOUR [id number] 10:29:00Protein Electrophoresis, Ur 24 hr Comment: No significant proteinuria. [facility]ID [id number] 10:21:00 Test Item Value Reference Range Comments ID Perform (test code = ID Perform) Multiplex CED (test code = Multiplex CED) Negative Hepatitis B Surface Ag (test code = Hepatitis B Negative Surface Ag) Hepatitis B Core Ab (test code = Hepatitis B Core Negative Ab) Hepatitis C Ab (test code = Hepatitis C Ab) Negative ID Syphilis (test code = ID Syphilis) Negative HIV Antibody (test code = HIV Antibody) Negative HTLV I/II Antibody (test code = HTLV I/II Antibody) Negative West Nile Virus CED (test code = West Nile Virus Negative CED) T. Cruzi Antibody (test code = T. Cruzi Antibody) Negative CMV IgG/IgM (test code = CMV IgG/IgM) Negative Comprehensive Metabolic [id number] 10:21:00 Test Item Value Reference Range Comments Sodium (test code = Sodium) 134 mmol/L 135- 145 mmol/L Potassium (test code = Potassium) 3.1 mmol/L 3.5- 5.0 mmol/ L Chloride (test code = Chloride) 95 mmol/L 98- 107 mmol/L CO2 (test code = CO2) 29.0 mmol/L 22.0- 30.0 mmol/L BUN (test code = BUN) 12 mg/dL 7- 21 mg/dL Creatinine (test code = Creatinine) 0.49 mg/dL 0.60- 1.00 m g/dL BUN/Creatinine Ratio (test code = 24 BUN/Creatinine Ratio) EGFR MDRD Non Af Amer (test code = EGFR MDRD >=60 >=6 0 mL/min/1.73m2 Non Af Amer) EGFR MDRD Af Amer (test code = EGFR MDRD Af >=60 >=60 mL/min/1.73m2 Amer) Anion Gap (test code = Anion Gap) 10 mmol/L 9- 15 mmol/L Glucose (test code = Glucose) 130 mg/dL 65- 179 mg/dL Calcium (test code = Calcium) 8.8 mg/dL 8.5- 10.2 mg/dL Albumin (test code = Albumin) 4.4 g/dL 3.5- 5.0 g/dL Total Protein (test code = Total Protein) 7.1 g/dL 6.5- 8 .3 g/dL Total Bilirubin (test code = Total Bilirubin) 0.6 mg/dL 0. 0- 1.2 mg/dL AST (test code = AST) 22 U/L 14- 38 U/L ALT (test code = ALT) 37 U/L 15- 48 U/L Alkaline Phosphatase (test code = Alkaline 53 U/L 38- 1 26 U/L Phosphatase) Lactate [id number] 10:21:00 Test Item Value Reference Range Comments LDH (test code = LDH) 412 U/L 338- 610 U/L Phosphorus [id number] 10:21:00 Test Item Value Reference Range Comments Phosphorus (test code = Phosphorus) 2.3 mg/dL 2.9- 4.7 mg/ dL Magnesium [id number] 10:21:00 Test Item Value Reference Range Comments Magnesium (test code = Magnesium) 2.2 mg/dL 1.6- 2.2 mg/dL [id number] 10:21:00 Test Item Value Reference Range Comments PT (test code = PT) 12.8 sec 10.2- 12.8 sec INR (test code = INR) 1.12 [id number] 10:21:00 Test Item Value Reference Range Comments APTT (test code = APTT) 33.3 sec 27.7- 37.7 sec Heparin Correlation (test code = Heparin <0.2 Correlation) [id number] 10:21:00 Test Item Value Reference Range Comments Total IgG (test code = Total IgG) 770 mg/dL 600-1,700 mg/d L [id number] 10:21:00 Test Item Value Reference Range Comments IgA (test code = IgA) 57.3 mg/dL 40.0- 400.0 mg/dL [id number] 10:21:00 Test Item Value Reference Range Comments IgM (test code = IgM) 51 mg/dL 35- 290 mg/dL Type and [id number] 10:21:00 Test Item Value Reference Range Comments Check Type (test code = Check Type) Needed Type Check ABO Grouping (test code = ABO Grouping) A NEG Antibody Screen (test code = Antibody NEG Screen) Beta 2 microglobulin, [id number] 10:21:00 Test Item Value Reference Range Comments Beta 2 Microglobulin, Serum (test code = Beta 2 1.51 ug/mL 0.87- 2.34 ug/mL Microglobulin, Serum) Immunoglobulin Free LT Chains [id number] 10:21:00 Test Item Value Reference Range Comments [place] Free, Serum (test code = [place] Free, 1.79 mg/dL 0.33- 1.94 mg/dL Serum) Lambda Free, Serum (test code = Lambda Free, 1.02 mg/dL 0.5 7- 2.63 mg/dL Serum) K/L FLC Ratio (test code = K/L FLC Ratio) 1.75 0.26-1 .65 Sickle cell [id number] 10:21:00 Test Item Value Reference Range Comments Sickle Cell Screen (test code = Sickle Cell Screen) Negative Negative Varicella zoster antibody, [id number] 10:21:00 Test Item Value Reference Range Comments Varicella IgG (test code = Varicella IgG) Positive Zoie-Lazo Virus (EBV) Antibody [id number] 10:21:00 Test Item Value Reference Range Comments EBV VCA IgG Antibody (test code = EBV VCA IgG Positive Ne gative Antibody) EBV VCA IgM Antibody (test code = EBV VCA IgM Negative Ne gative Antibody) EBV Nuclear Ag IgG Antibody (test code = EBV Positive Neg ative Nuclear Ag IgG Antibody) HSV Antibody, [id number] 10:21:00 Test Item Value Reference Range Comments HSV 1 IgG (test code = HSV 1 IgG) Negative Negative HSV 2 IgG (test code = HSV 2 IgG) Positive Negative SERUM PROTEIN ELECTROPHORESIS AND [id number] 10:21:00 Test Item Value Reference Range Comments Total Protein (test code = Total Protein) 7.1 g/dL 6.5- 8 .3 g/dL ALBUMIN (SPE) (test code = ALBUMIN (SPE)) 4.3 g/dL 3.5- 5 .0 g/dL ALPHA-1 GLOBULIN (test code = ALPHA-1 GLOBULIN) 0.4 g/dL 0.2- 0.5 g/dL ALPHA-2 GLOBULIN (test code = ALPHA-2 GLOBULIN) 1.0 g/dL 0.5- 1.1 g/dL BETA-1 GLOBULIN (test code = BETA-1 GLOBULIN) 0.4 g/dL 0. 3- 0.6 g/dL BETA-2 GLOBULIN (test code = BETA-2 GLOBULIN) 0.4 g/dL 0. 2- 0.6 g/dL GAMMAGLOBULIN (test code = GAMMAGLOBULIN) 0.7 g/dL 0.5- 1 .5 g/dL M Jose (test code = M Jose) 0.2 g/dL Not Present g/dL SPE Interpretation (test code = SPE Interpretation) Immunofixation Electrophoresis, Serum (test code = Immunofixation Electrophoresis, Serum) CBC w/ [id number] 10:21:00 Test Item Value Reference Range Comments WBC (test code = WBC) 5.0 10*9/L 4.5- 11.0 10*9/L RBC (test code = RBC) 3.32 10*12/L 4.00- 5.20 10*12/L HGB (test code = HGB) 11.1 g/dL 12.0- 16.0 g/dL HCT (test code = HCT) 34.5 % 36.0- 46.0 % MCV (test code = MCV) 103.7 fL 80.0- 100.0 fL MCH (test code = MCH) 33.4 pg 26.0- 34.0 pg MCHC (test code = MCHC) 32.2 g/dL 31.0- 37.0 g/dL RDW (test code = RDW) 16.3 % 12.0- 15.0 % MPV (test code = MPV) 8.1 fL 7.0- 10.0 fL Platelet (test code = Platelet) 375 10*9/L 150- 440 10*9/L Neutrophil Left Shift (test code = 1+ Not Present Neutrophil Left Shift) Absolute Neutrophils (test code = Absolute 4.5 10*9/L 2.0- 7.5 10*9/L Neutrophils) Absolute Lymphocytes (test code = Absolute 0.3 10*9/L 1.5- 5.0 10*9/L Lymphocytes) Absolute Monocytes (test code = Absolute 0.1 10*9/L 0.2- 0. 8 10*9/L Monocytes) Absolute Eosinophils (test code = Absolute 0.1 10*9/L 0.0- 0.4 10*9/L Eosinophils) Absolute Basophils (test code = Absolute 0.0 10*9/L 0.0- 0. 1 10*9/L Basophils) Large Unstained Cells (test code = Large 1 % 0- 4 % Unstained Cells) Macrocytosis (test code = Macrocytosis) Marked Not Pres ent Anisocytosis (test code = Anisocytosis) Slight Not Pres ent Morphology [id number] 10:21:00 Test Item Value Reference Range Comments Smear Review Comments (test code = Smear Review See Comment Undefined Comments) XR Myeloma [id number] 08:34:35XR Myeloma Survey (01/12/2018 8:27 AM) Impressions Performed At Numerous axial and appendicular lytic lesions, several of the larger of which are described above. 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 The findings of this study werediscussed via telephone with James Gilbert, Clinical Director of BMT by Adriano Ortega at 01/12/2018 10:45 AM. [facility] Narrative Performed At EXAM: XR MYELOMA SURVEY DATE: 01/12/2018 8:27 AM [id number] DICTATED: 01/12/2018 8:34 AM INTERPRETATION LOCATION: [facility] CLINICAL INDICATION: 62 years old Female with hx MM; r/o lytic lesions-C90.00-Multiple myeloma not having achieved remission (CMS-HCC) COMPARISON: CT 07/15/2017 TECHNIQUE: Sixteen radiographs of the skeleton including lateral views of the axial skeleton and AP views of the appendicular skeleton. FINDINGS: Multiple lytic lesions within the calvarium of various sizes measuring up to 4 cm. Multiple lytic lesions noted within the thoracic and lumbar spine, the largest of which is identified on L5 which appears to extend into the pedicle. T12 vertebral plana results in gibbus deformity of the thoracolumbar spine and likely retropulsion of T12 on L1. Several lytic lesions noted within the ribs. Multiple lytic lesions in the axial skeleton, largest measures 2.5 cm left intertrochanteric femur. Corticated C7 spinous process fracture, likely chronic. [facility] Procedure Note Interface, Rad Results In - 01/12/2018 11:19 AM EDT EXAM: XR MYELOMA SURVEY DATE: 01/12/2018 8:27 AM DICTATED: 01/12/2018 8:34 AM INTERPRETATION LOCATION: [facility] CLINICAL INDICATION: 62 years old Female with hx MM; r/o lytic lesions-C90.00-Multiple myeloma not having achieved remission ([facility]-HCC) COMPARISON: CT 07/15/2017 TECHNIQUE: Sixteen radiographs of the skeleton including lateral views of the axial skeleton and AP views of the appendicular skeleton. FINDINGS: Multiple lytic lesions within the calvarium of various sizes measuring up to 4 cm. Multiple lytic lesions noted within the thoracic and lumbar spine, the largest of which is identified on L5 which appears to extend into the pedicle. T12 vertebral plana results in gibbus deformity of the thoracolumbar spine and likely retropulsion of T12 on L1. Several lytic lesions noted within the ribs. Multiple lytic lesions in the axial skeleton, largest measures 2.5 cm left intertrochanteric femur. Corticated C7 spinous process fracture, likely chronic. IMPRESSION: Numerous axial and appendicular lytic lesions, several of the larger of which are described above. T12 vertebralplana with associated gibbus deformity and retropulsion. Chronic C7 spinous process fracture. The findings of this study were discussed via telephone with James Gilbert, Clinical Director of BMT by Adriano Ortega at 01/12/2018 10:45 AM. Performing Organization Address City/State/Zipcode Phone Number [facility] [address] [place], [place] [address]Vgfhohtctx Intravenous Device by Vascular Access [id number] 00:00:00Peripheral Intravenous Device by Vascular Access Team (01/12/2018 4:38 PM) Narrative Performed At Ken Allen RN 01/12/20184:38 PM Order was placed for PIV by Venous Access Team (VAT). Patient was assessed for placement of a PIV. Access was obtained. Blood return noted.Dressing intact and device well secured.Flushed with normal saline.Pt advised to inform RN of any s/s of discomfort at the PIV site. Workup / Procedure Time:15 minutes The primary RN was notified. Thank you, Ken Allen RN Venous Access TeamProtein, [id number] 14:11:00 Test Item Value Reference Range Comments Protein, Total (test code = Protein, Total) 6.6000 g/dL 6.00 00-8.5000 Albumin (test code = Albumin) 3.8000 g/dL 2.9000-4.4000 Globulin (test code = Globulin) 2.8000 g/dL 2.2000-3.9000 A/G Ratio (test code = A/G Ratio) 1.4000 0.7000-1.7000 [id number] 14:11:00 Test Item Value Reference Range Comments IGG (test code = IGG) 651.0000 mg/dL 700.0584-2010.0000 IGA (test code = IGA) 60.0000 mg/dL 87.0000-352.0000 IGM (test code = IGM) 41.0000 mg/dL 26.0000-217.0000 Alpha-1 Globulin (test code 0.3000 g/dL 0.0000-0.4000 = Alpha-1 Globulin) Alpha-2 Globulin (test code 0.9000 g/dL 0.4000-1.0000 = Alpha-2 Globulin) Beta Globulin (test code = 1.0000 g/dL 0.7000-1.3000 Beta Globulin) Gamma Globulin (test code = 0.7000 g/dL 0.4000-1.8000 Gamma Globulin) M-Jose (test code = 0.2000 g/dL 0.0000-0.0000 M-Jose) Immunofixation Interp, Serum Comment Immunofixation shows (test code = Immunofixation IgG monoclonal protein with Interp, Serum) kappa light chain specificity PE Note (test code = PE Comment Protein Note) electrophoresis scan will follow via computer, mail, or physical therapist aide delivery [place] Free Light Chain (test 20.1000 mg/L 3.3000-19.4000 code = [place] Free Light Chain) Lambda Free Light Chain 11.2000 mg/L 5.7000-26.3000 (test code = Lambda Free Light Chain) [place]/Lambda Free Ratio 1.7900 0.2600-1.6500 (test code = [place]/Lambda Free Ratio) [id number] 11:17:00 Test Item Value Reference Range Comments WBC (test code = WBC) 5.6000 4.0000-10.0000 Lymphocytes % (test code = Lymphocytes %) 18.3000 % 22.400 0-43.6000 MID% (test code = MID%) 5.1000 % 1.2000-11.2000 Neutrophils % (test code = Neutrophils %) 76.6000 % 48.900 0-69.9000 Lymphocytes (test code = Lymphocytes) 1.0000 1.2000-3.2 000 MID (test code = MID) 0.3000 0.1000-1.1000 Neutrophils (test code = Neutrophils) 4.3000 1.5000-6.7 000 RBC (test code = RBC) 3.0300 3.7000-4.9000 HGB (test code = HGB) 10.8000 g/dL 11.2000-18.0000 HCT (test code = HCT) 29.1000 % 34.0000-44.0000 MCV (test code = MCV) 96.0000 fL 80.0000-94.0000 MCH (test code = MCH) 35.7000 pg 27.0000-34.0000 MCHC (test code = MCHC) 37.2000 g/dL 31.5000-36.0000 RDW (test code = RDW) 16.0000 11.0000-18.0000 PLT (test code = PLT) 300.0000 140.0000-440.0000 MPV (test code = MPV) 7.2000 fL 6.8000-10.6000 [id number] 11:17:00 Test Item Value Reference Range Comments Creatinine (test code = Creatinine) 0.6000 mg/dL 0.5000-1.200 0 Cr Clearance (Est) (test code = Cr 109.8500 75.0000-115.0 000 Clearance (Est)) Glucose (test code = Glucose) 126.0000 mg/dL 70.0000-118.0000 BUN (test code = BUN) 12.0000 mg/dL 7.0000-22.0000 Sodium (test code = Sodium) 136.0000 mmol/L 128.0000-145.0000 Potassium (test code = Potassium) 2.8000 mmol/L 3.6000-5.1000 Chloride (test code = Chloride) 94.0000 mmol/L 96.0000-108.0000 CO2 (test code = CO2) 33.0000 mmol/L 18.0000-33.0000 Calcium (test code = Calcium) 9.1900 mg/dL 8.0000-10.3000 Alkaline Phosphatase (test code = Alkaline 45.0000 42.00 00-141.0000 Phosphatase) ALT (SGPT) (test code = ALT (SGPT)) 20.0000 10.0000-47.0 000 AST (SGOT) (test code = AST (SGOT)) 11.0000 11.0000-37.0 000 Bilirubin, Total (test code = Bilirubin, 0.9000 mg/dL 0.0000- 1.6000 Total) Albumin (test code = Albumin) 4.3000 g/dL 3.5000-5.5000 Protein, Total (test code = Protein, 6.1000 g/dL 6.4000-8.10 00 Total) eGFR -Vietnamese (test code = eGFR 123.0000 60.0000- 200.0000 -Vietnamese) eGFR Qjf-Mrfectt-Syslqvzm (test code = 102.0000 60.0000-2 00.0000 eGFR Qrg-Lafpqnt-Odftptgm) CT Body Outside Film For Continued [id number] 13:28:07CT Body Outside Film For Continued Care (12/29/2017 1:15 PM) Addenda Addendum by [facility], Admin on 0 12/29/2017 1:28 PM There are no images associated with this order. drs Narrative Performed At These images were imported for continued care purposes only. They will not be interpreted and no charges will apply. [facility] Procedure Note 12/29/2017 1:15 PM EDT These images were imported for continued care purposes only. They will not be interpreted and no charges will apply. Performing Organization Address City/State/Zipcode Phone Number [facility] [address] [facility]. [place], [place] [address]ACZ Outside Film For Continued [id number] 00:00:00MRI Outside Film For Continued Care (12/29/2017 1:16 PM) Narrative Performed At These images were imported for continued care purposes only. They will not be interpreted and no charges will apply. [facility] Performing Organization Address [facility]/State/Zipcode Phone Number [facility] Body Outside Film For Continued [id number] 00:00:00CT Body Outside Film For Continued Care (12/29/2017 1:00 PM) Narrative Performed At These images were imported for continued care purposes only. They will not be interpreted and no charges will apply. [facility] Performing Organization Address [facility] Phone Number [facility] Neuro Outside Film For Continued [id number] 00:00:00MRI Neuro Outside Film For Continued Care (12/29/2017 1:16 PM) Narrative Performed At These images were imported for continued care purposes only. They will not be interpreted and no charges will apply. [facility] Performing Organization Address [facility] Phone Number [facility] Neuro Outside Film For Continued [id number] 00:00:00MRI Neuro Outside Film For Continued Care (12/29/2017 1:16 PM) Narrative Performed At These images were imported for continued care purposes only. They will not be interpreted and no charges will apply. [facility] Performing Organization Address City/State/Zipcode Phone Number [facility]RADCreatinine 2017-12-20 13:13:00 Test Item Value Reference Range Comments Creatinine (test code = Creatinine) 0.7000 mg/dL 0.5000-1.200 0 Cr Clearance (Est) (test code = Cr 97.5400 75.0000-115.0 000 Clearance (Est)) Glucose (test code = Glucose) 115.0000 mg/dL 70.0000-118.0000 BUN (test code = BUN) 10.0000 mg/dL 7.0000-22.0000 Sodium (test code = Sodium) 135.0000 mmol/L 128.0000-145.0000 Potassium (test code = Potassium) 3.0000 mmol/L 3.6000-5.1000 Chloride (test code = Chloride) 95.0000 mmol/L 96.0000-108.0000 CO2 (test code = CO2) 31.0000 mmol/L 18.0000-33.0000 Calcium (test code = Calcium) 9.5300 mg/dL 8.0000-10.3000 Alkaline Phosphatase (test code = Alkaline 46.0000 42.00 00-141.0000 Phosphatase) ALT (SGPT) (test code = ALT (SGPT)) 18.0000 10.0000-47.0 000 AST (SGOT) (test code = AST (SGOT)) 13.0000 11.0000-37.0 000 Bilirubin, Total (test code = Bilirubin, 0.7000 mg/dL 0.0000- 1.6000 Total) Albumin (test code = Albumin) 4.3000 g/dL 3.5000-5.5000 Protein, Total (test code = Protein, 6.2000 g/dL 6.4000-8.10 00 Total) eGFR -Vietnamese (test code = eGFR 103.0000 60.0000- 200.0000 -Vietnamese) eGFR Lgh-Envvtqc-Nqpsyamh (test code = 85.0000 60.0000-2 00.0000 eGFR Quc-Xolbfmr-Tpxhftad) [id number] 13:12:00 Test Item Value Reference Range Comments WBC (test code = WBC) 3.7000 4.0000-10.0000 Lymphocytes % (test code = Lymphocytes %) 27.9000 % 22.400 0-43.6000 MID% (test code = MID%) 10.6000 % 1.2000-11.2000 Neutrophils % (test code = Neutrophils %) 61.5000 % 48.900 0-69.9000 Lymphocytes (test code = Lymphocytes) 1.0000 1.2000-3.2 000 MID (test code = MID) 0.5000 0.1000-1.1000 Neutrophils (test code = Neutrophils) 2.2000 1.5000-6.7 000 RBC (test code = RBC) 3.1900 3.7000-4.9000 HGB (test code = HGB) 10.9000 g/dL 11.2000-18.0000 HCT (test code = HCT) 31.1000 % 34.0000-44.0000 MCV (test code = MCV) 97.6000 fL 80.0000-94.0000 MCH (test code = MCH) 34.4000 pg 27.0000-34.0000 MCHC (test code = MCHC) 35.2000 g/dL 31.5000-36.0000 RDW (test code = RDW) 16.0000 11.0000-18.0000 PLT (test code = PLT) 258.0000 140.0000-440.0000 MPV (test code = MPV) 8.5000 fL 6.8000-10.6000 [id number] 11:37:00 Test Item Value Reference Range Comments WBC (test code = WBC) 4.4000 4.0000-10.0000 Lymphocytes % (test code = Lymphocytes %) 26.6000 % 22.400 0-43.6000 MID% (test code = MID%) 10.3000 % 1.2000-11.2000 Neutrophils % (test code = Neutrophils %) 63.1000 % 48.900 0-69.9000 Lymphocytes (test code = Lymphocytes) 1.1000 1.2000-3.2 000 MID (test code = MID) 0.6000 0.1000-1.1000 Neutrophils (test code = Neutrophils) 2.7000 1.5000-6.7 000 RBC (test code = RBC) 3.0900 3.7000-4.9000 HGB (test code = HGB) 10.5000 g/dL 11.2000-18.0000 HCT (test code = HCT) 29.9000 % 34.0000-44.0000 MCV (test code = MCV) 96.8000 fL 80.0000-94.0000 MCH (test code = MCH) 33.9000 pg 27.0000-34.0000 MCHC (test code = MCHC) 35.0000 g/dL 31.5000-36.0000 RDW (test code = RDW) 17.2000 11.0000-18.0000 PLT (test code = PLT) 281.0000 140.0000-440.0000 MPV (test code = MPV) 7.0000 fL 6.8000-10.6000 [id number] 11:37:00 Test Item Value Reference Range Comments Creatinine (test code = Creatinine) 0.6000 mg/dL 0.5000-1.200 0 Cr Clearance (Est) (test code = Cr 114.9300 75.0000-115.0 000 Clearance (Est)) Glucose (test code = Glucose) 108.0000 mg/dL 70.0000-118.0000 BUN (test code = BUN) 12.0000 mg/dL 7.0000-22.0000 Sodium (test code = Sodium) 139.0000 mmol/L 128.0000-145.0000 Potassium (test code = Potassium) 3.4000 mmol/L 3.6000-5.1000 Chloride (test code = Chloride) 100.0000 mmol/L 96.0000-108.0000 CO2 (test code = CO2) 32.0000 mmol/L 18.0000-33.0000 Calcium (test code = Calcium) 8.9700 mg/dL 8.0000-10.3000 Alkaline Phosphatase (test code = Alkaline 46.0000 42.00 00-141.0000 Phosphatase) ALT (SGPT) (test code = ALT (SGPT)) 29.0000 10.0000-47.0 000 AST (SGOT) (test code = AST (SGOT)) 16.0000 11.0000-37.0 000 Bilirubin, Total (test code = Bilirubin, 0.7000 mg/dL 0.0000- 1.6000 Total) Albumin (test code = Albumin) 4.3000 g/dL 3.5000-5.5000 Protein, Total (test code = Protein, 6.0000 g/dL 6.4000-8.10 00 Total) eGFR -Vietnamese (test code = eGFR 123.0000 60.0000- 200.0000 -Vietnamese) eGFR Hux-Ozmarzi-Geeqhaqc (test code = 102.0000 60.0000-2 00.0000 eGFR Aqy-Swxepku-Dhyspmnm) [id number] 14:34:00 Test Item Value Reference Range Comments WBC (test code = WBC) 5.4000 4.0000-10.0000 Lymphocytes % (test code = Lymphocytes %) 21.0000 % 22.400 0-43.6000 MID% (test code = MID%) 6.1000 % 1.2000-11.2000 Neutrophils % (test code = Neutrophils %) 72.9000 % 48.900 0-69.9000 Lymphocytes (test code = Lymphocytes) 1.1000 1.2000-3.2 000 MID (test code = MID) 0.4000 0.1000-1.1000 Neutrophils (test code = Neutrophils) 3.9000 1.5000-6.7 000 RBC (test code = RBC) 3.1300 3.7000-4.9000 HGB (test code = HGB) 10.4000 g/dL 11.2000-18.0000 HCT (test code = HCT) 30.1000 % 34.0000-44.0000 MCV (test code = MCV) 95.9000 fL 80.0000-94.0000 MCH (test code = MCH) 33.4000 pg 27.0000-34.0000 MCHC (test code = MCHC) 34.8000 g/dL 31.5000-36.0000 RDW (test code = RDW) 16.5000 11.0000-18.0000 PLT (test code = PLT) 181.0000 140.0000-440.0000 MPV (test code = MPV) 10.0000 fL 6.8000-10.6000 [id number] 14:34:00 Test Item Value Reference Range Comments Creatinine (test code = Creatinine) 0.6000 mg/dL 0.5000-1.200 0 Cr Clearance (Est) (test code = Cr 115.6300 75.0000-115.0 000 Clearance (Est)) Glucose (test code = Glucose) 90.0000 mg/dL 70.0000-118.0000 BUN (test code = BUN) 8.0000 mg/dL 7.0000-22.0000 Sodium (test code = Sodium) 137.0000 mmol/L 128.0000-145.0000 Potassium (test code = Potassium) 3.3000 mmol/L 3.6000-5.1000 Chloride (test code = Chloride) 96.0000 mmol/L 96.0000-108.0000 CO2 (test code = CO2) 32.0000 mmol/L 18.0000-33.0000 Calcium (test code = Calcium) 9.4400 mg/dL 8.0000-10.3000 Alkaline Phosphatase (test code = Alkaline 50.0000 42.00 00-141.0000 Phosphatase) ALT (SGPT) (test code = ALT (SGPT)) 62.0000 10.0000-47.0 000 AST (SGOT) (test code = AST (SGOT)) 31.0000 11.0000-37.0 000 Bilirubin, Total (test code = Bilirubin, 0.7000 mg/dL 0.0000- 1.6000 Total) Albumin (test code = Albumin) 4.2000 g/dL 3.5000-5.5000 Protein, Total (test code = Protein, 6.2000 g/dL 6.4000-8.10 00 Total) eGFR -Vietnamese (test code = eGFR 123.0000 60.0000- 200.0000 -Vietnamese) eGFR Mds-Hrfusny-Txmvnioq (test code = 102.0000 60.0000-2 00.0000 eGFR Ram-Ebscaav-Cqatinlm) [id number] 14:47:00 Test Item Value Reference Range Comments Creatinine (test code = Creatinine) 0.7000 mg/dL 0.5000-1.200 0 Cr Clearance (Est) (test code = Cr 98.8700 75.0000-115.0 000 Clearance (Est)) Glucose (test code = Glucose) 92.0000 mg/dL 70.0000-118.0000 BUN (test code = BUN) 11.0000 mg/dL 7.0000-22.0000 Sodium (test code = Sodium) 137.0000 mmol/L 128.0000-145.0000 Potassium (test code = Potassium) 3.3000 mmol/L 3.6000-5.1000 Chloride (test code = Chloride) 96.0000 mmol/L 96.0000-108.0000 CO2 (test code = CO2) 33.0000 mmol/L 18.0000-33.0000 Calcium (test code = Calcium) 9.0800 mg/dL 8.0000-10.3000 Alkaline Phosphatase (test code = Alkaline 48.0000 42.00 00-141.0000 Phosphatase) ALT (SGPT) (test code = ALT (SGPT)) 27.0000 10.0000-47.0 000 AST (SGOT) (test code = AST (SGOT)) 21.0000 11.0000-37.0 000 Bilirubin, Total (test code = Bilirubin, 0.9000 mg/dL 0.0000- 1.6000 Total) Albumin (test code = Albumin) 4.3000 g/dL 3.5000-5.5000 Protein, Total (test code = Protein, 6.5000 g/dL 6.4000-8.10 00 Total) eGFR -Vietnamese (test code = eGFR 103.0000 60.0000- 200.0000 -Vietnamese) eGFR Jvg-Inpnhjx-Nmkzjemk (test code = 85.0000 60.0000-2 00.0000 eGFR Orq-Gnbzwkr-Miaxrbaq) [id number] 14:42:00 Test Item Value Reference Range Comments WBC (test code = WBC) 5.8000 4.0000-10.0000 Lymphocytes % (test code = Lymphocytes %) 21.2000 % 22.400 0-43.6000 MID% (test code = MID%) 7.3000 % 1.1999-11.1999 Neutrophils % (test code = Neutrophils %) 71.5000 % 48.900 0-69.9000 Lymphocytes (test code = Lymphocytes) 1.2000 1.2000-3.2 000 MID (test code = MID) 0.4000 0.1000-1.1000 Neutrophils (test code = Neutrophils) 4.2000 1.5000-6.7 000 RBC (test code = RBC) 3.2600 3.7000-4.9000 HGB (test code = HGB) 11.3000 g/dL 11.2000-18.0000 HCT (test code = HCT) 30.9000 % 34.0000-44.0000 MCV (test code = MCV) 94.6000 fL 80.0000-94.0000 MCH (test code = MCH) 34.6000 pg 27.0000-34.0000 MCHC (test code = MCHC) 36.5000 g/dL 31.5000-36.0000 RDW (test code = RDW) 16.0000 11.0000-18.0000 PLT (test code = PLT) 225.0000 140.0000-440.0000 MPV (test code = MPV) 8.2000 fL 6.8000-10.6000 [id number] 10:54:00 Test Item Value Reference Range Comments WBC (test code = WBC) 4.3000 4.0000-10.0000 Lymphocytes % (test code = Lymphocytes %) 23.1000 % 22.400 0-43.6000 MID% (test code = MID%) 9.7000 % .1999-11.1999 Neutrophils % (test code = Neutrophils %) 67.2000 % 48.900 0-69.9000 Lymphocytes (test code = Lymphocytes) 1.0000 1.2000-3.2 000 MID (test code = MID) 0.4000 0.1000-1.1000 Neutrophils (test code = Neutrophils) 2.9000 1.5000-6.7 000 RBC (test code = RBC) 3.1300 3.7000-4.9000 HGB (test code = HGB) 10.7000 g/dL 11.2000-18.0000 HCT (test code = HCT) 30.6000 % 34.0000-44.0000 MCV (test code = MCV) 97.7000 fL 80.0000-94.0000 MCH (test code = MCH) 34.2000 pg 27.0000-34.0000 MCHC (test code = MCHC) 35.0000 g/dL 31.5000-36.0000 RDW (test code = RDW) 16.7000 11.0000-18.0000 PLT (test code = PLT) 337.0000 140.0000-440.0000 MPV (test code = MPV) 7.8000 fL 6.8000-10.6000 [id number] 10:54:00 Test Item Value Reference Range Comments Creatinine (test code = Creatinine) 0.6000 mg/dL 0.5000-1.200 0 Cr Clearance (Est) (test code = Cr 117.1800 75.0000-115.0 000 Clearance (Est)) Glucose (test code = Glucose) 100.0000 mg/dL 70.0000-118.0000 BUN (test code = BUN) 9.0000 mg/dL 7.0000-22.0000 Sodium (test code = Sodium) 138.0000 mmol/L 128.0000-145.0000 Potassium (test code = Potassium) 3.0000 mmol/L 3.6000-5.1000 Chloride (test code = Chloride) 98.0000 mmol/L 96.0000-108.0000 CO2 (test code = CO2) 28.0000 mmol/L 18.0000-33.0000 Calcium (test code = Calcium) 9.7600 mg/dL 8.0000-10.3000 Alkaline Phosphatase (test code = Alkaline 46.0000 42.00 00-141.0000 Phosphatase) ALT (SGPT) (test code = ALT (SGPT)) 14.0000 10.0000-47.0 000 AST (SGOT) (test code = AST (SGOT)) 11.0000 11.0000-37.0 000 Bilirubin, Total (test code = Bilirubin, 0.8000 mg/dL 0.0000- 1.6000 Total) Albumin (test code = Albumin) 4.2000 g/dL 3.5000-5.5000 Protein, Total (test code = Protein, 6.2000 g/dL 6.4000-8.10 00 Total) eGFR -Vietnamese (test code = eGFR 123.0000 60.0000- 200.0000 -Vietnamese) eGFR Gme-Zzgwypn-Eslpgsgm (test code = 102.0000 60.0000-2 00.0000 eGFR Cbr-Zbqyusl-Alqrthsz) [id number] 14:05:00 Test Item Value Reference Range Comments WBC (test code = WBC) 6.3000 4.0000-10.0000 Lymphocytes % (test code = Lymphocytes %) 18.2000 % 22.400 0-43.6000 MID% (test code = MID%) 5.1000 % 1.2000-11.2000 Neutrophils % (test code = Neutrophils %) 76.7000 % 48.900 0-69.9000 Lymphocytes (test code = Lymphocytes) 1.1000 1.2000-3.2 000 MID (test code = MID) 0.4000 0.1000-1.1000 Neutrophils (test code = Neutrophils) 4.8000 1.5000-6.7 000 RBC (test code = RBC) 3.1500 3.7000-4.9000 HGB (test code = HGB) 11.2000 g/dL 11.2000-18.0000 HCT (test code = HCT) 30.1000 % 34.0000-44.0000 MCV (test code = MCV) 95.5000 fL 80.0000-94.0000 MCH (test code = MCH) 35.6000 pg 27.0000-34.0000 MCHC (test code = MCHC) 37.3000 g/dL 31.5000-36.0000 RDW (test code = RDW) 15.7000 11.0000-18.0000 PLT (test code = PLT) 196.0000 140.0000-440.0000 MPV (test code = MPV) 9.3000 fL 6.8000-10.6000 [id number] 14:05:00 Test Item Value Reference Range Comments Creatinine (test code = Creatinine) 0.7000 mg/dL 0.5000-1.200 0 Cr Clearance (Est) (test code = Cr 102.3800 75.0000-115.0 000 Clearance (Est)) Glucose (test code = Glucose) 104.0000 mg/dL 70.0000-118.0000 BUN (test code = BUN) 14.0000 mg/dL 7.0000-22.0000 Sodium (test code = Sodium) 138.0000 mmol/L 128.0000-145.0000 Potassium (test code = Potassium) 3.0000 mmol/L 3.6000-5.1000 Chloride (test code = Chloride) 96.0000 mmol/L 96.0000-108.0000 CO2 (test code = CO2) 30.0000 mmol/L 18.0000-33.0000 Calcium (test code = Calcium) 9.3700 mg/dL 8.0000-10.3000 Alkaline Phosphatase (test code = Alkaline 51.0000 42.00 00-141.0000 Phosphatase) ALT (SGPT) (test code = ALT (SGPT)) 19.0000 10.0000-47.0 000 AST (SGOT) (test code = AST (SGOT)) 18.0000 11.0000-37.0 000 Bilirubin, Total (test code = Bilirubin, 0.6000 mg/dL 0.0000- 1.6000 Total) Albumin (test code = Albumin) 4.4000 g/dL 3.5000-5.5000 Protein, Total (test code = Protein, 6.6000 g/dL 6.4000-8.10 00 Total) eGFR -Vietnamese (test code = eGFR 103.0000 60.0000- 200.0000 -Vietnamese) eGFR Rqm-Djxjbdl-Cvcmhwqb (test code = 85.0000 60.0000-2 00.0000 eGFR Jpi-Gormtbw-Eilgtjws) [id number] 13:02:00 Test Item Value Reference Range Comments WBC (test code = WBC) 4.3000 4.0000-10.0000 Lymphocytes % (test code = Lymphocytes %) 27.0000 % 22.400 0-43.6000 MID% (test code = MID%) 6.2000 % 1.2000-11.2000 Neutrophils % (test code = Neutrophils %) 66.8000 % 48.900 0-69.9000 Lymphocytes (test code = Lymphocytes) 1.1000 1.2000-3.2 000 MID (test code = MID) 0.3000 0.1000-1.1000 Neutrophils (test code = Neutrophils) 2.9000 1.5000-6.7 000 RBC (test code = RBC) 3.0700 3.7000-4.9000 HGB (test code = HGB) 10.1000 g/dL 11.2000-18.0000 HCT (test code = HCT) 29.4000 % 34.0000-44.0000 MCV (test code = MCV) 95.5000 fL 80.0000-94.0000 MCH (test code = MCH) 32.9000 pg 27.0000-34.0000 MCHC (test code = MCHC) 34.4000 g/dL 31.5000-36.0000 RDW (test code = RDW) 15.6000 11.0000-18.0000 PLT (test code = PLT) 235.0000 140.0000-440.0000 MPV (test code = MPV) 9.1000 fL 6.8000-10.6000 [id number] 15:15:00 Test Item Value Reference Range Comments WBC (test code = WBC) 9.6000 4.0000-10.0000 Lymphocytes % (test code = Lymphocytes %) 11.6000 % 22.400 0-43.6000 MID% (test code = MID%) 5.3000 % 1.2000-11.2000 Neutrophils % (test code = Neutrophils %) 83.1000 % 48.900 0-69.9000 Lymphocytes (test code = Lymphocytes) 1.1000 1.2000-3.2 000 MID (test code = MID) 0.5000 0.1000-1.1000 Neutrophils (test code = Neutrophils) 8.0000 1.5000-6.7 000 RBC (test code = RBC) 3.1700 3.7000-4.9000 HGB (test code = HGB) 10.7000 g/dL 11.2000-18.0000 HCT (test code = HCT) 30.6000 % 34.0000-44.0000 MCV (test code = MCV) 96.5000 fL 80.0000-94.0000 MCH (test code = MCH) 33.8000 pg 27.0000-34.0000 MCHC (test code = MCHC) 35.0000 g/dL 31.5000-36.0000 RDW (test code = RDW) 15.9000 11.0000-18.0000 PLT (test code = PLT) 306.0000 140.0000-440.0000 MPV (test code = MPV) 8.1000 fL 6.8000-10.6000 [id number] 15:15:00 Test Item Value Reference Range Comments Creatinine (test code = Creatinine) 0.6000 mg/dL 0.5000-1.200 0 Cr Clearance (Est) (test code = Cr 121.8400 75.0000-115.0 000 Clearance (Est)) Glucose (test code = Glucose) 118.0000 mg/dL 70.0000-118.0000 BUN (test code = BUN) 10.0000 mg/dL 7.0000-22.0000 Sodium (test code = Sodium) 140.0000 mmol/L 128.0000-145.0000 Potassium (test code = Potassium) 3.3000 mmol/L 3.6000-5.1000 Chloride (test code = Chloride) 97.0000 mmol/L 96.0000-108.0000 CO2 (test code = CO2) 31.0000 mmol/L 18.0000-33.0000 Calcium (test code = Calcium) 9.4100 mg/dL 8.0000-10.3000 Alkaline Phosphatase (test code = Alkaline 46.0000 42.00 00-141.0000 Phosphatase) ALT (SGPT) (test code = ALT (SGPT)) 11.0000 10.0000-47.0 000 AST (SGOT) (test code = AST (SGOT)) 10.0000 11.0000-37.0 000 Bilirubin, Total (test code = Bilirubin, 0.5000 mg/dL 0.0000- 1.6000 Total) Albumin (test code = Albumin) 4.3000 g/dL 3.5000-5.5000 Protein, Total (test code = Protein, 6.3000 g/dL 6.4000-8.10 00 Total) eGFR -Vietnamese (test code = eGFR 123.0000 60.0000- 200.0000 -Vietnamese) eGFR Pue-Erpepwh-Awpptozd (test code = 102.0000 60.0000-2 00.0000 eGFR Pux-Zrdmuvp-Jkhirogt) Protein, [id number] 13:32:00 Test Item Value Reference Range Comments Protein, Total (test code = Protein, Total) 6.4000 g/dL 6.00 00-8.5000 Albumin (test code = Albumin) 3.8000 g/dL 2.9000-4.4000 Globulin (test code = Globulin) 2.6000 g/dL 2.2000-3.9000 A/G Ratio (test code = A/G Ratio) 1.5000 0.7000-1.7000 [id number] 13:32:00 Test Item Value Reference Range Comments IGG (test code = IGG) 740.0000 mg/dL 700.7229-1531.0000 IGA (test code = IGA) 71.0000 mg/dL 87.0000-352.0000 IGM (test code = IGM) 53.0000 mg/dL 26.0000-217.0000 Alpha-1 Globulin (test code 0.2000 g/dL 0.0000-0.4000 = Alpha-1 Globulin) Alpha-2 Globulin (test code 0.7000 g/dL 0.4000-1.0000 = Alpha-2 Globulin) Beta Globulin (test code = 1.0000 g/dL 0.7000-1.3000 Beta Globulin) Gamma Globulin (test code = 0.7000 g/dL 0.4000-1.8000 Gamma Globulin) M-Jose (test code = 0.4000 g/dL 0.0000-0.0000 M-Jose) Immunofixation Interp, Serum Comment Immunofixation shows (test code = Immunofixation IgG monoclonal protein with Interp, Serum) kappa light chain specificity PE Note (test code = PE Comment Protein Note) electrophoresis scan will follow via computer, mail, or physical therapist aide delivery [place] Free Light Chain (test 38.4000 mg/L 3.3000-19.4000 code = [place] Free Light Chain) Lambda Free Light Chain 9.8000 mg/L 5.7000-26.3000 (test code = Lambda Free Light Chain) [place]/Lambda Free Ratio 3.9200 0.2600-1.6500 (test code = [place]/Lambda Free Ratio) Beta-2 Microglobulin (test 1.3000 mg/L 0.6000-2.4000 code = Beta-2 Microglobulin) [facility] [id number] 13:32:00 Test Item Value Reference Range Comments [facility] Comments (test code = DUP Duplicate procedure [facility] Comments) ordered. TEST: [id number] Protein Electro.,S [id number] 11:14:00 Test Item Value Reference Range Comments WBC (test code = WBC) 6.0000 4.0000-10.0000 Lymphocytes % (test code = Lymphocytes %) 20.1000 % 22.400 0-43.6000 MID% (test code = MID%) 7.2000 % 1.2000-11.2000 Neutrophils % (test code = Neutrophils %) 72.7000 % 48.900 0-69.9000 Lymphocytes (test code = Lymphocytes) 1.2000 1.2000-3.2 000 MID (test code = MID) 0.5000 0.1000-1.1000 Neutrophils (test code = Neutrophils) 4.3000 1.5000-6.7 000 RBC (test code = RBC) 3.4100 3.7000-4.9000 HGB (test code = HGB) 11.1000 g/dL 11.2000-18.0000 HCT (test code = HCT) 32.7000 % 34.0000-44.0000 MCV (test code = MCV) 95.9000 fL 80.0000-94.0000 MCH (test code = MCH) 32.5000 pg 27.0000-34.0000 MCHC (test code = MCHC) 33.8000 g/dL 31.5000-36.0000 RDW (test code = RDW) 15.8000 11.0000-18.0000 PLT (test code = PLT) 272.0000 140.0000-440.0000 MPV (test code = MPV) 8.1000 fL 6.8000-10.6000 [id number] 11:14:00 Test Item Value Reference Range Comments Creatinine (test code = Creatinine) 0.6000 mg/dL 0.5000-1.200 0 Cr Clearance (Est) (test code = Cr 121.7000 75.0000-115.0 000 Clearance (Est)) Glucose (test code = Glucose) 132.0000 mg/dL 70.0000-118.0000 BUN (test code = BUN) 9.0000 mg/dL 7.0000-22.0000 Sodium (test code = Sodium) 138.0000 mmol/L 128.0000-145.0000 Potassium (test code = Potassium) 3.3000 mmol/L 3.6000-5.1000 Chloride (test code = Chloride) 98.0000 mmol/L 96.0000-108.0000 CO2 (test code = CO2) 28.0000 mmol/L 18.0000-33.0000 Calcium (test code = Calcium) 8.7800 mg/dL 8.0000-10.3000 Alkaline Phosphatase (test code = Alkaline 55.0000 42.00 00-141.0000 Phosphatase) ALT (SGPT) (test code = ALT (SGPT)) 12.0000 10.0000-47.0 000 AST (SGOT) (test code = AST (SGOT)) 12.0000 11.0000-37.0 000 Bilirubin, Total (test code = Bilirubin, 0.7000 mg/dL 0.0000- 1.6000 Total) Albumin (test code = Albumin) 4.3000 g/dL 3.5000-5.5000 Protein, Total (test code = Protein, 6.5000 g/dL 6.4000-8.10 00 Total) eGFR -Vietnamese (test code = eGFR 123.0000 60.0000- 200.0000 -Vietnamese) eGFR Net-Hlyphxd-Ayrbqqfv (test code = 102.0000 60.0000-2 00.0000 eGFR Xnk-Mfvvsyy-Vwheryit) [id number] 14:28:00 Test Item Value Reference Range Comments WBC (test code = WBC) 3.9000 4.0000-10.0000 Lymphocytes % (test code = Lymphocytes %) 31.2000 % 22.400 0-43.6000 MID% (test code = MID%) 12.2000 % 1.2000-11.2000 Neutrophils % (test code = Neutrophils %) 56.6000 % 48.900 0-69.9000 Lymphocytes (test code = Lymphocytes) 1.2000 1.2000-3.2 000 MID (test code = MID) 0.5000 0.1000-1.1000 Neutrophils (test code = Neutrophils) 2.1999 1.5000-6.7 000 RBC (test code = RBC) 3.2500 3.7000-4.9000 HGB (test code = HGB) 11.7000 g/dL 11.2000-18.0000 HCT (test code = HCT) 31.5000 % 34.0000-44.0000 MCV (test code = MCV) 96.8000 fL 80.0000-94.0000 MCH (test code = MCH) 36.0000 pg 27.0000-34.0000 MCHC (test code = MCHC) 37.1000 g/dL 31.5000-36.0000 RDW (test code = RDW) 16.0000 11.0000-18.0000 PLT (test code = PLT) 171.0000 140.0000-440.0000 MPV (test code = MPV) 9.4000 fL 6.8000-10.6000 [id number] 14:28:00 Test Item Value Reference Range Comments Creatinine (test code = Creatinine) 0.9000 mg/dL 0.5000-1.200 0 Cr Clearance (Est) (test code = Cr 80.9400 75.0000-115.0 000 Clearance (Est)) Glucose (test code = Glucose) 118.0000 mg/dL 70.0000-118.0000 BUN (test code = BUN) 12.0000 mg/dL 7.0000-22.0000 Sodium (test code = Sodium) 138.0000 mmol/L 128.0000-145.0000 Potassium (test code = Potassium) 3.3000 mmol/L 3.6000-5.1000 Chloride (test code = Chloride) 98.0000 mmol/L 96.0000-108.0000 CO2 (test code = CO2) 30.0000 mmol/L 18.0000-33.0000 Calcium (test code = Calcium) 9.8800 mg/dL 8.0000-10.3000 Alkaline Phosphatase (test code = Alkaline 63.0000 42.00 00-141.0000 Phosphatase) ALT (SGPT) (test code = ALT (SGPT)) 20.0000 10.0000-47.0 000 AST (SGOT) (test code = AST (SGOT)) 22.0000 11.0000-37.0 000 Bilirubin, Total (test code = Bilirubin, 0.6000 mg/dL 0.0000- 1.6000 Total) Albumin (test code = Albumin) 4.5000 g/dL 3.5000-5.5000 Protein, Total (test code = Protein, 6.6000 g/dL 6.4000-8.10 00 Total) eGFR -Vietnamese (test code = eGFR 77.0000 60.0000- 200.0000 -Vietnamese) eGFR Tfx-Niphkig-Bejhsevt (test code = 64.0000 60.0000-2 00.0000 eGFR Uha-Kdejyur-Wuappoaw) [id number] 10:50:00 Test Item Value Reference Range Comments WBC (test code = WBC) 3.7000 4.0000-10.0000 Lymphocytes % (test code = Lymphocytes %) 34.7000 % 22.400 0-43.6000 MID% (test code = MID%) 8.4000 % 1.2000-11.2000 Neutrophils % (test code = Neutrophils %) 56.9000 % 48.900 0-69.9000 Lymphocytes (test code = Lymphocytes) 1.3000 1.2000-3.2 000 MID (test code = MID) 0.3000 0.1000-1.1000 Neutrophils (test code = Neutrophils) 2.1000 1.5000-6.7 000 RBC (test code = RBC) 2.9900 3.7000-4.9000 HGB (test code = HGB) 10.6000 g/dL 11.2000-18.0000 HCT (test code = HCT) 28.5000 % 34.0000-44.0000 MCV (test code = MCV) 95.3000 fL 80.0000-94.0000 MCH (test code = MCH) 35.6000 pg 27.0000-34.0000 MCHC (test code = MCHC) 37.3000 g/dL 31.5000-36.0000 RDW (test code = RDW) 15.1000 11.0000-18.0000 PLT (test code = PLT) 232.0000 140.0000-440.0000 MPV (test code = MPV) 7.9000 fL 6.8000-10.6000 [id number] 10:50:00 Test Item Value Reference Range Comments Creatinine (test code = Creatinine) 0.7000 mg/dL 0.5000-1.200 0 Cr Clearance (Est) (test code = Cr 105.5200 75.0000-115.0 000 Clearance (Est)) Glucose (test code = Glucose) 88.0000 mg/dL 70.0000-118.0000 BUN (test code = BUN) 9.0000 mg/dL 7.0000-22.0000 Sodium (test code = Sodium) 142.0000 mmol/L 128.0000-145.0000 Potassium (test code = Potassium) 3.5000 mmol/L 3.6000-5.1000 Chloride (test code = Chloride) 104.0000 mmol/L 96.0000-108.0000 CO2 (test code = CO2) 28.0000 mmol/L 18.0000-33.0000 Calcium (test code = Calcium) 8.6800 mg/dL 8.0000-10.3000 Alkaline Phosphatase (test code = Alkaline 58.0000 42.00 00-141.0000 Phosphatase) ALT (SGPT) (test code = ALT (SGPT)) 12.0000 10.0000-47.0 000 AST (SGOT) (test code = AST (SGOT)) 13.0000 11.0000-37.0 000 Bilirubin, Total (test code = Bilirubin, 0.5000 mg/dL 0.0000- 1.6000 Total) Albumin (test code = Albumin) 4.3000 g/dL 3.5000-5.5000 Protein, Total (test code = Protein, 6.5000 g/dL 6.4000-8.10 00 Total) eGFR -Vietnamese (test code = eGFR 103.0000 60.0000- 200.0000 -Vietnamese) eGFR Evk-Wmzdhho-Tjocycmy (test code = 85.0000 60.0000-2 00.0000 eGFR Mbh-Stowpxp-Xjpqbeop) Protein, [id number] 14:30:00 Test Item Value Reference Range Comments Protein, Total (test code = Protein, Total) 6.6000 g/dL 6.00 00-8.5000 Albumin (test code = Albumin) 3.8000 g/dL 2.9000-4.4000 Globulin (test code = Globulin) 2.8000 g/dL 2.2000-3.9000 A/G Ratio (test code = A/G Ratio) 1.4000 0.7000-1.7000 [id number] 14:30:00 Test Item Value Reference Range Comments IGG (test code = IGG) 862.0000 mg/dL 700.5692-9631.0000 IGA (test code = IGA) 65.0000 mg/dL 87.0000-352.0000 IGM (test code = IGM) 63.0000 mg/dL 26.0000-217.0000 Alpha-1 Globulin (test code 0.2000 g/dL 0.0000-0.4000 = Alpha-1 Globulin) Alpha-2 Globulin (test code 0.8000 g/dL 0.4000-1.0000 = Alpha-2 Globulin) Beta Globulin (test code = 1.0000 g/dL 0.7000-1.3000 Beta Globulin) Gamma Globulin (test code = 0.9000 g/dL 0.4000-1.8000 Gamma Globulin) M-Jose (test code = 0.5000 g/dL 0.0000-0.0000 M-Jose) Immunofixation Interp, Serum Comment Immunofixation shows (test code = Immunofixation IgG monoclonal protein with Interp, Serum) kappa light chain specificity PE Note (test code = PE Comment Protein Note) electrophoresis scan will follow via computer, mail, or physical therapist aide delivery [place] Free Light Chain (test 65.4000 mg/L 3.3000-19.4000 code = [place] Free Light Chain) Lambda Free Light Chain 13.1000 mg/L 5.7000-26.3000 (test code = Lambda Free Light Chain) [place]/Lambda Free Ratio 4.9900 0.2600-1.6500 (test code = [place]/Lambda Free Ratio) Beta-2 Microglobulin (test 1.5000 mg/L 0.6000-2.4000 code = Beta-2 Microglobulin) [facility] [id number] 14:30:00 Test Item Value Reference Range Comments [facility] Comments (test code = DUP Duplicate procedure [facility] Comments) ordered. TEST: [id number] Protein Electro.,S [id number] 10:53:00 Test Item Value Reference Range Comments WBC (test code = WBC) 5.6000 4.0000-10.0000 Lymphocytes % (test code = Lymphocytes %) 21.2000 % 22.400 0-43.6000 MID% (test code = MID%) 8.3000 % 1.2000-11.2000 Neutrophils % (test code = Neutrophils %) 70.5000 % 48.900 0-69.9000 Lymphocytes (test code = Lymphocytes) 1.2000 1.2000-3.2 000 MID (test code = MID) 0.4000 0.1000-1.1000 Neutrophils (test code = Neutrophils) 4.0000 1.5000-6.7 000 RBC (test code = RBC) 3.2400 3.7000-4.9000 HGB (test code = HGB) 10.7000 g/dL 11.2000-18.0000 HCT (test code = HCT) 31.5000 % 34.0000-44.0000 MCV (test code = MCV) 97.1000 fL 80.0000-94.0000 MCH (test code = MCH) 32.9000 pg 27.0000-34.0000 MCHC (test code = MCHC) 33.9000 g/dL 31.5000-36.0000 RDW (test code = RDW) 15.6000 11.0000-18.0000 PLT (test code = PLT) 310.0000 140.0000-440.0000 MPV (test code = MPV) 7.4000 fL 6.8000-10.6000 [id number] 10:53:00 Test Item Value Reference Range Comments Creatinine (test code = Creatinine) 0.6000 mg/dL 0.5000-1.200 0 Cr Clearance (Est) (test code = Cr 124.5200 75.0000-115.0 000 Clearance (Est)) Glucose (test code = Glucose) 95.0000 mg/dL 70.0000-118.0000 BUN (test code = BUN) 8.0000 mg/dL 7.0000-22.0000 Sodium (test code = Sodium) 142.0000 mmol/L 128.0000-145.0000 Potassium (test code = Potassium) 3.4000 mmol/L 3.6000-5.1000 Chloride (test code = Chloride) 100.0000 mmol/L 96.0000-108.0000 CO2 (test code = CO2) 31.0000 mmol/L 18.0000-33.0000 Calcium (test code = Calcium) 8.6400 mg/dL 8.0000-10.3000 Alkaline Phosphatase (test code = Alkaline 60.0000 42.00 00-141.0000 Phosphatase) ALT (SGPT) (test code = ALT (SGPT)) 12.0000 10.0000-47.0 000 AST (SGOT) (test code = AST (SGOT)) 14.0000 11.0000-37.0 000 Bilirubin, Total (test code = Bilirubin, 0.7000 mg/dL 0.0000- 1.6000 Total) Albumin (test code = Albumin) 4.3000 g/dL 3.5000-5.5000 Protein, Total (test code = Protein, 6.5000 g/dL 6.4000-8.10 00 Total) eGFR -Vietnamese (test code = eGFR 123.0000 60.0000- 200.0000 -Vietnamese) eGFR Isa-Ianmqtq-Ysowbmmk (test code = 102.0000 60.0000-2 00.0000 eGFR Khl-Bvsdsik-Vxcwrsgw) [id number] 13:11:00 Test Item Value Reference Range Comments WBC (test code = WBC) 5.7000 4.0000-10.0000 Lymphocytes % (test code = Lymphocytes %) 24.1000 % 22.400 0-43.6000 MID% (test code = MID%) 6.4000 % 1.2000-11.2000 Neutrophils % (test code = Neutrophils %) 69.5000 % 48.900 0-69.9000 Lymphocytes (test code = Lymphocytes) 1.3000 1.2000-3.2 000 MID (test code = MID) 0.4000 0.1000-1.1000 Neutrophils (test code = Neutrophils) 4.0000 1.5000-6.7 000 RBC (test code = RBC) 3.3500 3.7000-4.9000 HGB (test code = HGB) 11.4000 g/dL 11.2000-18.0000 HCT (test code = HCT) 33.3000 % 34.0000-44.0000 MCV (test code = MCV) 99.5000 fL 80.0000-94.0000 MCH (test code = MCH) 34.0000 pg 27.0000-34.0000 MCHC (test code = MCHC) 34.2000 g/dL 31.5000-36.0000 RDW (test code = RDW) 15.8000 11.0000-18.0000 PLT (test code = PLT) 188.0000 140.0000-440.0000 MPV (test code = MPV) 9.6000 fL 6.8000-10.6000 [id number] 10:39:00 Test Item Value Reference Range Comments Creatinine (test code = Creatinine) 0.6000 mg/dL 0.5000-1.200 0 Cr Clearance (Est) (test code = Cr 125.0800 75.0000-115.0 000 Clearance (Est)) Glucose (test code = Glucose) 87.0000 mg/dL 70.0000-118.0000 BUN (test code = BUN) 9.0000 mg/dL 7.0000-22.0000 Sodium (test code = Sodium) 142.0000 mmol/L 128.0000-145.0000 Potassium (test code = Potassium) 4.2000 mmol/L 3.6000-5.1000 Chloride (test code = Chloride) 101.0000 mmol/L 96.0000-108.0000 CO2 (test code = CO2) 30.0000 mmol/L 18.0000-33.0000 Calcium (test code = Calcium) 10.1900 mg/dL 8.0000-10.3000 Alkaline Phosphatase (test code = Alkaline 69.0000 42.00 00-141.0000 Phosphatase) ALT (SGPT) (test code = ALT (SGPT)) 12.0000 10.0000-47.0 000 AST (SGOT) (test code = AST (SGOT)) 14.0000 11.0000-37.0 000 Bilirubin, Total (test code = Bilirubin, 0.4000 mg/dL 0.0000- 1.6000 Total) Albumin (test code = Albumin) 4.3000 g/dL 3.5000-5.5000 Protein, Total (test code = Protein, 6.6000 g/dL 6.4000-8.10 00 Total) eGFR -Vietnamese (test code = eGFR 123.0000 60.0000- 200.0000 -Vietnamese) eGFR Agg-Mvfbddv-Sruchmpr (test code = 102.0000 60.0000-2 00.0000 eGFR Pah-Tmqssrb-Fskgnfui) [id number] 10:10:00 Test Item Value Reference Range Comments WBC (test code = WBC) 4.7000 4.0000-10.0000 Lymphocytes % (test code = Lymphocytes %) 41.3000 % 22.400 0-43.6000 MID% (test code = MID%) 10.0000 % 1.2000-11.2000 Neutrophils % (test code = Neutrophils %) 48.7000 % 48.900 0-69.9000 Lymphocytes (test code = Lymphocytes) 1.9000 1.2000-3.2 000 MID (test code = MID) 0.5000 0.1000-1.1000 Neutrophils (test code = Neutrophils) 2.3000 1.5000-6.7 000 RBC (test code = RBC) 3.1900 3.7000-4.9000 HGB (test code = HGB) 10.6000 g/dL 11.2000-18.0000 HCT (test code = HCT) 30.8000 % 34.0000-44.0000 MCV (test code = MCV) 96.5000 fL 80.0000-94.0000 MCH (test code = MCH) 33.2000 pg 27.0000-34.0000 MCHC (test code = MCHC) 34.4000 g/dL 31.5000-36.0000 RDW (test code = RDW) 15.2000 11.0000-18.0000 PLT (test code = PLT) 248.0000 140.0000-440.0000 MPV (test code = MPV) 7.9000 fL 6.8000-10.6000 Protein, [id number] 14:52:00 Test Item Value Reference Range Comments Protein, Total (test code = Protein, Total) 7.2000 g/dL 6.00 00-8.5000 Albumin (test code = Albumin) 3.8000 g/dL 2.9000-4.4000 Globulin (test code = Globulin) 3.4000 g/dL 2.2000-3.9000 A/G Ratio (test code = A/G Ratio) 1.2000 0.7000-1.7000 [id number] 14:52:00 Test Item Value Reference Range Comments IGG (test code = IGG) 1195.0000 mg/dL 700.2814-2382.0000 IGA (test code = IGA) 93.0000 mg/dL 87.0000-352.0000 IGM (test code = IGM) 76.0000 mg/dL 26.0000-217.0000 Alpha-1 Globulin (test code 0.3000 g/dL 0.0000-0.4000 = Alpha-1 Globulin) Alpha-2 Globulin (test code 0.9000 g/dL 0.4000-1.0000 = Alpha-2 Globulin) Beta Globulin (test code = 1.1000 g/dL 0.7000-1.3000 Beta Globulin) Gamma Globulin (test code = 1.2000 g/dL 0.4000-1.8000 Gamma Globulin) M-Jose (test code = 0.9000 g/dL 0.0000-0.0000 M-Jose) Immunofixation Interp, Serum Comment Immunofixation shows (test code = Immunofixation IgG monoclonal protein with Interp, Serum) kappa light chain specificity PE Note (test code = PE Comment Protein Note) electrophoresis scan will follow via computer, mail, or physical therapist aide delivery [place] Free Light Chain (test 91.9000 mg/L 3.3000-19.4000 code = [place] Free Light Chain) Lambda Free Light Chain 11.7000 mg/L 5.7000-26.3000 (test code = Lambda Free Light Chain) [place]/Lambda Free Ratio 7.8500 0.2600-1.6500 (test code = [place]/Lambda Free Ratio) Beta-2 Microglobulin (test 1.5000 mg/L 0.6000-2.4000 code = Beta-2 Microglobulin) [facility] [id number] 14:52:00 Test Item Value Reference Range Comments [facility] Comments (test code = DUP Duplicate procedure [facility] Comments) ordered. TEST: [id number] Protein Electro.,S [id number] 08:45:00 Test Item Value Reference Range Comments WBC (test code = WBC) 7.1000 4.0000-10.0000 Lymphocytes % (test code = Lymphocytes %) 29.2000 % 22.400 0-43.6000 MID% (test code = MID%) 9.8000 % 1.2000-11.2000 Neutrophils % (test code = Neutrophils %) 61.0000 % 48.900 0-69.9000 Lymphocytes (test code = Lymphocytes) 2.0000 1.2000-3.2 000 MID (test code = MID) 0.8000 0.1000-1.1000 Neutrophils (test code = Neutrophils) 4.3000 1.5000-6.7 000 RBC (test code = RBC) 3.0000 3.7000-4.9000 HGB (test code = HGB) 10.3000 g/dL 11.2000-18.0000 HCT (test code = HCT) 28.8000 % 34.0000-44.0000 MCV (test code = MCV) 95.9000 fL 80.0000-94.0000 MCH (test code = MCH) 34.4000 pg 27.0000-34.0000 MCHC (test code = MCHC) 35.8000 g/dL 31.5000-36.0000 RDW (test code = RDW) 15.1000 11.0000-18.0000 PLT (test code = PLT) 307.0000 140.0000-440.0000 MPV (test code = MPV) 7.5000 fL 6.8000-10.6000 [id number] 08:45:00 Test Item Value Reference Range Comments Creatinine (test code = Creatinine) 0.5000 mg/dL 0.5000-1.200 0 Cr Clearance (Est) (test code = Cr 150.7700 75.0000-115.0 000 Clearance (Est)) Glucose (test code = Glucose) 85.0000 mg/dL 70.0000-118.0000 BUN (test code = BUN) 16.0000 mg/dL 7.0000-22.0000 Sodium (test code = Sodium) 143.0000 mmol/L 128.0000-145.0000 Potassium (test code = Potassium) 3.5000 mmol/L 3.6000-5.1000 Chloride (test code = Chloride) 99.0000 mmol/L 96.0000-108.0000 CO2 (test code = CO2) 29.0000 mmol/L 18.0000-33.0000 Calcium (test code = Calcium) 9.6000 mg/dL 8.0000-10.3000 Alkaline Phosphatase (test code = Alkaline 57.0000 42.00 00-141.0000 Phosphatase) ALT (SGPT) (test code = ALT (SGPT)) 12.0000 10.0000-47.0 000 AST (SGOT) (test code = AST (SGOT)) 12.0000 11.0000-37.0 000 Bilirubin, Total (test code = Bilirubin, 0.6000 mg/dL 0.0000- 1.6000 Total) Albumin (test code = Albumin) 4.2000 g/dL 3.5000-5.5000 Protein, Total (test code = Protein, 6.8000 g/dL 6.4000-8.10 00 Total) eGFR -Vietnamese (test code = eGFR 152.0000 60.0000- 200.0000 -Vietnamese) eGFR Htw-Mlfeefy-Rfwwxfty (test code = 125.0000 60.0000-2 00.0000 eGFR Zle-Xhxzhnf-Fgscuihu) [id number] 13:58:00 Test Item Value Reference Range Comments WBC (test code = WBC) 7.5000 4.0000-10.0000 Lymphocytes % (test code = Lymphocytes %) 28.0000 % 22.400 0-43.6000 MID% (test code = MID%) 7.1000 % 1.2000-11.2000 Neutrophils % (test code = Neutrophils %) 64.9000 % 48.900 0-69.9000 Lymphocytes (test code = Lymphocytes) 2.1000 1.2000-3.2 000 MID (test code = MID) 0.5000 0.1000-1.1000 Neutrophils (test code = Neutrophils) 4.9000 1.5000-6.7 000 RBC (test code = RBC) 3.1200 3.7000-4.9000 HGB (test code = HGB) 10.0000 g/dL 11.2000-18.0000 HCT (test code = HCT) 29.4000 % 34.0000-44.0000 MCV (test code = MCV) 94.2000 fL 80.0000-94.0000 MCH (test code = MCH) 32.1000 pg 27.0000-34.0000 MCHC (test code = MCHC) 34.1000 g/dL 31.5000-36.0000 RDW (test code = RDW) 15.1000 11.0000-18.0000 PLT (test code = PLT) 223.0000 140.0000-440.0000 MPV (test code = MPV) 8.7000 fL 6.8000-10.6000 [id number] 08:54:00 Test Item Value Reference Range Comments WBC (test code = WBC) 9.1000 4.0000-10.0000 Lymphocytes % (test code = Lymphocytes %) 28.3000 % 22.400 0-43.6000 MID% (test code = MID%) 8.0000 % 1.1999-11.1999 Neutrophils % (test code = Neutrophils %) 63.7000 % 48.900 0-69.9000 Lymphocytes (test code = Lymphocytes) 2.5000 1.2000-3.2 000 MID (test code = MID) 0.8000 0.1000-1.1000 Neutrophils (test code = Neutrophils) 5.8000 1.5000-6.7 000 RBC (test code = RBC) 3.0300 3.7000-4.9000 HGB (test code = HGB) 9.5000 g/dL 11.1999-18.0000 HCT (test code = HCT) 29.5000 % 34.0000-44.0000 MCV (test code = MCV) 97.1000 fL 80.0000-94.0000 MCH (test code = MCH) 31.5000 pg 27.0000-34.0000 MCHC (test code = MCHC) 32.4000 g/dL 31.5000-36.0000 RDW (test code = RDW) 15.3000 11.0000-18.0000 PLT (test code = PLT) 287.0000 140.0000-440.0000 MPV (test code = MPV) 8.1000 fL 6.8000-10.6000 [id number] 08:45:00 Test Item Value Reference Range Comments WBC (test code = WBC) 5.2000 4.0000-10.0000 Lymphocytes % (test code = Lymphocytes %) 31.8000 % 22.400 0-43.6000 MID% (test code = MID%) 6.3000 % .1999-11.1999 Neutrophils % (test code = Neutrophils %) 61.9000 % 48.900 0-69.9000 Lymphocytes (test code = Lymphocytes) 1.6000 1.2000-3.2 000 MID (test code = MID) 0.4000 0.1000-1.1000 Neutrophils (test code = Neutrophils) 3.2000 1.5000-6.7 000 RBC (test code = RBC) 3.0400 3.7000-4.9000 HGB (test code = HGB) 10.7000 g/dL 11.2000-18.0000 HCT (test code = HCT) 28.8000 % 34.0000-44.0000 MCV (test code = MCV) 94.6000 fL 80.0000-94.0000 MCH (test code = MCH) 35.2000 pg 27.0000-34.0000 MCHC (test code = MCHC) 37.2000 g/dL 31.5000-36.0000 RDW (test code = RDW) 14.9000 11.0000-18.0000 PLT (test code = PLT) 265.0000 140.0000-440.0000 MPV (test code = MPV) 7.2000 fL 6.8000-10.6000 [id number] 08:45:00 Test Item Value Reference Range Comments Creatinine (test code = Creatinine) 0.4000 mg/dL 0.5000-1.200 0 Cr Clearance (Est) (test code = Cr 186.5600 75.0000-115.0 000 Clearance (Est)) Glucose (test code = Glucose) 114.0000 mg/dL 70.0000-118.0000 BUN (test code = BUN) 15.0000 mg/dL 7.0000-22.0000 Sodium (test code = Sodium) 138.0000 mmol/L 128.0000-145.0000 Potassium (test code = Potassium) 3.7000 mmol/L 3.6000-5.1000 Chloride (test code = Chloride) 103.0000 mmol/L 96.0000-108.0000 CO2 (test code = CO2) 27.0000 mmol/L 18.0000-33.0000 Calcium (test code = Calcium) 9.8500 mg/dL 8.0000-10.3000 Alkaline Phosphatase (test code = Alkaline 74.0000 42.00 00-141.0000 Phosphatase) ALT (SGPT) (test code = ALT (SGPT)) 10.0000 10.0000-47.0 000 AST (SGOT) (test code = AST (SGOT)) 16.0000 11.0000-37.0 000 Bilirubin, Total (test code = Bilirubin, 0.5000 mg/dL 0.0000- 1.6000 Total) Albumin (test code = Albumin) 4.6000 g/dL 3.5000-5.5000 Protein, Total (test code = Protein, 8.2000 g/dL 6.4000-8.10 00 Total) eGFR -Vietnamese (test code = eGFR 196.0000 60.0000- 200.0000 -Vietnamese) eGFR Atz-Jlccvns-Bmneslof (test code = 162.0000 60.0000-2 00.0000 eGFR Ubr-Onvgrjm-Skrkkoms) Protein, [id number] 13:54:00 Test Item Value Reference Range Comments Protein, Total (test code = Protein, 8.4000 g/dL 6.0000-8.50 00 Total) Albumin (test code = Albumin) 4.2000 g/dL 2.9000-4.4000 Globulin (test code = Globulin) 4.2000 g/dL 2.2000-3.9000 A/G Ratio (test code = A/G Ratio) 1.1000 0.7000-1.7000 Iron, Total (test code = Iron, Total) 88.0000 27.0000-13 9.0000 TIBC (test code = TIBC) 266.0000 250.0000-450.0000 UIBC (test code = UIBC) 178.0000 118.0000-369.0000 % Iron Saturation (test code = % Iron 33.0000 % 15.0000-55 .0000 Saturation) Vitamin B12 (test code = Vitamin B12) 1453.0000 pg/mL 232.0000-1 245.0000 Folate (test code = Folate) 20.0000 ng/mL Ferritin (test code = Ferritin) 495.0000 ng/mL 15.0000-150.0000 [id number] 13:54:00 Test Item Value Reference Range Comments IGG (test code = IGG) 1965.0000 mg/dL 700.3307-4581.0000 IGA (test code = IGA) 120.0000 mg/dL 87.0000-352.0000 IGM (test code = IGM) 75.0000 mg/dL 26.0000-217.0000 Alpha-1 Globulin (test code 0.2000 g/dL 0.0000-0.4000 = Alpha-1 Globulin) Alpha-2 Globulin (test code 0.8000 g/dL 0.4000-1.0000 = Alpha-2 Globulin) Beta Globulin (test code = 1.2000 g/dL 0.7000-1.3000 Beta Globulin) Gamma Globulin (test code = 2.0000 g/dL 0.4000-1.8000 Gamma Globulin) M-Jose (test code = 1.6000 g/dL 0.0000-0.0000 M-Joes) Immunofixation Interp, Serum Comment Immunofixation shows (test code = Immunofixation IgG monoclonal protein with Interp, Serum) kappa light chain specificity PE Note (test code = PE Comment Protein Note) electrophoresis scan will follow via computer, mail, or physical therapist aide delivery [place] Free Light Chain (test 460.6000 mg/L 3.3000-19.4000 code = [place] Free Light Chain) Lambda Free Light Chain 10.1000 mg/L 5.7000-26.3000 (test code = Lambda Free Light Chain) [place]/Lambda Free Ratio 45.6000 0.2600-1.6500 (test code = [place]/Lambda Free Ratio) [id number] 09:27:00 Test Item Value Reference Range Comments WBC (test code = WBC) 5.3000 4.0000-10.0000 Lymphocytes % (test code = Lymphocytes %) 33.0000 % 22.400 0-43.6000 MID% (test code = MID%) 6.9000 % 1.2000-11.2000 Neutrophils % (test code = Neutrophils %) 60.1000 % 48.900 0-69.9000 Lymphocytes (test code = Lymphocytes) 1.7000 1.2000-3.2 000 MID (test code = MID) 0.4000 0.1000-1.1000 Neutrophils (test code = Neutrophils) 3.2000 1.5000-6.7 000 RBC (test code = RBC) 3.3400 3.7000-4.9000 HGB (test code = HGB) 10.6000 g/dL 11.2000-18.0000 HCT (test code = HCT) 31.3000 % 34.0000-44.0000 MCV (test code = MCV) 93.7000 fL 80.0000-94.0000 MCH (test code = MCH) 32.0000 pg 27.0000-34.0000 MCHC (test code = MCHC) 34.1000 g/dL 31.5000-36.0000 RDW (test code = RDW) 14.6000 11.0000-18.0000 PLT (test code = PLT) 281.0000 140.0000-440.0000 MPV (test code = MPV) 7.5000 fL 6.8000-10.6000 [id number] 09:27:00 Test Item Value Reference Range Comments Creatinine (test code = Creatinine) 0.5000 mg/dL 0.5000-1.200 0 Cr Clearance (Est) (test code = Cr 149.9300 75.0000-115.0 000 Clearance (Est)) Glucose (test code = Glucose) 126.0000 mg/dL 70.0000-118.0000 BUN (test code = BUN) 11.0000 mg/dL 7.0000-22.0000 Sodium (test code = Sodium) 142.0000 mmol/L 128.0000-145.0000 Potassium (test code = Potassium) 3.6000 mmol/L 3.6000-5.1000 Chloride (test code = Chloride) 100.0000 mmol/L 96.0000-108.0000 CO2 (test code = CO2) 39.0000 mmol/L 18.0000-33.0000 Calcium (test code = Calcium) 9.6000 mg/dL 8.0000-10.3000 Alkaline Phosphatase (test code = Alkaline 77.0000 42.00 00-141.0000 Phosphatase) ALT (SGPT) (test code = ALT (SGPT)) 9.0000 10.0000-47.0 000 AST (SGOT) (test code = AST (SGOT)) 13.0000 11.0000-37.0 000 Bilirubin, Total (test code = Bilirubin, 0.4000 mg/dL 0.0000- 1.6000 Total) Albumin (test code = Albumin) 4.6000 g/dL 3.5000-5.5000 Protein, Total (test code = Protein, 8.3000 g/dL 6.4000-8.10 00 Total) eGFR -Vietnamese (test code = eGFR 152.0000 60.0000- 200.0000 -Vietnamese) eGFR Xyl-Rwibjwz-Zgrtpfsy (test code = 125.0000 60.0000-2 00.0000 eGFR Wod-Zhfdkps-Unvhtfyh) Assessments Condition Name Status Diagnosis Date Treating Clinici an - Essential (primary) hypertension I10 Active Ojebuoboh, Ibikunle - Multiple myeloma in remission C90.01 Active Ojebuoboh, Ibikunle - Body mass index (BMI) 25.0-25.9, adult Active Ojebuoboh, Ibikunle Z68.25 - Essential (primary) hypertension I10 Active Ojebuoboh, Ibikunle - Body mass index (BMI) 24.0-24.9, adult Active Ojebuoboh, Ibikunle Z68.24 - Multiple myeloma in remission C90.01 Active Ojebuoboh, Ibikunle - Essential (primary) hypertension I10 Active Ojebuoboh, Ibikunle - Multiple myeloma in remission C90.01 Active Ojebuoboh, Ibikunle - Body mass index (BMI) 25.0-25.9, adult Active Ojebuoboh, Ibikunle Z68.25 - Pneumonia, unspecified organism J18.9 Active Ojebuoboh, Ibikunle - Body mass index (BMI) 24.0-24.9, adult Active Ojebuoboh, Ibikunle Z68.24 - Essential (primary) hypertension I10 Active Ojebuoboh, Ibikunle - Encounter for screening mammogram for Active Ojebuoboh, Ibikunle malignant neoplasm of breast Z12.31 - Body mass index (BMI) 25.0-25.9, adult Active Ojebuoboh, Ibikunle Z68.25 - Essential (primary) hypertension I10 Active Ojebuoboh, Ibikunle - Body mass index (BMI) 23.0-23.9, adult Active Ojebuoboh, Ibikunle Z68.23 - Essential (primary) hypertension I10 Active Ojebuoboh, Ibikunle - Multiple myeloma in remission C90.01 Active Ojebuoboh, Ibikunle - Essential (primary) hypertension I10 Active Ojebuoboh, Ibikunle - Encounter for screening mammogram for Active Ojebuoboh, Ibikunle malignant neoplasm of breast Z12.31 - Body mass index (BMI) 29.0-29.9, adult Active Ojebuoboh, Ibikunle Z68.29 - Essential (primary) hypertension I10 Active Ojebuoboh, Ibikunle - Encounter for general adult medical Active Ojebuoboh, Ibikunle examination without abnormal findings Z00.00 - Encounter for screening mammogram for Active Ojebuoboh, Ibikunle malignant neoplasm of breast Z12.31 - Essential (primary) hypertension I10 Active Ojebuoboh, Ibikunle - Encounter for screening for malignant Active Ojebuoboh, Ibikunle neoplasm of colon Z12.11 - Routine general medical examination at [facility] V70.0 - Hypertension 401.9 Active Ojebuoboh, Ibikunle - Routine general medical examination at [facility] V70.0 - Hypertension 401.9 Active Ojebuoboh, Ibikunle - Hypertension 401.9 Active Ojebuoboh, Ibikunle - Hypertension 401.9 Active Ojebuoboh, Ibikunle - Abdominal pain, generalized 789.07 Active Ojebuoboh, Ibikunle - Hypertension 401.9 Active Ojebuoboh, Ibikunle - chest pain 786.50 Active Ojebuoboh, I bikunle - sore throat 462 Active Ojebuoboh, Ibi stephanie - Hypertension 401.9 Active Ojebuoboh, Ibikunle - Hypertension 401.9 Active Ojebuoboh, Ibikunle - myalgia 729.1 Active Ojebuoboh, Ibiku nle Encounters Start End Encounter Admission Attending Care Care Encounter Date/Time Date/Time Type Type Clinicians Facility Department ID 2018-02-03 Inpatient UZIEL DHALIWAL [facility] [id number] 00:00:00 ELIZ [id number] 2018-01-12 Inpatient [facility] [id number]_ 22:35:17 [id number] 2018-01-12 Inpatient [facility] [id number] 17:34:35 [id number] 2018-01-12 Inpatient DAKOTAH RODRIGUEZ [facility] [id number] 00:00:00 ASHLY [id number] 2020-05-23 2020-05-23 Outpatient [facility] [id number] 00:00:00 00:00:00 [id number] 2020-03-15 2020-03-15 Outpatient [facility] [id number] 00:00:00 00:00:00 rn [facility] [place] 2020-03-13 2020-03-[id number]00:00 Nadia ruff [facility] [place] 2020-03-12 2020-03-12 [id number] 00:00:00 00:00:00 LON FORREST 2020-03-06 2020-03-06 Outpatient [facility] [id number] 00:00:00 00:00:00 elzbieta [facility] [place] 2020-02-16 2020-02-16 Outpatient [facility] [id number] 00:00:00 00:00:00 rn [facility] [place] 2020-02-15 2020-02-15 Outpatient Yvette Villalobos n [id number] 00:00:00 00:00:00 Darien ruff [facility] 2020-02-14 2020-02-14 Dr. Wilfredo Yanes Yvette Barahona n [id number] 00:00:00 00:00:00 Nannette Ledezma rn [facility] 2020-01-23 2020-01-23 Outpatient Yvette Villalobos n [id number] 00:00:00 00:00:00 Darien ruff [facility] 2020-01-19 2020-01-19 Outpatient Yvette Olmos [id number] 00:00:00 00:00:00 rn [facility] 2020-01-17 2020-01-17 Yvette Villalobos [facility] 2 [id number] 00:00:00 00:00:00 Dr. Darien ruff [facility] [place] 2019-12-25 2019-12-25 Outpatient Yvette [facility] [id number] 00:00:00 00:00:00 rn [facility] [place] 2019-12-20 2019-12-20 Yvette Villalobos [facility] 2 [id number] 00:00:00 00:00:00 Dr. Darien ruff [facility] [place] 2019-12-19 2019-12-19 Outpatient Yvette [facility] [id number] 00:00:00 00:00:00 rn [facility] [place] 2019-11-27 2019-11-27 Outpatient Yvette Olmos [id number] 00:00:00 00:00:00 rn [facility] 2019-11-23 2019-11-23 Outpatient Yvette Olmos [id number] 00:00:00 00:00:00 rn [facility] [place] 2019-11-22 2019-11-22 Haider VillalobosYvette dai [id number] 00:00:00 00:00:00 Dr. Darien Ledezma rn [facility] [place] 2019-11-21 2019-11-21 Outpatient Yvette [facility] [id number] 00:00:00 00:00:00 rn [facility] [place] 2019-11-02 2019-11-02 Outpatient [facility] [id number]_ 10:51:04 12:31:37 [id number] 2019-11-02 2019-11-02 [facility] [id number] 10:51:04 12:31:37 2019-11-02 2019-11-02 Outpatient [facility] [id number]_ 10:44:55 12:31:25 [id number] 2019-11-02 2019-11-02 [facility] [id number] 10:44:55 10:59:55 2019-11-02 2019-11-02 Outpatient [facility] [id number] 00:00:00 00:00:00 [id number] 2019-11-02 [facility] [id number] 00:00:00 00:00:00 2019-11-01 2019-11-01 [facility] [id number] 00:00:00 00:00:00 2019-10-31 2019-10-31 Outpatient [facility] [id number] 00:00:00 00:00:00 rn [facility] [place] 2019-10-30 2019-10-30 Outpatient [facility] [id number] 00:00:00 00:00:00 rn [facility] [place] 2019-10-26 2019-10-26 Outpatient [facility] [id number] 00:00:00 00:00:00 rn [facility] [place] 2019-10-25 2019-10-25 Wilfredo Villalobos, [facility] [id number] 00:00:00 00:00:00 Dr. Darien Ledezma rn [facility] [place] 2019-09-27 2019-09-27 Wilfredo Ring [facility] 2 [id number] 00:00:00 00:00:00 Rosey Ledezma rn [facility] [place] 2019-09-26 2019-09-26 Outpatient [facility] [id number] 00:00:00 00:00:00 rn [facility] [place] 2019-09-22 2019-09-22 Outpatient [facility] [id number] 00:00:00 00:00:00 rn [facility] [place] 2019-09-12 2019-09-12 [facility] [place] [id number] 00:00:00 00:00:00 PA 2019-09-04 2019-09-04 Outpatient [facility] [id number] 00:00:00 00:00:00 rn [facility] 2019-08-31 2019-08-31 Outpatient [facility] [id number] 00:00:00 00:00:00 [id number] 2019-08-31 Outpatient Yvette Olmos [id number] 00:00:00 00:00:00 rn [facility] Center 2019-08-30 2019-08-30 Outpatient Yvette Villaloboser n [id number] 00:00:00 00:00:00 Darien ruff [facility] 2019-08-29 2019-08-29 Outpatient Yvette Olmos [id number] 00:00:00 00:00:00 rn [facility] [place] 2019-08-23 2019-08-23 Outpatient Yvette Olmos [id number] 00:00:00 00:00:00 rn [facility] [place] 2019-08-22 2019-08-22 Outpatient Yvette Olmos [id number] 00:00:00 00:00:00 rn [facility] [place] 2019-08-21 2019-08-21 Outpatient Yvette Olmos [id number] 00:00:00 00:00:00 rn [facility] 2019-08-04 2019-08-04 Outpatient Yvette Olmos [id number] 00:00:00 00:00:00 rn [facility] [place] 2019-08-03 2019-08-03 Outpatient Yvette Olmos [id number] 00:00:00 00:00:00 rn [facility] [place] 2019-08-02 2019-08-02 Wilfredo Yvette Villalobos [facility] [id number] 00:00:00 00:00:00 Dr. Darien Ledezma rn [facility] 2019-07-19 2019-07-19 Outpatient Yvette Villaloboser n [id number] 00:00:00 00:00:00 Darien ruff [facility] 2019-07-06 2019-07-06 Outpatient Yvette [facility] [id number] 00:00:00 00:00:00 rn [facility] [place] 2019-07-05 2019-07-05 Kirk VillalobosYvette marti [facility] [id number] 00:00:00 00:00:00 Dr. Darien Ledezma rn [facility] [place] 2019 2019 Outpatient [facility] [id number] 00:00:00 00:00:00 rn [facility] [place] 2019-06-29 2019-06-29 [id number] 00:00:00 00:00:00 LON FORREST 2019-06-21 2019-06-21 Wilrfedo Villalobos [facility] [id number] 00:00:00 00:00:00 Dr. Darien Ledezma rn [facility] [place] 2019-06-14 2019-06-14 Wilfredo Villalobos [facility] [id number] 00:00:00 00:00:00 Dr. Darien Ledezma rn [facility] [place] 2019-06-08 2019-06-08 Outpatient [facility] [id number] 00:00:00 00:00:00 rn [facility] [place] 2019-06-07 2019-06-07 Dr. Wilfredo Yanes [facility] [id number] 00:00:00 00:00:00 Nannette Ledezma rn [facility] [place] 2019-05-15 2019-05-15 [id number] 00:00:00 00:00:00 LON FORREST 2019-05-10 2019[facility]05[id number]00 Dr. Darien Ledezma rn [facility] [place] 2019-05-05 2019-05-05 Outpatient [facility] [id number] 00:00:00 00:00:00 rn [facility] [place] 2019-05-02 2019-05-02 Outpatient [facility] [id number] 00:00:00 00:00:00 rn [facility] [place] 2019-04-07 2019-04-07 Outpatient [facility] [id number] 00:00:00 00:00:00 rn [facility] [place] 2019-04-06 2019-04-06 Outpatient [facility] [id number] 00:00:00 00:00:00 rn [facility] [place] 2019-04-05 2019-04-05 Wilfredo Villalobos [facility] [id number] 00:00:00 00:00:00 Dr. Darien Ledezma rn [facility] [place] 2019-03-29 2019-03-29 Outpatient [facility] [id number] 00:00:00 00:00:00 rn [facility] [place] 2019-03-08 2019-03-08 Wilfredo Chiang [facility] 2 [id number] 00:00:00 00:00:00 Stephanie Ledezma rn [facility] [place] 2019-03-07 2019-03-07 Outpatient [facility] [id number] 00:00:00 00:00:00 rn [facility] [place] 2019-03-02 2019-03-02 Outpatient [facility] [id number]_ 09:50:07 12:54:53 [id number] 2019-03-02 2019-03-02 Outpatient [facility] [id number] 09:48:24 12:54:47 [id number] 2019-03-02 2019-03-02 [facility] [id number] 09:48:24 12:54:47 2019-03-02 2019-03-02 [facility] [id number] 09:50:07 10:05:07 2019-03-02 2019-03-02 Outpatient [facility] [id number] 00:00:00 00:00:00 [id number] 2019-03-02 Outpatient [facility] [id number] 00:00:00 00:00:00 rn [facility] [place] 2019-03-01 2019-03-01 [facility] [id number] 00:00:00 00:00:00 2019-02-21 2019-02-21 Outpatient [facility] [id number] 00:00:00 00:00:00 rn [facility] [place] 2019-02-16 2019-02-16 Outpatient [facility] [id number] 00:00:00 00:00:00 rn [facility] [place] 2019-02-08 2019-02-08 German [facility] [id number] 00:00:00 00:00:00 Nadia rn [facility] [place] 2019-02-06 2019-02-06 [id number] 00:00:00 00:00:00 LON FORREST 2019-02-05 2019-02-05 [facility] [id number] 00:00:00 00:00:00 2019-02-02 2019-02-04 Inpatient ER JAXSON [facility] [id number]_ 12:39:08 15:28:03 GREY [id number] 2019-02-02 2019-02-04 [facility]patient [facility] [id number] 12:39:08 15:28:03 2019-02-02 2019-02-02 Emergency [facility] [id number] 19_ 14:03:19 14:03:19 [id number] 2019-02-02 2019-02-02 Emergency ER [facility] [id number] 19_ 12:34:00 12:34:00 [id number] 2019-02-02 2019-02-02 Outpatient EL [facility] [id number]_ 10:54:48 12:20:34 [id number] 2019-02-02 2019-02-02 Outpatient [facility] [id number] 10:54:48 12:20:34 2019-02-02 2019-02-02 Outpatient [facility] [id number]_ 10:53:56 12:20:28 [id number] 2019-02-02 2019-02-02 Outpatient [facility] [id number] 10:53:56 11:08:56 2019-02-02 2019-02-02 Outpatient EL [facility] [id number] 00:00:00 00:00:00 [id number] 2019-02-02 Outpatient [facility] [id number] 00:00:00 00:00:00 [facility]n [facility] [place] 2019-02-01 2019-02-01 [facility]patient [facility] [id number] 00:00:00 00:00:00 2019-01-27 2019-01-27 [id number] 00:00:00 00:00:00 PA LON 2019-01-19 2019-01-19 Outpatient [facility] [id number] 00:00:00 00:00:00 rn [facility] [place] 2019-01-16 2019-01-16 [id number] 00:00:00 00:00:00 PA LON 2019-01-11 2019-01-11 Wilfredo Villalobos [facility] [id number] 00:00:00 00:00:00 Dr. Darien Ledezma rn [facility] [place] 2018-12-14 2018-12-14 Wilfredo [facility] [id number] 00:00:00 00:00:00 Dr. Darien Ledezma rn [facility] On[facility]cology [facility] [place] 2018-12-13 2018-12-13 Outpatient [facility] [id number] 00:00:00 00:00:00 rn [facility] On[facility] [place] 2018-12-12 2018-12-12 Outpatient [facility] [id number] 00:00:00 00:00:00 rn [facility] On[facility] [place] 2018-12-06 2018-12-06 Outpatient [facility] [id number] 00:00:00 00:00:00 rn [facility] On[facility] [place] 2018-11-16 2018-11-16 Wiflredo [facility] 2 [id number] 00:00:00 00:00:00 Dr. Darien ruff [facility] [place] 2018-11-10 2018-11-10 Outpatient [facility] [id number] 00:00:00 00:00:00 rn [facility] On[facility] [place] 2018-11-09 2018-11-09 Outpatient [facility] [id number] 00:00:00 00:00:00 rn [facility] On[facility] [place] 2018-10-19 2018-10-19 Wilfredo Villalobos [facility] [id number] 00:00:00 00:00:00 Dr. Darien Ledezma rn Medical Medical Oncology [facility] [place] 2018-10-07 2018-10-07 Outpatient [facility] [id number] 00:00:00 00:00:00 rn Medical [facility] Oncology [facility] [place] 2018-10-06 2018-10-06 Outpatient [facility] [id number] 00:00:00 00:00:00 rn [facility] On[facility] [place] 2018-09-21 2018-09-21 Wilfredo Villalobos [facility] [id number] 00:00:00 00:00:00 Dr. Darien Ledezma rn [facility] [place] 2018-09-12 2018-09-12 [id number] 00:00:00 00:00:00 PA PA 2018-09-07 2018-09-07 Outpatient [facility] [id number] 00:00:00 00:00:00 rn [facility] On[facility] [place] 2018-08-25 2018-08-25 Outpatient [facility] [id number] 00:00:00 00:00:00 rn [facility] On[facility] [place] 2018-08-24 2018-08-24 Kirkfigueroa Wilfredo [facility] [id number] 00:00:00 00:00:00 Dr. Darien Ledezma rn Medical [facility] On[facility] [place] 2018-08-04 2018-08-04 Outpatient EL [facility] [id number] 10:30:54 12:46:44 [id number] 2018-08-04 2018-08-04 [facility] [id number] 10:30:54 12:46:44 2018-08-04 2018-08-04 Outpatient [facility] [id number] 10:29:00 12:46:33 [id number] 2018-08-04 2018-08-04 [facility] [id number] 10:29:00 12:46:33 2018-08-04 2018-08-04 Outpatient EL [facility] [id number] 00:00:00 00:00:00 [id number] 2018-07-29 2018-07-29 Outpatient [facility] [id number] 00:00:00 00:00:00 rn [facility] [place] 2018-07-27 2018-07-27 [facility] [id number] [facility] 00:00:00 Rosey Ledezma rn [facility] On[facility] [place] 2018-07-20 2018-07-20 Kirk Villalobosfigueroa [facility] [id number] 00:00:00 00:00:00 Dr. Darien Ledezma rn Medical Medical Oncology On[facility] [place] 2018-07-11 2018-07-11 Anay Woo [facility] rn [id number] 00:00:00 00:00:00 Cha Ledezma rn Medical Medical Oncology Oncology [facility] [place] 2018-07-06 2018-07-06 Outpatient [facility] [id number] 00:00:00 00:00:00 rn [facility] [place] 2018-06-29 [facility] [id number] [facility]:00 00:00:00 Ellen rn [facility] On[facility] [place] 2018-06-15 2018-06-15 [facility] [id number] 00:00:00 00:00:00 LON FORREST 2018-06-03 2018-06-03 Outpatient [facility] [id number] 00:00:00 00:00:00 rn Medical Medical Oncology [facility] [place] 2018-06-02 2018-06-02 Outpatient [facility] [id number] 00:00:00 00:00:00 rn Medical [facility] Oncology [facility] [place] 2018-06-01 2018-06-01 Penelope Mrs. Villalobos [facility] rn [id number] 00:00:00 00:00:00 Ghazala Ledezma rn Medical Medical Oncology Oncology [facility] [place] 2018-05-31 2018-05-31 Outpatient [facility] [id number] 00:00:00 00:00:00 rn Medical Medical Oncology Oncology [facility] [place] 2018-05-11 2018-05-11 Outpatient Yvette Villalobos n [id number] 00:00:00 00:00:00 Darien ruff [facility] [place] 2018-05-10 2018-05-10 Outpatient [facility] [id number] 00:00:00 00:00:00 [id number] 2018-05-04 2018-05-04 Outpatient Yvette Villalobos n [id number] 00:00:00 00:00:00 Darien ruff [facility] [place] 2018-04-28 2018-04-28 Outpatient [facility] [id number] 00:00:00 00:00:00 elzbieta [facility] Oncology [facility] [place] 2018-04-25 2018-04-25 [facility] [id number] 00:00:00 00:00:00 2018-04-23 2018-04-23 [facility] [id number] 00:00:00 00:00:00 2018-04-20 2018-04-20 Outpatient [facility] [id number] 00:00:00 00:00:00 [id number] 2018-04-14 2018-04-14 Outpatient [facility] [id number] 13:45:32 14:32:26 [id number] 2018-04-14 2018-04-14 [facility] [id number] 13:45:32 14:32:26 2018-04-14 2018-04-14 Outpatient EL [facility] [id number] 09:28:47 12:06:05 [id number] 2018-04-14 2018-04-14 Outpatient [facility] [id number] 09:29:46 12:05:56 [id number] 2018-04-14 2018-04-14 [facility] [id number] 09:29:46 09:29:46 2018-04-14 2018-04-14 Outpatient EL [facility] [id number] 00:00:00 00:00:00 [id number] 2018-04-14 [facility] [id number] 00:00:00 00:00:00 2018-04-14 2018-04-14 [facility] [id number] 00:00:00 00:00:00 rn Medical Medical Oncology [facility]cology [facility] [place] 2018-04-13 2018-04-13 Outpatient [facility] [id number] 00:00:00 00:00:00 2018-04-08 2018-04-08 Outpatient [facility] [id number] 00:00:00 00:00:00 elzbieta [facility] Oncology [facility] [place] 2018-04-05 2018-04-05 NicanorWilfredo [facility] [id number] 00:00:00 00:00:00 Sonia Ledezma rn Medical Medical Oncology Oncology [facility] [place] 2018-03-29 2018-03-29 Outpatient Yvette Villalobos [facility] n [id number] 00:00:00 00:00:00 Darien ruff [facility] Oncology [facility]cology [facility] [place] 2018-03-22 2018-03-22 Outpatient Yvette Villalobos [facility] n [id number] 00:00:00 00:00:00 Darien ruff [facility] On[facility] [place] 2018-03-15 2018-03-15 Outpatient Yvette Villalobos n [id number] 00:00:00 00:00:00 Darien ruff [facility] [place] 2018-03-10 2018-03-10 [facility] [id number] 00:00:00 00:00:00 2018-03-09 2018-03-09 Outpatient Yvette Villalobos [facility] n [id number] 00:00:00 00:00:00 Darien ruff [facility] [place] 2018-03-08 2018-03-08 Wilfredo Kulkarni, [facility] 2 [id number] 00:00:00 00:00:00 Ellen Ledezma rn [facility] Medical Oncology Oncology Center [place] 2018-03-03 2018-03-03 Outpatient EL CELIA, [facility] [id number] 10:25:31 11:29:00 TESFAYE [id number] 2018-03-03 2018-03-03 [facility] [id number] 10:25:00 11:29:00 2018-03-03 2018-03-03 Outpatient [facility] [id number] 07:46:42 10:15:57 [id number] 2018-03-03 2018-03-03 Outpatient [facility] [id number] 07:46:42 10:15:57 2018-03-03 2018-03-03 Outpatient [facility] [id number] 07:46:09 10:15:52 [id number] 2018-03-03 2018-03-03 Outpatient [facility] [id number] 07:46:09 07:46:09 2018-03-03 2018-03-03 Outpatient EL CELIA, [facility] [id number] 00:00:00 00:00:00 TESFAYE [id number] 2018-03-03 2018-03-03 Outpatient [facility] [id number] 00:00:00 00:00:00 elzbieta [facility] Oncology Oncology [facility] 2018-02-28 2018-02-28 Outpatient EL CELIA, [facility] [id number] 07:29:05 23:59:00 TESFAYE [id number] 2018-02-28 2018-02-28 Outpatient [facility] [id number] 07:29:05 23:59:00 2018-02-28 2018-02-28 Outpatient EL [facility] [id number] 07:29:57 09:14:34 [id number] 2018-02-28 2018-02-28 Outpatient [facility] [id number] 07:29:57 09:14:34 2018-02-28 2018-02-28 Outpatient EL [facility] [id number] 07:30:15 09:14:27 [id number] 2018-02-28 2018-02-28 Outpatient [facility] [id number] 07:30:15 08:00:00 2018-02-28 2018-02-28 Outpatient EL [facility] [id number] 00:00:00 00:00:00 [id number] 2018-02-28 Outpatient [facility] [id number] 00:00:00 00:00:00 2018-02-28 2018-02-28 Outpatient [facility] [id number] 00:00:00 00:00:00 2018-02-28 2018-02-28 Outpatient [facility] [id number] 00:00:00 00:00:00 elzbieta [facility] Medical Oncology Oncology Center [place] 2018-02-26 2018-02-26 Outpatient [facility] [id number] 00:00:00 00:00:00 2018-02-25 2018-02-25 Outpatient EL [facility] [id number] 12:10:01 14:21:23 [id number] 2018-02-25 2018-02-25 Outpatient [facility] [id number] 12:10:01 14:21:23 2018-02-25 2018-02-25 Outpatient EL [facility] [id number] 12:10:14 14:21:18 [id number] 2018-02-25 2018-02-25 Outpatient [facility] [id number] 12:10:14 14:21:18 2018-02-25 2018-02-25 Outpatient EL [facility] [id number]_ 12:10:29 14:21:11 [id number] 2018-02-25 2018-02-25 Outpatient [facility] [id number] 12:10:29 12:45:00 2018-02-25 2018-02-25 Outpatient EL [facility] [id number] 00:00:00 00:00:00 [id number] 2018-02-24 Inpatient EL ESHA, [facility] [id number] 11:50:00 16:29:00 BULMARO [id number] 2018-02-09 2018-02-24 Inpatient [facility] [id number] 11:50:00 16:29:00 2018-02-23 2018-02-23 Outpatient [facility] [id number] 00:00:00 00:00:00 2018-02-19 2018-02-19 Inpatient EL [facility] [id number] 09:32:16 23:59:00 [id number] 2018-02-09 2018-02-09 Inpatient [facility] [id number] 13:17:54 23:59:00 [id number] 2018-02-09 2018-02-09 Outpatient Yvette Villalobos n [id number] 00:00:00 00:00:00 Darien ruff Medical Medical Oncology Oncology Center Center 2018-02-08 2018-02-08 Outpatient [facility] [id number]_ 08:24:39 15:47:39 [id number] 2018-02-08 2018-02-08 Outpatient [facility] [id number] 08:24:39 15:47:39 2018-02-08 2018-02-08 Outpatient EL [facility] [id number]_ 08:25:09 15:47:30 [id number] 2018-02-08 2018-02-08 Outpatient [facility] [id number] 08:25:09 15:47:30 2018-02-08 2018-02-08 Outpatient EL [facility] [id number] 00:00:00 00:00:00 [id number] 2018-02-08 Outpatient [facility] [id number] 00:00:00 00:00:00 2018-02-07 2018-02-07 Outpatient [facility] [id number] 00:00:00 00:00:00 2018-02-07 2018-02-07 Outpatient Y[facility] [id number] 00:00:00 00:00:00 elzbieta Medical Medical Oncology Oncology Center Center 2018-02-04 2018-02-04 Outpatient EL [facility] [id number] 00:00:00 00:00:00 [id number] 2018-02-03 Outpatient [facility] [id number] 00:00:00 00:00:00 [id number] 2018-02-03 Outpatient EL [facility] [id number] 00:00:00 00:00:00 [id number] 2018-02-03 Outpatient EL [facility] [id number] 00:00:00 00:00:00 [id number] 2018-02-03 Outpatient Yvette Villalobos n [id number] 00:00:00 00:00:00 Darien ruff [facility] Medical Oncology Oncology Center [place] 2018-02-02 2018-02-02 Outpatient EL BALDOMERO MATT [facility] [id number] 07:24:43 23:59:00 [id number] 2018-02-02 2018-02-02 Outpatient [facility] [id number] 07:24:43 23:59:00 2018-02-02 2018-02-02 Outpatient EL [facility] [id number] 00:00:00 00:00:00 [id number] 2018-02-02 Outpatient [facility] [id number] 00:00:00 00:00:00 2018-02-02 2018-02-02 Outpatient [facility] [id number] 00:00:00 00:00:00 2018-02-01 2018-02-01 Outpatient EL MARYCRUZ, [facility] [id number]_ 15:29:36 23:59:00 SCOTTY [id number] 2018-02-01 2018-02-01 Outpatient [facility] [id number] 15:29:36 23:59:00 2018-02-01 2018-02-01 Outpatient EL [facility] [id number] 00:00:00 00:00:00 [id number] 2018-02-01 Outpatient [facility] [id number] 00:00:00 00:00:00 2018-01-26 2018-01-26 Outpatient EL [facility] [id number]_ 08:34:05 14:57:08 [id number] 2018-01-26 2018-01-26 Outpatient [facility] [id number] 08:34:05 14:57:08 2018-01-26 2018-01-26 Outpatient EL [facility] [id number]_ 08:35:54 14:57:02 [id number] 2018-01-26 2018-01-26 Outpatient [facility] [id number] 08:35:54 14:57:02 2018-01-26 2018-01-26 Outpatient EL [facility] [id number]_ 08:34:58 14:56:54 [id number] 2018-01-26 2018-01-26 Outpatient [facility] [id number] 08:34:58 14:56:54 2018-01-26 2018-01-26 Outpatient EL [facility] [id number] 00:00:00 00:00:00 [id number] 2018-01-26 Outpatient EL [facility] [id number] 00:00:00 00:00:00 [id number] 2018-01-25 Outpatient EL [facility] [id number]_ 07:20:12 23:59:00 [id number] 2018-01-25 2018-01-25 Outpatient EL [facility] [id number] 07:20:46 16:27:30 [id number] 2018-01-25 2018-01-25 Outpatient [facility] [id number] 07:20:46 16:27:30 2018-01-25 2018-01-25 Outpatient EL [facility] [id number]_ 07:23:00 16:27:19 [id number] 2018-01-25 2018-01-25 Outpatient [facility] [id number] 07:23:00 16:27:19 2018-01-25 2018-01-25 Outpatient EL [facility] [id number]_ 07:23:56 16:27:10 [id number] 2018-01-25 2018-01-25 Outpatient [facility] [id number] 07:23:56 16:27:10 2018-01-25 2018-01-25 Outpatient [facility] [id number] 12:24:00 15:24:00 2018-01-25 2018-01-25 Outpatient EL MARYCRUZ, [facility] [id number] 12:21:58 15:24:00 SCOTTY [id number] 2018-01-25 2018-01-25 Outpatient [facility] [id number] 07:20:12 12:20:00 2018-01-25 2018-01-25 Outpatient EL [facility] [id number] 00:00:00 00:00:00 [id number] 2018-01-25 Outpatient EL [facility] [id number] 00:00:00 00:00:00 [id number] 2018-01-25 Outpatient [facility] [id number] 00:00:00 00:00:00 2018-01-21 2018-01-21 Outpatient [facility] [id number] 00:00:00 00:00:00 2018-01-20 2018-01-20 Outpatient EL [facility] [id number] 08:25:59 12:17:01 [id number] 2018-01-20 2018-01-20 Outpatient [facility] [id number] 08:25:59 12:17:01 2018-01-20 2018-01-20 Outpatient EL [facility] [id number] 00:00:00 00:00:00 [id number] 2018-01-20 Outpatient EL [facility] [id number] 00:00:00 00:00:00 [id number] 2018-01-20 Outpatient Y[facility] [id number] 00:00:00 00:00:00 rn Medical Medical Oncology Oncology Center Center 2018-01-19 2018-01-19 Outpatient Yvette Villalobos n [id number] 00:00:00 00:00:00 Darien ruff Medical Medical Oncology Oncology Center Center 2018-01-18 2018-01-18 Outpatient EL [facility] [id number]_ 11:10:41 23:59:00 [id number] 2018-01-18 2018-01-18 Outpatient EL MARYCRUZ [facility] [id number] 11:10:21 23:59:00 SCOTTY [id number] 2018-01-18 2018-01-18 Outpatient [facility] [id number] 11:10:21 23:59:00 2018-01-18 2018-01-18 Outpatient EL MARYCRUZ [facility] [id number] 09:36:14 23:59:00 SCOTTY [id number] 2018-01-18 2018-01-18 Outpatient [facility] [id number] 09:36:14 23:59:00 2018-01-18 2018-01-18 Outpatient EL COGHILL, [facility] [id number] 09:35:45 23:59:00 SCOTTY [id number] 2018-01-18 2018-01-18 Outpatient [facility] [id number] 09:35:45 23:59:00 2018-01-18 2018-01-18 Outpatient EL [facility] [id number]_ 00:00:00 00:00:00 [id number] 2018-01-18 Outpatient [facility] [id number] 00:00:00 00:00:00 elzbieta [facility] Medical Oncology Oncology Center [place] 2018-01-17 2018-01-17 Outpatient [facility] [id number] 00:00:00 00:00:00 2018-01-14 2018-01-14 Outpatient [facility] [id number] 00:00:00 00:00:00 2018-01-12 2018-01-13 Inpatient [facility] [id number] 12:10:13 15:58:58 2018-01-12 2018-01-13 Inpatient [facility] [id number] 00:00:00 15:58:58 ASHLY [id number] 2018-01-12 Outpatient [facility] [id number] 07:42:48 23:59:00 2018-01-12 2018-01-12 Outpatient [facility] [id number] 07:42:17 23:59:00 2018-01-12 2018-01-12 Outpatient [facility] [id number] 07:41:04 23:59:00 2018-01-12 2018-01-12 Outpatient EL MARYCRUZ [facility] [id number] 07:41:03 23:59:00 SCOTTY [id number] 2018-01-12 2018-01-12 Outpatient EL [facility] [id number]_ 09:51:39 16:06:56 [id number] 2018-01-12 2018-01-12 Outpatient [facility] [id number] 09:51:39 16:06:56 2018-01-12 2018-01-12 Outpatient EL [facility] [id number]_ 09:51:49 16:06:46 [id number] 2018-01-12 2018-01-12 Outpatient EL COGHILL, [facility] [id number] 07:42:48 07:42:48 SCOTTY [id number] 2018-01-12 2018-01-12 Outpatient EL COGHILL, [facility] [id number] 07:42:17 07:42:17 SCOTTY [id number] 2018-01-12 2018-01-12 Outpatient Yvette Villalobos [facility] [id number] 00:00:00 00:00:00 Darien ruff [facility] Medical Oncology Oncology Center [place] 2018-01-07 2018-01-07 Outpatient [facility] [id number] 00:00:00 00:00:00 elzbieta Medical Medical Oncology Oncology Center [place] 2018-01-06 2018-01-06 Outpatient EL [facility] [id number] 10:04:25 14:12:42 [id number] 2018-01-06 2018-01-06 Outpatient [facility] [id number] 10:04:25 14:12:42 2018-01-06 2018-01-06 Outpatient EL [facility] [id number] 00:00:00 00:00:00 [id number] 2018-01-06 2018-01-06 Outpatient [facility] [id number] 00:00:00 00:00:00 2018-01-06 2018-01-06 Outpatient [facility] [id number] 00:00:00 00:00:00 2018-01-04 2018-01-04 Wilfredo Villalobos [facility] [id number] 00:00:00 00:00:00 Dr. Darien Ledezma rn Medical Medical Oncology Oncology Center [place] 2017-12-29 2017-12-29 Outpatient COGHILL, [facility] [id number] 13:15:14 23:59:00 SCOTTY [id number] 2017-12-29 2017-12-29 Outpatient [facility] [id number] 13:15:14 23:59:00 2017-12-29 2017-12-29 Outpatient COGHILL, [facility] [id number] 12:58:25 23:59:00 SCOTTY [id number] 2017-12-29 2017-12-29 Outpatient [facility] [id number] 12:58:25 23:59:00 2017-12-29 2017-12-29 Outpatient COGHILL, [facility] [id number] 12:57:44 23:59:00 SCOTTY [id number] 2017-12-29 2017-12-29 Outpatient [facility] [id number] 12:57:44 23:59:00 2017-12-29 2017-12-29 Outpatient COGHILL, [facility] [id number] 12:57:04 23:59:00 SCOTTY [id number] 2017-12-29 2017-12-29 Outpatient [facility] [id number] 12:57:04 23:59:00 2017-12-29 2017-12-29 Outpatient COGHILL, [facility] [id number] 12:56:35 23:59:00 SCOTTY [id number] 2017-12-29 2017-12-29 Outpatient [facility] [id number] 12:56:35 23:59:00 2017-12-29 2017-12-29 [facility] [id number] 00:00:00 00:00:00 [id number] 2017-12-29 Outpatient [facility] [id number] 00:00:00 00:00:00 elzbieta Medical Medical Oncology Oncology [facility] [place] 2017-12-23 2017-12-23 Outpatient Yvette Villalobos n [id number] 00:00:00 00:00:00 Darien ruff Medical Medical Oncology Oncology [facility] [place] 2017-12-20 2017-12-20 Outpatient Yvette Villalobos n [id number] 00:00:00 00:00:00 Darien ruff Medical Medical Oncology Oncology [facility] [place] 2017-12-16 2017-12-16 Outpatient Yvette Villalobos n [id number] 00:00:00 00:00:00 Darien ruff [facility] Medical Oncology Oncology [facility] [place] 2017-12-13 2017-12-13 Wilfredo Villalobos [facility] [id number] 00:00:00 00:00:00 Dr. Darien Ledezma rn Medical Medical Oncology Oncology Center [place] 2017-12-06 2017-12-06 Outpatient Yvette Villalobos n [id number] 00:00:00 00:00:00 Darien ruff [facility] Medical Oncology Oncology [facility] [place] 2017-12-03 2017-12-03 Outpatient Yvette Olmos [id number] 00:00:00 00:00:00 rn Medical Medical Oncology Oncology Center [place] 2017-12-02 2017-12-02 Outpatient Yvette Villalobos n [id number] 00:00:00 00:00:00 Darien ruff Medical Medical Oncology Oncology [facility] [place] 2017-11-30 2017-11-30 Outpatient Yvette Olmos [id number] 00:00:00 00:00:00 rn Medical Medical Oncology Oncology Center [place] 2017-11-29 2017-11-29 Outpatient Yvette Villalobos n [id number] 00:00:00 00:00:00 Darien rn Medical Medical Oncology Oncology [facility] [place] 2017-11-25 2017-11-25 Outpatient Yvette Villalobos n [id number] 00:00:00 00:00:00 Darien ruff Medical Medical Oncology Oncology [facility] [place] 2017-11-22 2017-11-22 GermanWilfredo [facility] 2 [id number] 00:00:00 00:00:00 Nadia Ledezma rn Medical Medical Oncology Oncology Center [place] 2017-11-18 2017-11-18 Outpatient Yvette Olmos [id number] 00:00:00 00:00:00 rn Medical Medical Oncology Oncology Center [place] 2017-11-11 2017-11-11 Outpatient Yvette Villalobos n [id number] 00:00:00 00:00:00 Darien ruff Medical Medical Oncology Oncology [facility] [place] 2017-11-09 2017-11-09 Outpatient Yvette Olmos [id number] 00:00:00 00:00:00 rn Medical Medical Oncology Oncology Center [place] 2017-11-08 2017-11-08 Outpatient Yvette Villalobos n [id number] 00:00:00 00:00:00 Darien ruff Medical Medical Oncology Oncology [facility] [place] 2017-11-04 2017-11-04 Outpatient Yvette Villalobos n [id number] 00:00:00 00:00:00 Darien ruff Medical Medical Oncology Oncology [facility] [place] 2017-11-01 2017-11-01 ShadYvette 20 [id number] 00:00:00 00:00:00 Ellen ruff Medical Medical Oncology Oncology Center [place] 2017-10-29 2017-10-29 Outpatient Yvette Olmos [id number] 00:00:00 00:00:00 [facility] [place] 2017-10-27 2017-10-27 Outpatient Yvette Olmos [id number] 00:00:00 00:00:00 [facility] 2017-10-25 2017-10-25 Outpatient Yvette Villalobos n [id number] 00:00:00 00:00:00 [facility] 2017-10-21 2017-10-21 Outpatient Yvette Villalobos n [id number] 00:00:00 00:00:00 [facility] 2017-10-18 2017-10-18 Outpatient Yvette Villalobos n [id number] 00:00:00 00:00:00 [facility] 2017-10-14 2017-10-14 Outpatient Yvette Villalobos n [id number] 00:00:00 00:00:00 [facility] [place] 2017-10-11 2017-10-11 Meri Yvette Villalobos 2 [id number] 00:00:00 00:00:00 [facility]ert [facility] [place] 2017-10-04 2017-10-04 Outpatient Yvette Villalobos n [id number] 00:00:00 00:00:00 [facility] [place] 2017-09-30 2017-09-30 Outpatient Yvette Olmos [id number] 00:00:00 00:00:00 [facility] [place] 2017-09-28 2017-09-28 Outpatient Yvette Villalobos n [id number] 00:00:00 00:00:00 [facility] 2017-09-24 2017-09-24 Outpatient Yvette Olmos [id number] 00:00:00 00:00:00 [facility] 2017-09-22 2017-09-22 Outpatient Yvette Villalobos n [id number] 00:00:00 00:00:00 [facility] [place] 2017-09-20 2017-09-20 Outpatient Yvette Villalobos n [id number] 00:00:00 00:00:00 [facility] [place] 2017-09-17 2017-09-17 Irma JaYvette marti 2 [id number] 00:00:00 00:00:00 [facility] 2017-09-14 2017-09-14 Outpatient Yvette Olmos [id number] 00:00:00 00:00:00 [facility] 2017-09-10 2017-09-10 Outpatient Yvette Villalobos n [id number] 00:00:00 00:00:00 [facility] 2017-09-06 2017-09-06 Outpatient Yvette Villalobos n [id number] 00:00:00 00:00:00 [facility] 2017-09-03 2017-09-03 Outpatient Yvette Villalobos n [id number] 00:00:00 00:00:00 [facility] 2017-08-30 2017-08-30 Outpatient Yvette Villalobos n [id number] 00:00:00 00:00:00 [facility] [place] 2017-08-25 2017-08-25 Haider SolisYvette dai [facility] [id number] 00:00:00 00:00:00 Gema Ledezma rn [facility] 2017-08-20 2017-08-20 Outpatient Yvette Olmos [id number] 00:00:00 00:00:00 rn [facility] Center 2017-08-19 2017-08-19 Outpatient Yvette Olmos [id number] 00:00:00 00:00:00 rn [facility] [place] 2017-08-18 2017-08-18 Outpatient Yvette Olmos [id number] 00:00:00 00:00:00 rn [facility] Center 2017-08-17 2017-08-17 Outpatient Yvette Olmos [id number] 00:00:00 00:00:00 rn [facility] Center 2017-08-16 2017-08-16 Wilfredo Solis Yvette [facility] 2 [id number] 00:00:00 00:00:00 Gema Ledezma rn [facility] Center 2017-08-09 2017-08-09 Outpatient Yvette [facility] [id number] 00:00:00 00:00:00 rn [facility] Center 2017-08-06 2017-08-06 Outpatient [facility] [id number] 00:00:00 00:00:00 rn [facility] [place] 2017-07-28 2017-07-28 Outpatient Yvette Villalobos [facility] [id number] 00:00:00 00:00:00 [place] [facility] [facility] [place] 2017-07-26 2017-07-26 Wilfredo Villalobos [facility] [id number] 00:00:00 00:00:00 Dr. Darien Ledezma rn [facility] [place] 2017-07-23 2017-07-23 Outpatient [facility] [id number] 00:00:00 00:00:00 rn [facility] [place] 2017-07-22 2017-07-22 Outpatient [facility] [id number] 00:00:00 00:00:00 rn [facility] [place] 2017-07-19 2017-07-19 Outpatient [facility] [id number] 00:00:00 00:00:00 rn [facility] [place] 2017-07-15 2017-07-15 Outpatient [facility] [id number] 00:00:00 00:00:00 rn [facility] [place] 2017-06-03 2017-06-03 [id number] 00:00:00 00:00:00 PA PA 2016-12-01 2016-12-01 [facility] [id number] 00:00:00 00:00:00 PA PA 2015-11-25 2015-11-25 [facility] [id number] 00:00:00 00:00:00 PA PA 2015-11-12 2015-11-12 [facility] [id number] 00:00:00 00:00:00 PA PA 2014-08-22 2014-08-22 [facility] [id number] 00:00:00 00:00:00 PA PA 2013-08-08 2013-08-08 [facility] [id number] 00:00:00 00:00:00 PA PA 2012-07-13 2012-07-13 [facility] [id number] 00:00:00 00:00:00 PA PA 2012-01-15 2012-01-15 [facility] [id number] 00:00:00 00:00:00 PA PA 2011-11-30 2011-11-30 [facility] [id number] 00:00:00 00:00:00 PA PA 2011-08-14 2011-08-14 [facility] [id number] 00:00:00 00:00:00 PA PA 2011-07-30 2011-07-30 [facility] [id number] 00:00:00 00:00:00 PA PA 2011-07-30 2011-07-30 [facility] [id number] 00:00:00 00:00:00 PA PA 2011-07-30 2011-07-30 [facility] [id number] 00:00:00 00:00:00 PA PA 2011-06-18 2011-06-18 [facility] [id number] 00:00:00 00:00:00 PA PA 2010-12-16 2010-12-16 [facility] [id number] 00:00:00 00:00:00 PA PA 2010-08-21 2010-08-21 Outpatient [facility] [id number] 00:00:00 00:00:00 rn [facility] Center 2010-07-25 2010-07-25 [facility] [id number] 00:00:00 00:00:00 PA PA 2010-07-09 2010-07-09 [facility] [id number] 00:00:00 00:00:00 PA PA 2010-02-10 2010-02-10 [facility] [id number] 00:00:00 00:00:00 PA PA Immunizations Ordered Immunization Filled Immunization Date Status Commen ts Refusal Reason Name Name Afluria Quadrivalent 2020-01-23 Completed 00:00:00 Afluria Quadrivalent 2020-01-23 Completed 00:00:00 DTaP / Hep B / IPV 2019-11-02 Completed (Pediarix) 00:00:00 HiB-PRP-T 2019-11-02 Completed 00:00:00 Pneumococcal 2019-11-02 Completed Conjugate 13-Valent 00:00:00 DTaP / Hep B / IPV 2019-03-02 Completed (Pediarix) 00:00:00 HiB-PRP-T 2019-03-02 Completed 00:00:00 Pneumococcal 2019-03-02 Completed Conjugate 13-Valent 00:00:00 Influenza Vaccine 2019-02-04 Completed Quad (IIV4 PF) 6mo+ 00:00:00 injectable DTaP / Hep B / IPV 2018-08-04 Completed (Pediarix) 00:00:00 HiB-PRP-T 2018-08-04 Completed 00:00:00 Pneumococcal 2018-08-04 Completed Conjugate 13-Valent 00:00:00 SHINGRIX-ZOSTER 2018-08-04 Completed VACCINE (HZV), 00:00:00 RECOMBINANT,SUB-UNIT ,ADJUVANTED IM SHINGRIX-ZOSTER 2018-04-14 Completed VACCINE (HZV), 00:00:00 RECOMBINANT,SUB-UNIT ,ADJUVANTED IM Payers Payer Name Policy Type Policy Number Effective Date Expiration D ate BCBS BLUE VALUE [id number] 2017 00:00:00 [place] [id number] 2017 00:00:00 PLANNING Plan of Treatment Planned Activity Planned Date Details Comments Future Scheduled Test [code = ] Future Scheduled Test [code = ] Future Scheduled Test [code = ] Future Scheduled Test [code = ] Future Scheduled Test [code = ] Future Scheduled Test [code = ] Future Scheduled Test [code = ] Future Scheduled Test [code = ] Future Scheduled Test [code = ] Future Scheduled Test [code = ] Future Scheduled Test [code = ] Future Scheduled Test [code = ] Future Scheduled Test [code = ] Future Scheduled Test [code = ] Future Scheduled Test [code = ] Future Scheduled Test [code = ] Future Scheduled Test [code = ] Future Scheduled Test [code = ] Future Scheduled Test [code = ] Future Scheduled Test [code = ] Future Scheduled Test [code = ] Future Scheduled Test [code = ] Future Scheduled Test [code = ] Future Scheduled Test [code = ] Future Scheduled Test [code = ] Future Scheduled Test [code = ] Future Scheduled Test [code = ] Future Scheduled Test [code = ] Future Scheduled Test [code = ] Future Scheduled Test [code = ] Future Scheduled Test [code = ] Future Scheduled Test [code = ] Future Scheduled Test [code = ] Future Scheduled Test [code = ] Future Scheduled Test [code = ] Future Scheduled Test [code = ] Future Scheduled Test [code = ] Future Scheduled Test [code = ] Future Scheduled Test [code = ] Future Scheduled Test [code = ] Future Scheduled Test [code = ] Future Scheduled Test [code = ] Future Scheduled Test [code = ] Future Scheduled Test [code = ] Future Scheduled Test [code = ] Future Scheduled Test [code = ] Future Scheduled Test [code = ] Future Scheduled Test [code = ] Future Scheduled Test [code = ] Future Scheduled Test [code = ] Future Scheduled Test [code = ] Future Scheduled Test [code = ] Future Scheduled Test [code = ] Future Scheduled Test [code = ] Future Scheduled Test [code = ] Future Scheduled Test [code = ] Future Scheduled Test [code = ] Future Scheduled Test [code = ] Future Scheduled Test [code = ] Future Scheduled Test [code = ] Future Scheduled Test [code = ] Future Scheduled Test [code = ] Future Scheduled Test [code = ] Future Scheduled Test [code = ] Future Scheduled Test [code = ] Future Scheduled Test [code = ] Future Scheduled Test [code = ] Future Scheduled Test [code = ] Future Scheduled Test [code = ] Future Scheduled Test [code = ] Future Scheduled Test [code = ] Future Scheduled Test [code = ] Future Scheduled Test [code = ] Future Scheduled Test [code = ] Future Scheduled Test [code = ] Future Scheduled Test [code = ] Future Scheduled Test [code = ] Future Scheduled Test [code = ] Future Scheduled Test [code = ] Future Scheduled Test [code = ] Future Scheduled Test [code = ] Future Scheduled Test [code = ] Future Scheduled Test [code = ] Future Scheduled Test [code = ] Future Scheduled Test [code = ] Future Scheduled Test [code = ] Future Scheduled Test [code = ] Future Scheduled Test [code = ] Future Scheduled Test [code = ] Future Scheduled Test [code = ] Future Scheduled Test [code = ] Future Scheduled Test [code = ] Future Scheduled Test [code = ] Future Scheduled Test [code = ] Future Scheduled Test [code = ] Future Scheduled Test [code = ] Future Scheduled Test [code = ] Future Scheduled Test [code = ] Future Scheduled Test [code = ] Future Scheduled Test [code = ] Future Scheduled Test [code = ] Future Scheduled Test [code = ] Future Scheduled Test [code = ] Future Scheduled Test [code = ] Future Scheduled Test [code = ] Future Scheduled Test [code = ] Future Scheduled Test [code = ] Future Scheduled Test [code = ] Future Scheduled Test [code = ] Future Scheduled Test [code = ] Future Scheduled Test [code = ] Future Scheduled Test [code = ] Future Scheduled Test [code = ] Future Scheduled Test [code = ] Future Scheduled Test [code = ] Future Scheduled Test [code = ] Future Scheduled Test [code = ] Future Scheduled Test [code = ] Future Scheduled Test [code = ] Future Scheduled Test [code = ] Future Scheduled Test [code = ] Future Scheduled Test [code = ] Future Scheduled Test [code = ] Future Scheduled Test [code = ] Future Scheduled Test [code = ] Social History Social Habit Start Date Stop Date Comments Sex Assigned At Tobacco smoking status NHIS 2019-11-02 00:00:00 2019-11-02 00:00 :00 Alcohol intake 2019-11-02 00:00:00 2019-11-02 00:00:00 Smoking Status Start Date Stop Date Never 2020-03-13 00:00:00 Social History Observation Description Sex Female Vital Signs Vital Name Observation Time Observation Value Comments weight 2019-09-12 09:00:00 158 [lb_av] bmi 2019-09-12 09:00:00 25.50 kg/m2 heart rate 2019-09-12 09:00:00 76 /min blood pressure systolic 2019-09-12 09:00:00 108 mm[Hg] blood pressure diastolic 2019-09-12 09:00:00 63 mm[Hg] height 2019-09-12 09:00:00 66 [in_us] height 2019-05-15 13:30:00 66 [in_us] weight 2019-05-15 13:30:00 154.8 [lb_av] bmi 2019-05-15 13:30:00 24.98 kg/m2 heart rate 2019-05-15 13:30:00 73 /min blood pressure systolic 2019-05-15 13:30:00 110 mm[Hg] blood pressure diastolic 2019-05-15 13:30:00 66 mm[Hg] height 2019-01-27 11:30:00 66 [in_us] weight 2019-01-27 11:30:00 153.6 [lb_av] bmi 2019-01-27 11:30:00 24.79 kg/m2 heart rate 2019-01-27 11:30:00 105 /min blood pressure systolic 2019-01-27 11:30:00 105 mm[Hg] blood pressure diastolic 2019-01-27 11:30:00 71 mm[Hg] height 2019-01-16 14:00:00 66 [in_us] weight 2019-01-16 14:00:00 158 [lb_av] bmi 2019-01-16 14:00:00 25.50 kg/m2 heart rate 2019-01-16 14:00:00 92 /min blood pressure systolic 2019-01-16 14:00:00 109 mm[Hg] blood pressure diastolic 2019-01-16 14:00:00 69 mm[Hg] height 2018-09-12 09:45:00 66 [in_us] weight 2018-09-12 09:45:00 144 [lb_av] bmi 2018-09-12 09:45:00 23.24 kg/m2 heart rate 2018-09-12 09:45:00 89 /min blood pressure systolic 2018-09-12 09:45:00 108 mm[Hg] blood pressure diastolic 2018-09-12 09:45:00 70 mm[Hg] BMI 2020-03-13 09:41:15 24.4400 BP hatch 2020-03-13 09:41:15 67.0000 mm[Hg] Bdy height 2020-03-13 09:41:15 66.0000 [in_i] SaO2% BldA PulseOx 2020-03-13 09:41:15 98.0000 % Heart rate 2020-03-13 09:41:15 68.0000 /min Resp rate 2020-03-13 09:41:15 16.0000 /min BP sys 2020-03-13 09:41:15 133.0000 mm[Hg] Body temperature 2020-03-13 09:41:15 98.2000 [degF] Weight 2020-03-13 09:41:15 151.4000 [lb_av] BMI 2020-02-15 08:30:38 24.6000 BP hatch 2020-02-15 08:30:38 67.0000 mm[Hg] Bdy height 2020-02-15 08:30:38 66.0000 [in_i] SaO2% BldA PulseOx 2020-02-15 08:30:38 98.0000 % Heart rate 2020-02-15 08:30:38 72.0000 /min Resp rate 2020-02-15 08:30:38 16.0000 /min BP sys 2020-02-15 08:30:38 112.0000 mm[Hg] Body temperature 2020-02-15 08:30:38 97.2000 [degF] Weight 2020-02-15 08:30:38 152.4000 [lb_av] BMI 2020-02-14 13:23:12 24.7300 BP hatch 2020-02-14 13:23:12 66.0000 mm[Hg] Bdy height 2020-02-14 13:23:12 66.0000 [in_i] SaO2% BldA PulseOx 2020-02-14 13:23:12 98.0000 % Heart rate 2020-02-14 13:23:12 77.0000 /min Resp rate 2020-02-14 13:23:12 18.0000 /min BP sys 2020-02-14 13:23:12 132.0000 mm[Hg] Body temperature 2020-02-14 13:23:12 98.8000 [degF] Weight 2020-02-14 13:23:12 153.2000 [lb_av] BMI 2020-01-23 15:37:42 25.5700 BP hatch 2020-01-23 15:37:42 71.0000 mm[Hg] Bdy height 2020-01-23 15:37:42 66.0000 [in_i] SaO2% BldA PulseOx 2020-01-23 15:37:42 98.0000 % Heart rate 2020-01-23 15:37:42 96.0000 /min Resp rate 2020-01-23 15:37:42 18.0000 /min BP sys 2020-01-23 15:37:42 122.0000 mm[Hg] Body temperature 2020-01-23 15:37:42 98.2000 [degF] Weight 2020-01-23 15:37:42 158.4000 [lb_av] BMI 2020-01-17 13:22:18 24.9500 BP hatch 2020-01-17 13:22:18 71.0000 mm[Hg] Bdy height 2020-01-17 13:22:18 66.0000 [in_i] SaO2% BldA PulseOx 2020-01-17 13:22:18 98.0000 % Heart rate 2020-01-17 13:22:18 75.0000 /min Resp rate 2020-01-17 13:22:18 18.0000 /min BP sys 2020-01-17 13:22:18 125.0000 mm[Hg] Body temperature 2020-01-17 13:22:18 98.2000 [degF] Weight 2020-01-17 13:22:18 154.6000 [lb_av] BMI 2019-12-20 13:28:32 24.7000 BP hatch 2019-12-20 13:28:32 56.0000 mm[Hg] Bdy height 2019-12-20 13:28:32 66.0000 [in_i] SaO2% BldA PulseOx 2019-12-20 13:28:32 98.0000 % Heart rate 2019-12-20 13:28:32 77.0000 /min Resp rate 2019-12-20 13:28:32 18.0000 /min BP sys 2019-12-20 13:28:32 103.0000 mm[Hg] Body temperature 2019-12-20 13:28:32 98.1000 [degF] Weight 2019-12-20 13:28:32 153.0000 [lb_av] BMI 2019-11-22 14:11:17 25.3400 BP hatch 2019-11-22 14:11:17 67.0000 mm[Hg] Bdy height 2019-11-22 14:11:17 66.0000 [in_i] SaO2% BldA PulseOx 2019-11-22 14:11:17 99.0000 % Heart rate 2019-11-22 14:11:17 72.0000 /min Resp rate 2019-11-22 14:11:17 16.0000 /min BP sys 2019-11-22 14:11:17 129.0000 mm[Hg] Body temperature 2019-11-22 14:11:17 97.3000 [degF] Weight 2019-11-22 14:11:17 157.0000 [lb_av] Systolic blood pressure 2019-11-02 11:19:00 129 mm[Hg] Diastolic blood pressure 2019-11-02 11:19:00 73 mm[Hg] Heart rate 2019-11-02 11:19:00 76 /min Body temperature 2019-11-02 11:19:00 37.22 Sarahi Respiratory rate 2019-11-02 11:19:00 18 /min Body height 2019-11-02 11:19:00 163 cm Body weight 2019-11-02 11:19:00 72.258 kg Oxygen saturation in Arterial blood by 2019-11-02 11:19:00 100 % Pulse oximetry BMI 2019-10-25 13:46:07 25.4100 BP hatch 2019-10-25 13:46:07 68.0000 mm[Hg] Bdy height 2019-10-25 13:46:07 66.0000 [in_i] SaO2% BldA PulseOx 2019-10-25 13:46:07 98.0000 % Heart rate 2019-10-25 13:46:07 86.0000 /min Resp rate 2019-10-25 13:46:07 12.0000 /min BP sys 2019-10-25 13:46:07 116.0000 mm[Hg] Body temperature 2019-10-25 13:46:07 97.9000 [degF] Weight 2019-10-25 13:46:07 157.4000 [lb_av] BMI 2019-09-27 12:26:00 25.1800 BP hatch 2019-09-27 12:26:00 69.0000 mm[Hg] Bdy height 2019-09-27 12:26:00 66.0000 [in_i] SaO2% BldA PulseOx 2019-09-27 12:26:00 98.0000 % Heart rate 2019-09-27 12:26:00 74.0000 /min Resp rate 2019-09-27 12:26:00 16.0000 /min BP sys 2019-09-27 12:26:00 123.0000 mm[Hg] Body temperature 2019-09-27 12:26:00 98.2000 [degF] Weight 2019-09-27 12:26:00 156.0000 [lb_av] BMI 2019-08-30 13:40:17 25.3700 BP hatch 2019-08-30 13:40:17 72.0000 mm[Hg] Bdy height 2019-08-30 13:40:17 66.0000 [in_i] SaO2% BldA PulseOx 2019-08-30 13:40:17 95.0000 % Heart rate 2019-08-30 13:40:17 94.0000 /min Resp rate 2019-08-30 13:40:17 18.0000 /min BP sys 2019-08-30 13:40:17 132.0000 mm[Hg] Body temperature 2019-08-30 13:40:17 98.8000 [degF] Weight 2019-08-30 13:40:17 157.2000 [lb_av] BMI 2019-08-02 13:51:40 25.7600 BP hatch 2019-08-02 13:51:40 59.0000 mm[Hg] Bdy height 2019-08-02 13:51:40 66.0000 [in_i] SaO2% BldA PulseOx 2019-08-02 13:51:40 98.0000 % Heart rate 2019-08-02 13:51:40 69.0000 /min Resp rate 2019-08-02 13:51:40 18.0000 /min BP sys 2019-08-02 13:51:40 131.0000 mm[Hg] Body temperature 2019-08-02 13:51:40 96.4000 [degF] Weight 2019-08-02 13:51:40 159.6000 [lb_av] BMI 2019-07-05 14:03:32 25.1100 BP hatch 2019-07-05 14:03:32 55.0000 mm[Hg] Bdy height 2019-07-05 14:03:32 66.0000 [in_i] SaO2% BldA PulseOx 2019-07-05 14:03:32 98.0000 % Heart rate 2019-07-05 14:03:32 73.0000 /min Resp rate 2019-07-05 14:03:32 16.0000 /min BP sys 2019-07-05 14:03:32 122.0000 mm[Hg] Body temperature 2019-07-05 14:03:32 98.0000 [degF] Weight 2019-07-05 14:03:32 155.6000 [lb_av] BMI 2019-06-21 14:53:44 25.9200 BP hatch 2019-06-21 14:53:44 63.0000 mm[Hg] Bdy height 2019-06-21 14:53:44 66.0000 [in_i] Heart rate 2019-06-21 14:53:44 72.0000 /min Resp rate 2019-06-21 14:53:44 16.0000 /min BP sys 2019-06-21 14:53:44 124.0000 mm[Hg] Body temperature 2019-06-21 14:53:44 97.5000 [degF] Weight 2019-06-21 14:53:44 160.6000 [lb_av] BMI 2019-06-14 12:59:06 25.3400 BP hatch 2019-06-14 12:59:06 72.0000 mm[Hg] Bdy height 2019-06-14 12:59:06 66.0000 [in_i] Heart rate 2019-06-14 12:59:06 70.0000 /min Resp rate 2019-06-14 12:59:06 16.0000 /min BP sys 2019-06-14 12:59:06 126.0000 mm[Hg] Body temperature 2019-06-14 12:59:06 97.2000 [degF] Weight 2019-06-14 12:59:06 157.0000 [lb_av] BMI 2019-06-07 13:17:36 25.3100 BP hatch 2019-06-07 13:17:36 63.0000 mm[Hg] Bdy height 2019-06-07 13:17:36 66.0000 [in_i] SaO2% BldA PulseOx 2019-06-07 13:17:36 98.0000 % Heart rate 2019-06-07 13:17:36 81.0000 /min Resp rate 2019-06-07 13:17:36 16.0000 /min BP sys 2019-06-07 13:17:36 128.0000 mm[Hg] Body temperature 2019-06-07 13:17:36 97.8000 [degF] Weight 2019-06-07 13:17:36 156.8000 [lb_av] BMI 2019-05-10 13:35:46 25.1100 BP hatch 2019-05-10 13:35:46 78.0000 mm[Hg] Bdy height 2019-05-10 13:35:46 66.0000 [in_i] SaO2% BldA PulseOx 2019-05-10 13:35:46 98.0000 % Heart rate 2019-05-10 13:35:46 96.0000 /min Resp rate 2019-05-10 13:35:46 16.0000 /min BP sys 2019-05-10 13:35:46 138.0000 mm[Hg] Body temperature 2019-05-10 13:35:46 98.1000 [degF] Weight 2019-05-10 13:35:46 155.6000 [lb_av] BMI 2019-04-05 14:16:43 24.4400 BP hatch 2019-04-05 14:16:43 74.0000 mm[Hg] Bdy height 2019-04-05 14:16:43 66.0000 [in_i] SaO2% BldA PulseOx 2019-04-05 14:16:43 98.0000 % Heart rate 2019-04-05 14:16:43 106.0000 /min Resp rate 2019-04-05 14:16:43 16.0000 /min BP sys 2019-04-05 14:16:43 122.0000 mm[Hg] Body temperature 2019-04-05 14:16:43 99.9800 [degF] Weight 2019-04-05 14:16:43 151.4000 [lb_av] BMI 2019-03-08 14:15:23 25.4100 BP hatch 2019-03-08 14:15:23 63.0000 mm[Hg] Bdy height 2019-03-08 14:15:23 66.0000 [in_i] Heart rate 2019-03-08 14:15:23 98.0000 /min Resp rate 2019-03-08 14:15:23 18.0000 /min BP sys 2019-03-08 14:15:23 115.0000 mm[Hg] Body temperature 2019-03-08 14:15:23 97.9000 [degF] Weight 2019-03-08 14:15:23 157.4000 [lb_av] Systolic blood pressure 2019-03-02 12:04:00 141 mm[Hg] Diastolic blood pressure 2019-03-02 12:04:00 63 mm[Hg] Heart rate 2019-03-02 12:04:00 79 /min Body temperature 2019-03-02 12:04:00 36.61 Sarahi Respiratory rate 2019-03-02 12:04:00 18 /min Body height 2019-03-02 12:04:00 163 cm Body weight 2019-03-02 12:04:00 71.396 kg Oxygen saturation in Arterial blood by 2019-03-02 12:04:00 98 % Pulse oximetry BMI 2019-02-08 14:55:48 24.9900 BP hatch 2019-02-08 14:55:48 87.0000 mm[Hg] Bdy height 2019-02-08 14:55:48 66.0000 [in_i] SaO2% BldA PulseOx 2019-02-08 14:55:48 98.0000 % Heart rate 2019-02-08 14:55:48 89.0000 /min Resp rate 2019-02-08 14:55:48 16.0000 /min BP sys 2019-02-08 14:55:48 133.0000 mm[Hg] Body temperature 2019-02-08 14:55:48 97.2000 [degF] Weight 2019-02-08 14:55:48 154.8000 [lb_av] Systolic blood pressure 2019-02-04 11:54:00 113 mm[Hg] Diastolic blood pressure 2019-02-04 11:54:00 56 mm[Hg] Heart rate 2019-02-04 11:54:00 88 /min Body temperature 2019-02-04 11:54:00 36.5 Sarahi Respiratory rate 2019-02-04 11:54:00 18 /min Oxygen saturation in Arterial blood by 2019-02-04 11:54:00 100 % Pulse oximetry Body height 2019-02-02 20:29:00 163 cm Body weight 2019-02-02 20:29:00 69.264 kg Systolic blood pressure 2019-02-02 11:38:00 76 mm[Hg] Diastolic blood pressure 2019-02-02 11:38:00 45 mm[Hg] Heart rate 2019-02-02 11:35:00 113 /min Respiratory rate 2019-02-02 11:35:00 24 /min Body temperature 2019-02-02 11:28:00 36.39 Sarahi Body height 2019-02-02 11:28:00 163 cm Body weight 2019-02-02 11:28:00 69.264 kg Oxygen saturation in Arterial blood by 2019-02-02 11:28:00 98 % Pulse oximetry BMI 2019-01-11 13:03:57 24.9500 BP hatch 2019-01-11 13:03:57 71.0000 mm[Hg] Bdy height 2019-01-11 13:03:57 66.0000 [in_i] Heart rate 2019-01-11 13:03:57 99.0000 /min Resp rate 2019-01-11 13:03:57 14.0000 /min BP sys 2019-01-11 13:03:57 123.0000 mm[Hg] Body temperature 2019-01-11 13:03:57 98.4000 [degF] Weight 2019-01-11 13:03:57 154.6000 [lb_av] BMI 2018-12-14 13:29:48 23.9200 BP hatch 2018-12-14 13:29:48 62.0000 mm[Hg] Bdy height 2018-12-14 13:29:48 66.0000 [in_i] SaO2% BldA PulseOx 2018-12-14 13:29:48 98.0000 % Heart rate 2018-12-14 13:29:48 90.0000 /min Resp rate 2018-12-14 13:29:48 18.0000 /min BP sys 2018-12-14 13:29:48 120.0000 mm[Hg] Body temperature 2018-12-14 13:29:48 97.6000 [degF] Weight 2018-12-14 13:29:48 148.2000 [lb_av] BMI 2018-11-16 13:58:24 24.3100 BP hatch 2018-11-16 13:58:24 71.0000 mm[Hg] Bdy height 2018-11-16 13:58:24 66.0000 [in_i] SaO2% BldA PulseOx 2018-11-16 13:58:24 98.0000 % Heart rate 2018-11-16 13:58:24 89.0000 /min Resp rate 2018-11-16 13:58:24 18.0000 /min BP sys 2018-11-16 13:58:24 123.0000 mm[Hg] Body temperature 2018-11-16 13:58:24 97.1000 [degF] Weight 2018-11-16 13:58:24 150.6000 [lb_av] BMI 2018-10-19 14:10:00 24.2800 BP hatch 2018-10-19 14:10:00 66.0000 mm[Hg] Bdy height 2018-10-19 14:10:00 66.0000 [in_i] SaO2% BldA PulseOx 2018-10-19 14:10:00 98.0000 % Heart rate 2018-10-19 14:10:00 90.0000 /min Resp rate 2018-10-19 14:10:00 14.0000 /min BP sys 2018-10-19 14:10:00 117.0000 mm[Hg] Body temperature 2018-10-19 14:10:00 96.8000 [degF] Weight 2018-10-19 14:10:00 150.4000 [lb_av] BMI 2018-09-21 13:15:38 23.2700 BP hatch 2018-09-21 13:15:38 65.0000 mm[Hg] Bdy height 2018-09-21 13:15:38 66.0000 [in_i] Heart rate 2018-09-21 13:15:38 96.0000 /min Resp rate 2018-09-21 13:15:38 18.0000 /min BP sys 2018-09-21 13:15:38 110.0000 mm[Hg] Body temperature 2018-09-21 13:15:38 98.7000 [degF] Weight 2018-09-21 13:15:38 144.2000 [lb_av] BMI 2018-08-24 11:51:40 23.7300 BP hatch 2018-08-24 11:51:40 76.0000 mm[Hg] Bdy height 2018-08-24 11:51:40 66.0000 [in_i] Heart rate 2018-08-24 11:51:40 80.0000 /min Resp rate 2018-08-24 11:51:40 18.0000 /min BP sys 2018-08-24 11:51:40 130.0000 mm[Hg] Body temperature 2018-08-24 11:51:40 95.8000 [degF] Weight 2018-08-24 11:51:40 147.0000 [lb_av] Systolic blood pressure 2018-08-04 10:47:00 114 mm[Hg] Diastolic blood pressure 2018-08-04 10:47:00 58 mm[Hg] Heart rate 2018-08-04 10:47:00 103 /min Body temperature 2018-08-04 10:47:00 37 Sarahi Respiratory rate 2018-08-04 10:47:00 16 /min Body height 2018-08-04 10:47:00 163 cm Body weight 2018-08-04 10:47:00 66.089 kg Oxygen saturation in Arterial blood by 2018-08-04 10:47:00 98 % Pulse oximetry BMI 2018-07-27 11:49:49 23.2100 BP hatch 2018-07-27 11:49:49 65.0000 mm[Hg] Bdy height 2018-07-27 11:49:49 66.0000 [in_i] Heart rate 2018-07-27 11:49:49 100.0000 /min Resp rate 2018-07-27 11:49:49 18.0000 /min BP sys 2018-07-27 11:49:49 114.0000 mm[Hg] Body temperature 2018-07-27 11:49:49 97.1000 [degF] Weight 2018-07-27 11:49:49 143.8000 [lb_av] BMI 2018-07-20 10:57:14 22.8900 BP hatch 2018-07-20 10:57:14 61.0000 mm[Hg] Bdy height 2018-07-20 10:57:14 66.0000 [in_i] Heart rate 2018-07-20 10:57:14 83.0000 /min Resp rate 2018-07-20 10:57:14 16.0000 /min BP sys 2018-07-20 10:57:14 114.0000 mm[Hg] Body temperature 2018-07-20 10:57:14 97.9000 [degF] Weight 2018-07-20 10:57:14 141.8000 [lb_av] BMI 2018-07-11 10:33:44 23.2700 BP hatch 2018-07-11 10:33:44 72.0000 mm[Hg] Bdy height 2018-07-11 10:33:44 66.0000 [in_i] Heart rate 2018-07-11 10:33:44 63.0000 /min Resp rate 2018-07-11 10:33:44 16.0000 /min BP sys 2018-07-11 10:33:44 138.0000 mm[Hg] Body temperature 2018-07-11 10:33:44 98.2000 [degF] Weight 2018-07-11 10:33:44 144.2000 [lb_av] BMI 2018-06-29 11:54:23 24.0200 BP hatch 2018-06-29 11:54:23 55.0000 mm[Hg] Bdy height 2018-06-29 11:54:23 66.0000 [in_i] Heart rate 2018-06-29 11:54:23 88.0000 /min Resp rate 2018-06-29 11:54:23 16.0000 /min BP sys 2018-06-29 11:54:23 103.0000 mm[Hg] Body temperature 2018-06-29 11:54:23 97.9000 [degF] Weight 2018-06-29 11:54:23 148.8000 [lb_av] BMI 2018-06-01 10:56:33 22.7900 BP hatch 2018-06-01 10:56:33 72.0000 mm[Hg] Bdy height 2018-06-01 10:56:33 66.0000 [in_i] Heart rate 2018-06-01 10:56:33 95.0000 /min Resp rate 2018-06-01 10:56:33 14.0000 /min BP sys 2018-06-01 10:56:33 132.0000 mm[Hg] Body temperature 2018-06-01 10:56:33 97.9000 [degF] Weight 2018-06-01 10:56:33 141.2000 [lb_av] BMI 2018-05-04 10:01:18 22.4700 BP hatch 2018-05-04 10:01:18 66.0000 mm[Hg] Bdy height 2018-05-04 10:01:18 66.0000 [in_i] SaO2% BldA PulseOx 2018-05-04 10:01:18 97.0000 % Heart rate 2018-05-04 10:01:18 89.0000 /min Resp rate 2018-05-04 10:01:18 18.0000 /min BP sys 2018-05-04 10:01:18 118.0000 mm[Hg] Body temperature 2018-05-04 10:01:18 97.3000 [degF] Weight 2018-05-04 10:01:18 139.2000 [lb_av] BMI 2018-04-05 09:47:40 22.4000 BP hatch 2018-04-05 09:47:40 61.0000 mm[Hg] Bdy height 2018-04-05 09:47:40 66.0000 [in_i] Heart rate 2018-04-05 09:47:40 101.0000 /min Resp rate 2018-04-05 09:47:40 18.0000 /min BP sys 2018-04-05 09:47:40 104.0000 mm[Hg] Body temperature 2018-04-05 09:47:40 97.7000 [degF] Weight 2018-04-05 09:47:40 138.8000 [lb_av] BMI 2018-03-08 09:13:20 22.9500 BP hatch 2018-03-08 09:13:20 70.0000 mm[Hg] Bdy height 2018-03-08 09:13:20 66.0000 [in_i] Heart rate 2018-03-08 09:13:20 114.0000 /min Resp rate 2018-03-08 09:13:20 18.0000 /min BP sys 2018-03-08 09:13:20 110.0000 mm[Hg] Body temperature 2018-03-08 09:13:20 97.4000 [degF] Weight 2018-03-08 09:13:20 142.2000 [lb_av] SYSTOLIC BLOOD PRESSURE 2018-03-03 10:33:00 138 mm[Hg] DIASTOLIC BLOOD PRESSURE 2018-03-03 10:33:00 90 mm[Hg] HEART RATE 2018-03-03 10:33:00 96 /min BODY TEMPERATURE 2018-03-03 10:33:00 37.06 Sarahi RESPIRATORY RATE 2018-03-03 10:33:00 18 /min HEIGHT 2018-03-03 10:33:00 163 cm WEIGHT 2018-03-03 10:33:00 67.9 kg OXYGEN SATURATION 2018-03-03 10:33:00 100 % SYSTOLIC BLOOD PRESSURE 2018-03-03 08:09:00 150 mm[Hg] DIASTOLIC BLOOD PRESSURE 2018-03-03 08:09:00 73 mm[Hg] HEART RATE 2018-03-03 08:09:00 95 /min BODY TEMPERATURE 2018-03-03 08:09:00 37.06 Sarahi RESPIRATORY RATE 2018-03-03 08:09:00 16 /min HEIGHT 2018-03-03 08:09:00 163 cm WEIGHT 2018-03-03 08:09:00 67.949 kg OXYGEN SATURATION 2018-03-03 08:09:00 99 % SYSTOLIC BLOOD PRESSURE 2018-02-28 09:43:00 148 mm[Hg] DIASTOLIC BLOOD PRESSURE 2018-02-28 09:43:00 70 mm[Hg] HEART RATE 2018-02-28 09:38:00 83 /min BODY TEMPERATURE 2018-02-28 09:38:00 37.11 Sarahi RESPIRATORY RATE 2018-02-28 09:38:00 18 /min WEIGHT 2018-02-28 09:38:00 72.55 kg SYSTOLIC BLOOD PRESSURE 2018-02-28 07:50:00 146 mm[Hg] DIASTOLIC BLOOD PRESSURE 2018-02-28 07:50:00 73 mm[Hg] HEART RATE 2018-02-28 07:50:00 95 /min BODY TEMPERATURE 2018-02-28 07:50:00 36.67 Sarahi RESPIRATORY RATE 2018-02-28 07:50:00 18 /min HEIGHT 2018-02-28 07:50:00 163 cm WEIGHT 2018-02-28 07:50:00 72.4 kg OXYGEN SATURATION 2018-02-28 07:50:00 99 % SYSTOLIC BLOOD PRESSURE 2018-02-25 13:03:00 145 mm[Hg] DIASTOLIC BLOOD PRESSURE 2018-02-25 13:03:00 59 mm[Hg] HEART RATE 2018-02-25 13:03:00 78 /min BODY TEMPERATURE 2018-02-25 13:03:00 37.22 Sarahi RESPIRATORY RATE 2018-02-25 13:03:00 18 /min WEIGHT 2018-02-25 13:03:00 77.066 kg OXYGEN SATURATION 2018-02-25 13:03:00 97 % SYSTOLIC BLOOD PRESSURE 2018-02-24 13:07:00 139 mm[Hg] DIASTOLIC BLOOD PRESSURE 2018-02-24 13:07:00 60 mm[Hg] HEART RATE 2018-02-24 13:07:00 101 /min BODY TEMPERATURE 2018-02-24 13:07:00 37.11 Sarahi RESPIRATORY RATE 2018-02-24 13:07:00 18 /min OXYGEN SATURATION 2018-02-24 13:07:00 96 % WEIGHT 2018-02-23 20:30:00 76.794 kg HEIGHT 2018-02-09 12:20:00 163 cm SYSTOLIC BLOOD PRESSURE 2018-02-08 09:02:00 149 mm[Hg] DIASTOLIC BLOOD PRESSURE 2018-02-08 09:02:00 65 mm[Hg] HEART RATE 2018-02-08 09:02:00 100 /min BODY TEMPERATURE 2018-02-08 09:02:00 36.89 Sarahi RESPIRATORY RATE 2018-02-08 09:02:00 18 /min WEIGHT 2018-02-08 09:02:00 69.491 kg OXYGEN SATURATION 2018-02-08 09:02:00 98 % SYSTOLIC BLOOD PRESSURE 2018-02-02 11:15:00 121 mm[Hg] DIASTOLIC BLOOD PRESSURE 2018-02-02 11:15:00 62 mm[Hg] HEART RATE 2018-02-02 11:15:00 93 /min BODY TEMPERATURE 2018-02-02 10:50:00 36.72 Sarahi OXYGEN SATURATION 2018-02-02 10:50:00 99 % HEIGHT 2018-02-02 08:32:00 162.6 cm WEIGHT 2018-02-02 08:32:00 67.132 kg SYSTOLIC BLOOD PRESSURE 2018-02-01 16:17:00 119 mm[Hg] DIASTOLIC BLOOD PRESSURE 2018-02-01 16:17:00 62 mm[Hg] HEART RATE 2018-02-01 16:17:00 116 /min BODY TEMPERATURE 2018-02-01 16:17:00 36.78 Sarahi RESPIRATORY RATE 2018-02-01 16:17:00 18 /min WEIGHT 2018-02-01 16:17:00 67.55 kg SYSTOLIC BLOOD PRESSURE 2018-01-25 14:55:00 137 mm[Hg] DIASTOLIC BLOOD PRESSURE 2018-01-25 14:55:00 75 mm[Hg] HEART RATE 2018-01-25 14:55:00 67 /min RESPIRATORY RATE 2018-01-25 14:55:00 18 /min OXYGEN SATURATION 2018-01-25 14:55:00 98 % BODY TEMPERATURE 2018-01-25 13:00:00 36.5 Sarahi HEIGHT 2018-01-25 13:00:00 164.5 cm WEIGHT 2018-01-25 13:00:00 68.947 kg SYSTOLIC BLOOD PRESSURE 2018-01-25 08:36:00 147 mm[Hg] DIASTOLIC BLOOD PRESSURE 2018-01-25 08:36:00 64 mm[Hg] HEART RATE 2018-01-25 08:36:00 82 /min BODY TEMPERATURE 2018-01-25 08:36:00 36.78 Sarahi RESPIRATORY RATE 2018-01-25 08:36:00 16 /min HEIGHT 2018-01-25 08:36:00 164.5 cm WEIGHT 2018-01-25 08:36:00 69.31 kg OXYGEN SATURATION 2018-01-25 08:36:00 98 % SYSTOLIC BLOOD PRESSURE 2018-01-20 09:30:00 121 mm[Hg] DIASTOLIC BLOOD PRESSURE 2018-01-20 09:30:00 58 mm[Hg] HEART RATE 2018-01-20 09:30:00 70 /min BODY TEMPERATURE 2018-01-20 09:30:00 36.61 Sarahi RESPIRATORY RATE 2018-01-20 09:30:00 16 /min HEIGHT 2018-01-20 09:30:00 164.5 cm WEIGHT 2018-01-20 09:30:00 70.035 kg OXYGEN SATURATION 2018-01-20 09:30:00 99 % SYSTOLIC BLOOD PRESSURE 2018-01-13 12:19:00 106 mm[Hg] DIASTOLIC BLOOD PRESSURE 2018-01-13 12:19:00 50 mm[Hg] HEART RATE 2018-01-13 12:19:00 66 /min BODY TEMPERATURE 2018-01-13 12:19:00 36.5 Sarahi RESPIRATORY RATE 2018-01-13 12:19:00 18 /min OXYGEN SATURATION 2018-01-13 12:19:00 98 % WEIGHT 2018-01-12 20:32:00 72.712 kg HEIGHT 2018-01-12 15:22:00 164.5 cm SYSTOLIC BLOOD PRESSURE 2018-01-06 10:15:00 119 mm[Hg] DIASTOLIC BLOOD PRESSURE 2018-01-06 10:15:00 57 mm[Hg] HEART RATE 2018-01-06 10:15:00 75 /min BODY TEMPERATURE 2018-01-06 10:15:00 36.89 Sarahi RESPIRATORY RATE 2018-01-06 10:15:00 18 /min HEIGHT 2018-01-06 10:15:00 164.5 cm WEIGHT 2018-01-06 10:15:00 70.5 kg OXYGEN SATURATION 2018-01-06 10:15:00 98 % BMI 2018-01-04 11:41:13 25.1500 BP hatch 2018-01-04 11:41:13 52.0000 mm[Hg] Bdy height 2018-01-04 11:41:13 66.0000 [in_i] Heart rate 2018-01-04 11:41:13 82.0000 /min Resp rate 2018-01-04 11:41:13 14.0000 /min BP sys 2018-01-04 11:41:13 115.0000 mm[Hg] Body temperature 2018-01-04 11:41:13 98.2000 [degF] Weight 2018-01-04 11:41:13 155.8000 [lb_av] BMI 2017-12-23 13:36:06 25.7000 BP hatch 2017-12-23 13:36:06 59.0000 mm[Hg] Bdy height 2017-12-23 13:36:06 66.0000 [in_i] Heart rate 2017-12-23 13:36:06 78.0000 /min Resp rate 2017-12-23 13:36:06 20.0000 /min BP sys 2017-12-23 13:36:06 109.0000 mm[Hg] Body temperature 2017-12-23 13:36:06 97.1000 [degF] Weight 2017-12-23 13:36:06 159.2000 [lb_av] BMI 2017-12-20 13:21:06 26.0500 BP hatch 2017-12-20 13:21:06 62.0000 mm[Hg] Bdy height 2017-12-20 13:21:06 66.0000 [in_i] Heart rate 2017-12-20 13:21:06 80.0000 /min Resp rate 2017-12-20 13:21:06 18.0000 /min BP sys 2017-12-20 13:21:06 118.0000 mm[Hg] Body temperature 2017-12-20 13:21:06 98.8000 [degF] Weight 2017-12-20 13:21:06 161.4000 [lb_av] BMI 2017-12-16 13:38:18 25.9900 BP hatch 2017-12-16 13:38:18 72.0000 mm[Hg] Bdy height 2017-12-16 13:38:18 66.0000 [in_i] Heart rate 2017-12-16 13:38:18 75.0000 /min Resp rate 2017-12-16 13:38:18 18.0000 /min BP sys 2017-12-16 13:38:18 110.0000 mm[Hg] Body temperature 2017-12-16 13:38:18 98.6000 [degF] Weight 2017-12-16 13:38:18 161.0000 [lb_av] BMI 2017-12-13 12:03:39 26.3100 BP hatch 2017-12-13 12:03:39 49.0000 mm[Hg] Bdy height 2017-12-13 12:03:39 66.0000 [in_i] Heart rate 2017-12-13 12:03:39 82.0000 /min Resp rate 2017-12-13 12:03:39 16.0000 /min BP sys 2017-12-13 12:03:39 106.0000 mm[Hg] Body temperature 2017-12-13 12:03:39 98.5000 [degF] Weight 2017-12-13 12:03:39 163.0000 [lb_av] BMI 2017-12-02 14:14:05 26.4700 BP hatch 2017-12-02 14:14:05 61.0000 mm[Hg] Bdy height 2017-12-02 14:14:05 66.0000 [in_i] Heart rate 2017-12-02 14:14:05 77.0000 /min Resp rate 2017-12-02 14:14:05 20.0000 /min BP sys 2017-12-02 14:14:05 100.0000 mm[Hg] Body temperature 2017-12-02 14:14:05 97.8000 [degF] Weight 2017-12-02 14:14:05 164.0000 [lb_av] BP hatch 2017-11-29 14:53:53 56.0000 mm[Hg] Bdy height 2017-11-29 14:53:53 66.0000 [in_i] Heart rate 2017-11-29 14:53:53 74.0000 /min Resp rate 2017-11-29 14:53:53 18.0000 /min BP sys 2017-11-29 14:53:53 110.0000 mm[Hg] Body temperature 2017-11-29 14:53:53 96.8000 [degF] Weight 2017-11-29 14:53:53 163.6000 [lb_av] BMI 2017-11-29 14:53:53 26.4100 BMI 2017-11-25 14:50:35 27.0800 BP hatch 2017-11-25 14:50:35 56.0000 mm[Hg] Bdy height 2017-11-25 14:50:35 66.0000 [in_i] Heart rate 2017-11-25 14:50:35 73.0000 /min Resp rate 2017-11-25 14:50:35 20.0000 /min BP sys 2017-11-25 14:50:35 102.0000 mm[Hg] Body temperature 2017-11-25 14:50:35 98.4000 [degF] Weight 2017-11-25 14:50:35 167.8000 [lb_av] BMI 2017-11-22 11:09:54 26.8300 BP hatch 2017-11-22 11:09:54 57.0000 mm[Hg] Bdy height 2017-11-22 11:09:54 66.0000 [in_i] Heart rate 2017-11-22 11:09:54 84.0000 /min Resp rate 2017-11-22 11:09:54 16.0000 /min BP sys 2017-11-22 11:09:54 108.0000 mm[Hg] Body temperature 2017-11-22 11:09:54 98.0000 [degF] Weight 2017-11-22 11:09:54 166.2000 [lb_av] BMI 2017-11-11 14:21:50 27.3400 BP hatch 2017-11-11 14:21:50 59.0000 mm[Hg] Bdy height 2017-11-11 14:21:50 66.0000 [in_i] Heart rate 2017-11-11 14:21:50 74.0000 /min Resp rate 2017-11-11 14:21:50 24.0000 /min BP sys 2017-11-11 14:21:50 101.0000 mm[Hg] Body temperature 2017-11-11 14:21:50 98.3000 [degF] Weight 2017-11-11 14:21:50 169.4000 [lb_av] BMI 2017-11-08 13:09:33 27.3700 BP hatch 2017-11-08 13:09:33 54.0000 mm[Hg] Bdy height 2017-11-08 13:09:33 66.0000 [in_i] Heart rate 2017-11-08 13:09:33 79.0000 /min Resp rate 2017-11-08 13:09:33 24.0000 /min BP sys 2017-11-08 13:09:33 98.0000 mm[Hg] Body temperature 2017-11-08 13:09:33 98.2000 [degF] Weight 2017-11-08 13:09:33 169.6000 [lb_av] BMI 2017-11-04 15:23:00 27.8900 BP hatch 2017-11-04 15:23:00 52.0000 mm[Hg] Bdy height 2017-11-04 15:23:00 66.0000 [in_i] Heart rate 2017-11-04 15:23:00 79.0000 /min Resp rate 2017-11-04 15:23:00 20.0000 /min BP sys 2017-11-04 15:23:00 108.0000 mm[Hg] Body temperature 2017-11-04 15:23:00 99.1000 [degF] Weight 2017-11-04 15:23:00 172.8000 [lb_av] BMI 2017-11-01 11:25:51 27.8600 BP hatch 2017-11-01 11:25:51 60.0000 mm[Hg] Bdy height 2017-11-01 11:25:51 66.0000 [in_i] Heart rate 2017-11-01 11:25:51 83.0000 /min Resp rate 2017-11-01 11:25:51 18.0000 /min BP sys 2017-11-01 11:25:51 119.0000 mm[Hg] Body temperature 2017-11-01 11:25:51 98.1000 [degF] Weight 2017-11-01 11:25:51 172.6000 [lb_av] BMI 2017-10-21 10:54:48 27.7900 BP hatch 2017-10-21 10:54:48 67.0000 mm[Hg] Bdy height 2017-10-21 10:54:48 66.0000 [in_i] Heart rate 2017-10-21 10:54:48 86.0000 /min Resp rate 2017-10-21 10:54:48 20.0000 /min BP sys 2017-10-21 10:54:48 113.0000 mm[Hg] Body temperature 2017-10-21 10:54:48 97.9000 [degF] Weight 2017-10-21 10:54:48 172.2000 [lb_av] BMI 2017-10-18 10:57:56 28.1800 BP hatch 2017-10-18 10:57:56 70.0000 mm[Hg] Bdy height 2017-10-18 10:57:56 66.0000 [in_i] Heart rate 2017-10-18 10:57:56 71.0000 /min Resp rate 2017-10-18 10:57:56 20.0000 /min BP sys 2017-10-18 10:57:56 130.0000 mm[Hg] Body temperature 2017-10-18 10:57:56 97.9000 [degF] Weight 2017-10-18 10:57:56 174.6000 [lb_av] BMI 2017-10-14 10:45:14 28.4700 BP hatch 2017-10-14 10:45:14 65.0000 mm[Hg] Bdy height 2017-10-14 10:45:14 66.0000 [in_i] Heart rate 2017-10-14 10:45:14 88.0000 /min Resp rate 2017-10-14 10:45:14 24.0000 /min BP sys 2017-10-14 10:45:14 110.0000 mm[Hg] Body temperature 2017-10-14 10:45:14 99.0000 [degF] Weight 2017-10-14 10:45:14 176.4000 [lb_av] BMI 2017-10-11 11:13:42 28.5000 BP hatch 2017-10-11 11:13:42 65.0000 mm[Hg] Bdy height 2017-10-11 11:13:42 66.0000 [in_i] Heart rate 2017-10-11 11:13:42 73.0000 /min Resp rate 2017-10-11 11:13:42 14.0000 /min BP sys 2017-10-11 11:13:42 127.0000 mm[Hg] Body temperature 2017-10-11 11:13:42 97.8000 [degF] Weight 2017-10-11 11:13:42 176.6000 [lb_av] BMI 2017-09-28 11:05:43 28.5700 BP hatch 2017-09-28 11:05:43 70.0000 mm[Hg] Bdy height 2017-09-28 11:05:43 66.0000 [in_i] Heart rate 2017-09-28 11:05:43 73.0000 /min Resp rate 2017-09-28 11:05:43 24.0000 /min BP sys 2017-09-28 11:05:43 119.0000 mm[Hg] Body temperature 2017-09-28 11:05:43 98.6000 [degF] Weight 2017-09-28 11:05:43 177.0000 [lb_av] BMI 2017-09-24 11:07:03 28.6000 BP hatch 2017-09-24 11:07:03 65.0000 mm[Hg] Bdy height 2017-09-24 11:07:03 66.0000 [in_i] Heart rate 2017-09-24 11:07:03 70.0000 /min Resp rate 2017-09-24 11:07:03 16.0000 /min BP sys 2017-09-24 11:07:03 117.0000 mm[Hg] Body temperature 2017-09-24 11:07:03 97.9000 [degF] Weight 2017-09-24 11:07:03 177.2000 [lb_av] BMI 2017-09-22 09:54:16 28.7300 BP hatch 2017-09-22 09:54:16 65.0000 mm[Hg] Bdy height 2017-09-22 09:54:16 66.0000 [in_i] Heart rate 2017-09-22 09:54:16 78.0000 /min Resp rate 2017-09-22 09:54:16 16.0000 /min BP sys 2017-09-22 09:54:16 118.0000 mm[Hg] Body temperature 2017-09-22 09:54:16 97.9000 [degF] Weight 2017-09-22 09:54:16 178.0000 [lb_av] BMI 2017-09-20 10:27:52 28.6300 BP hatch 2017-09-20 10:27:52 64.0000 mm[Hg] Bdy height 2017-09-20 10:27:52 66.0000 [in_i] Heart rate 2017-09-20 10:27:52 79.0000 /min Resp rate 2017-09-20 10:27:52 16.0000 /min BP sys 2017-09-20 10:27:52 118.0000 mm[Hg] Body temperature 2017-09-20 10:27:52 98.2000 [degF] Weight 2017-09-20 10:27:52 177.4000 [lb_av] BMI 2017-09-17 09:02:45 28.7600 BP hatch 2017-09-17 09:02:45 70.0000 mm[Hg] Bdy height 2017-09-17 09:02:45 66.0000 [in_i] Heart rate 2017-09-17 09:02:45 85.0000 /min Resp rate 2017-09-17 09:02:45 18.0000 /min BP sys 2017-09-17 09:02:45 141.0000 mm[Hg] Body temperature 2017-09-17 09:02:45 98.1000 [degF] Weight 2017-09-17 09:02:45 178.2000 [lb_av] BMI 2017-09-06 08:55:46 28.9200 BP hatch 2017-09-06 08:55:46 69.0000 mm[Hg] Bdy height 2017-09-06 08:55:46 66.0000 [in_i] Heart rate 2017-09-06 08:55:46 88.0000 /min Resp rate 2017-09-06 08:55:46 24.0000 /min BP sys 2017-09-06 08:55:46 131.0000 mm[Hg] Body temperature 2017-09-06 08:55:46 98.6000 [degF] Weight 2017-09-06 08:55:46 179.2000 [lb_av] BMI 2017-09-03 09:15:21 28.9600 BP hatch 2017-09-03 09:15:21 70.0000 mm[Hg] Bdy height 2017-09-03 09:15:21 66.0000 [in_i] Heart rate 2017-09-03 09:15:21 85.0000 /min Resp rate 2017-09-03 09:15:21 20.0000 /min BP sys 2017-09-03 09:15:21 119.0000 mm[Hg] Body temperature 2017-09-03 09:15:21 97.4000 [degF] Weight 2017-09-03 09:15:21 179.4000 [lb_av] BMI 2017-08-30 08:57:19 28.7600 BP hatch 2017-08-30 08:57:19 60.0000 mm[Hg] Bdy height 2017-08-30 08:57:19 66.0000 [in_i] Heart rate 2017-08-30 08:57:19 84.0000 /min Resp rate 2017-08-30 08:57:19 16.0000 /min BP sys 2017-08-30 08:57:19 126.0000 mm[Hg] Body temperature 2017-08-30 08:57:19 98.4000 [degF] Weight 2017-08-30 08:57:19 178.2000 [lb_av] BMI 2017-08-25 09:07:23 28.4700 BP hatch 2017-08-25 09:07:23 80.0000 mm[Hg] Bdy height 2017-08-25 09:07:23 66.0000 [in_i] Heart rate 2017-08-25 09:07:23 94.0000 /min Resp rate 2017-08-25 09:07:23 16.0000 /min BP sys 2017-08-25 09:07:23 144.0000 mm[Hg] Body temperature 2017-08-25 09:07:23 98.2000 [degF] Weight 2017-08-25 09:07:23 176.4000 [lb_av] BMI 2017-08-16 14:07:22 28.5400 BP hatch 2017-08-16 14:07:22 74.0000 mm[Hg] Bdy height 2017-08-16 14:07:22 66.0000 [in_i] Heart rate 2017-08-16 14:07:22 93.0000 /min Resp rate 2017-08-16 14:07:22 18.0000 /min BP sys 2017-08-16 14:07:22 146.0000 mm[Hg] Body temperature 2017-08-16 14:07:22 98.8000 [degF] Weight 2017-08-16 14:07:22 176.8000 [lb_av] BMI 2017-07-26 09:01:11 28.6000 BP hatch 2017-07-26 09:01:11 79.0000 mm[Hg] Bdy height 2017-07-26 09:01:11 66.0000 [in_i] Heart rate 2017-07-26 09:01:11 83.0000 /min Resp rate 2017-07-26 09:01:11 16.0000 /min BP sys 2017-07-26 09:01:11 145.0000 mm[Hg] Body temperature 2017-07-26 09:01:11 97.1000 [degF] Weight 2017-07-26 09:01:11 177.2000 [lb_av]
== END ==
LOC: WI 08:09
PROVIDERS: ATTEND Obstetrics & Gynecology Gynecology
DX: Z12.31 Encounter for screening mammogram for malignant neoplasm of breast (principal); N64.89 Other specified disorders of breast
CPT/HCPCS: 77067

== ENCOUNTER → 2020-03-21 | Outpatient (CLI) | payer BC ==
--- NOTE | 2020-03-21 13:21 | WOMENS IMAGING REPORT ---
EXAM DESCRIPTION: 3D DX MAMMO LEFT UNILAT IMAGES COMPLETED DATE/TIME: 03/21/2020 12:37 pm REASON FOR STUDY: R92.2 INCONCLUSIVE MAMMOGRAM R92.2 INCONCLUSIVE MAMMOGRAM COMPARISON: 03/15/2020 EXAM PARAMETERS: True lateral cone compression views and tomosynthesis. LIMITATIONS: None. FINDINGS: BREAST LATERALITY: left MASSES: No suspicious masses. CALCIFICATIONS: No new or suspicious calcifications. ARCHITECTURAL DISTORTION: None. ASYMMETRY: None noted. OTHER: No other significant findings. IMPRESSION: No evidence of malignancy. BREAST DENSITY: c. The breasts are heterogeneously dense, which may obscure small masses. BIRAD: ASSESSMENT: 1 Negative. RECOMMENDATION: RECOMMENDED FOLLOW UP: Birads 1 or 2: The patient should resume routine screening . SPECIFIC INTERVENTION/IMAGING/CONSULTATION RECOMMENDED:No additional intervention/ imaging/consultati on needed at this time. COMMUNICATION:The negative/benign results were communicated to the patient. COMMENT: The patient has been notified of the results by letter per [place] requirements. Additional no tification policies are in place for contacting patient with suspicious or incomplete findings. Quality ID #[id number]: The [employer] recommends an annual screening mammogram for women aged 40 years or over. This facility utilizes a reminder system to ensure that all patients receive reminder letters, and/or direct phone calls for appointments. This includes reminders for routine scr eening mammograms, diagnostic mammograms, or other Breast Imaging Interventions when appropriate. Th is patient will be placed in the appropriate reminder system. TECHNICAL DOCUMENTATION: FINDING NUMBER: (1) ASSESSMENT: (1) JOB ID: [id number] 2010 [employer]- All Rights Reserved Reading location - IP/workstation name: [email or web address]
== END ==
LOC: WI 12:00
PROVIDERS: ATTEND Obstetrics & Gynecology Gynecology
DX: R92.2 Inconclusive mammogram (principal)
CPT/HCPCS: 77065